=== PATIENT | male | born 1950 | race Caucasian/White ===

== ENCOUNTER 2020-05-29 21:59 | Inpatient (IN) | payer OTHER, SELFPAY ==
[2020-05-29 22:03] VITALS: BP 119/72; PULSE 93; RESP 18; TEMP 36.7; O2SAT 97; BMI 34.3
--- NOTE | 2020-05-29 22:20 | XRR_ITS ---
PROCEDURE INFORMATION: Exam: XR Chest, 1 View Exam date and time: 05/29/2020 10:31 PM Age: 69 years old Clinical indication: Chest pain. Seizure TECHNIQUE: Imaging protocol: XR of the chest Views: 1 view. COMPARISON: CR Chest 1 [place] [id number] 10/11/2019 6:56 PM FINDINGS: Lungs: There is bilateral bronchial wall thickening and haziness. Ill-defined airspace disease in the right lung base. Mass-like opacity projecting over the right hilum. Pleural space: No pleural effusion or pneumothorax. Heart/Mediastinum: The cardiac silhouette is not enlarged. The mediastinal contours are normal. Bones/joints: Postoperative and degenerative changes in the left shoulder. XR/XR chest 1V portable [id number] IMPRESSION: 1. Asymmetric airspace disease with a bronchial and parenchymal component. This may be due to a pneumonitis or pulmonary edema. 2. Recommend CT CHEST with IV contrast to rule out right hilar adenopathy or juxtahilar mass.
--- NOTE | 2020-05-29 22:21 | ED_ITS ---
HPI - Altered Mental Status General: Chief Complaint: Altered Mental Status Stated Complaint: SEIZURE Time Seen by Provider: 05/29/20 22:08 Source: family and EMS Mode of arrival: EMS Limitations: altered mental status History of Present Illness: HPI narrative: Patient is a 69-year-old who presents today via EMS along with his [id number] for complaints of altered mental status. [id number] states over the past week they have noticed increased lethargy, confusion, altered mental status. They were seen at another facility recently and diagnosed with a UTI and placed on antibiotics in which the daughter does not remember the name of. Upon arrival patient does not answer the majority of my questions. He can tell me his name is Robert but does not answer any further questioning. He is able to follow commands and will look at me when I ask him to and raise his legs and arms off the table. Granddaughter states there was some concern for seizure-like activity. He does have a history of epilepsy that he treats with Keppra. When asked what type of seizures patient has, the daughter tells me that he often will twitch and shake in his sleep. He has a history of COPD not requiring oxygen. Patient is an everyday smoker. Patient was hypoxic upon arrival with respiratory retractions. Patient has hx of HTN, DM, epilepsy, chronic pain, and CHF. He has not had fevers. MD complaint: altered mental status Onset (ago): day(s) Timing confirmed by: family member Consistency of symptoms: Getting Worse Review of Systems General: Reports: ROS unobtainable due to mental status Physical Exam Const: COMMON NORMALS: alert (but drowsy) GENERAL APPEARANCE: cooperative and disheveled NUTRITIONAL APPEARANCE: obese ORIENTATION/CONSCIOUSNESS: Yes awake and Yes oriented to person (can tell me his name is Robert) HENMT: COMMON NORMALS: normocephalic and atraumatic HEAD & SCALP: normocephalic and atraumatic Resp: EFFORT & INSPECTION: Yes respiratory distress, Yes labored and Yes uses accessory muscles AUSCULTATION: rhonchi throughout Cardio: COMMON NORMALS: regular rate and regular rhythm RATE: regular rate RHYTHM: regular rhythm GI: COMMON NORMALS: Soft to palpation INSPECTION: Yes normal to inspection AUSCULTATION: Yes normoactive bowel sounds PALPATION: Yes Soft to palpation Extremity: COMMON NORMALS: normal to inspection GENERAL: Yes normal exam except as noted Neuro: NATE COMA SCALE: document GCS findings Nate coma scale eye opening: To sound Nate coma scale verbal response: Words [place] coma scale motor response: Obey commands Nate coma scale total score: 12 COMMON NORMALS: no focal motor deficits SENSORIUM/ORIENTATION: Yes alert (but drowsy) and Yes oriented to person (can tell me his name is Robert) GAIT: Yes Unable to assess gait OTHER: patient was able to hold extremities off table when asked; he was able to smile when asked and I did not appreciate any facial drooping; did not follow commands for remainder of cranial nerve testing Course Consultations: Consultation #1: Dr. Roth?accepts patient; recommends CSU/will be negative pressure room since we are COVID testing Vital Signs: Vital signs: Vital Signs Temperature 98.1 F 05/29/20 22:03 Pulse Rate 83 05/30/20 02:20 Respiratory Rate 20 H 05/30/20 00:50 Blood Pressure 137/90 05/29/20 23:34 Pulse Oximetry 96 05/30/20 02:20 MDM - Altered Mental Status MDM Narrative: Medical decision making narrative: Patient arrives with a complaint of altered mental status. On arrival he seems to be in respiratory distress with retractions, hypoxia, and tachypnea. Patient satting at 86% on room air. He normally does not wear oxygen at home. Patient responded well to 3L O2. Chest x-ray concerning for possible viral pneumonia although could be pulmonary congestion. BNP is elevated at roughly 2200. I have no previous comparisons. He does have a history of CHF. Clinically he appears fluid overloaded. Initial troponin is 47 with a negative delta. EKG without ischemic changes. ABG shows patient is acidotic with a pH of 7.319. His PCO2 is 71.7. Patient most likely will need tested for COVID. I have spoken to Dr. Roth about placing patient on BiPAP due to COVID testing. He recommended going ahead and placing patient on this due to respiratory failure with hypercapnia and altered mental. Patient was also given IV Lasix. Will cover for pneumonia with Zosyn and Levaquin per Dr. Roth. Repeat ABG after 30 mins of bipap showing PCO2 now at 56 with a normal pH. Lab Data: Labs: Lab Results 05/29/20 05/29/20 05/29/20 Range/Units 00:20 22:21 23:20 WBC 12.9 H (4.0-10.0) 10^3/ uL RBC 4.17 (4.1-5.3) 10^6/u L Hgb 14.1 (11.7-16.6) g/dL Hct 43.5 (42.0-52.0) % MCV 104.3 H (80-94) fL MCH 33.8 (28.0-34.0) pg MCHC 32.4 (30.0-36.0) g/dL RDW 12.0 L (12.1-15.1) % Plt Count 197 (130-400) 10^3/c mm MPV 9.9 (7.4-10.4) fL Neut % (Auto) 79.4 % Lymph % (Auto) 10.9 % Kent % (Auto) 5.3 % Eos % (Auto) 3.7 % Baso % (Auto) 0.2 % Neut # (Auto) 10.23 H (1.8-7.7) 10^3/u L Lymph # (Auto) 1.4 (0.8-4.8) 10^3/u L Kent # (Auto) 0.7 (0.2-0.9) 10^3/u L Eos # (Auto) 0.5 (0.0-0.8) 10^3/u L Baso # (Auto) 0.0 (0.0-0.1) 10^3/u L Nucleated RBC % (a uto) 0 % Nucleated RBCs # 0.0 /100WBC Fibrinogen (184-529) mg/dL D-Dimer (0-0.59) ug/mIFE U Specimen Type Arterial Sample Site Radial, right ABG pH 7.32 L (7.35-7.45) ABG pCO2 71.7 H* (35-45) mmHg ABG pO2 99.0 (80.0-100.0) mmH g ABG HCO3 36.8 H (22-26) mmol/L ABG O2 Saturation 98.2 ABG Base Excess 6.9 H (-2.0-2.0) mmol/ L Newton Test N/a A-a O2 Gradient Not Reportable Hematocrit 55.1 H (42-52) % Hgb O2 Saturation 95.2 (95-100) % Carboxyhemoglobin 2.5 (0.4-20.1) %THgb Methemoglobin 0.6 (0.4-1.5) % Total Hemoglobin 18.0 (14-18) g/dL Sodium 134.0 (131-143) mmol/L Potassium 3.6 (3.5-5.0) mmol/L Glucose 105.0 (70-115) mg/dL Ionized Calcium 1.2 (1.1-1.4) mmol/L O2 Delivery Device Nc O2 Liters/Min 2.0 % FiO2 % Social Work Instructor ID [email or web address] Chloride (98-107) mmol/L Carbon Dioxide (22-29) mmol/L Anion Gap (5-19) BUN (8-23) mg/dL Creatinine (0.7-1.2) mg/dL POC Glucose 134 (70-110) mg/dL Calculated Osmolal ity (285-295) mOsm/k g Lactic Acid (0.5-2.2) mmol/L Calcium (8.5-10.5) mg/dL Magnesium (1.7-2.3) mg/dL Ferritin (30-400) ng/mL Total Bilirubin (0.15-1.2) mg/dL AST (0-40) U/L ALT (0-41) U/L Alkaline Phosphata se (40-130) IU/L Ammonia (16-60) umol/L Troponin T Baselin e (0-15) ng/L Troponin T 120 Min [place] (0-15) ng/L Delta Troponin T (0-10) ABS# C-Reactive Protein (0.0-4.9) mg/L NT-Pro-B Natriuret Pep (0-125) pg/mL Total Protein (6.6-8.7) g/dL Albumin (3.5-5.2) g/dL Globulin (1.3-4.6) g/dL Urine Color (Yellow) Urine Appearance (CLEAR) Urine pH (5-7) Ur Specific Gravit y (1.005-1.030) Urine Protein (Negative) Urine Glucose (UA) (Normal) Urine Ketones (Negative) Urine Blood (Negative) Urine Nitrate (Negative) Urine Bilirubin (NEGATIVE) Urine Urobilinogen (Negative) mg/dL Ur Leukocyte Lizzeth ase (Negative) Urine RBC (0-2) /hpf Urine WBC (0-5) /hpf Ur Squamous Epith Cells (0-5) Amorphous Sediment Urine Bacteria (NONE) Urine Opiates Scre en (Negative) ng/mL Ur Barbiturates Sc reen (Negative) ng/mL Ur Phencyclidine S crn (Negative) ng/mL Ur Amphetamines Sc reen (Negative) ng/mL U Benzodiazepines Scrn (Negative) ng/mL Urine Cocaine Scre en (Negative) ng/mL U Marijuana (THC) Screen (Negative) ng/mL Influenza Type A A g (Negative) Influenza Type B A g (Negative) 05/29/20 05/29/20 05/29/20 Range/Units 23:20 23:20 23:20 WBC (4.0-10.0) 10^3/ uL RBC (4.1-5.3) 10^6/u L Hgb (11.7-16.6) g/dL Hct (42.0-52.0) % MCV (80-94) fL MCH (28.0-34.0) pg MCHC (30.0-36.0) g/dL RDW (12.1-15.1) % Plt Count (130-400) 10^3/c mm MPV (7.4-10.4) fL Neut % (Auto) % Lymph % (Auto) % Kent % (Auto) % Eos % (Auto) % Baso % (Auto) % Neut # (Auto) (1.8-7.7) 10^3/u L Lymph # (Auto) (0.8-4.8) 10^3/u L Kent # (Auto) (0.2-0.9) 10^3/u L Eos # (Auto) (0.0-0.8) 10^3/u L Baso # (Auto) (0.0-0.1) 10^3/u L Nucleated RBC % (a uto) % Nucleated RBCs # /100WBC Fibrinogen (184-529) mg/dL D-Dimer (0-0.59) ug/mIFE U Specimen Type Sample Site ABG pH (7.35-7.45) ABG pCO2 (35-45) mmHg ABG pO2 (80.0-100.0) mmH g ABG HCO3 (22-26) mmol/L ABG O2 Saturation ABG Base Excess (-2.0-2.0) mmol/ L Newton Test A-a O2 Gradient Hematocrit (42-52) % Hgb O2 Saturation (95-100) % Carboxyhemoglobin (0.4-20.1) %THgb Methemoglobin (0.4-1.5) % Total Hemoglobin (14-18) g/dL Sodium 132 L (131-143) mmol/L Potassium 3.7 (3.5-5.0) mmol/L Glucose 129 H (70-115) mg/dL Ionized Calcium (1.1-1.4) mmol/L O2 Delivery Device O2 Liters/Min % FiO2 % Social Work Instructor ID Chloride 90 L (98-107) mmol/L Carbon Dioxide 36 H (22-29) mmol/L Anion Gap 9.7 (5-19) BUN 21 (8-23) mg/dL Creatinine 0.5 L (0.7-1.2) mg/dL POC Glucose (70-110) mg/dL Calculated Osmolal ity 272 L (285-295) mOsm/k g Lactic Acid 1.3 (0.5-2.2) mmol/L Calcium 8.4 L (8.5-10.5) mg/dL Magnesium 2.3 (1.7-2.3) mg/dL Ferritin (30-400) ng/mL Total Bilirubin 0.4 (0.15-1.2) mg/dL AST 9 (0-40) U/L ALT 10 (0-41) U/L Alkaline Phosphata se 79 (40-130) IU/L Ammonia 92 H (16-60) umol/L Troponin T Baselin e (0-15) ng/L Troponin T 120 Min [place] (0-15) ng/L Delta Troponin T (0-10) ABS# C-Reactive Protein (0.0-4.9) mg/L NT-Pro-B Natriuret Pep 2205 H (0-125) pg/mL Total Protein 6.5 L (6.6-8.7) g/dL Albumin 3.5 (3.5-5.2) g/dL Globulin 3.0 (1.3-4.6) g/dL Urine Color (Yellow) Urine Appearance (CLEAR) Urine pH (5-7) Ur Specific Gravit y (1.005-1.030) Urine Protein (Negative) Urine Glucose (UA) (Normal) Urine Ketones (Negative) Urine Blood (Negative) Urine Nitrate (Negative) Urine Bilirubin (NEGATIVE) Urine Urobilinogen (Negative) mg/dL Ur Leukocyte Lizzeth ase (Negative) Urine RBC (0-2) /hpf Urine WBC (0-5) /hpf Ur Squamous Epith Cells (0-5) Amorphous Sediment Urine Bacteria (NONE) Urine Opiates Scre en (Negative) ng/mL Ur Barbiturates Sc reen (Negative) ng/mL Ur Phencyclidine S crn (Negative) ng/mL Ur Amphetamines Sc reen (Negative) ng/mL U Benzodiazepines Scrn (Negative) ng/mL Urine Cocaine Scre en (Negative) ng/mL U Marijuana (THC) Screen (Negative) ng/mL Influenza Type A A g (Negative) Influenza Type B A g (Negative) 05/29/20 05/29/20 05/29/20 Range/Units 23:20 23:30 23:30 WBC (4.0-10.0) 10^3/ uL RBC (4.1-5.3) 10^6/u L Hgb (11.7-16.6) g/dL Hct (42.0-52.0) % MCV (80-94) fL MCH (28.0-34.0) pg MCHC (30.0-36.0) g/dL RDW (12.1-15.1) % Plt Count (130-400) 10^3/c mm MPV (7.4-10.4) fL Neut % (Auto) % Lymph % (Auto) % Kent % (Auto) % Eos % (Auto) % Baso % (Auto) % Neut # (Auto) (1.8-7.7) 10^3/u L Lymph # (Auto) (0.8-4.8) 10^3/u L Kent # (Auto) (0.2-0.9) 10^3/u L Eos # (Auto) (0.0-0.8) 10^3/u L Baso # (Auto) (0.0-0.1) 10^3/u L Nucleated RBC % (a uto) % Nucleated RBCs # /100WBC Fibrinogen (184-529) mg/dL D-Dimer (0-0.59) ug/mIFE U Specimen Type Sample Site ABG pH (7.35-7.45) ABG pCO2 (35-45) mmHg ABG pO2 (80.0-100.0) mmH g ABG HCO3 (22-26) mmol/L ABG O2 Saturation ABG Base Excess (-2.0-2.0) mmol/ L Newton Test A-a O2 Gradient Hematocrit (42-52) % Hgb O2 Saturation (95-100) % Carboxyhemoglobin (0.4-20.1) %THgb Methemoglobin (0.4-1.5) % Total Hemoglobin (14-18) g/dL Sodium (131-143) mmol/L Potassium (3.5-5.0) mmol/L Glucose (70-115) mg/dL Ionized Calcium (1.1-1.4) mmol/L O2 Delivery Device O2 Liters/Min % FiO2 % Social Work Instructor ID Chloride (98-107) mmol/L Carbon Dioxide (22-29) mmol/L Anion Gap (5-19) BUN (8-23) mg/dL Creatinine (0.7-1.2) mg/dL POC Glucose (70-110) mg/dL Calculated Osmolal ity (285-295) mOsm/k g Lactic Acid (0.5-2.2) mmol/L Calcium (8.5-10.5) mg/dL Magnesium (1.7-2.3) mg/dL Ferritin (30-400) ng/mL Total Bilirubin (0.15-1.2) mg/dL AST (0-40) U/L ALT (0-41) U/L Alkaline Phosphata se (40-130) IU/L Ammonia (16-60) umol/L Troponin T Baselin e 47 H (0-15) ng/L Troponin T 120 Min [place] (0-15) ng/L Delta Troponin T (0-10) ABS# C-Reactive Protein (0.0-4.9) mg/L NT-Pro-B Natriuret Pep (0-125) pg/mL Total Protein (6.6-8.7) g/dL Albumin (3.5-5.2) g/dL Globulin (1.3-4.6) g/dL Urine Color Yellow (Yellow) Urine Appearance Clear (CLEAR) Urine pH 5 (5-7) Ur Specific Gravit y 1.025 (1.005-1.030) Urine Protein Trace (Negative) Urine Glucose (UA) Norm (Normal) Urine Ketones Negative (Negative) Urine Blood Neg (Negative) Urine Nitrate Negative (Negative) Urine Bilirubin Neg (NEGATIVE) Urine Urobilinogen Norm (Negative) mg/dL Ur Leukocyte Lizzeth ase Negative (Negative) Urine RBC Rare (0-2) /hpf Urine WBC Rare (0-5) /hpf Ur Squamous Epith Cells None (0-5) Amorphous Sediment Not Reportable Urine Bacteria None (NONE) Urine Opiates Scre en Positive H (Negative) ng/mL Ur Barbiturates Sc reen Negative (Negative) ng/mL Ur Phencyclidine S crn Negative (Negative) ng/mL Ur Amphetamines Sc reen Negative (Negative) ng/mL U Benzodiazepines Scrn Negative (Negative) ng/mL Urine Cocaine Scre en Negative (Negative) ng/mL U Marijuana (THC) Screen Negative (Negative) ng/mL Influenza Type A A g (Negative) Influenza Type B A g (Negative) 05/30/20 05/30/20 05/30/20 Range/Units 00:35 00:50 00:51 WBC (4.0-10.0) 10^3/ uL RBC (4.1-5.3) 10^6/u L Hgb (11.7-16.6) g/dL Hct (42.0-52.0) % MCV (80-94) fL MCH (28.0-34.0) pg MCHC (30.0-36.0) g/dL RDW (12.1-15.1) % Plt Count (130-400) 10^3/c mm MPV (7.4-10.4) fL Neut % (Auto) % Lymph % (Auto) % Kent % (Auto) % Eos % (Auto) % Baso % (Auto) % Neut # (Auto) (1.8-7.7) 10^3/u L Lymph # (Auto) (0.8-4.8) 10^3/u L Kent # (Auto) (0.2-0.9) 10^3/u L Eos # (Auto) (0.0-0.8) 10^3/u L Baso # (Auto) (0.0-0.1) 10^3/u L Nucleated RBC % (a uto) % Nucleated RBCs # /100WBC Fibrinogen 713 H (184-529) mg/dL D-Dimer 0.69 H (0-0.59) ug/mIFE U Specimen Type Sample Site ABG pH (7.35-7.45) ABG pCO2 (35-45) mmHg ABG pO2 (80.0-100.0) mmH g ABG HCO3 (22-26) mmol/L ABG O2 Saturation ABG Base Excess (-2.0-2.0) mmol/ L Newton Test A-a O2 Gradient Hematocrit (42-52) % Hgb O2 Saturation (95-100) % Carboxyhemoglobin (0.4-20.1) %THgb Methemoglobin (0.4-1.5) % Total Hemoglobin (14-18) g/dL Sodium (131-143) mmol/L Potassium (3.5-5.0) mmol/L Glucose (70-115) mg/dL Ionized Calcium (1.1-1.4) mmol/L O2 Delivery Device O2 Liters/Min % FiO2 % Social Work Instructor ID Chloride (98-107) mmol/L Carbon Dioxide (22-29) mmol/L Anion Gap (5-19) BUN (8-23) mg/dL Creatinine (0.7-1.2) mg/dL POC Glucose (70-110) mg/dL Calculated Osmolal ity (285-295) mOsm/k g Lactic Acid (0.5-2.2) mmol/L Calcium (8.5-10.5) mg/dL Magnesium (1.7-2.3) mg/dL Ferritin (30-400) ng/mL Total Bilirubin (0.15-1.2) mg/dL AST (0-40) U/L ALT (0-41) U/L Alkaline Phosphata se (40-130) IU/L Ammonia (16-60) umol/L Troponin T Baselin e (0-15) ng/L Troponin T 120 Min [place] 41.81 H (0-15) ng/L Delta Troponin T -5.19 L (0-10) ABS# C-Reactive Protein (0.0-4.9) mg/L NT-Pro-B Natriuret Pep (0-125) pg/mL Total Protein (6.6-8.7) g/dL Albumin (3.5-5.2) g/dL Globulin (1.3-4.6) g/dL Urine Color (Yellow) Urine Appearance (CLEAR) Urine pH (5-7) Ur Specific Gravit y (1.005-1.030) Urine Protein (Negative) Urine Glucose (UA) (Normal) Urine Ketones (Negative) Urine Blood (Negative) Urine Nitrate (Negative) Urine Bilirubin (NEGATIVE) Urine Urobilinogen (Negative) mg/dL Ur Leukocyte Lizzeth ase (Negative) Urine RBC (0-2) /hpf Urine WBC (0-5) /hpf Ur Squamous Epith Cells (0-5) Amorphous Sediment Urine Bacteria (NONE) Urine Opiates Scre en (Negative) ng/mL Ur Barbiturates Sc reen (Negative) ng/mL Ur Phencyclidine S crn (Negative) ng/mL Ur Amphetamines Sc reen (Negative) ng/mL U Benzodiazepines Scrn (Negative) ng/mL Urine Cocaine Scre en (Negative) ng/mL U Marijuana (THC) Screen (Negative) ng/mL Influenza Type A A g Negative (Negative) Influenza Type B A g Negative (Negative) 05/30/20 05/30/20 Range/Units 00:54 02:50 WBC (4.0-10.0) 10^3/ uL RBC (4.1-5.3) 10^6/u L Hgb (11.7-16.6) g/dL Hct (42.0-52.0) % MCV (80-94) fL MCH (28.0-34.0) pg MCHC (30.0-36.0) g/dL RDW (12.1-15.1) % Plt Count (130-400) 10^3/c mm MPV (7.4-10.4) fL Neut % (Auto) % Lymph % (Auto) % Kent % (Auto) % Eos % (Auto) % Baso % (Auto) % Neut # (Auto) (1.8-7.7) 10^3/u L Lymph # (Auto) (0.8-4.8) 10^3/u L Kent # (Auto) (0.2-0.9) 10^3/u L Eos # (Auto) (0.0-0.8) 10^3/u L Baso # (Auto) (0.0-0.1) 10^3/u L Nucleated RBC % (a uto) % Nucleated RBCs # /100WBC Fibrinogen (184-529) mg/dL D-Dimer (0-0.59) ug/mIFE U Specimen Type Arterial Sample Site Radial, right ABG pH 7.40 (7.35-7.45) ABG pCO2 56.0 H (35-45) mmHg ABG pO2 68.2 L (80.0-100.0) mmH g ABG HCO3 34.9 H (22-26) mmol/L ABG O2 Saturation 95.6 ABG Base Excess 8.0 H (-2.0-2.0) mmol/ L Newton Test N/a A-a O2 Gradient 110.1 H Hematocrit 45.6 (42-52) % Hgb O2 Saturation 92.6 L (95-100) % Carboxyhemoglobin 2.4 (0.4-20.1) %THgb Methemoglobin 0.7 (0.4-1.5) % Total Hemoglobin 14.9 (14-18) g/dL Sodium 135.0 (131-143) mmol/L Potassium 3.5 (3.5-5.0) mmol/L Glucose 124.0 H (70-115) mg/dL Ionized Calcium 1.1 (1.1-1.4) mmol/L O2 Delivery Device Bipap O2 Liters/Min % FiO2 35.0 % Social Work Instructor ID [email or web address] Chloride (98-107) mmol/L Carbon Dioxide (22-29) mmol/L Anion Gap (5-19) BUN (8-23) mg/dL Creatinine (0.7-1.2) mg/dL POC Glucose (70-110) mg/dL Calculated Osmolal ity (285-295) mOsm/k g Lactic Acid (0.5-2.2) mmol/L Calcium (8.5-10.5) mg/dL Magnesium (1.7-2.3) mg/dL Ferritin 397 (30-400) ng/mL Total Bilirubin (0.15-1.2) mg/dL AST (0-40) U/L ALT (0-41) U/L Alkaline Phosphata se (40-130) IU/L Ammonia (16-60) umol/L Troponin T Baselin e (0-15) ng/L Troponin T 120 Min [place] (0-15) ng/L Delta Troponin T (0-10) ABS# C-Reactive Protein 132.6 H (0.0-4.9) mg/L NT-Pro-B Natriuret Pep (0-125) pg/mL Total Protein (6.6-8.7) g/dL Albumin (3.5-5.2) g/dL Globulin (1.3-4.6) g/dL Urine Color (Yellow) Urine Appearance (CLEAR) Urine pH (5-7) Ur Specific Gravit y (1.005-1.030) Urine Protein (Negative) Urine Glucose (UA) (Normal) Urine Ketones (Negative) Urine Blood (Negative) Urine Nitrate (Negative) Urine Bilirubin (NEGATIVE) Urine Urobilinogen (Negative) mg/dL Ur Leukocyte Lizzeth ase (Negative) Urine RBC (0-2) /hpf Urine WBC (0-5) /hpf Ur Squamous Epith Cells (0-5) Amorphous Sediment Urine Bacteria (NONE) Urine Opiates Scre en (Negative) ng/mL Ur Barbiturates Sc reen (Negative) ng/mL Ur Phencyclidine S crn (Negative) ng/mL Ur Amphetamines Sc reen (Negative) ng/mL U Benzodiazepines Scrn (Negative) ng/mL Urine Cocaine Scre en (Negative) ng/mL U Marijuana (THC) Screen (Negative) ng/mL Influenza Type A A g (Negative) Influenza Type B A g (Negative) Imaging Data^: CT Head: Radiologist's impression: [address] [address] [address] Scan Report Signed Patient: Robert Crisostomo Unit #: [id number] : 1950 Age/Sex: 69 / M ADM Date: 05/29/20 Loc: ER Room/Bed: Attending Dr: Ordering Provider/Ordering MD: Lizzy Aggarwal Date of Service: 05/29/20 Procedure(s): CT head wo con* [id number] Accession Number(s): [id number] Report Number: [id number] PROCEDURE INFORMATION: Exam: CT Head Without Contrast Exam date and time: 05/29/2020 10:30 PM Age: 69 years old Clinical indication: Altered mental status/memory loss; Additional info: AMS TECHNIQUE: Imaging protocol: Computed tomography of the head without contrast. Radiation optimization: All CT scans at this facility use at least one of these dose optimization techniques: automated exposure control; mA and/or kV adjustment per patient size (includes targeted exams where dose is matched to clinical indication); or iterative reconstruction. COMPARISON: CT head wo con* [id number] 04/10/2015 11:25 AM RADIATION DOSE METRICS: Total DLP (mGy-cm): 632.17 FINDINGS: Brain: Mild diffuse white matter disease likely reflecting chronic microvascular ischemic changes. Ventricles: Normal. No ventriculomegaly. Bones/joints: Unremarkable. No acute fracture. Sinuses: Visualized sinuses are unremarkable. No fluid levels. Mastoid air cells: Visualized mastoid air cells are well aerated. Soft tissues: Unremarkable. CT/CT head wo con* [id number] IMPRESSION: Negative for intracranial hemorrhage or mass effect Radiation Dose CTDIVOL = (mGy): DLP = 632.17 (mGy-cm) Dictated By: Erwin Ascencio MD Signed By: Erwin Ascencio MD Signed Date/Time: 05/29/20 1586 CXR: My impression: diffuse bilateral interstitial thickening-possible viral pneumonia or pulmonary congestion Discharge Plan Discharge Patient Disposition: Admitted As Inpatient Clinical Impression: Acute respiratory failure with hypercapnia Congestive heart failure Qualifiers: Heart failure type: unspecified Heart failure chronicity: acute on chronic Qualified Code(s): I50.9 - Heart failure, unspecified Altered mental status Qualifiers: Altered mental status type: stupor Qualified Code(s): R40.1 - Stupor Condition: Stable Referrals: [facility] [Primary Care Provider] - Coding Level of Care Code ED Logging 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
--- NOTE | 2020-05-29 22:31 | PC.NURSE ---
Blood glucose is 134, nurse and nurse practitioner informed
[2020-05-29 22:33] LABS: Glucose Point of Care 134 mg/dL (70-110)
[2020-05-29 22:34] VITALS: BP 107/79; PULSE 94; RESP 24; O2SAT 89
--- NOTE | 2020-05-29 23:15 | PC.NURSE ---
Patient swabbed for COVID-19 at this time.
[2020-05-29 23:29] LABS: Basophils % 0.2 %; Eosinophils # 0.5 10^3/uL (0.0-0.8); Eosinophils % 3.7 %; Hematocrit 43.5 % (42.0-52.0); Hemoglobin 14.1 g/dL (11.7-16.6); Lymphocytes # 1.4 10^3/uL (0.8-4.8); Lymphocytes % 10.9 %; Mean Corpuscular HGB Conc 32.4 g/dL (30.0-36.0); Mean Corpuscular Hemoglobin 33.8 pg (28.0-34.0); Mean Corpuscular Volume 104.3 fL (80-94); Mean Platelet Volume 9.9 fL (7.4-10.4); Monocytes # 0.7 10^3/uL (0.2-0.9); Monocytes % 5.3 %; Neutrophils # 10.23 10^3/uL (1.8-7.7); Neutrophils % 79.4 %; Nucleated Red Blood Cells % 0 %; Platelet Count 197 10^3/cmm (130-400); Red Blood Count 4.17 10^6/uL (4.1-5.3); White Blood Count 12.9 10^3/uL (4.0-10.0)
[2020-05-29 23:34] VITALS: BP 137/90; PULSE 95; RESP 18; O2SAT 97
[2020-05-29] MEDS: cefTRIAXone 1,000 MG in sodium chloride 0.9% (plus) 50 ML 100 MG IV (23:40)
[2020-05-29] MEDS: azithromycin 500 MG in sodium chloride 0.9% 250 ML 250 MG IV (23:40)
[2020-05-29 23:44] LABS: Lactic Sepsis W/Reflex 1.3 mmol/L (0.5-2.2)
[2020-05-29 23:45] LABS: Ammonia 92 umol/L (16-60)
[2020-05-29 23:53] LABS: Alanine Aminotransferase 10 U/L (0-41); Albumin Level 3.5 g/dL (3.5-5.2); Alkaline Phosphatase 79 IU/L (40-130); Anion Gap 9.7 (5-19); Aspartate Amino Transferase 9 U/L (0-40); Blood Urea Nitrogen 21 mg/dL (8-23); Calcium 8.4 mg/dL (8.5-10.5); Carbon Dioxide 36 mmol/L (22-29); Chloride 90 mmol/L (98-107); Glucose 129 mg/dL (65-115); Magnesium 2.3 mg/dL (1.7-2.3); NT Pro B Type Natriuretic Pept 2205 pg/mL (0-125); Osmolality Calculated 272 mOsm/kg (285-295); Potassium 3.7 mmol/L (3.5-5.1); Sodium 132 mmol/L (136-145); Total Bilirubin 0.4 mg/dL (0.15-1.2); Total Protein 6.5 g/dL (6.6-8.7)
[2020-05-30] VITALS (20 sets, daily range): BP systolic 112–160; BP diastolic 69–96; PULSE 68–101; RESP 17–25; TEMP 36.3–36.8; O2SAT 93–100
[2020-05-30 00:10] LABS: Amphetamines Screen Urine Negative (Negative); Barbiturates Screen Urine Negative (Negative); Benzodiazepines Screen Urine Negative (Negative); Cocaine Screen Urine Negative (Negative); Opiate Screen Urine Positive (Negative); PCP Screen Urine Negative (Negative); THC Screen Urine Negative (Negative)
[2020-05-30 00:13] LABS: Add Urine Microscopic? YES; Bilirubin Urine Neg (NEGATIVE); Blood Urine Neg (Negative); Glucose Urine UA Norm (Normal); Ketones Urine Negative (Negative); Leukocyte Esterase Urine Negative (Negative); Nitrate Urine Negative (Negative); Protein Urine Trace (Negative); RBC Urine RARE /hpf (0-2); Specific Gravity, Urine 1.025 (1.005-1.030); Urine Appearance Clear (CLEAR); Urine Color Yellow (Yellow); Urobilinogen Urine Norm (Negative); WBC Urine RARE /hpf (0-5); pH Urine 5 (5-7)
[2020-05-30 00:19] LABS: Troponin(5th) Baseline 47 ng/L (0-15)
--- NOTE | 2020-05-30 00:20 | ECG_ITS ---
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 Measurements Intervals [place] Rate: 93 P: 56 ID: 153 QRS: 61 QRSD: 80 T: 74 QT: 343 QTc: 429 Interpretive Statements SINUS RHYTHM Compared to ECG 01/04/2018 17:35:43 Sinus tachycardia no longer present T-wave abnormality no longer present Electronically Signed On 05-30-2020 17:03:26 CDT by Jessica Murillo M.D. [id number]
[2020-05-30 00:32] LABS: ABG PH Result 7.32 (7.35-7.45); Arterial Blood Gas Hematocrit 55.1 % (42-52); Base Excess ABG 6.9 mmol/L (-2.0-2.0); Blood Gas Sample Site Radial, right; Blood Gas Sample Type Arterial; Carboxyhemoglobin 2.5 %THgb (0.4-20.1); HCO3 ABG 36.8 mmol/L (22-26); HGB O2 Sat 95.2 % (95-100); Ionized Calcium Level - ABG 1.2 mmol/L (1.1-1.4); Methemoglobin 0.6 % (0.4-1.5); Oxygen Device NC; Oxygen Saturation ABG 98.2; Potassium Level - ABG 3.6 mmol/L (3.5-5.0)
[2020-05-30 00:33] LABS: ABG PCO2 71.7 mmHg (35-45)
--- NOTE | 2020-05-30 01:01 | PC.NURSE ---
Report given to COOPER STRANGE and is assuming patient care at this time.
[2020-05-30 01:13] LABS: Fibrinogen 713 mg/dL (184-529)
[2020-05-30 01:15] LABS: D Dimer 0.69 ug/mIFEU (0-0.59)
[2020-05-30 01:15] LABS: C Reactive Protein 132.6 mg/L (0.0-4.9); Ferritin 397 ng/mL (30-400)
[2020-05-30 01:16] LABS: Troponin 5 2HR 41.81 ng/L (0-15)
[2020-05-30 01:20] LABS: Influenza A by IFA Negative (Negative); Influenza B by IFA Negative (Negative)
[2020-05-30 01:20] LABS: Troponin 5 2HR Delta -5.19 ABS# (0-10)
--- NOTE | 2020-05-30 02:03 | PC.NURSE ---
Addendum entered by Radha Romero 05/30/20 02:07: charted wrong time on the patient. ekg done. Original Note: charted on wrong patient
[2020-05-30] MEDS: FUROsemide 10 mg/mL SDV 4mL 40 MG IVP ×3 (02:36→22:03)
[2020-05-30] MEDS: piperacillin-tazobactam 3.375 GM in sodium chloride 0.9% (plus) 50 ML IV ×3 (02:36→17:12)
[2020-05-30] MEDS: levofloxacin-dextrose 5 % 500 MG/100 ML PREMIX 100 MG IV (02:37)
[2020-05-30 03:02] LABS: Alveolar-Arterial Oxygen Gradi 110.1 mmHg (5-10); Arterial Blood Gas Hematocrit 45.6 % (42-52); Blood Gas Sample Site Radial, right; Blood Gas Sample Type Arterial; Carboxyhemoglobin 2.4 %THgb (0.4-20.1); HCO3 ABG 34.9 mmol/L (22-26); HGB O2 Sat 92.6 % (95-100); Ionized Calcium Level - ABG 1.1 mmol/L (1.1-1.4); Methemoglobin 0.7 % (0.4-1.5); Oxygen Device BIPAP; Oxygen Saturation ABG 95.6; PO2 ABG 68.2 mmHg (80.0-100.0); Potassium Level - ABG 3.5 mmol/L (3.5-5.0); Total Hemoglobin 14.9 g/dL (14-18)
--- NOTE | 2020-05-30 04:20 | ECG_ITS ---
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 Measurements Intervals [place] Rate: 90 P: 45 FL: 135 QRS: 57 QRSD: 89 T: 78 QT: 371 QTc: 456 Interpretive Statements SINUS RHYTHM MINIMAL ST DEPRESSION [0.025+ mV ST DEPRESSION] Compared to ECG 05/30/2020 01:38:13 ST (T wave) deviation now present Electronically Signed On 05-30-2020 17:01:02 CDT by Jessica Murillo M.D. [id number]
--- NOTE | 2020-05-30 07:09 | PM.HP ---
Providers/Chief Complaint Admitting Physician: Ruddy Roth Primary Care Provider: [facility] Chief Complaint: SEIZURE History of Present Illness Robert Crisostomo is a 69 year old gentleman with diabetes, COPD, HTN, CAD, living at home with his , has been noted to be progressively more lethargic, less responsive, with functional decline over the last week. Due to altered mental status his family brought him in for evaluation. He is not normally on oxygen. In ER requiring 3 L by nasal cannula. Lethargic. With hypercapnia, CO2 71 on ABG. Respiratory cytosis, pH 7.31. With diffuse noted infiltrates on chest x-ray, with pulmonary venous congestive changes, cardiomegaly. BNP elevated in the setting of normal renal function. Incidentally ammonia is noted high as well at 92, although does not have known liver cirrhosis. Family also reports some episodes that appear like seizures, when he would while sleeping tense up his legs, and developed some shaking movements/tremors lasting a short time at home. Most recently night before last. Not observed here in the hospital. He is on Keppra at home. Does not follow with a neurologist. Per discussion with his plgocsdn-vj-kim who was present in ER with him, he reportedly recently has been diagnosed with lung cancer also by [facility]. Reportedly he has not seen an oncologist yet, and bogkooxc-kc-fke states that he has been not been wanting chemotherapy. This is not confirmed by patient, as he is currently still confused. He did respond well to treatment with BiPAP, with improvement in pH and CO2, as well as per aorwyfqo-[id number]-cpi improvement in his mental status. He now is more alert, he knows he is in the hospital, knows the year is 2019. It takes him a while to think about his answers, and still does not answer every question. He himself denies any discomfort currently, says he is doing all right. He is not sure how he ended up in the hospital. Denies any chest pain or pressure. Denies any headache. Review of Systems Const: Reports: snoring and other (AMS); Denies: fever(s), chills, body aches or malaise Eyes: Denies: change in vision or eye redness ENMT: Denies: throat pain, oral sores or ear or mastoid pain Card: Denies: chest pain, edema, pre-syncope or dyspnea on exertion Resp: Reports: dyspnea; Denies: productive cough, change in phlegm color or hemoptysis GI: Denies: abdominal pain, nausea, vomiting, diarrhea, constipation, hematochezia or melena : Denies: flank pain, difficulty urinating, urinary frequency or hematuria Musc: Denies: back pain, joint swelling or joint redness Skin/Breast: Denies: rash, sores or new lesions Neuro: Reports: confusion and seizure-like activity; Denies: headache(s), numbness in extremities, weakness in extremities or dizziness Endo: Denies: polyuria or polydipsia Oh/Lymph: Denies: easy bleeding or purpura All/Imm: Denies: urticaria, throat swelling or tongue swelling Medications/Allergies Allergies Allergy/AdvReac Type Severity Reaction Status Date / Time No Known Allergies Allergy Verified 05/30/20 02:35 PFSH Acute PFSH: Medical History CAD (coronary artery disease) COPD (chronic obstructive pulmonary disease) DM type 2 (diabetes mellitus, type 2) HLD (hyperlipidemia) HTN (hypertension) Smoking addiction Surgical History H/O neck surgery H/O: knee surgery History of shoulder surgery Hx of appendectomy Family History Other Cancer Heart disease Social History Smoking and tobacco status: current every day smoker cigarettes Packs smoked per day: 1 Alcohol intake: never Substance/Drug Use: never Lives independently: Yes Household members: spouse Marital status: Current occupational status: retired Vitals/I&O/Wt Last Vital Signs Temp 98.1 F 05/29/20 22:03 Pulse 91 05/30/20 06:16 Resp 18 05/30/20 06:16 BP 135/96 05/30/20 06:16 Pulse Ox 96 05/30/20 06:16 05/29/20 05/30/20 05/30/20 22:59 06:59 14:59 Intake Total 616.667 / 616.667 Balance 616.667 / 616.667 Weight last 48 hrs Weight 90.718 kg Physical Exam Narrative: EXAM NARRATIVE: Unkempt. Const: COMMON NORMALS: no acute distress and patient oriented x3 GENERAL APPEARANCE: cooperative (but sluggish, and not responding to all commands and not consistently) ORIENTATION/CONSCIOUSNESS: Yes confused (Sluggish responses. Does not know why he is in the hospital.) OTHER: BiPAP in place. HENMT: COMMON NORMALS: oropharynx normal Neck/C-Spine: COMMON NORMALS: no JVD Resp: COMMON NORMALS: normal respiratory effort AUSCULTATION: diminished lung sounds Cardio: COMMON NORMALS: no JVD, regular rhythm, S1 normal heart sound present, S2 normal heart sound present and No murmurs present (Cardio) RHYTHM: regular rhythm HEART SOUNDS: S1 normal heart sound present and S2 normal heart sound present GI: COMMON NORMALS: Normal to inspection, nondistended, normoactive bowel sounds present, Soft to palpation and non-tender PALPATION: Yes Soft to palpation Extremity: COMMON NORMALS: no joint enlargement and no pedal edema Neuro: COMMON NORMALS: patient oriented x3 and moves all extremities Skin: COMMON NORMALS: no rashes or lesions noted GENERAL SKIN EXAM: no rashes or lesions noted OTHER: Some scratches and excoriations noted on bilateral lower extremities. Very long toenails. Urinary Catheter Management^: Shirley: Cath Placed During This Visit: yes Reason for Continuing Indwelling Catheter: Accurate Measurement of Urinary Output in Critically Ill Patients Urinary Catheter Date of Insertion: 05/30/20 Urinary Catheter Time of Insertion: 00:02 Data : 05/29/20 23:20 05/29/20 23:20 Micro: Microbiology 05/29/20 23:21 Blood Culture - Preliminary Blood SPECIMEN COLLECTED 05/29/20 23:20 Blood Culture - Preliminary Blood SPECIMEN COLLECTED A&P Assessment and plan (1) Acute encephalopathy: Acute toxic metabolic encephalopathy. Worsening over the past week, less responsive at home. Here with acute hypercapnic and hypoxic respiratory failure. Likely contribution from CO2 narcosis. He is a current smoker unfortunately still smoking 1 pack/day. Reportedly recently also may have been diagnosed with lung cancer. CT of the head with microvascular changes. No obvious metastatic disease. Family noted perhaps seizure-like activity the night before last. Not observed here in the hospital. Appears also CHF. His medication list is also unavailable currently, and will need to be reconciled. Mental status has improved, although is not back to baseline. Noted improvement with BiPAP, as well as improved pH and PCO2. Continue BiPAP support for now. Treat COPD as per patient. We will assess EEG. Discussed with family once he is safely able to get this done would benefit from MRI of the brain. Continue Keppra at this time. Exact dosing will need to be ascertained. Status: Acute (2) Acute respiratory failure with hypercapnia: Secondary to COPD exacerbation, CHF. Possible pneumonia. Continue BiPAP support. Treatment for COPD. Diuretics. Antibiotics for possible pneumonia. Assess with rapid flu, COVID-19 testing. Status: Acute (3) COPD exacerbation: With improvement in ABG w BiPAP. Cont support for now. IV steroid. Antibiotics as for possible pneumonia with Levaquin and Zosyn for now. Breathing treatments. Status: Acute (4) Congestive heart failure: Assess TTE. Lasix. Complete troponin EKG series. Status: Acute Qualifiers: Heart failure chronicity: acute on chronic Heart failure type: unspecified Qualified Code(s): I50.9 - Heart failure, unspecified (5) HTN (hypertension): Monitor blood pressures. Medications need to be reconciled. Status: Acute (6) HLD (hyperlipidemia): Medications will need to be reconciled, resumed. If not on statin consider assessment by FLP. Status: Acute (7) DM type 2 (diabetes mellitus, type 2): Reportedly on oral hypoglycemic. At this time consistent carbohydrate diet. Sliding scale insulin. Check A1c. Status: Acute (8) Hyperammonemia: Ammonia elevated at 92. Unclear significance. No known history of cirrhosis. Will request INR. Other laboratory parameters do not seem to suggest liver cirrhosis. Consider additional work-up if mental status changes and hyperammonemia persistent. Status: Acute (9) Lung cancer: The history of this is unclear. Per [id number]-ese appears she may have been diagnosed with lung cancer by his [facility]. He does not appear he is seen a oncologist yet. She states he has been reluctant to go for any therapy. Staging is unknown at this time. Would try to obtain records from [place], and hopefully once patient's mental status is improved he may be able to tell more. Status: Acute (10) Smoking addiction: Encourage cessation. Discussed with her as liqfspny-[id number]. She has been trying to discourage him from smoking, however, he still smokes 1 pack/day. Status: Acute Additional A&P Information Possible pneumonia: With scattered infiltrates in both lungs. Suspect this is more likely secondary to pulmonary edema/CHF. However, with leukocytosis, respiratory failure, pneumonia cannot be excluded. At this time antibiotic coverage with Levaquin, Zosyn. No recent hospitalization that is known. Also assessment for COVID-19, although given lack of other features this is probably less likely. Attestations Medical Necessity Statement*: Admission of over 2 midnights is going to needed for assessment management of acute encephalopathy, respiratory failure, COPD distribution, CHF, possible pneumonia. Coding Level of Care Code Acute Sales And Support Center Agent for [facility] Fwd Exam Comprehensive Diagnoses Acute encephalopathy G93.40 Acute respiratory failure with hypercapnia J96.02 COPD exacerbation J44.1 Congestive heart failure I50.9 Heart failure chronicity: acute on chronic Heart failure type: unspecified HTN (hypertension) I10 HLD (hyperlipidemia) E78.5 DM type 2 (diabetes mellitus, type 2) E11.9 Hyperammonemia E72.20 Lung cancer C34.90 Smoking addiction F17.200
--- NOTE | 2020-05-30 07:10 | PC.NURSE ---
Daughter in law in room but wants/needs to leave. Pt resting in bed with BiPap in place. Under Covid precautions. Offered a drink of water. Disoriented to surrounding but knows family.
--- NOTE | 2020-05-30 09:27 | PC.NURSE ---
Lab drawn for day shift
--- NOTE | 2020-05-30 09:36 | PC.CHAP ---
Pastoral Care Encounter/Spiritual Assessment Type of Contact [] Declined hot kettle tender visit [] Patient/Family/Request visit [] Outpatient visit [] Follow-up visit [] Physician referral [] Code/Alert [x] Routine visit [] Staff referral [] Actively dying [] Patient sleeping [] Family support [] [] Out of room [] Palliative care [] [] Receiving care in room [] Pre-surgical visit [] Trauma [] Long length of stay [] ICU visit [x] Other: patient not in room- bed made and cleaned... moved ? Relational/Emotional Strength [] Patient feels connected with others/family/visitors/staff [] Distress [] Loneliness/isolation [] Abandonment Spirituality of Patient [] Person of Bianca [] Attends Judaism of their Bianca [] Believes in Prayer [] Reads Bible or Nondenominational materials [] There are Spiritual issues to be addressed [place]er Interventions [] Prayer [] Active listening [] Non-anxious presence [] Spiritual/emotional support [] Crisis/trauma care [] Spiritual counseling [] Bereavement support [] Provided bereavement packet [] Provided Bible/devotional materials [] Provided toy/stuffed animal, coloring book to patient or family member [] Provided Communion [] Anointing/[place] [] Salvation [x] Completed spiritual assessment [] Other: Impact on Illness or Injury [] Angry [] Fearful [] Anxious [] Often cries [] Exhaustion [] Unable to work [] Unable to attend evangelical [] Unable to walk/stand [] Unable to read [] Unable to drive [] Unable to eat/drink [] Unable to sleep [] Unable to be with family [] Patient intubated [] Other: Summary Time spent with patient
[2020-05-30 09:37] LABS: INR 0.95 (0.8-1.2)
[2020-05-30 09:47] LABS: Troponin 5 6HR 34.11 ng/L (0-15)
[2020-05-30 09:50] LABS: Estmated Average Glucose 126
[2020-05-30 09:56] LABS: Troponin 5 6HR Delta -12.9 ng/L (0-12)
--- NOTE | 2020-05-30 11:12 | PM.PN ---
Subjective Subjective: Interval history: no acute events overnight, ABG much improved on Bipap, pending COVID testing Medications: Reviewed: Yes Vitals/I&O/Wt Last Vital Signs Temp 98.3 F 05/30/20 10:02 Pulse 86 05/30/20 10:02 Resp 22 H 05/30/20 10:02 BP 153/88 05/30/20 10:02 Pulse Ox 99 05/30/20 10:02 05/29/20 05/30/20 05/30/20 22:59 06:59 14:59 Intake Total 616.667 / 616.667 Balance 616.667 / 616.667 Weight last 48 hrs Weight 90.718 kg Physical Exam Urinary Catheter Management^: Shirley: Cath Placed During This Visit: yes Reason for Continuing Indwelling Catheter: Accurate Measurement of Urinary Output in Critically Ill Patients Urinary Catheter Date of Insertion: 05/30/20 Urinary Catheter Time of Insertion: 00:02 Data : 05/29/20 23:20 05/29/20 23:20 Micro: Microbiology 05/29/20 23:21 Blood Culture - Preliminary Blood SPECIMEN COLLECTED 05/29/20 23:20 Blood Culture - Preliminary Blood SPECIMEN COLLECTED A&P Assessment and plan (1) Acute encephalopathy: Acute toxic metabolic encephalopathy from hypercapnea. Worsening over the past week, less responsive at home. Here with acute hypercapnic and hypoxic respiratory failure. CT of the head without acute changes, with only chronic microvascular changes. No obvious metastatic disease, suspicion for lung malignancy as an outpatient. Family noted perhaps seizure-like activity the night before last. Not observed here in the hospital. Keppra level pending Appears also to have CHF, currently on lasix 40mg IVP q12h. urine output from ER has not been charted. Since coming up to floor Mental status has improved, although is not back to baseline. Noted improvement with BiPAP, as well as improved pH and PCO2. Continue BiPAP support for now. Treat COPD as per patient. We will assess EEG. Discussed with family once he is safely able to get this done would benefit from MRI of the brain. Continue Keppra at this time. Exact dosing will need to be ascertained. Status: Acute (2) Acute respiratory failure with hypercapnia: Secondary to COPD exacerbation, CHF. Possible pneumonia. Continue BiPAP support. Treatment for COPD. Diuretics. Antibiotics for possible pneumonia. Assess with rapid flu, COVID-19 testing. Status: Acute (3) COPD exacerbation: With improvement in ABG w BiPAP. Cont support for now. IV steroid. Antibiotics as for possible pneumonia with Levaquin and Zosyn for now. Breathing treatments. Status: Acute (4) Congestive heart failure: Assess TTE. Lasix. Complete troponin EKG series. Status: Acute Qualifiers: Heart failure chronicity: acute on chronic Heart failure type: unspecified Qualified Code(s): I50.9 - Heart failure, unspecified (5) HTN (hypertension): Monitor blood pressures. Status: Acute (6) HLD (hyperlipidemia): Medications will need to be reconciled, resumed. If not on statin consider assessment by FLP. Status: Acute (7) DM type 2 (diabetes mellitus, type 2): Reportedly on oral hypoglycemic. At this time consistent carbohydrate diet. Sliding scale insulin. Check A1c. Status: Acute (8) Hyperammonemia: Ammonia elevated at 92. Unclear significance. No known history of cirrhosis. Will request INR. Other laboratory parameters do not seem to suggest liver cirrhosis. Status: Acute (9) Lung cancer: The history of this is unclear. Per [id number]-eh-dbm appears she may have been diagnosed with lung cancer by [facility]. He does not appear he is seen a oncologist yet. CTA chest today to r/o PE and evaluate for malignancy. Status: Acute (10) Smoking addiction: Status: Acute Additional A&P Information Possible pneumonia: With scattered infiltrates in both lungs. Suspect this is more likely secondary to pulmonary edema/CHF. However, with leukocytosis, respiratory failure, pneumonia cannot be excluded. At this time antibiotic coverage with Levaquin, Zosyn. No recent hospitalization that is known. Also assessment for COVID-19, although given lack of other features this is probably less likely. Attestations Medical Necessity Statement*: needs ongoing admission for optimization of respiratory status Coding Level of Care Code Acute Human Resources Services Specialist for [facility] Fwiftikhar Diagnoses Acute encephalopathy G93.40 Acute respiratory failure with hypercapnia J96.02 COPD exacerbation J44.1 Congestive heart failure I50.9 Heart failure chronicity: acute on chronic Heart failure type: unspecified HTN (hypertension) I10 HLD (hyperlipidemia) E78.5 DM type 2 (diabetes mellitus, type 2) E11.9 Hyperammonemia E72.20 Lung cancer C34.90 Smoking addiction F17.200
[2020-05-30] MEDS: levETIRAcetam 500 mg Tablet 750 MG PO ×2 (11:40→18:20)
--- NOTE | 2020-05-30 12:32 | PC.RESP ---
Smoking Cessation and Pulmonary Rehab information sent to patient with a schedule of classes.
[2020-05-30] MEDS: ipratropium-albuterol 3 mL Neb INHALATION ×2 (14:18→21:02)
--- NOTE | 2020-05-30 19:21 | PC.NURSE ---
Password: [id number]
--- NOTE | 2020-05-30 20:17 | PC.NURSE ---
Rounding: Patient resting in bed, Patient answered orientation questions appropriately at this time. Covid precautions at in place at this time. Patient denies any pain or needs at this time. Instructed how to use call light. Side rails up x2 and bed in low postion. Will continue to monitor.
[2020-05-31] VITALS (13 sets, daily range): BP systolic 123–138; BP diastolic 62–86; PULSE 76–93; RESP 16–25; TEMP 36.5–36.8; O2SAT 91–95
[2020-05-31] MEDS: levofloxacin-dextrose 5 % 750 MG/150 ML PREMIX 100 MG IV (01:44)
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
[2020-05-31] MEDS: piperacillin-tazobactam 3.375 GM in sodium chloride 0.9% (plus) 50 ML IV ×3 (03:18→20:08)
--- NOTE | 2020-05-31 03:34 | PC.NURSE ---
Patient placed on bipap on for 5 mins unable to tolerate mask on face. Nasal cannula placed on his face at 2L. O2 saturation 93%.
[2020-05-31] MEDS: ipratropium-albuterol 3 mL Neb INHALATION ×4 (03:50→21:17)
--- NOTE | 2020-05-31 04:00 | PC.NURSE ---
Dr. Roth Gave verbal order for 2mg of Morphine IVP Q4HR for pain. Read back verbal order.
[2020-05-31] MEDS: morphine 4 mg/mL SDV 1 mL 2 MG IVP (04:05)
--- NOTE | 2020-05-31 04:24 | PC.NURSE ---
Patient given pain medicine as requested and patient happier. Morning Labs drawn for lab Patient tolerated well. Patient wanted to stay resting on his back. Patient call light in his hand. WIll continue to monitor.
[2020-05-31 04:45] LABS: Basophils % 0.1 %; Eosinophils % 0.3 %; Hematocrit 39.8 % (42.0-52.0); Hemoglobin 13.8 g/dL (11.7-16.6); Lymphocytes # 0.8 10^3/uL (0.8-4.8); Lymphocytes % 7.9 %; Mean Corpuscular HGB Conc 34.7 g/dL (30.0-36.0); Mean Corpuscular Hemoglobin 33.9 pg (28.0-34.0); Mean Corpuscular Volume 97.8 fL (80-94); Mean Platelet Volume 9.9 fL (7.4-10.4); Monocytes # 0.1 10^3/uL (0.2-0.9); Monocytes % 1.4 %; Neutrophils # 8.63 10^3/uL (1.8-7.7); Neutrophils % 89.3 %; Nucleated Red Blood Cells % 0 %; Platelet Count 249 10^3/cmm (130-400); Red Blood Count 4.07 10^6/uL (4.1-5.3); Red Cell Distribution Width 11.8 % (12.1-15.1); White Blood Count 9.7 10^3/uL (4.0-10.0)
[2020-05-31 05:13] LABS: Anion Gap 16.7 (5-19); Blood Urea Nitrogen 19 mg/dL (8-23); Calcium 8.7 mg/dL (8.5-10.5); Carbon Dioxide 33 mmol/L (22-29); Chloride 82 mmol/L (98-107); Glucose 205 mg/dL (65-115); Osmolality Calculated 270 mOsm/kg (285-295); Sodium 129 mmol/L (136-145)
[2020-05-31 05:24] LABS: Potassium 2.7 mmol/L (3.5-5.1)
--- NOTE | 2020-05-31 05:54 | PC.NURSE ---
End of shift: Patient has had done better since given morphine. Will pass along that he is requesting his eye drops. Patient using call light to voice his needs. Patient knows where he is, the year and the president. Patient did not tolerate bipap well. It was attempted 3 times and only lasted a couple minutes each time. Will continue to monitor.
[2020-05-31] MEDS: potassium chloride premix 40 MEQ/100 ML PREMIX 25 MEQ IV (06:53)
[2020-05-31] MEDS: lidocaine 1% INJ 20 mL 5 ML IV (06:53)
--- NOTE | 2020-05-31 09:04 | USCV_ITS ---
Fabianokaylyn Robert Age: 69 Gender: M : 1950 Exam Date: 05/31/2020 15:19 Ordering Phys: Ruddy Roth MD Technologist: Tika Calix Exam Location: [facility] – [place] Indication: CHF BP: 138 / 86 HR: 87 Rhythm: Sinus Technical Quality: Very technically difficult study MEASUREMENTS (Male / Female) Normal Values 2D ECHO LV Diastolic Diameter PLAX 3.1 cm 4.2 - 5.9 / 3.9 - 5.3 cm LV Systolic Diameter PLAX 1.5 cm IVS Diastolic Thickness 1.3 cm 0.6 - 1.0 / 0.6 - 0.9 cm IVS Systolic Thickness 1.9 cm LVPW Diastolic Thickness 1.3 cm 0.6 - 1.0 / 0.6 - 0.9 cm LVPW Systolic Thickness 1.7 cm LVOT Diameter 1.9 cm LV Ejection Fraction 2D Teich 85.4 % LA Diameter 2.0 cm LA Width 2.3 cm LA Height 3.9 cm RA Width 1.7 cm RA Height 3.4 cm M-MODE LV Diastolic Diameter MM 4.9 cm 4.2 - 5.9 / 3.9 - 5.3 cm LV Systolic Diameter MM 3.2 cm LV Ejection Fraction MM Teich 63.8 % IVS Diastolic Thickness MM 0.9 cm 0.6 - 1.0 / 0.6 - 0.9 cm IVS Systolic Thickness MM 1.0 cm LVPW Diastolic Thickness MM 1.2 cm 0.6 - 1.0 / 0.6 - 0.9 cm LVPW Systolic Thickness MM 1.2 cm RV Diastolic Diameter MM 1.3 cm Aortic Annulus Diameter 3.1 cm LA Ao Ratio MM 0.7 MV E Point Septal Separation 0.5 cm DOPPLER AV Peak Velocity 113.0 cm/s LVOT Peak Velocity 99.0 cm/s AV Area Cont Eq vti 2.8 cm squared AV Area Cont Eq pk 2.5 cm squared MV Area PHT 3.1 cm squared Mitral E to A Ratio 0.9 MV E' Velocity 7.0 cm/s Mitral E to MV E' Ratio 9.9 Mitral E to LV E' Lateral Ratio 10.5 Mitral E to LV E' Septal Ratio 9.5 TV Peak E Velocity 22.0 cm/s Right Atrial Pressure 3.0 mmHg FINDINGS Left Ventricle Normal left ventricular size and systolic function, EF 60%.no regional wall motion abnormalities. Grade I/IV diastolic dysfunction (abnormal relaxation filling pattern), normal to mildly elevated filling pressures. Mild left ventricular hypertrophy. Right Ventricle The right ventricle is normal in size and function. Right Atrium The right atrium is normal in size. Left Atrium The left atrium is normal in size. Mitral Valve Thickened mitral valve. Aortic Valve Thickened aortic valve. Tricuspid Valve Tricuspid valve not well visualized. Pulmonic Valve Pulmonic valve not well visualized. Pericardium Normal pericardium without effusion. Aorta Normal ascending aorta dimension. CONCLUSIONS Normal left ventricular size and systolic function, EF 60%.no regional wall motion abnormalities. Grade I/IV diastolic dysfunction (abnormal relaxation filling pattern), normal to mildly elevated filling pressures. Mild left ventricular hypertrophy. Thickened aortic and mitral valves. There is no pericardial effusion. Technically difficult study because of the poor ultrasonic window. No previous study is available for comparison. Dr Toshia Bedoya MD FACC (Electronically Signed) Final Date: 31 May 2020 23:47 S
--- NOTE | 2020-05-31 09:12 | PC.NURSE ---
PATIENT HAS BEEN OBSERVED YELLING IN ROOM INSTEAD OF USING CALL LIGHT ; PATIENT HAS BEEN EDUCATED OF THE NEED TO USE CALL LIGHT INSTEAD OF YELLING ; PATIENT VERBALIZED UNDERSTANDING
--- NOTE | 2020-05-31 10:19 | P.PN_ITS ---
Subjective Subjective: Interval history: More awake and alert today. He is able to call out very loudly for help. He does acknowledge that yelling is not appropriate, makes appropriate conversation. Less lethargic today. Per review of overnight notes, patient did not tolerate BiPAP very well. It was attempted 3 times and only lasted a couple of minutes each time. Complains of generalized back pain overnight. This is much improved after morphine 2 mg. Currently on 2.5 L/min nasal cannula with O2 sat at 92%. COVID-19 testing resulted negative this morning. Will do for CTA today. Keppra dose was increased overnight in keeping with his home dosing. remained afebrile. Urine output at 2.5 L. Net -2.3 L over last 24 hours. Creatinine stable at 0.7. 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 Worsening over the past week, less responsive at home. Here with acute hypercapnic and hypoxic respiratory failure. CT of the head without acute changes, with only chronic microvascular changes. No obvious metastatic disease, suspicion for lung malignancy as an outpatient. Family noted perhaps seizure-like activity the night beforeadmission. Not observed here in the hospital. Keppra level pending Appears also to have CHF, currently on lasix 40mg IVP q12h. good urine output, net negative 2.3L, reduce to 40mg iv qd Echocardiogram pending Mental status has improved. Noted improvement with BiPAP, as well as improved pH and PCO2, however not tolerating now that more awake Continue Keppra at this time. dose increased to 100mg BID Status: Acute (2) Acute respiratory failure with hypercapnia: Secondary to COPD exacerbation, CHF. Possible pneumonia, may be post obstructive if underlying malignancy. Reduce steroids to 60mg iv q12h today Antibiotics for possible pneumonia. D/c levaquin, continue zosyn for now while pending CTA results and better imaging to asceratin mass vs PNA rapid flu, COVID-19 testing negative Status: Acute (3) COPD exacerbation: With improvement in ABG w BiPAP. Refusing further IV steroid, reduce to 60mg iv q12h from q6h Antibiotics as for possible pneumonia Continue zosyn, d/c levaquin Status: Acute (4) Congestive heart failure: Assess TTE. Lasix reduce to 40mg iv daily Troponin trend not concerning for ACS Daily weight, I & O Status: Acute Qualifiers: Heart failure chronicity: acute on chronic Heart failure type: unspecified Qualified Code(s): I50.9 - Heart failure, unspecified (5) HTN (hypertension): Monitor blood pressures, currently well controlled Status: Acute (6) HLD (hyperlipidemia): Reported allergy to statin Status: Acute (7) DM type 2 (diabetes mellitus, type 2): Reportedly on oral hypoglycemic. At this time consistent carbohydrate diet. A1c not c/w DM Status: Acute (8) Hyperammonemia: Ammonia elevated at 92. Unclear significance. No known history of cirrhosis. INR WNL. Other laboratory parameters do not seem to suggest liver cirrhosis. Status: Acute (9) Lung cancer: The history of this is unclear. Per zvgggoor-la-[id number] appears she may have been diagnosed with [facility]. He does not appear he is seen a oncologist yet. CTA chest today to r/o PE and evaluate for malignancy. Status: Acute (10) Smoking addiction: Status: Acute (11) Hypokalemia: Status: Acute Additional A&P Information Possible pneumonia: With scattered infiltrates in both lungs. Suspect this is more likely secondary to pulmonary edema/CHF. However, with leukocytosis, respiratory failure, pneumonia cannot be excluded. At this time antibiotic coverage with Zosyn. Attestations Medical Necessity Statement*: needs optimization of respiratory status, medication adjustments, CTA Coding Level of Care Code Acute Open Claims Representative for [facility] Fwd Diagnoses Acute encephalopathy G93.40 Acute respiratory failure with hypercapnia J96.02 COPD exacerbation J44.1 Congestive heart failure I50.9 Heart failure chronicity: acute on chronic Heart failure type: unspecified HTN (hypertension) I10 HLD (hyperlipidemia) E78.5 DM type 2 (diabetes mellitus, type 2) E11.9 Hyperammonemia E72.20 Lung cancer C34.90 Smoking addiction F17.200 Hypokalemia E87.6
--- NOTE | 2020-05-31 11:10 | CT_ITS ---
WS: [id number] CTA OF THE CHEST WITH PULMONARY EMBOLISM PROTOCOL TECHNIQUE: High-resolution contrast enhanced CTA of the chest with coronal and sagittal reformatted i mages with pulmonary embolism protocol. MIP images are also reviewed. CLINICAL INFORMATION: evaluate for PE, possible mass on CXR COMPARISON: None. DLP: 546.[address] scans at [facility] use at least one of these dose optimization techniques: automat ed exposure control; mA and/or kV adjustment per patient size (includes targeted exams where dose is matched to clinical indication); or iterative reconstruction. FINDINGS: Proximal main pulmonary arteries are normal segmental pulmonary arteries are normal. Distal subsegmen viral pulmonary arteries are somewhat degraded by breathing artifact with poor filling distally in the right lung. Distal subsegmental tiny emboli not excluded in the right lung. No evidence of pulmonary embolus in the left lung Normal caliber thoracic aorta. Enlarged right hilar lymph nodes measuring 1.4 CM. Normal left hilar lymph nodes. Peribronchial thickening involving the right middle lobe and right lower lobe bronchus. Advanced chronic emphysematous changes. Small patchy groundglass nodular opacities about the right hilum, right middle lobe and right lower l obe medially in a perivascular distribution. Some of these demonstrate a small amount of central cavi tation suspicious for septic emboli. Additional considerations include infectious or inflammatory dari ologies including atypical pneumonia including fungal. No infiltrates or opacities in the left lung. No pleural fluid. CT/CT angio chest PE protcl [id number] IMPRESSION: 1. Distal subsegmental pulmonary arteries right lung demonstrate poor filling and tiny distal emboli not excluded. No proximal main pulmonary artery or subse gmental emboli. Normal pulmonary arteries left lung. 2. Enlarged right hilar lymph nodes measuring 1.4 cm with multiple small hazy nodular opacities throughout the right lung mainly in a perivascular distributi on. A few of these demonstrate central cavitation suspicious for septic emboli. Additional differential considerations described above. 3. Left lung is well aerated. 4. Adrenal glands are normal. 5. Cholelithiasis. 6. Small esophageal hiatal hernia.
[2020-05-31 11:13] LABS: Procalcitonin 0.23 ng/mL (0-0.5)
--- NOTE | 2020-05-31 12:04 | PC.NURSE ---
PATIENT DIL CALLED TO CONFIRM THAT SHE WOULD BE COMING TO VISIT PATIENT DURING VISITING HOURS ; PATIENT NOTIFIED
[2020-05-31] MEDS: levETIRAcetam 500 mg Tablet 1000 MG PO ×2 (12:31→20:09)
[2020-05-31] MEDS: potassium chloride oral liq 20 mEq/15 mL UDC 40 MEQ PO (12:31)
[2020-05-31] MEDS: FUROsemide 10 mg/mL SDV 4mL 40 MG IVP (12:32)
[2020-05-31 13:48] LABS: Coronavirus Lab Test PTC Negative
[2020-05-31] MEDS: iohexol 350 mg/mL 100 mL Btl IV (14:38)
--- NOTE | 2020-05-31 20:11 | PC.NURSE ---
PATIENT DAUGHTER IN LAW CALLED AND STATED THAT PATIENT IS ALLERGIC TO STRAWBERRIES AND CHERRIES ; ITEMS WERE ADDED TO ALLERGY LIST
--- NOTE | 2020-05-31 20:11 | PC.NURSE ---
Patient c/o of eye pain. States, I take [facility]. Verified with patient on home med rec. Spoke with Dr Roth over the phone and received orders to give his home dose of dorzolamide/timilol.
[2020-05-31] MEDS: dorzolamide/timolol Op Soln 10 mL Btl 1 DROP EYE-BOTH (20:35)
[2020-06-01] VITALS (119 sets, daily range): BP systolic 89–165; BP diastolic 60–93; PULSE 49–117; RESP 12–29; TEMP 36.5–36.8; O2SAT 82–97
[2020-06-01] MEDS: piperacillin-tazobactam 3.375 GM in sodium chloride 0.9% (plus) 50 ML IV ×3 (00:39→17:12)
[2020-06-01] MEDS: ipratropium-albuterol 3 mL Neb INHALATION ×3 (03:10→20:39)
[2020-06-01 07:05] LABS: Basophils % 0.1 %; Hematocrit 43.4 % (42.0-52.0); Hemoglobin 15.7 g/dL (11.7-16.6); Lymphocytes # 1.1 10^3/uL (0.8-4.8); Lymphocytes % 7.3 %; Mean Corpuscular HGB Conc 36.2 g/dL (30.0-36.0); Mean Corpuscular Hemoglobin 35.4 pg (28.0-34.0); Mean Corpuscular Volume 97.7 fL (80-94); Mean Platelet Volume 10.3 fL (7.4-10.4); Monocytes # 0.7 10^3/uL (0.2-0.9); Monocytes % 4.2 %; Neutrophils # 13.74 10^3/uL (1.8-7.7); Neutrophils % 87.5 %; Nucleated Red Blood Cells % 0 %; Platelet Count 248 10^3/cmm (130-400); Red Blood Count 4.44 10^6/uL (4.1-5.3); Red Cell Distribution Width 11.9 % (12.1-15.1); White Blood Count 15.7 10^3/uL (4.0-10.0)
[2020-06-01 07:21] LABS: Alkaline Phosphatase 73 IU/L (40-130); Blood Urea Nitrogen 24 mg/dL (8-23); Calcium 9.4 mg/dL (8.5-10.5); Carbon Dioxide 31 mmol/L (22-29); Chloride 87 mmol/L (98-107); Globulin 3.1 g/dL (1.3-4.6); Glucose 180 mg/dL (65-115); Osmolality Calculated 275 mOsm/kg (285-295); Sodium 132 mmol/L (136-145); Total Bilirubin 0.8 mg/dL (0.15-1.2); Total Protein 7.1 g/dL (6.6-8.7)
[2020-06-01 07:23] LABS: Alanine Aminotransferase 10 U/L (0-41); Anion Gap 17.7 (5-19); Aspartate Amino Transferase 21 U/L (0-40); Potassium 3.7 mmol/L (3.5-5.1)
[2020-06-01 07:42] LABS: Slide Review Slide Review Perform
[2020-06-01] MEDS: dorzolamide/timolol Op Soln 10 mL Btl 1 DROP EYE-BOTH (09:41)
[2020-06-01] MEDS: levETIRAcetam 500 mg Tablet 1000 MG PO ×2 (09:42→17:13)
[2020-06-01] MEDS: FUROsemide 10 mg/mL SDV 4mL 40 MG IVP (10:33)
--- NOTE | 2020-06-01 13:30 | PC.NURSE ---
Patient disoriented yelling mother repeatedly in room. Patient states he is at home and wants to see his dog. States that he thinks we (nursing staff mistaken for family) have killed the dog and thats why he cant find it. Both IVs have been removed by patient. IV catheters intact, pressure held to insertion sites, hemostasis achieved. Patient refuses to wear oxygen and telemetry wires. Patient attmepting to get OOB. Patient unable to be redirected or reoriented by nursing staff. Dr. Tovar notified via telephone. Physician gave verbal order for nurse to administer 5 mg Zyprexa IM, RBVO.
[2020-06-01] MEDS: OLANZapine 10 mg VIAL 5 MG IM ×2 (13:36→21:59)
--- NOTE | 2020-06-01 13:50 | NUR.SHIFT ---
Patient did not respond to administration of zyprexa. Patient still attempting to get OOB and is verbally threatening to assault staff. Security at bedside. Dr. Tovar notified. Telephone order to administer 2.5 mg Zyprexa IM one time now, RBVO. 1:1 order received. Physician to report to bedside.
[2020-06-01] MEDS: OLANZapine 10 mg VIAL 2.5 MG IM (14:03)
--- NOTE | 2020-06-01 14:30 | PC.NURSE ---
Dr. Tovar at bedside. Patient still attempting to get OOB with administration of 2.5 of zyprexa. Patient still yelling threats at staff. Patient continues to refuse oxygen and telemetry. Nurse unable to assess o2 saturations. Dr. Tovar gave verbal order to administer 0.5 mg ativan in 15 minutes if patient is still agitated. Patient has been incontinent and is refusing to be changed.
[2020-06-01] MEDS: LORazepam 2 mg/mL INJ 1 mL 0.5 MG IM (14:46)
--- NOTE | 2020-06-01 14:46 | P.PN_ITS ---
Subjective Subjective: Interval history: Patient noted to be more confused and agitated today, pulled out his Ivs, insist on going sandip wbut disoriented at this time. per discussion with son, tends to sun down even at home. Improved after being given zyprexa Im. Leukocytosis of up to 15 today. Remains afebrile otherwise. Blood culture remains negative. CT of the chest that was performed yesterday came back with reading of possible septic emboli versus pneumonia. No infiltrates noted in the left lung. Also note made of distal subsegmental pulmonary arteries poor filling likely related to PE. Medications: Reviewed: Yes Vitals/I&O/Wt Last Vital Signs Temp 98.3 F 06/01/20 08:00 Pulse 81 06/01/20 09:08 Resp 18 06/01/20 09:08 BP 122/78 06/01/20 08:00 Pulse Ox 91 06/01/20 09:08 05/31/20 06/01/20 06/01/20 22:59 06:59 14:59 Intake Total 50 / 100 199.375 / 299.375 290 / 290 Output Total 1300 / 1300 400 / 1700 100 / 100 Balance -1250 / -1200 -200.625 / -1400.625 190 / 190 Weight last 48 hrs Weight 84.141 kg Physical Exam Narrative: EXAM NARRATIVE: GEN: Awake, disoriented, speaks legible sentences, however grossly out of context of the conversation. 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 Urinary Catheter Management^: Shirley: Cath Placed During This Visit: yes, but has since been removed by the nurse Reason for Continuing Indwelling Catheter: Accurate Measurement of Urinary Output in Critically Ill Patients Urinary Catheter Date of Insertion: 05/30/20 Urinary Catheter Time of Insertion: 00:02 Date Urinary Catheter Removed: 05/31/20 Time Urinary Catheter Discontinued: 19:16 Data : 06/01/20 05:16 06/01/20 05:16 A&P Assessment and plan (1) Acute encephalopathy: Mental status continues to wax and wane. Patient had a pretty good day yesterday when he was calm for the most part, at this present time he has become agitated and somewhat disoriented. Zyprexa seems to have calmed him down. Acute toxic metabolic encephalopathy likely to be multifactorial from hypercapnea, possible sepsis, high-dose steroids hospital-induced delirium. Worsening over the past week, less responsive at home. Here with acute h ypercapnic and hypoxic respiratory failure. CT of the head without acute changes, with only chronic microvascular changes. No obvious metastatic disease, suspicion for lung malignancy as an outpatient. Per discussion with patient's son today, it appears that patient told the family he had some kind of gastric malignancy. However the diagnosis of this is not certain. He is unable to tell me exactly how the patient was diagnosed, whether it was based on the results of the CAT scan versus endoscopic evaluation. Yesterday a CT of the chest was performed due to initial reports that patient was noted to have a lung malignancy. No malignancy has been reported on this CT chest. Note however was made of possibility of right-sided sub-subsegmental PE and cavitary lesions likely to represent septic emboli versus pneumonia. These could potentiallt represent metastatic lesions Start on anticoagulation with Lovenox. Continue Zosyn. Patient remains afebrile. Repeat blood cx Blood cultures remain negative to date. Will check histoplasma antigen and Coccidioides serology as these could present with similar CAT scan picture. Less likely to be pneumocystis pneumonia as patient does not have the antecedent risk factors such as prolonged immunocompromise or long-term steroid use. Can screen with a serum LDH and beta glucan level. If able to produce sputum can check PCP PCR from the sputum. Screening quantiferon for now. Low suspicion for PTB. CM level to evaluate for sarcoidosis. Appears also to have CHF, Lasix now tapered down to 40 mg IV every 24 hours. Will change to 40 mg p.o. daily. Echocardiogram with LVEF 60% without regional wall motion abnormalities, grade 1 diastolic dysfunction. Continue Keppra at this time. dose increased to 100mg BID Status: Acute (2) Acute respiratory failure with hypercapnia: Secondary to COPD exacerbation, CHF. Possible pneumonia, may be post obstructive if underlying malignancy. Reduce steroids to 60mg iv q12h today Antibiotics for possible pneumonia. D/c levaquin, continue zosyn for now while pending CTA results and better imaging to asceratin mass vs PNA rapid flu, COVID-19 testing negative Status: Acute (3) COPD exacerbation: With improvement in ABG w BiPAP. Refusing further Reduce steroids to prednisone 20mg po qd Antibiotics as for possible pneumonia Continue zosyn, d/c levaquin Status: Acute (4) Congestive heart failure: Assess TTE. Lasix reduce to 40mg po daily Troponin trend not concerning for ACS Daily weight, I & O Status: Acute Qualifiers: Heart failure chronicity: acute on chronic Heart failure type: unspecified Qualified Code(s): I50.9 - Heart failure, unspecified (5) HTN (hypertension): Monitor blood pressures, currently well controlled Status: Acute (6) HLD (hyperlipidemia): Reported allergy to statin Status: Acute (7) DM type 2 (diabetes mellitus, type 2): Reportedly on oral hypoglycemic. At this time consistent carbohydrate diet. A1c not c/w DM Status: Acute (8) Hyperammonemia: Ammonia elevated at 92. Unclear significance. No known history of cirrhosis. INR WNL. Other laboratory parameters do not seem to suggest liver cirrhosis. Status: Acute (9) Lung cancer: The history of this is unclear. Per [id number] appears she may have been diagnosed with lung cancer by his [place] physician. He does not appear he is seen a oncologist yet. CTA chest today to r/o PE and evaluate for malignancy. Per son, now reports possible gastric malignancy, records requested from [place] Status: Acute (10) Smoking addiction: Status: Acute (11) Hypokalemia: Status: Acute (12) Pulmonary embolism: Status: Acute Additional A&P Information Possible pneumonia: With scattered infiltrates in both lungs. Suspect this is more likely secondary to pulmonary edema/CHF. However, with leukocytosis, respiratory failure, pneumonia cannot be excluded. At this time antibiotic coverage with Zosyn. 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
--- NOTE | 2020-06-01 15:00 | PC.NURSE ---
Following administration of ativan, patient was assisted to BSC. Patient unable to urinate in commode but brief and linens were changed. Patient assisted back to bed by two nurses. Patient continues to refuse to wear oxygen or any type of monitoring and continues to yell at staff. Dr. Tovar notified. Physician gave order to move patient to ICU for a Precedex. safety supervisor notified.
--- NOTE | 2020-06-01 16:33 | PC.NURSE ---
Report called to KEVYN in ICU.
--- NOTE | 2020-06-01 16:52 | PC.NURSE ---
admit to icu 7 at this time .. remains very confused and restless attempting to pull off lines ect at this time .. precedex gtt started at this time ... visitor in room at this time
[2020-06-01] MEDS: enoxaparin 80 mg/0.8 mL Syringe SUBCUT (17:12)
[2020-06-01] MEDS: dexmedetomidine 400 MCG in sodium chloride 0.9% (100 ml) 100 ML 15.3 MCG IV (19:00)
--- NOTE | 2020-06-01 20:12 | PC.NURSE ---
change in vital signs upon report from KEVYN,RN patient is on precedex gtt at 0.7mcg. upon entering room patient vital signs WNL and patient resting in bed. 1919: patient heart rate noted to decreasing into the low50s and high 40s. precedex drop turned down to 0.6mcg. patient heart rate continuing to jump around in the 50s and 40s. precedex decreased to 0.4mcg at 1944. patient heart rate still not rebounding to normal rate. precedex drip turned off at 1957. will continue to monitor patient laying comfortably in bed.
[2020-06-02] VITALS (117 sets, daily range): BP systolic 99–144; BP diastolic 59–90; PULSE 45–94; RESP 14–29; TEMP 36.6–36.8; O2SAT 86–100; BMI 30.8
[2020-06-02] MEDS: piperacillin-tazobactam 3.375 GM in sodium chloride 0.9% (plus) 50 ML IV ×3 (01:44→16:59)
[2020-06-02] MEDS: ipratropium-albuterol 3 mL Neb INHALATION ×4 (03:18→21:13)
[2020-06-02] MEDS: dexmedetomidine 400 MCG in sodium chloride 0.9% (100 ml) 100 ML 6.6 MCG IV (03:57)
[2020-06-02] MEDS: enoxaparin 80 mg/0.8 mL Syringe SUBCUT ×2 (04:00→16:59)
[2020-06-02 06:13] LABS: Basophils % 0.2 %; Hematocrit 46.8 % (42.0-52.0); Hemoglobin 15.8 g/dL (11.7-16.6); Lymphocytes # 2.2 10^3/uL (0.8-4.8); Lymphocytes % 12.7 %; Mean Corpuscular HGB Conc 33.8 g/dL (30.0-36.0); Mean Corpuscular Hemoglobin 33.9 pg (28.0-34.0); Mean Corpuscular Volume 100.4 fL (80-94); Mean Platelet Volume 9.9 fL (7.4-10.4); Monocytes # 1.5 10^3/uL (0.2-0.9); Monocytes % 8.7 %; Neutrophils # 13.09 10^3/uL (1.8-7.7); Neutrophils % 76.7 %; Nucleated Red Blood Cells % 0 %; Platelet Count 327 10^3/cmm (130-400); Red Blood Count 4.66 10^6/uL (4.1-5.3); Red Cell Distribution Width 11.9 % (12.1-15.1); White Blood Count 17.1 10^3/uL (4.0-10.0)
[2020-06-02 06:27] LABS: Alanine Aminotransferase 11 U/L (0-41); Albumin Level 4.1 g/dL (3.5-5.2); Alkaline Phosphatase 84 IU/L (40-130); Anion Gap 17.3 (5-19); Aspartate Amino Transferase 12 U/L (0-40); Blood Urea Nitrogen 28 mg/dL (8-23); Calcium 9.4 mg/dL (8.5-10.5); Carbon Dioxide 33 mmol/L (22-29); Chloride 91 mmol/L (98-107); Glucose 148 mg/dL (65-115); Osmolality Calculated 288 mOsm/kg (285-295); Sodium 139 mmol/L (136-145); Total Bilirubin 0.8 mg/dL (0.15-1.2); Total Protein 8.1 g/dL (6.6-8.7)
[2020-06-02 07:03] LABS: Potassium 2.3 mmol/L (3.5-5.1)
[2020-06-02] MEDS: potassium chloride premix 40 MEQ/100 ML PREMIX 25 MEQ IV (07:42)
[2020-06-02] MEDS: potassium chloride ER 10 mEq Tablet 40 MEQ PO (07:42)
[2020-06-02] MEDS: lidocaine 1% INJ 20 mL 5 ML IV (08:04)
--- NOTE | 2020-06-02 08:23 | PC.NURSE ---
confused at this time asking for dog and also wallet and clothes to go home precidex gtt infusing at this time
[2020-06-02] MEDS: levETIRAcetam 500 mg Tablet 1000 MG PO ×2 (08:32→20:33)
[2020-06-02] MEDS: FUROsemide 10 mg/mL SDV 4mL 40 MG IVP (12:37)
[2020-06-02] MEDS: OLANZapine 5 mg ODT 2.5 MG PO (13:05)
--- NOTE | 2020-06-02 13:24 | PC.NURSE ---
increasing agitation and confusion zyprexea started at this time
[2020-06-02] MEDS: haloperidol inj 5 mg/mL INJ 1 mL IVP ×2 (14:59→21:37)
--- NOTE | 2020-06-02 15:02 | PC.NURSE ---
remains severely agitated and restless kicking and pulling all lines at this time Dr called with orders noted and haldol given
--- NOTE | 2020-06-02 17:18 | P.PN_ITS ---
Subjective Subjective: Interval history: more calm today, on precedex 0.3, able to converse in complete sentences, better oriented Medications: Reviewed: Yes Vitals/I&O/Wt Last Vital Signs Temp 98 F 06/02/20 12:00 Pulse 67 06/02/20 16:00 Resp 16 06/02/20 16:00 BP 99/71 06/02/20 16:00 Pulse Ox 97 06/02/20 16:00 06/02/20 06/02/20 06/02/20 06:59 14:59 22:59 Intake Total 94.841 / 689.066 650 / 650 Output Total 250 / 350 800 / 800 Balance -155.159 / 339.066 -150 / -150 Weight last 48 hrs Weight 81.42 kg Weight 84.141 kg Physical Exam Narrative: EXAM NARRATIVE: GEN: Awake, alert and oriented, no acute distress CVS: S1S2 N RS: CTA B/L Abd: Soft, nt/nd , bs+ 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 Urinary Catheter Management^: Shirley: Cath Placed During This Visit: yes, but has since been removed by the nurse Reason for Continuing Indwelling Catheter: Accurate Measurement of Urinary Output in Critically Ill Patients Urinary Catheter Date of Insertion: 05/30/20 Urinary Catheter Time of Insertion: 00:02 Date Urinary Catheter Removed: 05/31/20 Time Urinary Catheter Discontinued: 19:16 Data : 06/02/20 04:43 06/02/20 04:43 Micro: Microbiology 06/02/20 08:50 Blood Culture - Preliminary Blood SPECIMEN COLLECTED 06/02/20 04:43 Blood Culture - Preliminary Blood SPECIMEN COLLECTED A&P Assessment and plan (1) Acute encephalopathy: Mental status continues to wax and wane. Patient had a pretty good day yesterday when he was calm for the most part, at this present time he has become agitated and somewhat disoriented. Zyprexa seems to have calmed him down. Acute toxic metabolic encephalopathy likely to be multifactorial from hypercapnea, possible sepsis, high-dose steroids hospital-induced delirium. Worsening over the past week, less responsive at home. Here with acute hypercapnic and hypoxic respiratory failure. CT of the head without acute changes, with only chronic microvascular changes. No obvious metastatic disease, suspicion for lung malignancy as an outpatient. Per discussion with patient's son today, it appears that patient told the family he had some kind of gastric malignancy. However the diagnosis of this is not certain. He is unable to tell me exactly how the patient was diagnosed, whether it was based on the results of the CAT scan versus endoscopic evaluation. Yesterday a CT of the chest was performed due to initial reports that patient was noted to have a lung malignancy. No malignancy has been reported on this CT chest. Note however was made of possibility of right-sided sub-subsegmental PE and cavitary lesions likely to represent septic emboli versus pneumonia. These could potentiallt represent metastatic lesions Start on anticoagulation with Lovenox. Continue Zosyn. Patient remains afebrile. Repeat blood cx Blood cultures remain negative to date. Will check histoplasma antigen and Coccidioides serology as these could present with similar CAT scan picture. Less likely to be pneumocystis pneumonia as patient does not have the antecedent risk factors such as prolonged immunocompromise or long-term steroid use. Can screen with a serum LDH and beta glucan level. If able to produce sputum can check PCP PCR from the sputum. Screening quantiferon for now. Low suspicion for PTB. CM level to evaluate for sarcoidosis. Appears also to have CHF, Lasix now tapered down to 40 mg IV every 24 hours. Will change to 40 mg p.o. daily. Echocardiogram with LVEF 60% without regional wall motion abnormalities, grade 1 diastolic dysfunction. Continue Keppra at this time. dose increased to 100mg BID Status: Acute (2) Acute respiratory failure with hypercapnia: Secondary to COPD exacerbation, CHF. Possible pneumonia, may be post obstructive if underlying malignancy. Reduce steroids to 60mg iv q12h today Antibiotics for possible pneumonia. D/c levaquin, continue zosyn for now while pending CTA results and better imaging to asceratin mass vs PNA rapid flu, COVID-19 testing negative Status: Acute (3) COPD exacerbation: With improvement in ABG w BiPAP. Refusing further Reduce steroids to prednisone 20mg po qd Antibiotics as for possible pneumonia Continue zosyn, d/c levaquin Status: Acute (4) Congestive heart failure: Assess TTE. Lasix reduce to 40mg po daily Troponin trend not concerning for ACS Daily weight, I & O Status: Acute Qualifiers: Heart failure chronicity: acute on chronic Heart failure type: unspecified Qualified Code(s): I50.9 - Heart failure, unspecified (5) HTN (hypertension): Monitor blood pressures, currently well controlled Status: Acute (6) HLD (hyperlipidemia): Reported allergy to statin Status: Acute (7) DM type 2 (diabetes mellitus, type 2): Reportedly on oral hypoglycemic. At this time consistent carbohydrate diet. A1c not c/w DM Status: Acute (8) Hyperammonemia: Ammonia elevated at 92. Unclear significance. No known history of cirrhosis. INR WNL. Other laboratory parameters do not seem to suggest liver cirrhosis. Status: Acute (9) Lung cancer: The history of this is unclear. Per [id number] appears she may have been diagnosed with lung cancer by his [place] physician. He does not appear he is seen a oncologist yet. CTA chest today to r/o PE and evaluate for malignancy. Per son, now reports possible gastric malignancy, records requested from [place] Status: Acute (10) Smoking addiction: Status: Acute (11) Hypokalemia: Status: Acute (12) Pulmonary embolism: Status: Acute Additional A&P Information Leukocytosis likely 2/[address] abdomen and CT head today Attestations Medical Necessity Statement*: Ongoing ICU care for agitation, CT assessment Coding Level of Care Code Acute [employer] for [facility] Fwd Diagnoses Acute encephalopathy G93.40 Acute respiratory failure with hypercapnia J96.02 COPD exacerbation J44.1 Congestive heart failure I50.9 Heart failure chronicity: acute on chronic Heart failure type: unspecified HTN (hypertension) I10 HLD (hyperlipidemia) E78.5 DM type 2 (diabetes mellitus, type 2) E11.9 Hyperammonemia E72.20 Lung cancer C34.90 Smoking addiction F17.200 Hypokalemia E87.6 Pulmonary embolism I26.99
[2020-06-02] MEDS: dexmedetomidine 400 MCG in sodium chloride 0.9% (100 ml) 100 ML IV (20:13)
[2020-06-03] VITALS (29 sets, daily range): BP systolic 106–155; BP diastolic 67–111; PULSE 44–112; RESP 15–30; O2SAT 77–99; BMI 30.8
[2020-06-03] MEDS: piperacillin-tazobactam 3.375 GM in sodium chloride 0.9% (plus) 50 ML IV ×3 (01:41→17:53)
[2020-06-03] MEDS: ipratropium-albuterol 3 mL Neb INHALATION ×3 (03:12→20:36)
[2020-06-03] MEDS: enoxaparin 80 mg/0.8 mL Syringe SUBCUT ×2 (04:55→17:53)
[2020-06-03 05:37] LABS: Procalcitonin 0.11 ng/mL (0-0.5)
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
--- NOTE | 2020-06-03 06:00 | CTR_ITS ---
PROCEDURE INFORMATION: Exam: CT Head Without Contrast Exam date and time: 06/03/2020 7:12 AM Age: 69 years old Clinical indication: Altered mental status/memory loss; Confusion or disorientation; Patient HX: AMS, agitation/confusion - transient; Additional info: Altered mentation TECHNIQUE: Imaging protocol: Computed tomography of the head without contrast. Radiation optimization: All CT scans at this facility use at least one of these dose optimization techniques: automated exposure control; mA and/or kV adjustment per patient size (includes targeted exams where dose is matched to clinical indication); or iterative reconstruction. COMPARISON: CT head wo con* [id number] 05/29/2020 10:36 PM RADIATION DOSE METRICS: Total DLP (mGy-cm): 869.34 FINDINGS: Brain: No hemorrhage. No edema, mass effect or midline shift. Periventricular and deep white matter hypodensities compatible with chronic microvascular ischemic changes. Chronic appearing right thalamic lacunar infarct. Ventricles: No ventriculomegaly. Bones/joints: No acute fracture. Sinuses: No acute sinusitis. Mastoid air cells: No mastoid effusion. Soft tissues: Unremarkable. CT/CT head wo con* [id number] IMPRESSION: No acute intracranial abnormality. Radiation Dose CTDIVOL = (mGy): DLP = 869.34 (mGy-cm)
[2020-06-03] MEDS: iohexol 300 mg/mL 100 mL Btl IV (07:31)
[2020-06-03] MEDS: FUROsemide 10 mg/mL SDV 4mL 40 MG IVP (09:36)
[2020-06-03] MEDS: levETIRAcetam 500 mg Tablet 1000 MG PO ×2 (09:36→17:53)
[2020-06-03] MEDS: OLANZapine 5 mg ODT 2.5 MG PO ×2 (09:36→18:12)
--- NOTE | 2020-06-03 09:54 | PC.NURSE ---
pt up in chair had ct done of head and abdomen up to bsc oriented at this time no distress did talk to daughter in law and has agreed to go to rehab for short time
[2020-06-03 12:30] LABS: Levetiracetam Keppra 76.7 mcg/mL
--- NOTE | 2020-06-03 13:01 | PM.PN ---
Subjective Subjective: Interval history: mental status much improved, he is calm, alert, awake and oriented. Expressed his wish to go to a SNF when discharged to be able to participae in PT prior to discharge home. 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 Urinary Catheter Management^: Shirley: Cath Placed During This Visit: yes, but has since been removed by the nurse Reason for Continuing Indwelling Catheter: Accurate Measurement of Urinary Output in Critically Ill Patients Urinary Catheter Date of Insertion: 05/30/20 Urinary Catheter Time of Insertion: 00:02 Date Urinary Catheter Removed: 05/31/20 Time Urinary Catheter Discontinued: 19:16 Data : 06/04/20 12:13 06/04/20 12:13 Micro: Microbiology 06/03/20 10:39 C.difficile Toxin B Gene (PCR) - Final Stool Routine Collection 06/02/20 08:50 Blood Culture - Preliminary Blood NEGATIVE TO DATE 06/02/20 04:43 Blood Culture - Preliminary Blood NEGATIVE TO DATE A&P Assessment and plan (1) Acute encephalopathy: Mental status much improved today, plan to wean off precedex this afternoon. Likely that mental status waxing and waning related to acute toxic metabolic encephalopathy likely to be multifactorial from hypercapnea, possible sepsis, high-dose steroids hospital-induced delirium. CT of the head without acute changes, with only chronic microvascular changes. No obvious metastatic disease, suspicion for lung malignancy as an outpatient and also some reports of gastric cancer, however on CT of the CAP performed here, no obvious malignancy noted. Per discussion with patient's son today, it appears that patient told the family he had some kind of gastric malignancy. However the diagnosis of this is not certain. He is unable to tell me exactly how the patient was diagnosed, whether it was based on the results of the CAT scan versus endoscopic evaluation. Yesterday a CT of the chest was performed due to initial reports that patient was noted to have a lung malignancy. No malignancy has been reported on this CT chest. Note however was made of possibility of right-sided sub-subsegmental PE and cavitary lesions likely to represent septic emboli versus pneumonia. These could potentiallt represent metastatic lesions Start on anticoagulation with Lovenox. Continue Zosyn. Patient remains afebrile. Repeat blood cx Blood cultures remain negative to date. Will check histoplasma antigen and Coccidioides serology as these could present with similar CAT scan picture. Less likely to be pneumocystis pneumonia as patient does not have the antecedent risk factors such as prolonged immunocompromise or long-term steroid use. Can screen with a serum LDH and beta glucan level. If able to produce sputum can check PCP PCR from the sputum. Screening quantiferon for now. Low suspicion for PTB. CM level to evaluate for sarcoidosis. Appears also to have CHF, Lasix now tapered down to 40 mg IV every 24 hours. Will change to 40 mg p.o. daily. Echocardiogram with LVEF 60% without regional wall motion abnormalities, grade 1 diastolic dysfunction. Continue Keppra at this time. dose increased to 100mg BID Status: Acute (2) Acute respiratory failure with hypercapnia: Secondary to COPD exacerbation, CHF. Possible pneumonia, may be post obstructive if underlying malignancy. Reduce steroids to 60mg iv q12h today Antibiotics for possible pneumonia. D/c levaquin, continue zosyn for now while pending CTA results and better imaging to asceratin mass vs PNA rapid flu, COVID-19 testing negative Status: Acute (3) COPD exacerbation: With improvement in ABG w BiPAP. Refusing further Reduce steroids to prednisone 20mg po qd Antibiotics as for possible pneumonia Continue zosyn, d/c levaquin Status: Acute (4) Congestive heart failure: Assess TTE. Lasix reduce to 40mg po daily Troponin trend not concerning for ACS Daily weight, I & O Status: Acute Qualifiers: Heart failure chronicity: acute on chronic Heart failure type: unspecified Qualified Code(s): I50.9 - Heart failure, unspecified (5) HTN (hypertension): Monitor blood pressures, currently well controlled Status: Acute (6) HLD (hyperlipidemia): Reported allergy to statin Status: Acute (7) DM type 2 (diabetes mellitus, type 2): Reportedly on oral hypoglycemic. At this time consistent carbohydrate diet. A1c not c/w DM Status: Acute (8) Hyperammonemia: Ammonia elevated at 92. Unclear significance. No known history of cirrhosis. INR WNL. Other laboratory parameters do not seem to suggest liver cirrhosis. Status: Acute (9) Lung cancer: The history of this is unclear. Per [id number]-mev appears she may have been diagnosed with lung cancer by his [place] physician. He does not appear he is seen a oncologist yet. CTA chest today to r/o PE and evaluate for malignancy. Per son, now reports possible gastric malignancy, records requested from [place] Status: Acute (10) Smoking addiction: Status: Acute (11) Hypokalemia: Status: Acute (12) Pulmonary embolism: Status: Acute Additional A&P Information Leukocytosis likely 2/2 high dose steroids. Attestations Medical Necessity Statement*: wean off precedex and monitor mentation Coding Level of Care Code Acute Licensed Clinician for [facility] Fwd Diagnoses Acute encephalopathy G93.40 Acute respiratory failure with hypercapnia J96.02 COPD exacerbation J44.1 Congestive heart failure I50.9 Heart failure chronicity: acute on chronic Heart failure type: unspecified HTN (hypertension) I10 HLD (hyperlipidemia) E78.5 DM type 2 (diabetes mellitus, type 2) E11.9 Hyperammonemia E72.20 Lung cancer C34.90 Smoking addiction F17.200 Hypokalemia E87.6 Pulmonary embolism I26.99
--- NOTE | 2020-06-03 16:24 | PC.NURSE ---
blood drawn for lab by nurse ...
[2020-06-03 16:34] LABS: Basophils % 0.2 %; Eosinophils # 0.2 10^3/uL (0.0-0.8); Hematocrit 46.5 % (42.0-52.0); Hemoglobin 15.6 g/dL (11.7-16.6); Lymphocytes # 3.5 10^3/uL (0.8-4.8); Lymphocytes % 20.2 %; Mean Corpuscular HGB Conc 33.5 g/dL (30.0-36.0); Mean Corpuscular Volume 101.3 fL (80-94); Mean Platelet Volume 9.4 fL (7.4-10.4); Monocytes # 1.2 10^3/uL (0.2-0.9); Monocytes % 6.9 %; Neutrophils # 11.75 10^3/uL (1.8-7.7); Neutrophils % 68.6 %; Nucleated Red Blood Cells % 0 %; Platelet Count 275 10^3/cmm (130-400); Red Blood Count 4.59 10^6/uL (4.1-5.3); Red Cell Distribution Width 12.2 % (12.1-15.1); White Blood Count 17.2 10^3/uL (4.0-10.0)
[2020-06-03 17:00] LABS: Procalcitonin 0.13 ng/mL (0-0.5)
[2020-06-03 17:11] LABS: Alanine Aminotransferase 27 U/L (0-41); Albumin Level 3.6 g/dL (3.5-5.2); Alkaline Phosphatase 74 IU/L (40-130); Anion Gap 19.7 (5-19); Aspartate Amino Transferase 28 U/L (0-40); Blood Urea Nitrogen 25 mg/dL (8-23); Calcium 8.2 mg/dL (8.5-10.5); Carbon Dioxide 26 mmol/L (22-29); Chloride 90 mmol/L (98-107); Globulin 3.6 g/dL (1.3-4.6); Glucose 131 mg/dL (65-115); Osmolality Calculated 275 mOsm/kg (285-295); Sodium 133 mmol/L (136-145); Total Bilirubin 0.5 mg/dL (0.15-1.2); Total Protein 7.2 g/dL (6.6-8.7)
[2020-06-03 17:40] LABS: Potassium 2.7 mmol/L (3.5-5.1)
[2020-06-03] MEDS: lidocaine 1% INJ 20 mL 5 ML IV (18:13)
[2020-06-03] MEDS: potassium chloride premix 40 MEQ/100 ML PREMIX 25 MEQ IV (18:13)
[2020-06-03] MEDS: potassium chloride ER 10 mEq Tablet 40 MEQ PO (18:13)
[2020-06-03] MEDS: dexmedetomidine 400 MCG in sodium chloride 0.9% (100 ml) 100 ML 6.6 MCG IV (23:30)
[2020-06-04] VITALS (26 sets, daily range): BP systolic 104–139; BP diastolic 36–94; PULSE 60–112; RESP 10–44; TEMP 36.5–37.1; O2SAT 68–100
[2020-06-04] MEDS: acetaminophen 325 mg Tablet 650 MG PO (00:13)
[2020-06-04] MEDS: piperacillin-tazobactam 3.375 GM in sodium chloride 0.9% (plus) 50 ML IV ×2 (02:37→09:30)
[2020-06-04] MEDS: ipratropium-albuterol 3 mL Neb INHALATION ×4 (02:53→20:16)
[2020-06-04 03:37] LABS: Magnesium 1.8 mg/dL (1.7-2.3)
[2020-06-04] MEDS: potassium chloride ER 10 mEq Tablet 60 MEQ PO (05:32)
[2020-06-04] MEDS: enoxaparin 80 mg/0.8 mL Syringe SUBCUT ×2 (05:33→17:21)
[2020-06-04] MEDS: magnesium sulfate premix 2 GM/50 ML PIGGYBACK IV (05:33)
[2020-06-04] MEDS: FUROsemide 10 mg/mL SDV 4mL 40 MG IVP (09:30)
[2020-06-04] MEDS: levETIRAcetam 500 mg Tablet 1000 MG PO ×2 (09:30→17:19)
[2020-06-04] MEDS: OLANZapine 5 mg ODT 2.5 MG PO ×2 (09:31→17:38)
[2020-06-04] MEDS: dorzolamide/timolol Op Soln 10 mL Btl 1 DROP EYE-BOTH ×2 (10:19→17:38)
[2020-06-04] MEDS: loperamide 2 mg Capsule 4 MG PO (10:41)
[2020-06-04 12:23] LABS: Basophils % 0.3 %; Eosinophils # 0.3 10^3/uL (0.0-0.8); Eosinophils % 1.9 %; Hemoglobin 16.3 g/dL (11.7-16.6); Lymphocytes # 3.1 10^3/uL (0.8-4.8); Lymphocytes % 21.9 %; Mean Corpuscular Hemoglobin 35.1 pg (28.0-34.0); Mean Corpuscular Volume 103.4 fL (80-94); Mean Platelet Volume 9.5 fL (7.4-10.4); Monocytes # 0.7 10^3/uL (0.2-0.9); Monocytes % 5.1 %; Neutrophils # 9.52 10^3/uL (1.8-7.7); Neutrophils % 67.8 %; Nucleated Red Blood Cells % 0 %; Platelet Count 282 10^3/cmm (130-400); Red Blood Count 4.64 10^6/uL (4.1-5.3); Red Cell Distribution Width 12.2 % (12.1-15.1)
[2020-06-04 12:58] LABS: Alanine Aminotransferase 30 U/L (0-41); Alkaline Phosphatase 77 IU/L (40-130); Anion Gap 16.3 (5-19); Aspartate Amino Transferase 32 U/L (0-40); Blood Urea Nitrogen 16 mg/dL (8-23); Calcium 8.7 mg/dL (8.5-10.5); Carbon Dioxide 27 mmol/L (22-29); Chloride 95 mmol/L (98-107); Globulin 3.9 g/dL (1.3-4.6); Glucose 129 mg/dL (65-115); Osmolality Calculated 276 mOsm/kg (285-295); Potassium 4.3 mmol/L (3.5-5.1); Sodium 134 mmol/L (136-145); Total Bilirubin 1.1 mg/dL (0.15-1.2); Total Protein 7.9 g/dL (6.6-8.7)
[2020-06-04] MEDS: haloperidol inj 5 mg/mL INJ 1 mL IVP (19:59)
--- NOTE | 2020-06-04 21:21 | PM.PN ---
Subjective Subjective: Interval history: continues to improve today, off precedex since this morning, no new complaints. Alert and awake, back at baseline today. Nasal canula at 3lpm, stable. WBC trending down to 14. Medications: Reviewed: Yes Vitals/I&O/Wt Last Vital Signs Temp 98.2 F 06/04/20 12:00 Pulse 100 06/04/20 20:18 Resp 18 06/04/20 20:16 BP 117/68 06/04/20 16:00 Pulse Ox 93 06/04/20 20:16 06/04/20 06/04/20 06/04/20 06:59 14:59 22:59 Intake Total 190.81 / 1244.81 240 / 240 240 / 480 Output Total 150 / 150 150 / 300 Balance 190.81 / 244.81 90 / 90 90 / 180 Weight last 48 hrs Weight 81.42 kg Physical Exam Narrative: EXAM NARRATIVE: GEN: Awake, alert and oriented, no acute distress CVS: S1S2 N RS: CTA B/L Abd: Soft, nt/nd , bs+ CELLULAR EQUIPMENT INSTALLER: no focal neuro deficits EXT: no extremity edema Urinary Catheter Management^: Shirley: Cath Placed During This Visit: yes, but has since been removed by the nurse Reason for Continuing Indwelling Catheter: Accurate Measurement of Urinary Output in Critically Ill Patients Urinary Catheter Date of Insertion: 05/30/20 Urinary Catheter Time of Insertion: 00:02 Date Urinary Catheter Removed: 05/31/20 Time Urinary Catheter Discontinued: 19:16 Data : 06/04/20 12:13 06/04/20 12:13 Micro: Microbiology 05/29/20 23:21 Blood Culture - Final Blood NO GROWTH AFTER 5 DAYS 05/29/20 23:20 Blood Culture - Final Blood NO GROWTH AFTER 5 DAYS A&P Assessment and plan (1) Acute encephalopathy: Status: Acute (2) Acute respiratory failure with hypercapnia: Secondary to COPD exacerbation, CHF. Possible pneumonia, may be post obstructive if underlying malignancy. Reduce steroids to 60mg iv q12h today Antibiotics for possible pneumonia. D/c levaquin, continue zosyn for now while pending CTA results and better imaging to asceratin mass vs PNA rapid flu, COVID-19 testing negative Status: Acute (3) COPD exacerbation: With improvement in ABG w BiPAP. Refusing further Reduce steroids to prednisone 20mg po qd Antibiotics as for possible pneumonia Continue zosyn, d/c levaquin Status: Acute (4) Congestive heart failure: Assess TTE. Lasix reduce to 40mg po daily Troponin trend not concerning for ACS Daily weight, I & O Status: Acute Qualifiers: Heart failure chronicity: acute on chronic Heart failure type: unspecified Qualified Code(s): I50.9 - Heart failure, unspecified (5) HTN (hypertension): Monitor blood pressures, currently well controlled Status: Acute (6) HLD (hyperlipidemia): Reported allergy to statin Status: Acute (7) DM type 2 (diabetes mellitus, type 2): Reportedly on oral hypoglycemic. At this time consistent carbohydrate diet. A1c not c/w DM Status: Acute (8) Hyperammonemia: Ammonia elevated at 92. Unclear significance. No known history of cirrhosis. INR WNL. Other laboratory parameters do not seem to suggest liver cirrhosis. Status: Acute (9) Lung cancer: The history of this is unclear. Per [id number] appears she may have been diagnosed with lung cancer by his [place] physician. He does not appear he is seen a oncologist yet. CTA chest today to r/o PE and evaluate for malignancy. Per son, now reports possible gastric malignancy, records requested from [place] Status: Acute (10) Smoking addiction: Status: Acute (11) Hypokalemia: Status: Acute (12) Pulmonary embolism: Status: Acute Additional A&P Information # Acute encephalopathy : Mental status much improved today,remains off precedex since early this morning -Likely that mental status waxing and waning related to acute toxic metabolic encephalopathy likely to be multifactorial from hypercapnea, possible sepsis, high-dose steroids hospital-induced delirium, all of which are slowly improving. -CT of the head without acute changes, with only chronic microvascular changes. -Also with a h/o seziure disorder, however no noted seizures at home or in the hospital. - Family had reported that patient was recently diagnosed with malignancy, possibly gastric vs lung, however on CT of the CAP performed here, no obvious malignancy noted. Lungs appear to show chronic granulomatous changes, also lower lobe atelactasis vs pneumonia, for which patient has had an adequate antibiotic course with Zosyn during admission. D/c Zosyn, day 6 today. -improved mentation and agitation with addition of zyprexa. # Acute on chronic hypercapneic respiratory failure - COVID negative - CTA notes right-sided sub-subsegmental PE and cavitary lesions likely to represent septic emboli versus pneumonia, however on personal review and combining clinical data including negative blood cultures, and 2nd CT read, serially negative procalcitonin, these appear more likely to be changes from chronic granulomatous disease. - Started on anticoagulation with Lovenox- plan to switch to NOAC on discharge - Blood cultures remain negative to date. - CM level to evaluate for sarcoidosis has been ordered, i am unable to ascertain if this has been drawn by lab. - histoplasma AG and serum crypto ag, cocci serology ordered for additional granulomatous disease w/up- may be followed as outpatient. - Appears also to have CHF, Lasix now tapered down to 40 mg p.o. daily, which he is tolerating well Echocardiogram with LVEF 60% without regional wall motion abnormalities, grade 1 diastolic dysfunction. - also received high dose steroids for COPD exacerbation, however now discontinued as potentially contributing # h/o seizure disorder : Continue Keppra at this time. Dose increased to 1000 mg BID in keeping with home dose # leukocytosis: likley secondary to high dose steroids, now tapered off, no evidence of untreated infection at this time # diarrhea: C diff negative, start imodium Dispo: extensively discussed that patient is significantly deconditioned at this time and would benefit from SNF placement. He lives with his with son and daughter in law helping daily (live on same property). While he had originally opted for SNF placement, is now having second thoughts as he feels he will be abandoning his who has advanced dementia and has been given a poor prognosis. Transfer out of ICU Attestations Medical Necessity Statement*: monitor out of ICU, optimize active issues as above prior to discharge Coding Level of Care Code Acute Fruit Grading Supervisor for g Fwd Diagnoses Acute encephalopathy G93.40 Acute respiratory failure with hypercapnia J96.02 COPD exacerbation J44.1 Congestive heart failure I50.9 Heart failure chronicity: acute on chronic Heart failure type: unspecified HTN (hypertension) I10 HLD (hyperlipidemia) E78.5 DM type 2 (diabetes mellitus, type 2) E11.9 Hyperammonemia E72.20 Lung cancer C34.90 Smoking addiction F17.200 Hypokalemia E87.6 Pulmonary embolism I26.99
[2020-06-04] MEDS: trazodone 50 mg Tablet PO (21:24)
[2020-06-05] VITALS (13 sets, daily range): BP systolic 129–170; BP diastolic 76–99; PULSE 82–97; RESP 18–24; TEMP 36.5–37.2; O2SAT 94–96
[2020-06-05] MEDS: ipratropium-albuterol 3 mL Neb INHALATION ×3 (02:49→15:32)
[2020-06-05] MEDS: acetaminophen 325 mg Tablet 650 MG PO (03:58)
[2020-06-05 05:23] LABS: Basophils % 0.2 %; Eosinophils # 0.3 10^3/uL (0.0-0.8); Eosinophils % 1.6 %; Hematocrit 42.3 % (42.0-52.0); Hemoglobin 14.7 g/dL (11.7-16.6); Lymphocytes # 3.5 10^3/uL (0.8-4.8); Lymphocytes % 22.5 %; Mean Corpuscular HGB Conc 34.8 g/dL (30.0-36.0); Mean Corpuscular Volume 100.7 fL (80-94); Mean Platelet Volume 9.6 fL (7.4-10.4); Monocytes # 0.8 10^3/uL (0.2-0.9); Monocytes % 5.3 %; Neutrophils # 10.48 10^3/uL (1.8-7.7); Neutrophils % 67.7 %; Nucleated Red Blood Cells % 0 %; Platelet Count 243 10^3/cmm (130-400); Red Cell Distribution Width 12.1 % (12.1-15.1); White Blood Count 15.5 10^3/uL (4.0-10.0)
[2020-06-05 06:10] LABS: Alanine Aminotransferase 39 U/L (0-41); Albumin Level 3.5 g/dL (3.5-5.2); Alkaline Phosphatase 63 IU/L (40-130); Anion Gap 15.6 (5-19); Aspartate Amino Transferase 32 U/L (0-40); Blood Urea Nitrogen 20 mg/dL (8-23); Calcium 8.4 mg/dL (8.5-10.5); Carbon Dioxide 23 mmol/L (22-29); Chloride 98 mmol/L (98-107); Globulin 3.4 g/dL (1.3-4.6); Glucose 142 mg/dL (65-115); Osmolality Calculated 275 mOsm/kg (285-295); Potassium 3.6 mmol/L (3.5-5.1); Sodium 133 mmol/L (136-145); Total Bilirubin 0.8 mg/dL (0.15-1.2); Total Protein 6.9 g/dL (6.6-8.7)
[2020-06-05] MEDS: OLANZapine 5 mg ODT 2.5 MG PO (08:19)
[2020-06-05] MEDS: FUROsemide 40 mg Tablet PO (08:19)
[2020-06-05] MEDS: levETIRAcetam 500 mg Tablet 1000 MG PO (08:20)
[2020-06-05] MEDS: dorzolamide/timolol Op Soln 10 mL Btl 1 DROP EYE-BOTH (08:24)
--- NOTE | 2020-06-05 08:30 | PC.NURSE ---
Attempted to call Drea Crisostomo at this time at [phone]. Voicemail message left at patients request to return a call to him.
--- NOTE | 2020-06-05 09:45 | PC.NURSE ---
Spoke to Drea Crisostomo at this time and gave her an update. I told her I called her this morning because the patient wanted to speak with her. Drea states, I don't want to talk to him if he is going to get angry because he can not go home Updated Drea that patient has been clam this morning and I think it would be okay to talk with him. Transferred Drea in to the room and patient is speaking with her at this time.
[2020-06-05 13:21] LABS: Quantiferon Mitogen 7.29 IU/mL; Quantiferon Nil 0.01 IU/mL; Quantiferon TB Gold NEGATIVE (NEGATIVE)
--- NOTE | 2020-06-05 15:00 | PC.NURSE ---
Patient ambulated to the bathroom at this time using his walker. Patient states, I need to go home. I am going to lose my home if I don't get home to pay my house bill. Patient ambulated back to his bed with his walker. Patient still has a one on one sitter at bedside. This mortgage underwriter called Drea and asked if patient is confused or if he does need to pay a house payment. Drea states, No he does not have any bills that need to be paid. He just wants to go home. He wants to sign out against medical advise. [facility] and [facility] against medical advise and then I am going to take him to [facility] [place]. They want him there so they can do more test and things. When I come to visit at 4 o'clock today I plan on just taking him with me then. Explained to Drea that I feel like patient is to confused to be signing out against medical advise. Drea states, I talked to him earlier and I feel like he is at his normal. Dr. Orourke notified.
--- NOTE | 2020-06-05 16:17 | P.DS_ITS ---
Discharge Providers Date of Admission: 05/30/20 03:09 Date of Discharge: June 05, 2020 Attending Provider at Admission: Ruddy Roth Attending Provider at Discharge: Angelo Keller MD Primary Care Provider: [facility] Diagnoses at Discharge Discharge Diagnosis (1) Acute encephalopathy: Status: Acute (2) Acute respiratory failure with hypercapnia: Status: Acute (3) COPD exacerbation: Status: Acute (4) Congestive heart failure: Status: Acute Qualifiers: Heart failure chronicity: acute on chronic Heart failure type: unspecified Qualified Code(s): I50.9 - Heart failure, unspecified (5) HTN (hypertension): Status: Acute (6) HLD (hyperlipidemia): Status: Acute (7) DM type 2 (diabetes mellitus, type 2): Status: Acute (8) Hyperammonemia: Status: Acute (9) Lung cancer: Status: Acute (10) Smoking addiction: Status: Acute (11) Hypokalemia: Status: Acute (12) Pulmonary embolism: Status: Acute (13) Pneumonia: Status: Acute Problem details: Present on admission. Reason for Visit Reason for Visit: SEIZURE Hospital Course Discharge Summary: Patient presents with altered mental status and found to have pneumonia which was concerning for potentially postobstructive process. CTA showed no evidence of PE and there was a concern for patient couple of cavitary lesions. Patient shows no evidence of septic emboli. Malignancy which apparently patient was recently diagnosed with felt to play a role. Patient had 5 days of Zosyn and nicely improved and this afternoon reports that he absolutely needs to go home today as he needs to make bank payment until tomorrow. He is alert and oriented x3. He lives with his and has daughter in law living next door. This afternoon patient denies shortness of breath or chest pain. He denies cough. He denies abdominal pain or problems with bowel movement. His last bowel movement was yesterday which was normal formed with no evidence of melena or hematochezia. Patient's family called and reported that patient was planning to leave AMA and go to [facility] tomorrow. Given significant clinical improvement at this point I think it is safe for patient to be dismissed home. Patient was told to present back should his condition worsen otherwise I would like him to follow-up with primary care physician, managed care provider and oncologist. I will continue Augmentin for 5 more days. Patient will likely need to have repeat imaging in several weeks and I will let primary care physician to arrange that if deemed necessary. Patient does have some underlying dementia and is not the best historian. At this point no anticoagulation will be continued as I think risk of complication outweighs benefit. Lower extremity venous ultrasound was performed and as per preliminary report no evidence of DVT. We will perform home O2 evaluation prior to discharge. Patient denies pain and I think Hudson could possibly play a role in his presenting altered mental status. I will switch his analgesic to Tylenol. He had hyperammonia but no evidence of liver disease. This could possibly be secondary to genetic abnormality or secondary to diet/medication. He denies dif ficulty with urination. He had evidence of hyponatremia which felt to be related to hydrochlorothiazide and this will be discontinued. His EF was normal with no significant diastolic dysfunction and no evidence of fluid overload on exam therefore no diuretic will be prescribed. Physical Exam Const: COMMON NORMALS: no acute distress and patient oriented x3 Resp: COMMON NORMALS: normal respiratory effort and clear to auscultation bilaterally AUSCULTATION: clear to auscultation bilaterally Cardio: COMMON NORMALS: regular rate, regular rhythm and S2 normal heart sound present RATE: regular rate RHYTHM: regular rhythm HEART SOUNDS: S2 normal heart sound present OTHER: No lower extremity edema GI: COMMON NORMALS: Normal to inspection, nondistended, normoactive bowel s ounds present, Soft to palpation and non-tender PALPATION: Yes Soft to palpation Neuro: COMMON NORMALS: patient oriented x3 and no focal motor deficits Urinary Catheter Management^: Shirley: Cath Placed During This Visit: yes, but has since been removed by the nurse Reason for Continuing Indwelling Catheter: Accurate Measurement of Urinary Output in Critically Ill Patients Urinary Catheter Date of Insertion: 05/30/20 Urinary Catheter Time of Insertion: 00:02 Date Urinary Catheter Removed: 05/31/20 Time Urinary Catheter Discontinued: 19:16 Discharge Data Data Completed and Pending: Completed Studies During Hospitalization Category Date Time Status CT abdomen pelvis w con* [id number] Rout ine Cat Scan 06/03/20 06:[address] angio chest PE protcl [id number] Rout ine Cat Scan 05/31/20 11:[address] head wo con* 7 0450 Routine Cat Scan 06/03/20 06:[address] head wo con* 7 0450 Urgent Cat Scan 05/29/20 22:20 Completed XR chest 1V tricia ble [id number] Urgent Exams 05/29/20 22:20 Completed CV echo complete* [id number] Routine Ultrasound 05/31/20 09:04 Completed Pending at discharge Category Date Time Status EEG electroenceph alogram Routine Exams 05/30/20 09:04 Ordered Blood Culture AM LABS Lab 06/02/20 08:50 Results Cryptococcal Anti gen Lab 06/02/20 04:00 Uncollected Histoplasma Quant itative AG Routine Lab 06/01/20 15:57 Ordered Miscellaneous Dionne t Routine Lab 06/01/20 15:57 Received Sputum Culture an d Gram Stain Lab 06/02/20 04:00 [place] [id number] Routin e Ultrasound 06/05/20 21:56 Taken Labs from last 24 hours 06/05/20 06/05/20 06/02/20 04:45 04:45 04:43 WBC 15.5 H RBC 4.20 Hgb 14.7 Hct 42.3 MCV 100.7 H MCH 35.0 H MCHC 34.8 RDW 12.1 Plt Count 243 MPV 9.6 Neut % (Auto) 67.7 Lymph % (Auto) 22.5 Whitfield % (Auto) 5.3 Eos % (Auto) 1.6 Baso % (Auto) 0.2 Neut # (Auto) 10.48 H Lymph # (Auto) 3.5 Whitfield # (Auto) 0.8 Eos # (Auto) 0.3 Baso # (Auto) 0.0 Nucleated RBC % (a uto) 0 Nucleated RBCs # 0.0 Sodium 133 L Potassium 3.6 Chloride 98 Carbon Dioxide 23 Anion Gap 15.6 BUN 20 Creatinine 0.7 Glucose 142 H Calculated Osmolal ity 275 L Calcium 8.4 L Total Bilirubin 0.8 AST 32 ALT 39 Alkaline Phosphata se 63 Total Protein 6.9 Albumin 3.5 Globulin 3.4 TB (QFT) Gold In T ube Negative TB Test (QFT) Nil 0.01 TB Test (QFT) Shadi gen 7.29 TB Test Mitogen - Nil 0.00 TB Test TB - Nil 0.00 Vitals: Last Vital Signs Temp 99.0 F 06/05/20 15:49 Pulse 94 07/21/20 15:49 Resp 20 H 06/05/20 15:49 BP 156/99 06/05/20 15:49 Pulse Ox 96 06/05/20 15:49 Discharge Plan Discharge Patient Disposition: Home, Self-Care Condition: Stable Prescriptions: New acetaminophen 325 mg Tablet 650 mg PO Q6H PRN (Reason: Mild Pain) Qty: 30 RF: 0 amoxicillin-pot clavulanate [Augmentin] 875-125 mg tablet 1 tab PO Q12H Qty: 10 RF: 0 Continued gabapentin 600 mg Tablet 600 mg PO BID RF: 0 ipratropium-albuterol 0.5 mg-3 mg(2.5 mg base)/3 mL Solution For Nebulization 3 ml INHALATION QID RF: 0 Miralax 17 gram Powder In Packet See Rx Instructions .ROUTE .COMPLEX RF: 0 levetiracetam 500 mg Tablet 1,000 mg PO BID RF: 0 amlodipine 2.5 mg Tablet 2.5 mg PO DAILY RF: 0 Protonix 40 mg Tablet,Delayed Release (Dr/Ec) 40 mg PO QAM RF: 0 dorzolamide-timolol 22.3-6.8 mg/mL Drops 1 drp OPHTHALMIC (EYE) BID RF: 0 albuterol sulfate 90 mcg/actuation Hfa Aerosol Inhaler 2 puff INHALATION QID RF: 0 metformin 500 mg Tablet Extended Release 24 Hr 500 mg PO DAILY RF: 0 Crestor 5 mg Tablet 5 mg PO QPM RF: 0 Fish Oil 1,000 mg (120 mg-180 mg) Capsule 1 cap PO BID RF: 0 Discontinued ciprofloxacin HCl 500 mg tablet 500 mg PO BID RF: 0 Hudson 10-325 mg Tablet 1 tab PO Q4H PRN (Reason: Pain) RF: 0 hydrochlorothiazide 25 mg Tablet 12.5 mg PO DAILY RF: 0 Discharge Orders: Discharge Order (Routine); Ordered 06/05/20 Ordered By: Angelo Keller Referrals: [facility] [Primary Care Provider] - 4-7 days (Patient to follow- up with primary care physician within next 4 to 7 days) Discharge Diet: Usual diet Discharge Activity: Increase activity as tolerated Activity Restrictions/Additional Instructions: Please call your doctor or present to emergency department if your condition worsens or you develop diarrhea, lightheadedness, fatigue or see blood in your stool or black stool. Please make sure you follow-up with primary care physician within next 4 to 7 days to be reevaluated. Please make sure you see pulmonary service and oncologist as she will need to be further evaluated for lung process. Discharge Attestations Time Spent in Discharge Care*: greater than 30 min Quality Metrics Clinical Quality Measures During this hospital stay, did patient experience: None Coding Level of Care Code Acute Senior Service Technician for Chg Fwd Diagnoses Acute encephalopathy G93.40 Acute respiratory failure with hypercapnia J96.02 COPD exacerbation J44.1 Congestive heart failure I50.9 Heart failure chronicity: acute on chronic Heart failure type: unspecified HTN (hypertension) I10 HLD (hyperlipidemia) E78.5 DM type 2 (diabetes mellitus, type 2) E11.9 Hyperammonemia E72.20 Lung cancer C34.90 Smoking addiction F17.200 Hypokalemia E87.6 Pulmonary embolism I26.99 Pneumonia J18.9
--- NOTE | 2020-06-05 17:00 | PC.NURSE ---
Reviewed patients discharge with patient and daughter in law Drea. Patient and daughter in law verbalized understanding of discharge instructions along with the need to draft roller picker his antibiotics at [facility]. Patient is alert and orientated x2. Patient wheel chaired to private car.
--- NOTE | 2020-06-05 21:56 | USCV_ITS ---
Robert Crisostomo Age: 69 Gender: M : 1950 Exam Date: 06/05/2020 15:39 Ordering Phys: Ayse Tovar MD Technologist: Param Sanabria Exam Location: [facility] [place] Indication: PE HISTORY: Lower extremity swelling. PROCEDURES: The venous duplex Doppler examination of both lower extremities was performed in the standard fashion. The following venous structures were evaluated: common femoral vein, profunda vein, proximal portion of the greater saphenous vein, superficial femoral vein, and the popliteal vein. In addition, the posterior tibial and peroneal trunk were evaluated. On the right side, the common femoral, superficial femoral, profunda femoral, popliteal, posterior tibial, greater saphenous veins and the peroneal trunk were identified and interrogated in the standard fashion. These veins were found to be easily compressible with spontaneous blood flow. No evidence of insufficiency or thrombus noted. FINDINGS: Normal 2-D Doppler and augmentation and compressibility throughout the lower extremity venous structures. Additional imaging through the proximal calf veins also reveals no thrombus. Limited evaluation of the greater saphenous vein is patent with no thrombus.. CONCLUSIONS No evidence of DVT in the above-mentioned identifiable veins. Technically somewhat difficult study Dr Toshia Bedoya MD [facility] (Electronically Signed) Final Date: 06 June 2020 08:50 S
== END 2020-06-05 17:00 | disposition home or self-care (01) | DRG 189 ==
LOC: ER 05-30 01:01 → CSU 05-30 04:28 → ICU 06-01 16:46 → MEDSURG 06-04 18:01
PROVIDERS: Emergency Medicine; Physician Assistant; Student in an Organized Health Care Education/Training Program; Admitting Provider Internal Medicine; Visit Provider Internal Medicine
DX: J96.02 Acute respiratory failure with hypercapnia (principal); G93.41 Metabolic encephalopathy; J18.9 Pneumonia, unspecified organism; I26.99 Other pulmonary embolism without acute cor pulmonale; E72.20 Disorder of urea cycle metabolism, unspecified; J44.1 Chronic obstructive pulmonary disease with (acute) exacerbation; C34.90 Malignant neoplasm of unspecified part of unspecified bronchus or lung; J44.0 Chronic obstructive pulmonary disease with (acute) lower respiratory infection; E11.9 Type 2 diabetes mellitus without complications; E78.5 Hyperlipidemia, unspecified; I50.9 Heart failure, unspecified; I11.0 Hypertensive heart disease with heart failure; F17.210 Nicotine dependence, cigarettes, uncomplicated; Z79.84 Long term (current) use of oral hypoglycemic drugs; I25.10 Atherosclerotic heart disease of native coronary artery without angina pectoris
CPT/HCPCS: 12345; 36415; 36416; 36600; 51702; 70450; 71045; 71275; 74177; 80048; 80051; 80053; 80177; 80306; 81001; 81003; 82140; 82728; 82810; 82962; 83036; 83605; 83735; 83880; 83986; 84145; 84484; 85025; 85378; 85384; 85610; 86140; 86480; 86635; 87040; 87493; 87635; 87804; 93005; 93306; 93970; 94640; 94660; 96372; 96375; 97110; 97161; 97530; 99284; J0456; J0696; J1630; J1650; J1940; J1956; J2060; J2270; J2543; J2930; J3475; J3480; J3490; J3535; J7050; Q9967

== ENCOUNTER 2020-07-07 12:53 | Emergency (ER) | payer OTHER, SELFPAY ==
[2020-07-07 12:55] VITALS: BP 177/79; PULSE 74; RESP 13; TEMP 36.8; O2SAT 97; BMI 37.8
--- NOTE | 2020-07-07 13:00 | XR_ITS ---
WS: [id number] EXAM: AP CHEST: PORTABLE UPRIGHT DATE OF EXAM: 07/07/2020, 1315 hours COMPARISON: Chest x-rays from 10/11/2019 and 05/29/2020 HISTORY: Patient is 69 years old with atraumatic chest pain. FINDINGS: The cardiac silhouette is normal in size. The mediastinal contours are normal. The pulmonary vas cularity is normal. Chronic lung changes demonstrated. Lungs are clear of consolidation. Lungs are s lightly hyperinflated. There is no effusion or pneumothorax. Bone density is decreased. Post surgic al changes again seen in the left shoulder. XR/XR chest 1V portable [id number] IMPRESSION: No acute pulmonary disease. Chronic lung changes again seen.
--- NOTE | 2020-07-07 13:01 | ECG_ITS ---
[facility] Test Date: 2020-07-07 Pat Name: Robert Crisostomo Department: Room: Gender: Male Panel Laminator: : 1950 Requested By: Rosa Razo Order Number: [id number] Javier MD: Kennedy Sainz M.D. Measurements Intervals [place] Rate: 75 P: 68 NV: 157 QRS: 68 QRSD: 82 T: 73 QT: 350 QTc: 393 Interpretive Statements SINUS RHYTHM Compared to ECG 05/30/2020 06:15:30 ST (T wave) deviation no longer present Electronically Signed On 07-07-2020 19:07:37 CDT by Kennedy Sainz M.D. [email or web address]
--- NOTE | 2020-07-07 13:01 | W.ED.CHESTPA ---
HPI - Chest Pain General: Chief Complaint: Chest Pain Stated Complaint: cp Time Seen by Provider: 07/07/20 12:58 Source: patient Mode of arrival: ambulatory Limitations: no limitations History of Present Illness: HPI narrative: Mr. Crisostomo is a nice 69-year-old male comes in complaining of chest pain. He states the pain is moderate to mild in nature. He states the pain is in the center of his chest and described as a tightness or dull ache. States that sometimes he gets dizzy with this describes it as feeling lightheaded. He denies any rapid palpitations, or syncopal or near syncopal spells. Patient denies any diaphoresis, nausea or vomiting, radiation of his pain to his neck/shoulder or arms. Patient is unaware of anything that makes his symptoms better or worse. Patient does have a cough and is wheezing but denies fever. He did lyse loss of sense of taste or loss of sense of smell. Associated symptoms: Deny abdominal pain, diaphoresis, dyspnea, fever(s), nausea, palpitations, syncope or vomiting Review of Systems Const: Denies: fever(s), chills, body aches, fatigue, malaise or diaphoresis Eyes: Denies: change in vision, blurry vision, photophobia, eye discomfort, eye discharge or eye redness ENMT: Denies: throat pain, odynophagia, hoarseness, swelling of lips/tongue, ear or mastoid pain, ear discharge, change in hearing or nasal discharge Card: Reports: chest pain; Denies: palpitations, irregular heart rhythm, edema, lightheadedness, syncope, pre-syncope, dyspnea on exertion or orthopnea Resp: Denies: dyspnea, productive cough, non-productive cough, wheezing, hemoptysis or chest congestion GI: Denies: abdominal pain, nausea, vomiting, hematemesis, coffee ground emesis, heartburn, diarrhea, constipation, GI cramping, hematochezia or melena : Denies: flank pain, dysuria, urinary frequency, urinary urgency or hematuria Musc: Denies: neck pain, back pain, extremity pain, extremity swelling, joint pain, joint swelling, joint redness, joint warmth or joint stiffness Skin/Breast: Denies: rash, pruritus, erythema or skin tenderness Neuro: Denies: headache(s), numbness in extremities, weakness in extremities, sensory changes, lack of coordination, difficulty walking, dizziness, vertigo, confusion, Slurred speech present or seizure-like activity Oh/Lymph: Denies: easy bruising, easy bleeding, petechiae, purpura or enlarged lymph nodes All/Imm: Denies: urticaria, throat swelling, tongue swelling, facial swelling or acute wheezing PFSH ED PFSH: Medical History CAD (coronary artery disease) COPD (chronic obstructive pulmonary disease) DM type 2 (diabetes mellitus, type 2) HLD (hyperlipidemia) HTN (hypertension) Smoking addiction Surgical History H/O neck surgery H/O: knee surgery History of shoulder surgery Hx of appendectomy Family History Other Cancer Heart disease Social History Smoking and tobacco status: current every day smoker cigarettes Packs smoked per day: 1 Alcohol intake: never Lives independently: Yes Household members: spouse Marital status: Current occupational status: retired Physical Exam Const: COMMON NORMALS: no acute distress, patient oriented x3, no limitations, healthy appearing and well nourished GENERAL APPEARANCE: cooperative, well kempt and well developed HENMT: COMMON NORMALS: normocephalic, atraumatic, external ears normal, EAC's normal and Normal external nose present HEAD & SCALP: normal to inspection, normocephalic and atraumatic FACE & SINUS: normal facial exam and face symmetric NOSE: Normal external nose present and Normal nares present EXTERNAL EAR: Yes external ears normal EXTERNAL AUDITORY CANAL: EAC's normal MOUTH: Normal oral and palatal mucosa present, lip normal and tongue normal Eye: COMMON NORMALS: Equal, round and reactive pupils present and conjunctivae normal GENERAL EYE: appearance normal, both eyes and all related structures ALIGNMENT: Yes alignment normal PERIORBITAL: periorbital findings normal EYELID: eyelids normal CONJUNCTIVA: Yes conjunctivae normal SCLERA: sclerae normal PUPIL: Yes Equal, round and reactive pupils present Neck/C-Spine: COMMON NORMALS: full ROM, no lymphadenopathy, supple, no meningeal signs and no JVD GENERAL: Yes normal visual inspection and Yes trachea midline Chest: COMMONS NORMALS: normal inspection of the chest and normal palpation of entire chest wall Resp: COMMON NORMALS: normal respiratory effort, No retractions, No use of accessory muscles and clear to auscultation bilaterally EFFORT & INSPECTION: Yes able to speak in complete sentences and Yes symmetric chest movement AUSCULTATION: clear to auscultation bilaterally, no crackles, no rales, no rhonchi and wheezes expiratory wheezes and scattered wheezes Cardio: COMMON NORMALS: no JVD, regular rate, regular rhythm, S1 normal heart sound present and S2 normal heart sound present RATE: regular rate RHYTHM: regular rhythm HEART SOUNDS: S1 normal heart sound present, S2 normal heart sound present, no click, no gallops, no murmurs, no rubs and abnormal split S2 GI: COMMON NORMALS: Soft to palpation and No hepatosplenomegaly present PALPATION: Yes Soft to palpation, No Tenderness to palpation present (GI), No Guarding due to palpation present (GI), No Rigid due to palpation, Yes No hepatosplenomegaly present, No Hernia present, No Palpable mass present and No Pulsatile mass present : COMMON NORMALS: Yes no CVA tenderness BLADDER/KIDNEY EXAM: Yes no CVA tenderness Back/Pelvis: COMMON NORMALS: no CVA tenderness, thoracic and lumbar spine normal to inspection, no thoracic nor lumbar tenderness and thoraco-lumbar ROM normal Extremity: COMMON NORMALS: normal to inspection, full ROM, capillary refill normal, no joint enlargement, no clubbing, cyanosis or edema and no calf tenderness Neuro: COMMON NORMALS: patient oriented x3, CN's II-XII intact bilaterally, moves all extremities, no focal motor deficits and no sensory deficits noted MENINGEAL SIGNS: Yes no meningeal signs SPEECH: speech normal Psych: COMMON NORMALS: mental status grossly normal, Normal thought process present, cooperative, normal affect, speech normal and activity/motor behavior normal APPEARANCE: Yes well kempt SPEECH: Yes normal speech THOUGHT PROCESS: Normal thought process present Skin: COMMON NORMALS: no rashes or lesions noted, turgor normal, no jaundice, no petechiae and no mottling GENERAL SKIN EXAM: no rashes or lesions noted and turgor normal Course ED course: 1354 -patient reports no improvement with nitroglycerin and is chest discomfort. He would like to try breathing treatment for his symptoms. 1435 -the patient is feeling better and his symptoms have resolved on their own. He still has wheezing and appears to be mildly labored when breathing. The patient states this does not feel like when he had his heart problem in the past. I have offered admission for cardiac rule out and stress testing but the patient declines. He thinks that this is likely his COPD. I believe a COPD exacerbation is more likely as he has a productive cough, wheezing and looks mildly labored when he breathes. He shows no sign of impairment to suggest hypercapnia. He agrees to stay for further treatment for his COPD in the ER and for at least 1 more blood test to evaluate his heart but ultimately he states he would like to go home. Vital Signs: Vital signs: Vital Signs Temperature 98.2 F 07/07/20 12:55 Pulse Rate 71 07/07/20 14:31 Respiratory Rate 17 07/07/20 14:31 Blood Pressure 120/67 07/07/20 14:30 Pulse Oximetry 96 07/07/20 14:31 MDM - Chest Pain MDM Narrative: Medical decision making narrative: Mr. Crisostomo is a nice 69-year-old male who comes in there with a complaint of chest discomfort. He describes the pain as an ache but also a tightness. He had noticed labored respirations when he arrived along with wheezing and a wet sounding cough. He denies fever, loss of taste, or loss of sense of smell. Nitroglycerin did nothing for his pain. His EKGs and troponins have been acceptable per the hospital chest pain pathway and showed no significant delta. His troponins have been higher on previous admissions when he was admitted for respiratory failure. After breathing treatment and steroids the patient feels tremendously better. On exam he no longer has any labored respirations and his wheezing has cleared. The patient states his chest discomfort is gone. Because of his history though I have offered him admission for cardiac rule out and further treatment of COPD if he wishes but he states he does not want to be in the hospital would like to go home. He understands our problems can be life-threatening and I have reviewed this with him but despite this warning the patient is confident that this is his COPD and he is insistent upon going home. I will place him on the appropriate medicines for COPD exacerbation but I have informed the patient at length that because heart problems can be life-threatening if he changes his mind he is more than welcome to return at any time to the ER for further evaluation and care. Lab Data: Attestation: I reviewed the patient's lab results. Labs: Lab Results 07/07/20 07/07/20 07/07/20 Range/Units 13:15 13:15 13:15 WBC 12.1 H (4.0-10.0) 10^3/ uL RBC 4.83 (4.1-5.3) 10^6/u L Hgb 16.4 (11.7-16.6) g/dL Hct 49.1 (42.0-52.0) % MCV 101.7 H (80-94) fL MCH 34.0 (28.0-34.0) pg MCHC 33.4 (30.0-36.0) g/dL RDW 12.6 (12.1-15.1) % Plt Count 235 (130-400) 10^3/c mm MPV 9.3 (7.4-10.4) fL Neut % (Auto) 68.8 % Lymph % (Auto) 22.7 % Kendall % (Auto) 6.5 % Eos % (Auto) 1.2 % Baso % (Auto) 0.2 % Neut # (Auto) 8.31 H (1.8-7.7) 10^3/u L Lymph # (Auto) 2.7 (0.8-4.8) 10^3/u L Kendall # (Auto) 0.8 (0.2-0.9) 10^3/u L Eos # (Auto) 0.2 (0.0-0.8) 10^3/u L Baso # (Auto) 0.0 (0.0-0.1) 10^3/u L Nucleated RBC % (a uto) 0 % Nucleated RBCs # 0.0 /100WBC PT 12.70 (12.1-14.9) SECO NDS INR 0.93 (0.8-1.2) Sodium 137 (136-145) mmol/L Potassium 3.4 L (3.5-5.1) mmol/L Chloride 98 (98-107) mmol/L Carbon Dioxide 28 (22-29) mmol/L Anion Gap 14.4 (5-19) BUN 13 (8-23) mg/dL Creatinine 0.8 (0.7-1.2) mg/dL GFR Calculation Not Reportable Glucose 126 H (65-115) mg/dL Calculated Osmolal ity 282 L (285-295) mOsm/k g Calcium 9.2 (8.5-10.5) mg/dL Magnesium 1.5 L (1.7-2.3) mg/dL Total Bilirubin 0.6 (0.15-1.2) mg/dL AST 13 (0-40) U/L ALT 12 (0-41) U/L Alkaline Phosphata se 89 (40-130) IU/L Troponin T Baselin e (0-15) ng/L Troponin T 120 Min robin (0-15) ng/L Delta Troponin T (0-10) ABS# Total Protein 7.5 (6.6-8.7) g/dL Albumin 4.1 (3.5-5.2) g/dL Globulin 3.4 (1.3-4.6) g/dL Lipase 14 (13-60) U/L 07/07/20 07/07/20 Range/Units 13:15 15:15 WBC (4.0-10.0) 10^3/ uL RBC (4.1-5.3) 10^6/u L Hgb (11.7-16.6) g/dL Hct (42.0-52.0) % MCV (80-94) fL MCH (28.0-34.0) pg MCHC (30.0-36.0) g/dL RDW (12.1-15.1) % Plt Count (130-400) 10^3/c mm MPV (7.4-10.4) fL Neut % (Auto) % Lymph % (Auto) % Kendall % (Auto) % Eos % (Auto) % Baso % (Auto) % Neut # (Auto) (1.8-7.7) 10^3/u L Lymph # (Auto) (0.8-4.8) 10^3/u L Kendall # (Auto) (0.2-0.9) 10^3/u L Eos # (Auto) (0.0-0.8) 10^3/u L Baso # (Auto) (0.0-0.1) 10^3/u L Nucleated RBC % (a uto) % Nucleated RBCs # /100WBC PT (12.1-14.9) SECO NDS INR (0.8-1.2) Sodium (136-145) mmol/L Potassium (3.5-5.1) mmol/L Chloride (98-107) mmol/L Carbon Dioxide (22-29) mmol/L Anion Gap (5-19) BUN (8-23) mg/dL Creatinine (0.7-1.2) mg/dL GFR Calculation Glucose (65-115) mg/dL Calculated Osmolal ity (285-295) mOsm/k g Calcium (8.5-10.5) mg/dL Magnesium (1.7-2.3) mg/dL Total Bilirubin (0.15-1.2) mg/dL AST (0-40) U/L ALT (0-41) U/L Alkaline Phosphata se (40-130) IU/L Troponin T Baselin e 20 H (0-15) ng/L Troponin T 120 Min robin 18.95 H (0-15) ng/L Delta Troponin T -1.05 L (0-10) ABS# Total Protein (6.6-8.7) g/dL Albumin (3.5-5.2) g/dL Globulin (1.3-4.6) g/dL Lipase (13-60) U/L Imaging Data^: CXR: My impression: No acute cardiopulmonary findings. EKG Data^: EKG 1: Attestation: I personally reviewed and interpreted this EKG as follows: EKG interpretation date: 07/07/20 EKG interpretation time: 13:05 Interpretation: Normal sinus rhythm at 75 beats a minute, no blocks, normal intervals, no acute ST or T wave changes. EKG 2: Attestation: I personally reviewed and interpreted this EKG as follows: EKG interpretation date: 07/07/20 EKG interpretation time: 15:18 Interpretation: Normal sinus rhythm at 74 beats a minute, nonspecific ST and T wave changes. Unchanged from previous. Discharge Plan Discharge Patient Disposition: Home Clinical Impression: Acute exacerbation of chronic obstructive pulmonary disease (COPD) Chest pain Qualifiers: Chest pain type: unspecified Qualified Code(s): R07.9 - Chest pain, unspecified Condition: Stable Prescriptions: New albuterol sulfate 90 mcg/actuation HFA aerosol inhaler 2 inh INHALATION Q4H PRN (Reason: shortness of breath or wheezing) Qty: 6.7 RF: 0 doxycycline hyclate 100 mg capsule 100 mg PO BID 10 Days Qty: 20 RF: 0 prednisone 10 mg tablet 20 mg PO TID 5 Days Qty: 30 RF: 0 No Action aspirin 325 mg Tablet 325 mg PO DAILY RF: 0 hydrochlorothiazide 25 mg Tablet 12.5 mg PO DAILY RF: 0 gabapentin 600 mg Tablet 600 mg PO BID RF: 0 ipratropium-albuterol 0.5 mg-3 mg(2.5 mg base)/3 mL Solution For Nebulization 3 ml INHALATION QID RF: 0 polyethylene glycol 3350 [Miralax] 17 gram Powder In Packet See Rx Instructions .ROUTE .COMPLEX RF: 0 levetiracetam 500 mg Tablet 1,000 mg PO BID RF: 0 amlodipine 2.5 mg Tablet 2.5 mg PO DAILY RF: 0 pantoprazole [Protonix] 40 mg Tablet,Delayed Release (Dr/Ec) 40 mg PO QAM RF: 0 dorzolamide-timolol 22.3-6.8 mg/mL Drops 1 drp OPHTHALMIC (EYE) BID RF: 0 albuterol sulfate 90 mcg/actuation Hfa Aerosol Inhaler 2 puff INHALATION QID RF: 0 metformin 500 mg Tablet Extended Release 24 Hr 500 mg PO DAILY RF: 0 rosuvastatin [Crestor] 5 mg Tablet 5 mg PO QPM RF: 0 omega 4-aom-wvt-fish oil [Fish Oil] 1,000 mg (120 mg-180 mg) Capsule 1 cap PO BID RF: 0 Discharge Orders: Discharge Order (Routine); Ordered 07/07/20 Ordered By: Rosa Sanchez Referrals: [facility] [Primary Care Provider] - 1-3 days Discharge Diet: Advance as tolerated Discharge Activity: Increase activity as tolerated Patient Instructions: Chest Pain (ED), Emphysema (ED), Chronic Obstructive Pulmonary Disease (ED), Chronic Bronchitis (ED) Activity Restrictions/Additional Instructions: Please return to the ER immediately for any of the signs or symptoms listed on your discharge instruction sheets, worsening/changing of your symptoms, you are not getting better as quickly as expected, or for ANY other cause or concerns. You have been offered further evaluation and care here of your heart including further observation even admission but have declined. Of course any type of heart problem can be life-threatening so if you change your mind, your chest pain returns, your breathing becomes difficult again, you develop a fever, or you have any other concerns or you simply change your mind you are more than welcome to return to the ER for recheck. Coding Level of Care Code ED Brace Maker for Jeremy Fwiftikhar Exam Comprehensive
[2020-07-07] MEDS: aspirin 325 mg Tablet PO (13:16)
[2020-07-07] MEDS: sodium chloride 0.9% 1,000 ML 999 ML IV (13:17)
[2020-07-07] MEDS: nitroglycerin 0.4 mg sublingual Tablet SUBLINGUAL (13:17)
[2020-07-07 13:21] VITALS: BP 177/79; PULSE 97; RESP 20; O2SAT 95
[2020-07-07 13:30] LABS: Basophils % 0.2 %; Eosinophils # 0.2 10^3/uL (0.0-0.8); Eosinophils % 1.2 %; Hematocrit 49.1 % (42.0-52.0); Hemoglobin 16.4 g/dL (11.7-16.6); Lymphocytes # 2.7 10^3/uL (0.8-4.8); Lymphocytes % 22.7 %; Mean Corpuscular HGB Conc 33.4 g/dL (30.0-36.0); Mean Corpuscular Volume 101.7 fL (80-94); Mean Platelet Volume 9.3 fL (7.4-10.4); Monocytes # 0.8 10^3/uL (0.2-0.9); Monocytes % 6.5 %; Neutrophils # 8.31 10^3/uL (1.8-7.7); Neutrophils % 68.8 %; Nucleated Red Blood Cells % 0 %; Platelet Count 235 10^3/cmm (130-400); Red Blood Count 4.83 10^6/uL (4.1-5.3); Red Cell Distribution Width 12.6 % (12.1-15.1); White Blood Count 12.1 10^3/uL (4.0-10.0)
[2020-07-07 13:43] LABS: INR 0.93 (0.8-1.2)
[2020-07-07 13:47] LABS: Alanine Aminotransferase 12 U/L (0-41); Albumin Level 4.1 g/dL (3.5-5.2); Alkaline Phosphatase 89 IU/L (40-130); Anion Gap 14.4 (5-19); Aspartate Amino Transferase 13 U/L (0-40); Blood Urea Nitrogen 13 mg/dL (8-23); Calcium 9.2 mg/dL (8.5-10.5); Carbon Dioxide 28 mmol/L (22-29); Chloride 98 mmol/L (98-107); Globulin 3.4 g/dL (1.3-4.6); Glucose 126 mg/dL (65-115); Lipase 14 U/L (13-60); Magnesium 1.5 mg/dL (1.7-2.3); Osmolality Calculated 282 mOsm/kg (285-295); Potassium 3.4 mmol/L (3.5-5.1); Sodium 137 mmol/L (136-145); Total Bilirubin 0.6 mg/dL (0.15-1.2); Total Protein 7.5 g/dL (6.6-8.7)
[2020-07-07 13:50] LABS: Troponin(5th) Baseline 20 ng/L (0-15)
[2020-07-07] MEDS: potassium chloride ER 10 mEq Tablet 40 MEQ PO (14:24)
[2020-07-07] MEDS: magnesium sulfate premix 2 GM/50 ML PIGGYBACK IV (14:25)
[2020-07-07 14:29] VITALS: BP 120/67; PULSE 75; RESP 18; O2SAT 97
[2020-07-07 14:30] VITALS: BP 120/67; PULSE 74; RESP 20; O2SAT 96
[2020-07-07 14:31] VITALS: PULSE 71; RESP 17; O2SAT 96
[2020-07-07] MEDS: ipratropium-albuterol 3 mL Neb INHALATION (14:35)
[2020-07-07] MEDS: ipratropium-albuterol 3 mL Neb 6 ML INHALATION (14:35)
[2020-07-07] MEDS: doxycycline 100 mg Tablet 200 MG PO (14:56)
[2020-07-07] MEDS: ondansetron 2 mg/ML SDV 2 mL 4 MG IVP (14:57)
--- NOTE | 2020-07-07 15:01 | ECG_ITS ---
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 Measurements Intervals [place] Rate: 74 P: -18 VA: 147 QRS: 64 QRSD: 83 T: 80 QT: 370 QTc: 411 Interpretive Statements SINUS RHYTHM WITH SINUS ARRHYTHMIA Compared to ECG 07/07/2020 13:05:07 No significant changes Electronically Signed On 07-09-2020 12:11:52 CDT by Kennedy Sainz M.D. [email or web address]
[2020-07-07 15:45] LABS: Troponin 5 2HR 18.95 ng/L (0-15)
[2020-07-07 15:46] LABS: Troponin 5 2HR Delta -1.05 ABS# (0-10)
[2020-07-07] MEDS: predniSONE 20 mg Tablet 60 MG PO (16:45)
[2020-07-07 16:46] VITALS: BP 139/64; PULSE 87; RESP 18; O2SAT 98
[2020-07-07] MEDS: albuterol 8 gm MDI 2 PUFF INHALATION (17:01)
== END 2020-07-07 17:05 | disposition home or self-care (01) ==
PROVIDERS: Emergency Provider Emergency Medicine
DX: J44.1 Chronic obstructive pulmonary disease with (acute) exacerbation (principal); Z79.82 Long term (current) use of aspirin; Z79.84 Long term (current) use of oral hypoglycemic drugs; I25.10 Atherosclerotic heart disease of native coronary artery without angina pectoris; E11.9 Type 2 diabetes mellitus without complications; E78.5 Hyperlipidemia, unspecified; I10 Essential (primary) hypertension; F17.210 Nicotine dependence, cigarettes, uncomplicated
CPT/HCPCS: 12345; 36415; 71045; 80053; 83690; 83735; 84484; 85025; 85610; 93005; 94640; 96360; 96361; 96365; 96375; 99283; 99284; J2405; J2930; J3475; J3535; J7030; J7512

== ENCOUNTER 2020-07-13 22:30 | Emergency (ER) | payer OTHER, SELFPAY ==
[2020-07-13 22:42] VITALS: BP 156/88; PULSE 81; RESP 18; TEMP 36.6; O2SAT 98; BMI 34.9
--- NOTE | 2020-07-13 23:21 | XRR_ITS ---
PROCEDURE INFORMATION: Exam: XR Chest, 1 View Exam date and time: 07/14/2020 12:38 AM Age: 69 years old Clinical indication: Chest pain; Type not specified; Prior surgery; Surgery date: 6+ months; Surgery type: Shoulder, neck TECHNIQUE: Imaging protocol: XR of the chest Views: 1 view. COMPARISON: CR XR chest 1V portable [id number] 07/07/2020 1:14 PM FINDINGS: Lungs: COPD changes are present. Strandy changes are again seen in the right base.. No consolidation. Pleural space: Unremarkable. No pleural effusion. No pneumothorax. Heart/Mediastinum: Unremarkable. No cardiomegaly. Bones/joints: Unremarkable. XR/XR chest 1V portable [id number] IMPRESSION: No acute findings.
--- NOTE | 2020-07-13 23:21 | ECG_ITS ---
[facility] Test Date: 2020-07-13 Pat Name: Robert Crisostomo Department: Room: Gender: Male Scow Captain: : 1950 Requested By: Rosa Razo Order Number: [id number] Yaya MD: Toshia Bedoya M.D. Measurements Intervals [place] Rate: 77 P: 83 KS: 141 QRS: 73 QRSD: 85 T: 82 QT: 352 QTc: 400 Interpretive Statements SINUS RHYTHM Compared to ECG 07/07/2020 15:18:23 Sinus arrhythmia no longer present Electronically Signed On 07-14-2020 20:51:07 CDT by Toshia Bedoya M.D. [email or web address]
[2020-07-14 00:06] LABS: Basophils % 0.2 %; Eosinophils % 0.1 %; Hematocrit 47.4 % (42.0-52.0); Hemoglobin 16.2 g/dL (11.7-16.6); Lymphocytes # 1.9 10^3/uL (0.8-4.8); Lymphocytes % 10.9 %; Mean Corpuscular HGB Conc 34.2 g/dL (30.0-36.0); Mean Corpuscular Hemoglobin 33.6 pg (28.0-34.0); Mean Corpuscular Volume 98.3 fL (80-94); Mean Platelet Volume 9.5 fL (7.4-10.4); Monocytes % 5.3 %; Neutrophils # 14.71 10^3/uL (1.8-7.7); Neutrophils % 82.3 %; Nucleated Red Blood Cells % 0 %; Platelet Count 295 10^3/cmm (130-400); Red Blood Count 4.82 10^6/uL (4.1-5.3); Red Cell Distribution Width 11.9 % (12.1-15.1); White Blood Count 17.9 10^3/uL (4.0-10.0)
--- NOTE | 2020-07-14 00:22 | ED_ITS ---
HPI - Chest Pain General: Chief Complaint: Chest Pain Stated Complaint: cp/numbness Time Seen by Provider: 07/14/20 00:22 Source: patient Mode of arrival: ambulatory Limitations: no limitations History of Present Illness: HPI narrative: Patient reports just not feeling well. Patient states that he was seen on 07 July last week and was put on prednisone for exacerbation of his COPD. Patient states that he feels some better since then but continues to have some discomfort that he cannot explain. Patient does smoke routinely. Patient has a history of COPD. Patient also has diabetes. Patient reports that his blood sugars been up into the 300s since starting prednisone. Associated symptoms: Reports dyspnea and palpitations Review of Systems General: Reports: 10 or more systems reviewed and unremarkable except in HPI and below Card: Reports: palpitations Resp: Reports: dyspnea PFSH ED PFSH: Medical History CAD (coronary artery disease) COPD (chronic obstructive pulmonary disease) DM type 2 (diabetes mellitus, type 2) HLD (hyperlipidemia) HTN (hypertension) Smoking addiction Surgical History H/O neck surgery H/O: knee surgery History of shoulder surgery Hx of appendectomy Family History Other Cancer Heart disease Social History Smoking and tobacco status: current every day smoker cigarettes Packs smoked per day: 1 Alcohol intake: never Lives independently: Yes Household members: spouse Marital status: Current occupational status: retired Physical Exam Const: COMMON NORMALS: no acute distress and patient oriented x3 GENERAL APPEARANCE: cooperative HENMT: COMMON NORMALS: normocephalic, TM's normal bilaterally and Normal external nose present HEAD & SCALP: normal to inspection and normocephalic NOSE: Normal external nose present TYMPANIC MEMBRANE: TM's normal bilaterally MOUTH: Normal oral and palatal mucosa present THROAT: posterior oropharynx normal Eye: GENERAL EYE: appearance normal, both eyes and all related structures Neck/C-Spine: COMMON NORMALS: full ROM Lymph: LYMPHATIC: no lymphadenopathy noted Chest: COMMONS NORMALS: normal inspection of the chest Resp: COMMON NORMALS: normal respiratory effort EFFORT & INSPECTION: Yes able to speak in complete sentences AUSCULTATION: diminished lung sounds Cardio: COMMON NORMALS: regular rate and regular rhythm RATE: regular rate RHYTHM: regular rhythm GI: COMMON NORMALS: non-tender : COMMON NORMALS: Yes no CVA tenderness BLADDER/KIDNEY EXAM: Yes no CVA tenderness Back/Pelvis: COMMON NORMALS: no CVA tenderness and thoracic and lumbar spine normal to inspection Extremity: COMMON NORMALS: normal to inspection Neuro: COMMON NORMALS: patient oriented x3 and moves all extremities Psych: COMMON NORMALS: mental status grossly normal and cooperative Skin: NARRATIVE SKIN EXAM: Senile purpura, poor turgor Course Vital Signs: Vital signs: Vital Signs Temperature 98 F 07/13/20 22:42 Pulse Rate 81 07/13/20 22:42 Respiratory Rate 18 07/13/20 22:42 Blood Pressure 156/88 07/13/20 22:42 Pulse Oximetry 98 07/13/20 22:42 MDM - Chest Pain MDM Narrative: Medical decision making narrative: Patient comes in today for complaints of some atypical chest pain. Patient states that he has just felt off since being in here on the . Patient does report feeling a little better but this morning at 3:00 he felt a discomfort in his chest with some radiation down his left arm. Patient states he feels okay now but he was concerned due to this abnormal sensation. Lungs are decreased in the bases. Heart rates regular. Abdomen soft nontender. No edema in the extremities. Vital signs are normal. Differential diagnosis includes but not limited to ACS, PE, pneumonia. Chest x-ray looks improved from last week. Laboratory values show some mild leukocytosis which is probably related to his steroid use. Metabolic panel is normal with no significant abnormality. Troponin and d-dimer were both negative. Reviewed exam with patient recommendations for treatment and follow-up with primary care. Patient reports understanding agreed to plan. Lab Data: Labs: Lab Results 07/13/20 07/13/20 07/13/20 Range/Units 23:55 23:55 23:55 WBC 17.9 H (4.0-10.0) 10^3/ uL RBC 4.82 (4.1-5.3) 10^6/u L Hgb 16.2 (11.7-16.6) g/dL Hct 47.4 (42.0-52.0) % MCV 98.3 H (80-94) fL MCH 33.6 (28.0-34.0) pg MCHC 34.2 (30.0-36.0) g/dL RDW 11.9 L (12.1-15.1) % Plt Count 295 (130-400) 10^3/c mm MPV 9.5 (7.4-10.4) fL Neut % (Auto) 82.3 % Lymph % (Auto) 10.9 % [place] % (Auto) 5.3 % Eos % (Auto) 0.1 % Baso % (Auto) 0.2 % Neut # (Auto) 14.71 H (1.8-7.7) 10^3/u L Lymph # (Auto) 1.9 (0.8-4.8) 10^3/u L [place] # (Auto) 1.0 H (0.2-0.9) 10^3/u L Eos # (Auto) 0.0 (0.0-0.8) 10^3/u L Baso # (Auto) 0.0 (0.0-0.1) 10^3/u L Nucleated RBC % (a uto) 0 % Nucleated RBCs # 0.0 /100WBC D-Dimer 0.36 (0-0.59) ug/mIFE U Sodium 137 (136-145) mmol/L Potassium 4.0 (3.5-5.1) mmol/L Chloride 98 (98-107) mmol/L Carbon Dioxide 30 H (22-29) mmol/L Anion Gap 13.0 (5-19) BUN 14 (8-23) mg/dL Creatinine 0.7 (0.7-1.2) mg/dL GFR Calculation Not Reportable Glucose 150 H (65-115) mg/dL Calculated Osmolal ity 283 L (285-295) mOsm/k g Calcium 10.0 (8.5-10.5) mg/dL Total Bilirubin 0.5 (0.15-1.2) mg/dL AST 18 (0-40) U/L ALT 43 H (0-41) U/L Alkaline Phosphata se 82 (40-130) IU/L Troponin T Baselin e (0-15) ng/L NT-Pro-B Natriuret Pep 124 (0-125) pg/mL Total Protein 7.0 (6.6-8.7) g/dL Albumin 4.3 (3.5-5.2) g/dL Globulin 2.7 (1.3-4.6) g/dL 07/13/20 Range/Units 23:55 WBC (4.0-10.0) 10^3/ uL RBC (4.1-5.3) 10^6/u L Hgb (11.7-16.6) g/dL Hct (42.0-52.0) % MCV (80-94) fL MCH (28.0-34.0) pg MCHC (30.0-36.0) g/dL RDW (12.1-15.1) % Plt Count (130-400) 10^3/c mm MPV (7.4-10.4) fL Neut % (Auto) % Lymph % (Auto) % [place] % (Auto) % Eos % (Auto) % Baso % (Auto) % Neut # (Auto) (1.8-7.7) 10^3/u L Lymph # (Auto) (0.8-4.8) 10^3/u L [place] # (Auto) (0.2-0.9) 10^3/u L Eos # (Auto) (0.0-0.8) 10^3/u L Baso # (Auto) (0.0-0.1) 10^3/u L Nucleated RBC % (a uto) % Nucleated RBCs # /100WBC D-Dimer (0-0.59) ug/mIFE U Sodium (136-145) mmol/L Potassium (3.5-5.1) mmol/L Chloride (98-107) mmol/L Carbon Dioxide (22-29) mmol/L Anion Gap (5-19) BUN (8-23) mg/dL Creatinine (0.7-1.2) mg/dL GFR Calculation Glucose (65-115) mg/dL Calculated Osmolal ity (285-295) mOsm/k g Calcium (8.5-10.5) mg/dL Total Bilirubin (0.15-1.2) mg/dL AST (0-40) U/L ALT (0-41) U/L Alkaline Phosphata se (40-130) IU/L Troponin T Baselin e 12 (0-15) ng/L NT-Pro-B Natriuret Pep (0-125) pg/mL Total Protein (6.6-8.7) g/dL Albumin (3.5-5.2) g/dL Globulin (1.3-4.6) g/dL Discharge Plan Discharge Patient Disposition: Home Clinical Impression: Atypical chest pain Condition: Stable Prescriptions: No Action aspirin 325 mg Tablet 325 mg PO DAILY RF: 0 hydrochlorothiazide 25 mg Tablet 12.5 mg PO DAILY RF: 0 doxycycline hyclate 100 mg capsule 100 mg PO BID 10 Days Qty: 20 RF: 0 albuterol sulfate 90 mcg/actuation HFA aerosol inhaler 2 inh INHALATION Q4H PRN (Reason: shortness of breath or wheezing) Qty: 6.7 RF: 0 gabapentin 600 mg Tablet 600 mg PO BID RF: 0 ipratropium-albuterol 0.5 mg-3 mg(2.5 mg base)/3 mL Solution For Nebulization 3 ml INHALATION QID RF: 0 polyethylene glycol 3350 [Miralax] 17 gram Powder In Packet See Rx Instructions .ROUTE .COMPLEX RF: 0 levetiracetam 500 mg Tablet 1,000 mg PO BID RF: 0 amlodipine 2.5 mg Tablet 2.5 mg PO DAILY RF: 0 pantoprazole [Protonix] 40 mg Tablet,Delayed Release (Dr/Ec) 40 mg PO QAM RF: 0 dorzolamide-timolol 22.3-6.8 mg/mL Drops 1 drp OPHTHALMIC (EYE) BID RF: 0 albuterol sulfate 90 mcg/actuation Hfa Aerosol Inhaler 2 puff INHALATION QID RF: 0 metformin 500 mg Tablet Extended Release 24 Hr 500 mg PO DAILY RF: 0 rosuvastatin [Crestor] 5 mg Tablet 5 mg PO QPM RF: 0 omega 0-zwo-fxn-fish oil [Fish Oil] 1,000 mg (120 mg-180 mg) Capsule 1 cap PO BID RF: 0 Discharge Orders: Discharge Order (Routine); Ordered 07/14/20 Ordered By: Edson Arreguin Referrals: [facility] [Primary Care Provider] - Discharge Diet: Usual diet Discharge Activity: Increase activity as tolerated Patient Instructions: Chest Pain (ED) Activity Restrictions/Additional Instructions: Home and rest. Continue routine medications as directed. Follow-up with primary care on Thursday for further evaluation. Return to the emergency department for new concerns. Coding Level of Care Code ED Conveyor Belt Operator for Chg Fwd Exam Comprehensive
[2020-07-14 00:27] LABS: D Dimer 0.36 ug/mIFEU (0-0.59)
[2020-07-14 00:33] LABS: Troponin(5th) Baseline 12 ng/L (0-15)
[2020-07-14 00:42] LABS: Alanine Aminotransferase 43 U/L (0-41); Albumin Level 4.3 g/dL (3.5-5.2); Alkaline Phosphatase 82 IU/L (40-130); Aspartate Amino Transferase 18 U/L (0-40); Blood Urea Nitrogen 14 mg/dL (8-23); Carbon Dioxide 30 mmol/L (22-29); Chloride 98 mmol/L (98-107); Globulin 2.7 g/dL (1.3-4.6); Glucose 150 mg/dL (65-115); NT Pro B Type Natriuretic Pept 124 pg/mL (0-125); Osmolality Calculated 283 mOsm/kg (285-295); Sodium 137 mmol/L (136-145); Total Bilirubin 0.5 mg/dL (0.15-1.2)
[2020-07-14 01:18] VITALS: BP 134/74; PULSE 72; RESP 14; O2SAT 97
== END 2020-07-14 01:21 | disposition home or self-care (01) ==
PROVIDERS: Emergency Medicine; Emergency Provider Nurse Practitioner Family
DX: R07.89 Other chest pain (principal); Z79.82 Long term (current) use of aspirin; I25.10 Atherosclerotic heart disease of native coronary artery without angina pectoris; J44.9 Chronic obstructive pulmonary disease, unspecified; E11.9 Type 2 diabetes mellitus without complications; E78.5 Hyperlipidemia, unspecified; I10 Essential (primary) hypertension; F17.210 Nicotine dependence, cigarettes, uncomplicated
CPT/HCPCS: 12345; 36415; 71045; 80053; 83880; 84484; 85025; 85378; 93005; 99281; 99284

== ENCOUNTER 2020-07-21 13:45 | Emergency (ER) | payer OTHER, SELFPAY ==
[2020-07-21 14:28] VITALS: BP 137/81; PULSE 85; RESP 18; TEMP 37.1; O2SAT 95; BMI 34.9
--- NOTE | 2020-07-21 15:04 | XRR_ITS ---
PROCEDURE INFORMATION: Exam: XR Chest, 1 View Exam date and time: 07/21/2020 3:06 PM Age: 69 years old Clinical indication: Dyspnea; Additional info: Seizure TECHNIQUE: Imaging protocol: XR of the chest Views: 1 view. COMPARISON: CR XR chest 1V portable [id number] 07/14/2020 12:27 AM FINDINGS: Lungs: There is no focal consolidation. Minor scarring is noted in the lower right lung. Pleural space: Unremarkable. No pleural effusion. No pneumothorax. Heart/Mediastinum: Unremarkable. No cardiomegaly. Bones/joints: Postoperative and severe degenerative changes of the left shoulder are noted. XR/XR chest 1V portable [id number] IMPRESSION: 1. No acute abnormality. 2. Chronic findings as discussed above.
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
[2020-07-21 15:10] VITALS: BP 137/70; PULSE 81; RESP 18; O2SAT 97
[2020-07-21 15:46] VITALS: BP 137/70; PULSE 78; RESP 18; O2SAT 96
[2020-07-21 15:48] LABS: Basophils % 0.3 %; Eosinophils # 0.2 10^3/uL (0.0-0.8); Eosinophils % 1.2 %; Hematocrit 47.9 % (42.0-52.0); Hemoglobin 16.1 g/dL (11.7-16.6); Lymphocytes # 3.1 10^3/uL (0.8-4.8); Lymphocytes % 20.3 %; Mean Corpuscular HGB Conc 33.6 g/dL (30.0-36.0); Mean Corpuscular Hemoglobin 32.7 pg (28.0-34.0); Mean Corpuscular Volume 97.2 fL (80-94); Mean Platelet Volume 9.7 fL (7.4-10.4); Monocytes # 0.9 10^3/uL (0.2-0.9); Monocytes % 6.1 %; Neutrophils # 10.77 10^3/uL (1.8-7.7); Neutrophils % 71.2 %; Nucleated Red Blood Cells % 0 %; Platelet Count 218 10^3/cmm (130-400); Red Blood Count 4.93 10^6/uL (4.1-5.3); Red Cell Distribution Width 12.2 % (12.1-15.1); White Blood Count 15.1 10^3/uL (4.0-10.0)
[2020-07-21 15:54] LABS: Add Urine Microscopic? NO
[2020-07-21 16:09] LABS: Bilirubin Urine Neg (NEGATIVE); Blood Urine Neg (Negative); Glucose Urine UA 1+ (Normal); Ketones Urine 1+ (Negative); Leukocyte Esterase Urine Negative (Negative); Nitrate Urine Negative (Negative); Protein Urine Neg (Negative); Urine Appearance Clear (CLEAR); Urine Color Dark Yellow (Yellow); Urobilinogen Urine Norm (Negative); pH Urine 5 (5-7)
[2020-07-21 16:26] LABS: Alanine Aminotransferase 13 U/L (0-41); Albumin Level 4.2 g/dL (3.5-5.2); Alkaline Phosphatase 76 IU/L (40-130); Anion Gap 14.5 (5-19); Aspartate Amino Transferase 9 U/L (0-40); Blood Urea Nitrogen 19 mg/dL (8-23); C Reactive Protein 1.4 mg/L (0.0-4.9); Calcium 9.4 mg/dL (8.5-10.5); Carbon Dioxide 27 mmol/L (22-29); Chloride 97 mmol/L (98-107); Creatine Phosphokinase 23 U/L (39-308); Globulin 3.3 g/dL (1.3-4.6); Glucose 180 mg/dL (65-115); Osmolality Calculated 281 mOsm/kg (285-295); Potassium 3.5 mmol/L (3.5-5.1); Sodium 135 mmol/L (136-145); Thyroid Stimulating Hormone 0.39 uIU/mL (0.27-4.20); Total Bilirubin 0.4 mg/dL (0.15-1.2); Total Protein 7.5 g/dL (6.6-8.7)
[2020-07-21 17:35] VITALS: BP 157/80; PULSE 80; RESP 18; O2SAT 94
[2020-07-21 18:33] VITALS: BP 141/51; PULSE 80; RESP 18; TEMP 36.4; O2SAT 95
== END 2020-07-21 18:47 | disposition home or self-care (01) ==
PROVIDERS: Emergency Provider Family Medicine
DX: R56.1 Post traumatic seizures (principal); Z79.82 Long term (current) use of aspirin; I25.10 Atherosclerotic heart disease of native coronary artery without angina pectoris; J44.9 Chronic obstructive pulmonary disease, unspecified; E11.9 Type 2 diabetes mellitus without complications; E78.5 Hyperlipidemia, unspecified; I10 Essential (primary) hypertension; F17.210 Nicotine dependence, cigarettes, uncomplicated
CPT/HCPCS: 12345; 70450; 71045; 80053; 81003; 82550; 84443; 85025; 86140; 96374; 99284; J1953

== ENCOUNTER 2020-09-22 18:39 | Emergency (ER) | payer OTHER, SELFPAY ==
[2020-09-22 19:03] VITALS: BP 144/85; PULSE 87; RESP 14; TEMP 36; O2SAT 96; BMI 29.9
--- NOTE | 2020-09-22 19:31 | ED_ITS ---
HPI - Nausea/Vomiting/Diarrhea General: Chief complaint: Nausea/Vomiting/Diarrhea Stated complaint: upset stomach Time Seen by Provider: 09/22/20 19:11 Source: patient and family Mode of arrival: ambulatory Limitations: no limitations History of Present Illness: HPI Narrative: Robert is a nice 69-year-old male comes in complaining of nauseousness along with diarrhea. The patient's been sick for the past 2 days with the symptoms. He states that he ate something at [employer] along with another family member and both have been sick with similar symptoms since that time. He denies any fevers or chills, chest pain or shortness of breath, urinary symptoms or any other complaint. Patient's not tried anything for this at home and he is unaware of any exacerbating or allevia ting factors. Specifically denies abdominal pain he says he is just diarrhea and nauseousness. Associated nausea: Yes Associated symtoms: Reports nausea; Denies change in vision, chest pain, diaphoresis, dizziness, dysuria, fatigue, headache(s), malaise, palpitations or syncope Review of Systems Const: Denies: fever(s), chills, body aches, fatigue, malaise or diaphoresis Eyes: Denies: change in vision, blurry vision, photophobia, eye discomfort, eye discharge, eye redness or yellow eyes ENMT: Denies: throat pain, odynophagia, hoarseness, swelling of lips/tongue, ear or mastoid pain, ear discharge, change in hearing or nasal discharge Card: Denies: chest pain, palpitations, irregular heart rhythm, edema, lightheadedness, syncope, pre-syncope, dyspnea on exertion or orthopnea Resp: Denies: dyspnea, productive cough, non-productive cough, wheezing, hemoptysis or chest congestion GI: Reports: nausea and diarrhea; Denies: abdominal pain, vomiting, hematemesis, coffee ground emesis, heartburn, constipation, GI cramping, hematochezia or melena : Denies: flank pain, dysuria, urinary frequency, urinary urgency or hematuria Musc: Denies: neck pain, back pain, extremity pain, extremity swelling, joint pain, joint swelling, joint redness, joint warmth or joint stiffness Skin/Breast: Denies: rash, pruritus, erythema, skin pain or skin tenderness Neuro: Denies: headache(s), numbness in extremities, weakness in extremities, sensory changes, lack of coordination, difficulty walking, dizziness, vertigo, confusion, Slurred speech present or seizure-like activity Oh/Lymph: Denies: easy bruising, easy bleeding, petechiae, purpura or enlarged lymph nodes All/Imm: Denies: urticaria, throat swelling, tongue swelling, facial swelling or acute wheezing PFSH ED PFSH: Medical History CAD (coronary artery disease) COPD (chronic obstructive pulmonary disease) DM type 2 (diabetes mellitus, type 2) HLD (hyperlipidemia) HTN (hypertension) Smoking addiction Surgical History H/O neck surgery H/O: knee surgery History of shoulder surgery Hx of appendectomy Family History Other Cancer Heart disease Social History Smoking and tobacco status: current every day smoker cigarettes Packs smoked per day: 1 Alcohol intake: never Lives independently: Yes Household members: spouse Marital status: Current occupational status: retired Physical Exam Const: COMMON NORMALS: no acute distress, patient oriented x3, no limitations and alert GENERAL APPEARANCE: cooperative HENMT: COMMON NORMALS: normocephalic, atraumatic, external ears normal, EAC's normal and Normal external nose present HEAD & SCALP: normal to inspection, normocephalic and atraumatic FACE & SINUS: normal facial exam and face symme tric NOSE: Normal external nose present and Normal nares present EXTERNAL EAR: Yes external ears normal EXTERNAL AUDITORY CANAL: EAC's normal MOUTH: Normal oral and palatal mucosa present, lip normal and tongue normal Eye: COMMON NORMALS: Equal, round and reactive pupils present and conjunctivae normal GENERAL EYE: appearance normal, both eyes and all related structures ALIGNMENT: Yes alignment normal PERIORBITAL: periorbital findings normal EYELID: eyelids normal CONJUNCTIVA: Yes conjunctivae normal SCLERA: sclerae normal PUPIL: Yes Equal, round and reactive pupils present Neck/C-Spine: COMMON NORMALS: full ROM, no lymphadenopathy, supple, no meningeal signs and no JVD GENERAL: Yes normal visual inspection and Yes trachea midline Chest: COMMONS NORMALS: normal inspection of the chest and normal palpation of entire chest wall Resp: COMMON NORMALS: normal respiratory effort, No retractions, No use of acc essory muscles and clear to auscultation bilaterally EFFORT & INSPECTION: Yes able to speak in complete sentences and Yes symmetric chest movement AUSCULTATION: clear to auscultation bilaterally, no crackles, no rales, no rhonchi and no wheezes Cardio: COMMON NORMALS: no JVD, regular rate, regular rhythm, S1 normal heart sound present and S2 normal heart sound present RATE: regular rate RHYTHM: regular rhythm HEART SOUNDS: S1 normal heart sound present, S2 normal heart sound present, no click, no gallops, no murmurs and no rubs GI: COMMON NORMALS: Soft to palpation and No hepatosplenomegaly present PALPATION: Yes Soft to palpation, No Tenderness to palpation present (GI), No Guarding due to palpation present (GI), No Rigid due to palpation, Yes No hepa tosplenomegaly present, No Hernia present, No Palpable mass present and No Pulsatile mass present : COMMON NORMALS: Yes no CVA tenderness BLADDER/KIDNEY EXAM: Yes no CVA tenderness Back/Pelvis: COMMON NORMALS: no CVA tenderness, thoracic and lumbar spine normal to inspection, no thoracic nor lumbar tenderness and thoraco-lumbar ROM normal Extremity: COMMON NORMALS: normal to inspection, full ROM, capillary refill normal, no joint enlargement, no clubbing, cyanosis or edema and no calf tenderness Neuro: COMMON NORMALS: patient oriented x3, CN's II-XII intact bilaterally, moves all extremities, no focal motor deficits and no sensory deficits noted SENSORIUM/ORIENTATION: Yes alert MENINGEAL SIGNS: Yes no meningeal signs SPEECH: speech normal Psych: COMMON NORMALS: mental status grossly normal, Normal thought process present, cooperative, normal affect, speech normal and activity/motor behavior normal SPEECH: Yes normal speech THOUGHT PROCESS: Normal thought process present Skin: COMMON NORMALS: no rashes or lesions noted, turgor normal, no jaundice, no petechiae and no mottling GENERAL SKIN EXAM: no rashes or lesions noted and turgor normal Course Vital Signs: Vital signs: Vital Signs Temperature 96.8 F L 09/22/20 19:03 Pulse Rate 65 09/22/20 20:35 Respiratory Rate 16 09/22/20 20:35 Blood Pressure 162/85 09/22/20 20:35 Pulse Oximetry 98 09/22/20 20:35 MDM - Nausea/Vomiting/Diarrhea MDM Narrative: Medical decision making narrative: 2102 -Robert is a very nice 69-year-old male who comes in with nauseousness and diarrhea. He has no blood in his stools, no fever and he has not had any abdominal pain. Patient has a low potassium magnesium which were replaced here orally and IV. Patient is feeling better after IV fluids. He is ready to go home. I see no indication to image his abdomen at this time as he has no pain, there is no tenderness to palpation the patient's history is consistent with a food poisoning. Patient has a family member who ate at the same [employer] at the same time and has the same symptoms. Patient understands that if he develops pain he will need to return but otherwise at this time he is feeling better would like to go home. Lab Data: Attestation: I reviewed the patient's lab results. Labs: Lab Results 09/22/20 09/22/20 09/22/20 Range/Units 18:40 19:57 19:57 WBC 11.3 H (4.0-10.0) 10^3/ uL RBC 4.60 (4.1-5.3) 10^6/u L Hgb 14.8 (11.7-16.6) g/dL Hct 44.8 (42.0-52.0) % MCV 97.4 H (80-94) fL MCH 32.2 (28.0-34.0) pg MCHC 33.0 (30.0-36.0) g/dL RDW 12.9 (12.1-15.1) % Plt Count 211 (130-400) 10^3/c mm MPV 9.2 (7.4-10.4) fL Neut % (Auto) 65.8 % Lymph % (Auto) 25.0 % Cooke % (Auto) 5.8 % Eos % (Auto) 2.7 % Baso % (Auto) 0.4 % Neut # (Auto) 7.44 (1.8-7.7) 10^3/u L Lymph # (Auto) 2.8 (0.8-4.8) 10^3/u L Cooke # (Auto) 0.7 (0.2-0.9) 10^3/u L Eos # (Auto) 0.3 (0.0-0.8) 10^3/u L Baso # (Auto) 0.0 (0.0-0.1) 10^3/u L Nucleated RBC % (a uto) 0 % Nucleated RBCs # 0.0 /100WBC Sodium 138 (136-145) mmol/L Potassium 3.1 L (3.5-5.1) mmol/L Chloride 96 L (98-107) mmol/L Carbon Dioxide 32 H (22-29) mmol/L Anion Gap 13.1 (5-19) BUN 13 (8-23) mg/dL Creatinine 0.7 (0.7-1.2) mg/dL GFR Calculation Not Reportable Glucose 107 (65-115) mg/dL Calculated Osmolal ity 287 (285-295) mOsm/k g Calcium 8.9 (8.5-10.5) mg/dL Magnesium 1.3 L (1.7-2.3) mg/dL Total Bilirubin 0.4 (0.15-1.2) mg/dL AST 12 (0-40) U/L ALT 9 (0-41) U/L Alkaline Phosphata se 90 (40-130) IU/L Total Protein 7.1 (6.6-8.7) g/dL Albumin 4.0 (3.5-5.2) g/dL Globulin 3.1 (1.3-4.6) g/dL Lipase 13 (13-60) U/L Urine Color Yellow (Yellow) Urine Appearance Clear (CLEAR) Urine pH 7 (5-7) Ur Specific Gravit y 1.005 (1.005-1.030) Urine Protein Neg (Negative) Urine Glucose (UA) Norm (Normal) Urine Ketones Negative (Negative) Urine Blood Neg (Negative) Urine Nitrate Negative (Negative) Urine Bilirubin Neg (Negative) Urine Urobilinogen Norm (Negative) mg/dL Ur Leukocyte Lizzeth ase Negative (Negative) Discharge Plan Discharge Patient Disposition: Home Clinical Impression: Gastroenteritis, Food poisoning Condition: Stable Prescriptions: New Zofran 4 mg tablet 4 mg PO Q6H PRN (Reason: nausea and vomiting) Qty: 20 RF: 0 dicyclomine 20 mg tablet 20 mg PO QID 5 Days Qty: 20 RF: 0 No Action aspirin 325 mg Tablet 325 mg PO DAILY RF: 0 hydrochlorothiazide 25 mg Tablet 12.5 mg PO DAILY RF: 0 albuterol sulfate 90 mcg/actuation HFA aerosol inhaler 2 inh INHALATION Q4H PRN (Reason: shortness of breath or wheezing) Qty: 6.7 RF: 0 gabapentin 600 mg Tablet 600 mg PO BID RF: 0 ipratropium-albuterol 0.5 mg-3 mg(2.5 mg base)/3 mL Solution For Nebulization 3 ml INHALATION QID RF: 0 polyethylene glycol 3350 [Miralax] 17 gram Powder In Packet See Rx Instructions .ROUTE .COMPLEX RF: 0 levetiracetam 500 mg Tablet 1,000 mg PO BID RF: 0 amlodipine 2.5 mg Tablet 2.5 mg PO DAILY RF: 0 pantoprazole [Protonix] 40 mg Tablet,Delayed Release (Dr/Ec) 40 mg PO QAM RF: 0 dorzolamide-timolol 22.3-6.8 mg/mL Drops 1 drp OPHTHALMIC (EYE) BID RF: 0 albuterol sulfate 90 mcg/actuation Hfa Aerosol Inhaler 2 puff INHALATION QID RF: 0 metformin 500 mg Tablet Extended Release 24 Hr 500 mg PO DAILY RF: 0 rosuvastatin [Crestor] 5 mg Tablet 5 mg PO QPM RF: 0 omega [id number] oil [Fish Oil] 1,000 mg (120 mg-180 mg) Capsule 1 cap PO BID RF: 0 Discharge Orders: Discharge Order (Routine); Ordered 09/22/20 Ordered By: Rosa Sanchez Referrals: [facility] [Primary Care Provider] - 1-3 days Discharge Diet: Advance as tolerated and Clear Liquid Discharge Activity: Increase activity as tolerated Patient Instructions: Abdominal Pain (ED) Activity Restrictions/Additional Instructions: Please return to the ER immediately for any of the signs or symptoms listed on your discharge instruction sheets, worsening/changing of your symptoms, you are not getting better as quickly as expected, or for ANY other cause or concerns. Return to the ER if you develop abdominal pain, fever, blood in your stools, blood in your vomit, or for any other cause for concern. Follow a clear liquid diet and advance it slowly back to normal as you tolerate. Again if you develop any abdominal pain at all please return to the ER for recheck. 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
[2020-09-22 19:39] VITALS: BP 160/71; PULSE 63; RESP 16; O2SAT 99
[2020-09-22 19:43] LABS: Add Urine Microscopic? NO
[2020-09-22 19:49] LABS: Bilirubin Urine Neg (Negative); Blood Urine Neg (Negative); Glucose Urine UA Norm (Normal); Ketones Urine Negative (Negative); Leukocyte Esterase Urine Negative (Negative); Nitrate Urine Negative (Negative); Protein Urine Neg (Negative); Specific Gravity, Urine 1.005 (1.005-1.030); Urine Appearance Clear (CLEAR); Urine Color Yellow (Yellow); Urobilinogen Urine Norm (Negative); pH Urine 7 (5-7)
[2020-09-22] MEDS: sodium chloride 0.9% 1,000 ML 999 ML IV (19:55)
[2020-09-22] MEDS: ondansetron 2 mg/ML SDV 2 mL 4 MG IVP (19:55)
[2020-09-22 20:07] LABS: Basophils % 0.4 %; Eosinophils # 0.3 10^3/uL (0.0-0.8); Eosinophils % 2.7 %; Hematocrit 44.8 % (42.0-52.0); Hemoglobin 14.8 g/dL (11.7-16.6); Lymphocytes # 2.8 10^3/uL (0.8-4.8); Mean Corpuscular Hemoglobin 32.2 pg (28.0-34.0); Mean Corpuscular Volume 97.4 fL (80-94); Mean Platelet Volume 9.2 fL (7.4-10.4); Monocytes # 0.7 10^3/uL (0.2-0.9); Monocytes % 5.8 %; Neutrophils # 7.44 10^3/uL (1.8-7.7); Neutrophils % 65.8 %; Nucleated Red Blood Cells % 0 %; Platelet Count 211 10^3/cmm (130-400); Red Cell Distribution Width 12.9 % (12.1-15.1); White Blood Count 11.3 10^3/uL (4.0-10.0)
[2020-09-22 20:32] LABS: Alanine Aminotransferase 9 U/L (0-41); Alkaline Phosphatase 90 IU/L (40-130); Anion Gap 13.1 (5-19); Aspartate Amino Transferase 12 U/L (0-40); Blood Urea Nitrogen 13 mg/dL (8-23); Calcium 8.9 mg/dL (8.5-10.5); Carbon Dioxide 32 mmol/L (22-29); Chloride 96 mmol/L (98-107); Globulin 3.1 g/dL (1.3-4.6); Glucose 107 mg/dL (65-115); Lipase 13 U/L (13-60); Magnesium 1.3 mg/dL (1.7-2.3); Osmolality Calculated 287 mOsm/kg (285-295); Potassium 3.1 mmol/L (3.5-5.1); Sodium 138 mmol/L (136-145); Total Bilirubin 0.4 mg/dL (0.15-1.2); Total Protein 7.1 g/dL (6.6-8.7)
[2020-09-22 20:35] VITALS: BP 162/85; PULSE 65; RESP 16; O2SAT 98
[2020-09-22] MEDS: potassium chloride ER 10 mEq Tablet 40 MEQ PO (20:59)
[2020-09-22 21:00] VITALS: BP 151/75; PULSE 89; RESP 17; O2SAT 96
[2020-09-22] MEDS: magnesium sulfate premix 2 GM/50 ML PIGGYBACK IV (21:01)
[2020-09-22] MEDS: sodium chloride 0.9% 1,000 ML 100 ML IV (21:05)
[2020-09-22 21:52] VITALS: BP 131/95; PULSE 90; RESP 17; TEMP 36.6; O2SAT 99
== END 2020-09-22 21:54 | disposition home or self-care (01) ==
PROVIDERS: Emergency Provider Emergency Medicine
DX: K52.9 Noninfective gastroenteritis and colitis, unspecified (principal); A05.9 Bacterial foodborne intoxication, unspecified; Z79.82 Long term (current) use of aspirin; Z79.84 Long term (current) use of oral hypoglycemic drugs; I25.10 Atherosclerotic heart disease of native coronary artery without angina pectoris; J44.9 Chronic obstructive pulmonary disease, unspecified; E11.9 Type 2 diabetes mellitus without complications; E78.5 Hyperlipidemia, unspecified; I10 Essential (primary) hypertension; F17.210 Nicotine dependence, cigarettes, uncomplicated
CPT/HCPCS: 12345; 80053; 81003; 83690; 83735; 85025; 96361; 96365; 96375; 99283; J2405; J3475; J7030

== ENCOUNTER 2020-11-21 21:16 | Emergency (ER) | payer OTHER, SELFPAY ==
[2020-11-21 21:21] VITALS: BP 173/90; PULSE 69; RESP 16; TEMP 35.9; O2SAT 96; BMI 36.6
--- NOTE | 2020-11-21 22:23 | XRR_ITS ---
PROCEDURE INFORMATION: Exam: XR Left Forearm Exam date and time: 11/21/2020 10:24 PM Age: 69 years old Clinical indication: Lower or forearm; Right; Patient HX: Swelling and weeping of left forearm. C/O pain. TECHNIQUE: Imaging protocol: XR Left forearm. Views: 2 views. COMPARISON: No relevant prior studies available. FINDINGS: Bones/joints: Normal. Soft tissues: Normal. XR/XR forearm LT 2V 13709 IMPRESSION: No acute findings.
--- NOTE | 2020-11-21 22:23 | XR_ITS ---
WS: [id number] Left wrist, 3 views, 11/21/2020 Clinical Data: pain Comparison: None. Findings: No fractures or dislocations are seen. The carpal bones are intact. There is no soft tissue swelling. The distal radius and ulna are not remarkable. There is osteoarthritis at the base of the left first metacarpal. 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
--- NOTE | 2020-11-21 22:24 | ED_ITS ---
HPI - Extremity Problem General: Chief complaint: Extremity Problem,Nontraumatic Stated complaint: skin tears/oozing/swelling in right arm, nausea Time Seen by Provider: 11/21/20 22:14 Source: patient Mode of arrival: ambulatory Limitations: no limitations History of Present Illness: HPI Narrative: 69-year-old male states he fell on November 14. He states he felt his left arm has some left forearm pain he rates a 3 out of 10. He states he had some abrasions that are healing. He states he would make sure anything was broken. He denies any his head. Patient is ambulatory. Denies any worsening improving factors. MD Complaint: extremity pain Associated symptoms: Deny chest pain, fever(s) or rash Review of Systems Const: Denies: fever(s), chills, body aches or change in appetite Eyes: Denies: blurry vision or eye discomfort ENMT: Denies: throat pain or dental pain Card: Denies: chest pain Resp: Denies: dyspnea GI: Denies: abdominal pain, nausea, vomiting or diarrhea : Denies: dysuria Musc: Reports: extremity pain; Denies: neck pain or back pain Skin/Breast: Denies: rash Neuro: Denies: headache(s) Psych: Denies: depression Oh/Lymph: Denies: easy bruising All/Imm: Denies: urticaria PFSH ED PFSH: Medical History CAD (coronary artery disease) COPD (chronic obstructive pulmonary disease) DM type 2 (diabetes mellitus, type 2) HLD (hyperlipidemia) HTN (hypertension) Smoking addiction Surgical History H/O neck surgery H/O: knee surgery History of shoulder surgery Hx of appendectomy Family History Other Cancer Heart disease Social History Smoking and tobacco status: current every day smoker cigarettes Packs smoked per day: 1 Alcohol intake: never Lives independently: Yes Household members: spouse Marital status: Current occupational status: retired Physical Exam Const: COMMON NORMALS: no acute distress, patient oriented x3 and healthy appearing HENMT: COMMON NORMALS: normocephalic and atraumatic HEAD & SCALP: normocephalic and atraumatic Eye: COMMON NORMALS: Equal, round and reactive pupils present and EOMs intact bilaterally PUPIL: Yes Equal, round and reactive pupils present Neck/C-Spine: COMMON NORMALS: full ROM and supple Chest: COMMONS NORMALS: normal inspection of the chest and normal palpation of entire chest wall Resp: COMMON NORMALS: normal respiratory effort, No retractions, No use of accessory muscles and clear to auscultation bilaterally AUSCULTATION: clear to auscultation bilaterally Cardio: COMMON NORMALS: regular rate, regular rhythm and No murmurs present (Cardio) RATE: regular rate RHYTHM: regular rhythm GI: COMMON NORMALS: Normal to inspection, nondistended, normoactive bowel sounds present, Soft to palpation, non-tender and no masses PALPATION: Yes Soft to palpation Extremity: COMMON NORMALS: full ROM NARRATIVE EXTREMITY EXAM: Slight tenderness to the left forearm and wrist with no obvious deformities. Neuro: COMMON NORMALS: patient oriented x3, moves all extremities and no focal motor deficits Psych: COMMON NORMALS: mental status grossly normal, Normal thought process present and cooperative THOUGHT PROCESS: Normal thought process present Skin: COMMON NORMALS: no rashes or lesions noted and no wounds GENERAL SKIN EXAM: no rashes or lesions noted Course Vital Signs: Vital signs: Vital Signs Temperature 96.6 F L 11/21/20 21:21 Pulse Rate 84 11/21/20 22:30 Respiratory Rate 16 11/21/20 21:21 Blood Pressure 173/90 11/21/20 21:21 Pulse Oximetry 96 11/21/20 21:21 MDM - Extremity (Nontraumatic) MDM Narrative: Medical decision making narrative: Patient presents here with forearm pain after fall. Patient's x-ray shows no fractures. He has no signs of blood clots and no signs of infection. He has no wounds here. Patient is stable for discharge he is to follow-up PCP and return if worsening. Imaging Data^: xr l wrist: Attestation: I personally reviewed and interpreted this imaging study as follows: My impression: no acute abnormality xr l forearm: Attestation: I personally reviewed and interpreted this imaging study as follows: My impression: No acute abnormality Discharge Plan Discharge Patient Disposition: Home Clinical Impression: Left arm pain Fall Qualifiers: Encounter type: initial encounter Qualified Code(s): W19.XXXA - Unspecified fall, initial encounter Condition: Stable Prescriptions: No Action aspirin 325 mg Tablet 325 mg PO DAILY RF: 0 hydrochlorothiazide 25 mg Tablet 12.5 mg PO DAILY RF: 0 albuterol sulfate 90 mcg/actuation HFA aerosol inhaler 2 inh INHALATION Q4H PRN (Reason: shortness of breath or wheezing) Qty: 6.7 RF: 0 Zofran 4 mg tablet 4 mg PO Q6H PRN (Reason: nausea and vomiting) Qty: 20 RF: 0 gabapentin 600 mg Tablet 600 mg PO BID RF: 0 ipratropium-albuterol 0.5 mg-3 mg(2.5 mg base)/3 mL Solution For Nebulization 3 ml INHALATION QID RF: 0 polyethylene glycol 3350 [Miralax] 17 gram Powder In Packet See Rx Instructions .ROUTE .COMPLEX RF: 0 levetiracetam 500 mg Tablet 1,000 mg PO BID RF: 0 amlodipine 2.5 mg Tablet 2.5 mg PO DAILY RF: 0 pantoprazole [Protonix] 40 mg Tablet,Delayed Release (Dr/Ec) 40 mg PO QAM RF: 0 dorzolamide-timolol 22.3-6.8 mg/mL Drops 1 drp OPHTHALMIC (EYE) BID RF: 0 albuterol sulfate 90 mcg/actuation Hfa Aerosol Inhaler 2 puff INHALATION QID RF: 0 metformin 500 mg Tablet Extended Release 24 Hr 500 mg PO DAILY RF: 0 rosuvastatin [Crestor] 5 mg Tablet 5 mg PO QPM RF: 0 omega 7-[id number]-fish oil [Fish Oil] 1,000 mg (120 mg-180 mg) Capsule 1 cap PO BID RF: 0 Discharge Orders: Discharge ED (Routine); Ordered 11/21/20 Ordered By: Harvey Mckeon Referrals: [facility] [Primary Care Provider] - 1-3 days Discharge Diet: Advance as tolerated Discharge Activity: Resume usual activity Patient Instructions: Contusion in Adults (ED) Coding Level of Care Code 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
[2020-11-21 22:30] VITALS: PULSE 84
[2020-11-22 00:23] VITALS: BP 147/90; RESP 18
== END 2020-11-21 23:20 | disposition home or self-care (01) ==
PROVIDERS: Emergency Provider Emergency Medicine
DX: M79.602 Pain in left arm (principal); Z79.82 Long term (current) use of aspirin; W19.XXXA Unspecified fall, initial encounter; I25.10 Atherosclerotic heart disease of native coronary artery without angina pectoris; J44.9 Chronic obstructive pulmonary disease, unspecified; E11.9 Type 2 diabetes mellitus without complications; I10 Essential (primary) hypertension; E78.5 Hyperlipidemia, unspecified; F17.210 Nicotine dependence, cigarettes, uncomplicated
CPT/HCPCS: 12345; 73090; 73110; 99281; 99282

== ENCOUNTER 2021-01-31 00:11 | Emergency (ER) | payer OTHER, SELFPAY ==
[2021-01-31 00:19] VITALS: BP 156/78; PULSE 76; RESP 18; TEMP 37.1; O2SAT 97; BMI 36.6
--- NOTE | 2021-01-31 00:21 | ED_ITS ---
HPI - General Adult General: Stated complaint: sore throat, low blood sugar Time Seen by Provider: 01/31/21 00:19 Source: patient, family and RN notes reviewed Limitations: no limitations History of Present Illness: HPI narrative: This patient presents to the emergency department with complaint of a sore throat for 1 day. They did call PCP office and they placed the patient on [id number] Mucinex. Patient denies fever. Family member does have strep throat. Onset (ago): day(s) (5) Pain Consistency: intermittent Associated symptoms: Deny chest pain, dyspnea, headache(s), nausea, rash, palpitations or vomiting Review of Systems General: Reports: 10 or more systems reviewed and unremarkable except in HPI and below Const: Denies: fever(s), chills, body aches or fatigue Eyes: Denies: change in vision or blurry vision ENMT: Denies: throat pain, hoarseness or mouth pain Card: Denies: chest pain or palpitations Resp: Denies: dyspnea GI: Denies: nausea or vomiting : Denies: flank pain, dysuria, urinary frequency, urinary urgency or urinary hesitancy Musc: Denies: neck pain, back pain, extremity pain, extremity swelling, joint pain, joint swelling, joint redness, joint warmth or limited range of motion Skin/Breast: Denies: rash Neuro: Denies: headache(s) Psych: Denies: anxiety or depression PFSH ED PFSH: Medical History CAD (coronary artery disease) COPD (chronic obstructive pulmonary disease) DM type 2 (diabetes mellitus, type 2) HLD (hyperlipidemia) HTN (hypertension) Smoking addiction Surgical History H/O neck surgery H/O: knee surgery History of shoulder surgery Hx of appendectomy Family History Other Cancer Heart disease Social History Smoking and tobacco status: current every day smoker cigarettes Packs smoked per day: 1 Alcohol intake: never Lives independently: Yes Household members: spouse Marital status: Current occupational status: retired Physical Exam Const: COMMON NORMALS: no acute distress, average body habitus, patient oriented x3, no limitations, healthy appearing, alert and well nourished HENMT: COMMON NORMALS: normocephalic, atraumatic, external ears normal, EAC's normal, TM's normal bilaterally, Normal external nose present and Normal nasal mucous membranes and turbinates present HEAD & SCALP: normocephalic and atraumatic NOSE: Normal external nose present and Normal nasal mucous membranes and turbinates present EXTERNAL EAR: Yes external ears normal EXTERNAL AUDITORY CANAL: EAC's normal TYMPANIC MEMBRANE: TM's normal bilaterally Neck/C-Spine: COMMON NORMALS: full ROM, no lymphadenopathy, supple, no meningeal signs, no JVD, Thyroid normal and No carotid bruits THYROID: Thyroid normal Chest: COMMONS NORMALS: normal inspection of the chest, normal palpation of entire chest wall, normal inspection of the breasts and normal palpation of the breasts Breast/axilla inspection: Yes normal inspection of the breasts BREAST/AXILLA PALPATION: Yes normal palpation of the breasts Resp: COMMON NORMALS: normal respiratory effort, No retractions, No use of accessory muscles, clear to auscultation bilaterally and percussion normal AUSCULTATION: clear to auscultation bilaterally PERCUSSION: percussion normal Cardio: COMMON NORMALS: no JVD, regular rate, regular rhythm, S1 normal heart sound present, S2 normal heart sound present, No gallops present (Cardio), No clicks present (Cardio), No murmurs present (Cardio), No rub (Cardio) and Peripheral pulses 2+ throughout RATE: regular rate RHYTHM: regular rhythm HEART SOUNDS: S1 normal heart sound present and S2 normal heart sound present PERIPHERAL PULSES: Peripheral pulses 2+ throughout GI: COMMON NORMALS: Normal to inspection, nondistended, normoactive bowel sounds present, Soft to palpation, non-tender, No hepatosplenomegaly present, no masses and no bruits PALPATION: Yes Soft to palpation and Yes No hepatosplenomegaly present : COMMON NORMALS: Yes no CVA tenderness BLADDER/KIDNEY EXAM: Yes no CVA tenderness Back/Pelvis: COMMON NORMALS: no CVA tenderness, thoracic and lumbar spine normal to inspection, no thoracic nor lumbar tenderness, thoraco-lumbar ROM normal and straight leg raise negative bilaterally Extremity: COMMON NORMALS: normal to inspection, full ROM, capillary refill normal, no joint enlargement, no clubbing, cyanosis or edema, no calf tenderness and no pedal edema Neuro: COMMON NORMALS: patient oriented x3 SENSORIUM/ORIENTATION: Yes alert MENINGEAL SIGNS: Yes no meningeal signs Course Reevaluation(s): Reevaluation #1: Cool-mist humidifier as needed. Salt water gargles for sore throat if needed. May use any ybfh-olh-mlrcbst cough drop that has benzocaine as an active ingredient to help sooth throat. Encourage p.o. fluids. Take all medications if prescribed as directed. Follow-up with your primary care physician in 2 to 3 days. Tylenol Motrin as needed as needed for fever or pain. Time: 00:22 Discharge Plan Discharge Patient Disposition: Home Clinical Impression: Sore throat Condition: Stable Prescriptions: New azithromycin [Zithromax Z-Tres] 250 mg tablet See Rx Instructions .ROUTE .COMPLEX Qty: 6 RF: 0 No Action aspirin 325 mg Tablet 325 mg PO DAILY RF: 0 hydrochlorothiazide 25 mg Tablet 12.5 mg PO DAILY RF: 0 albuterol sulfate 90 mcg/actuation HFA aerosol inhaler 2 inh INHALATION Q4H PRN (Reason: shortness of breath or wheezing) Qty: 6.7 RF: 0 Zofran 4 mg tablet 4 mg PO Q6H PRN (Reason: nausea and vomiting) Qty: 20 RF: 0 gabapentin 600 mg Tablet 600 mg PO BID RF: 0 ipratropium-albuterol 0.5 mg-3 mg(2.5 mg base)/3 mL Solution For Nebulization 3 ml INHALATION QID RF: 0 polyethylene glycol 3350 [Miralax] 17 gram Powder In Packet See Rx Instructions .ROUTE .COMPLEX RF: 0 levetiracetam 500 mg Tablet 1,000 mg PO BID RF: 0 amlodipine 2.5 mg Tablet 2.5 mg PO DAILY RF: 0 pantoprazole [Protonix] 40 mg Tablet,Delayed Release (Dr/Ec) 40 mg PO QAM RF: 0 dorzolamide-timolol 22.3-6.8 mg/mL Drops 1 drp OPHTHALMIC (EYE) BID RF: 0 albuterol sulfate 90 mcg/actuation Hfa Aerosol Inhaler 2 puff INHALATION QID RF: 0 metformin 500 mg Tablet Extended Release 24 Hr 500 mg PO DAILY RF: 0 rosuvastatin [Crestor] 5 mg Tablet 5 mg PO QPM RF: 0 omega 1-nsi-utw-fish oil [Fish Oil] 1,000 mg (120 mg-180 mg) Capsule 1 cap PO BID RF: 0 Discharge Orders: Discharge ED (Routine); Ordered 01/31/21 Ordered By: Ronnie Avendano Referrals: [facility] [Primary Care Provider] - Discharge Diet: Advance as tolerated Discharge Activity: Resume usual activity Patient Instructions: Opioid Safety Activity Restrictions/Additional Instructions: Cool-mist humidifier as needed. Salt water gargles for sore throat if needed. May use any vyls-hnh-norrnbi cough drop that has benzocaine as an active ingredient to help sooth throat. Encourage p.o. fluids. Take all medications if prescribed as directed. Follow-up with your primary care physician in 2 to 3 days. Tylenol Motrin as needed as needed for fever or pain. Coding Level of Care Code ED Wallpaper Inspector for Jeremy Howell
[2021-01-31 00:28] VITALS: BP 156/78; PULSE 78; RESP 16; O2SAT 97
== END 2021-01-31 00:29 | disposition home or self-care (01) ==
PROVIDERS: Emergency Provider Emergency Medicine
DX: J02.9 Acute pharyngitis, unspecified (principal); Z79.82 Long term (current) use of aspirin; Z79.84 Long term (current) use of oral hypoglycemic drugs; I25.10 Atherosclerotic heart disease of native coronary artery without angina pectoris; J44.9 Chronic obstructive pulmonary disease, unspecified; E11.9 Type 2 diabetes mellitus without complications; E78.5 Hyperlipidemia, unspecified; I10 Essential (primary) hypertension; F17.210 Nicotine dependence, cigarettes, uncomplicated
CPT/HCPCS: 99281

== ENCOUNTER 2021-02-03 15:10 | Inpatient (IN) | payer OTHER, SELFPAY ==
[2021-02-03] VITALS (133 sets, daily range): BP systolic 50–163; BP diastolic 34–109; PULSE 57–94; RESP 12–27; TEMP 37; O2SAT 55–100
[2021-02-03] MEDS: succinylcholine 20 mg/mL SDV 10mL 100 MG IVP (15:48)
[2021-02-03] MEDS: propofol 1,000 MG/100 ML INJ 6 MG IV (15:50)
--- NOTE | 2021-02-03 15:52 | XRR_ITS ---
PROCEDURE INFORMATION: Exam: XR Chest Exam date and time: 02/03/2021 3:59 PM Age: 70 years old Clinical indication: Device placement; Other: Et and ng placement; Additional info: Resp failure, S/P et tube placement TECHNIQUE: Imaging protocol: XR of the chest Views: 1 view. COMPARISON: CR XR chest 1V portable [id number] 07/21/2020 3:16 PM FINDINGS: Tubes, catheters and devices: Endotracheal tube in the mid trachea in good position. NG tube curving in the gastric fundus in good position. Lungs: Mild emphysema. Mild hyperinflation of lungs. No consolidation. Pleural spaces: Unremarkable. No pleural effusion. No pneumothorax. Heart/Mediastinum: Unremarkable. No cardiomegaly. Bones/joints: No fracture. Osseous demineralization. 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 XR/XR chest 1V portable [id number] IMPRESSION: 1. No focal acute pulmonary disease identified. 2. Satisfactory position of endotracheal tube and NG tube.
--- NOTE | 2021-02-03 15:56 | ECG_ITS ---
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 Measurements Intervals [place] Rate: 88 P: 39 AL: 151 QRS: 64 QRSD: 84 T: 70 QT: 334 QTc: 405 Interpretive Statements SINUS RHYTHM WITH OCCASIONAL SUPRAVENTRICULAR PREMATURE COMPLEXES Compared to ECG 07/13/2020 22:51:09 No significant changes Electronically Signed On 02-03-2021 20:15:06 CDT by Jessica Murillo M.D. [id number]
--- NOTE | 2021-02-03 15:59 | W.ED.COVID ---
Documented by User: Bailey Santa MD 02/03/21 20:55 HPI - COVID General: Chief Complaint: COVID symptoms Stated Complaint: SORE THROAT Time Seen by Provider: 02/03/21 15:52 Source: patient Mode of arrival: ambulatory Limitations: altered mental status Triage information: Has fever, cough or shortness of breath. No known COVID + exposure last 14 days History of Present Illness: HPI Narrative: 70-year-old male presented to triage complaining of sore throat, weakness, generalized malaise. He was seen here on 01/31/2021, diagnosed with pharyngitis, started on Z-Tres, but has had no improvement. He became unresponsive shortly after arriving to the room, unable to provide any further HPI. MD complaint: has COVID symptoms COVID 19 common symptoms: positive fatigue, body aches and throat pain COVID Results: SARS-CoV-2 Antigen (Rapid) Negative (Negative) 02/03/21 16:15 02/03/21 Nasal/Oral Coronavirus 2019 PCR Negative 05/29/20 23:30 05/29/20 Review of Systems General: Reports: ROS unobtainable due to medical condition and ROS unobtainable due to mental status Const: Reports: body aches, fatigue and malaise ENMT: Reports: throat pain PFSH ED PFSH: Medical History CAD (coronary artery disease) Details unknown COPD (chronic obstructive pulmonary disease) DM type 2 (diabetes mellitus, type 2) [id number], on Metformin History of echocardiogram (~05/2020) Normal left ventricular size and systolic function with an EF of 60%, no regional wall motion abnormalities, grade 1/4 diastolic dysfunction, normal to mildly elevated filling pressures and mild left ventricular hypertrophy. Thickened aortic and mitral valves were noted. 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, details otherwise unknown, on [facility] Smoking addiction Surgical History H/O neck surgery H/O: knee surgery History of shoulder surgery Hx of appendectomy Family History Other Cancer Heart disease Social History Smoking and tobacco status: current every day smoker cigarettes Packs smoked per day: 1 Alcohol intake: never Lives independently: Yes Household members: spouse Marital status: Current occupational status: retired Physical Exam Const: GENERAL APPEARANCE: in distress, disheveled, lethargic, ill appearing and frail appearing NUTRITIONAL APPEARANCE: obese ORIENTATION/CONSCIOUSNESS: Yes patient obtunded and Yes lethargic HENMT: COMMON NORMALS: normocephalic and atraumatic HEAD & SCALP: normocephalic and atraumatic FACE & SINUS: normal facial exam and face symmetric Eye: COMMON NORMALS: Equal, round and reactive pupils present and no scleral icterus PUPIL: Yes Equal, round and reactive pupils present and No Fixed pupils Chest: CHEST: Yes abnormal inspection of the chest, Yes Symmetrical chest wall rise, No crepitus and No localized rib tenderness with anteroposterior compression Resp: AUSCULTATION: rhonchi, wheezes and diminished lung sounds on the right Cardio: COMMON NORMALS: regular rate RATE: regular rate RHYTHM: abnormal rhythm irregularly irregular GI: COMMON NORMALS: Soft to palpation and no masses PALPATION: Yes Soft to palpation and No Rigid due to palpation Extremity: GENERAL: Yes clubbing and Yes deformity Neuro: SENSORIUM/ORIENTATION: Yes lethargic Skin: GENERAL SKIN EXAM: crusts, dry skin, ecchymosis, petechiae, purpura and turgor decreased Procedures Intubation Time out performed: Yes sedative: Etomidate Mg Given: 20 paralytic: Succinylcholine Mg Given: 100 Laryngoscope: fiber optic video scope Assist Device Used: fiber optic device ET Tube Size: 8 ET Tube Uncuffed: No Tube Secured Depth (cm): 24 Tube Secured Location: teeth Tube Placement Confirmation: visualized tube passing through cords, no breath sounds over epigastrium and confirmation by capnometry Patient Tolerated Procedure: well and no complications Intubation Complications: none Course ED course: Vital Signs: Vital signs: Vital Signs Temperature 98.6 F 02/03/21 15:29 Pulse Rate 65 02/03/21 20:24 Respiratory Rate 17 02/03/21 20:24 Blood Pressure 93/59 02/03/21 20:24 Pulse Oximetry 100 02/03/21 20:24 MDM - COVID MDM Narrative: Medical decision making narrative: 20-year-old male presented to triage complaining of general illness, sore throat, weakness for a week. Seen here and treated on 01/31/2021 for pharyngitis. Blood pressure and heart rate were normal, however O2 sats read 69% on room air in triage so he was briskly brought back to room, hypoxia confirmed, He rapidly became obtunded and apneic, oral airway was placed, jaw thrust, bag mask ventilation initiated-O2 sats came up to 100%. After an appropriate period of preoxygenation, he was intubated on first pass, O2 sats remaining above 95%. Copious amount of white material noted in the throat; sent for culture. ABG just after intubation had no acute abnormalities other than elevated PaO2. ET placement confirmed with chest x-ray. X-ray read as no acute process. .Rapid Covid negative. PCR sent. Empiric treatment with cefepime and vancomycin. CT head, C/A/P pending. Initial EKG; 1547, sinus rhythm, rate 88, HI 151, QRS 84, QTc 379, normal axis, no ST segment elevation or depression. No abnormal T wavesRepeat EKG at 1805; sinus arrhythmia with ectopic atrial beats, no ST segment elevation or depression. No abnormal T wave inversions. Signed out to Dr michael at 1800 Differential Diagnosis: Differential diagnosis: Likely COVID 19, influenza, other viral infection, bacterial infection, pneumonia, copd exacerbation, pulmonary embolism, NSTEMI/STEMI, CHF exacerbation, stroke and overdose/intoxication Medical Records: Attestation: I reviewed the patient's medical records. Lab Data: Attestation: I reviewed the patient's lab results. Labs: Lab Results 02/03/21 02/03/21 02/03/21 Range/Units 15:44 15:44 15:44 WBC 16.4 H (4.0-10.0) 10^3/ uL RBC 5.57 H (4.1-5.3) 10^6/u L Hgb 16.7 H (11.7-16.6) g/dL Hct 53.8 H (42.0-52.0) % MCV 96.6 H (80-94) fL MCH 30.0 (28.0-34.0) pg MCHC 31.0 (30.0-36.0) g/dL RDW 12.1 (12.1-15.1) % Plt Count 221 (130-400) 10^3/c mm MPV 10.5 H (7.4-10.4) fL Neut % (Auto) 76.5 % Lymph % (Auto) 12.6 % Pope % (Auto) 8.8 % Eos % (Auto) 1.2 % Baso % (Auto) 0.2 % Neut # (Auto) 12.50 H (1.8-7.7) 10^3/u L Lymph # (Auto) 2.1 (0.8-4.8) 10^3/u L Pope # (Auto) 1.4 H (0.2-0.9) 10^3/u L Eos # (Auto) 0.2 (0.0-0.8) 10^3/u L Baso # (Auto) 0.0 (0.0-0.1) 10^3/u L Nucleated RBC % (a uto) 0 % Nucleated RBCs # 0.0 /100WBC PT Cancelled INR Cancelled D-Dimer Cancelled Specimen Type Sample Site ABG pH (7.35-7.45) ABG pCO2 (35-45) mmHg ABG pO2 (80.0-100.0) mmH g ABG HCO3 (22-26) mmol/L ABG O2 Saturation ABG Base Excess (-2.0-2.0) mmol/ L Newton Test A-a O2 Gradient (5-10) mmHg Hematocrit (42-52) % Hgb O2 Saturation (95-100) % Carboxyhemoglobin (0.4-20.1) %THgb Methemoglobin (0.4-1.5) % Total Hemoglobin (14-18) g/dL Ionized Calcium (1.1-1.4) mmol/L O2 Delivery Device FiO2 % [employer] ID Sodium Cancelled Potassium Cancelled Chloride Cancelled Carbon Dioxide Cancelled Anion Gap Cancelled BUN Cancelled Creatinine Cancelled GFR Calculation Cancelled Glucose Cancelled Calculated Osmolal ity Cancelled Lactic Acid Lactic Acid (Sepsi s) (0.5-2.2) mmol/L Calcium Cancelled Magnesium Cancelled Total Bilirubin Cancelled AST Cancelled ALT Cancelled Alkaline Phosphata se Cancelled Troponin T Baselin e Troponin T 120 Min [place] (0-15) ng/L Delta Troponin T (0-10) ABS# C-Reactive Protein Cancelled NT-Pro-B Natriuret Pep Cancelled Total Protein Cancelled Albumin Cancelled Globulin Cancelled Procalcitonin Cancelled Urine Opiates Scre en (Negative) ng/mL Ur Barbiturates Sc reen (Negative) ng/mL Ur Phencyclidine S crn (Negative) ng/mL Ur Amphetamines Sc reen (Negative) ng/mL U Benzodiazepines Scrn (Negative) ng/mL Urine Cocaine Scre en (Negative) ng/mL U Marijuana (THC) Screen (Negative) ng/mL Influenza Type A A g (Negative) Influenza Type B A g (Negative) SARS-CoV-2 Ag (Rap id) (Negative) Group A Strep Rapi d (Negative) 02/03/21 02/03/21 02/03/21 Range/Units 15:44 15:55 16:00 WBC (4.0-10.0) 10^3/ uL RBC (4.1-5.3) 10^6/u L Hgb (11.7-16.6) g/dL Hct (42.0-52.0) % MCV (80-94) fL MCH (28.0-34.0) pg MCHC (30.0-36.0) g/dL RDW (12.1-15.1) % Plt Count (130-400) 10^3/c mm MPV (7.4-10.4) fL Neut % (Auto) % Lymph % (Auto) % Pope % (Auto) % Eos % (Auto) % Baso % (Auto) % Neut # (Auto) (1.8-7.7) 10^3/u L Lymph # (Auto) (0.8-4.8) 10^3/u L Pope # (Auto) (0.2-0.9) 10^3/u L Eos # (Auto) (0.0-0.8) 10^3/u L Baso # (Auto) (0.0-0.1) 10^3/u L Nucleated RBC % (a uto) % Nucleated RBCs # /100WBC PT INR D-Dimer Specimen Type Arterial Sample Site Radial, left ABG pH 7.42 (7.35-7.45) ABG pCO2 59.6 H (35-45) mmHg ABG pO2 310.0 H (80.0-100.0) mmH g ABG HCO3 38.2 H (22-26) mmol/L ABG O2 Saturation > 100.0 ABG Base Excess 10.5 H (-2.0-2.0) mmol/ L Newton Test Pos A-a O2 Gradient 42.9 H (5-10) mmHg Hematocrit 54.0 H (42-52) % Hgb O2 Saturation 96.1 (95-100) % Carboxyhemoglobin 4.1 (0.4-20.1) %THgb Methemoglobin 0.4 (0.4-1.5) % Total Hemoglobin 17.6 (14-18) g/dL Ionized Calcium 1.2 (1.1-1.4) mmol/L O2 Delivery Device Vent FiO2 100.0 % [employer] ID glc Sodium 136.0 Potassium 4.2 Chloride Carbon Dioxide Anion Gap BUN Creatinine GFR Calculation Glucose 201.0 H Calculated Osmolal ity Lactic Acid Lactic Acid (Sepsi s) (0.5-2.2) mmol/L Calcium Magnesium Total Bilirubin AST ALT Alkaline Phosphata se Troponin T Baselin e Cancelled Troponin T 120 Min [place] (0-15) ng/L Delta Troponin T (0-10) ABS# C-Reactive Protein NT-Pro-B Natriuret Pep Total Protein Albumin Globulin Procalcitonin Urine Opiates Scre en Negative (Negative) ng/mL Ur Barbiturates Sc reen Negative (Negative) ng/mL Ur Phencyclidine S crn Negative (Negative) ng/mL Ur Amphetamines Sc reen Negative (Negative) ng/mL U Benzodiazepines Scrn Negative (Negative) ng/mL Urine Cocaine Scre en Negative (Negative) ng/mL U Marijuana (THC) Screen Negative (Negative) ng/mL Influenza Type A A g (Negative) Influenza Type B A g (Negative) SARS-CoV-2 Ag (Rap id) (Negative) Group A Strep Rapi d (Negative) 02/03/21 02/03/21 02/03/21 Range/Units 16:15 16:15 16:15 WBC (4.0-10.0) 10^3/ uL RBC (4.1-5.3) 10^6/u L Hgb (11.7-16.6) g/dL Hct (42.0-52.0) % MCV (80-94) fL MCH (28.0-34.0) pg MCHC (30.0-36.0) g/dL RDW (12.1-15.1) % Plt Count (130-400) 10^3/c mm MPV (7.4-10.4) fL Neut % (Auto) % Lymph % (Auto) % Pope % (Auto) % Eos % (Auto) % Baso % (Auto) % Neut # (Auto) (1.8-7.7) 10^3/u L Lymph # (Auto) (0.8-4.8) 10^3/u L Pope # (Auto) (0.2-0.9) 10^3/u L Eos # (Auto) (0.0-0.8) 10^3/u L Baso # (Auto) (0.0-0.1) 10^3/u L Nucleated RBC % (a uto) % Nucleated RBCs # /100WBC PT INR D-Dimer Specimen Type Sample Site ABG pH (7.35-7.45) ABG pCO2 (35-45) mmHg ABG pO2 (80.0-100.0) mmH g ABG HCO3 (22-26) mmol/L ABG O2 Saturation ABG Base Excess (-2.0-2.0) mmol/ L Newton Test A-a O2 Gradient (5-10) mmHg Hematocrit (42-52) % Hgb O2 Saturation (95-100) % Carboxyhemoglobin (0.4-20.1) %THgb Methemoglobin (0.4-1.5) % Total Hemoglobin (14-18) g/dL Ionized Calcium (1.1-1.4) mmol/L O2 Delivery Device FiO2 % [employer] ID Sodium Potassium Chloride Carbon Dioxide Anion Gap BUN Creatinine GFR Calculation Glucose Calculated Osmolal ity Lactic Acid Lactic Acid (Sepsi s) (0.5-2.2) mmol/L Calcium Magnesium Total Bilirubin AST ALT Alkaline Phosphata se Troponin T Baselin e Troponin T 120 Min [place] (0-15) ng/L Delta Troponin T (0-10) ABS# C-Reactive Protein NT-Pro-B Natriuret Pep Total Protein Albumin Globulin Procalcitonin Urine Opiates Scre en (Negative) ng/mL Ur Barbiturates Sc reen (Negative) ng/mL Ur Phencyclidine S crn (Negative) ng/mL Ur Amphetamines Sc reen (Negative) ng/mL U Benzodiazepines Scrn (Negative) ng/mL Urine Cocaine Scre en (Negative) ng/mL U Marijuana (THC) Screen (Negative) ng/mL Influenza Type A A g Negative (Negative) Influenza Type B A g Negative (Negative) SARS-CoV-2 Ag (Rap id) Negative (Negative) Group A Strep Rapi d Negative (Negative) 02/03/21 02/03/21 02/03/21 Range/Units 16:20 16:20 16:20 WBC (4.0-10.0) 10^3/ uL RBC (4.1-5.3) 10^6/u L Hgb (11.7-16.6) g/dL Hct (42.0-52.0) % MCV (80-94) fL MCH (28.0-34.0) pg MCHC (30.0-36.0) g/dL RDW (12.1-15.1) % Plt Count (130-400) 10^3/c mm MPV (7.4-10.4) fL Neut % (Auto) % Lymph % (Auto) % Pope % (Auto) % Eos % (Auto) % Baso % (Auto) % Neut # (Auto) (1.8-7.7) 10^3/u L Lymph # (Auto) (0.8-4.8) 10^3/u L Pope # (Auto) (0.2-0.9) 10^3/u L Eos # (Auto) (0.0-0.8) 10^3/u L Baso # (Auto) (0.0-0.1) 10^3/u L Nucleated RBC % (a uto) % Nucleated RBCs # /100WBC PT INR D-Dimer Specimen Type Sample Site ABG pH (7.35-7.45) ABG pCO2 (35-45) mmHg ABG pO2 (80.0-100.0) mmH g ABG HCO3 (22-26) mmol/L ABG O2 Saturation ABG Base Excess (-2.0-2.0) mmol/ L Newton Test A-a O2 Gradient (5-10) mmHg Hematocrit (42-52) % Hgb O2 Saturation (95-100) % Carboxyhemoglobin (0.4-20.1) %THgb Methemoglobin (0.4-1.5) % Total Hemoglobin (14-18) g/dL Ionized Calcium (1.1-1.4) mmol/L O2 Delivery Device FiO2 % [employer] ID Sodium Cancelled Potassium Cancelled Chloride Cancelled Carbon Dioxide Cancelled Anion Gap Cancelled BUN Cancelled Creatinine Cancelled GFR Calculation Cancelled Glucose Cancelled Calculated Osmolal ity Cancelled Lactic Acid Cancelled Lactic Acid (Sepsi s) (0.5-2.2) mmol/L Calcium Cancelled Magnesium Cancelled Total Bilirubin Cancelled AST Cancelled ALT Cancelled Alkaline Phosphata se Cancelled Troponin T Baselin e Cancelled Troponin T 120 Min [place] (0-15) ng/L Delta Troponin T (0-10) ABS# C-Reactive Protein Cancelled NT-Pro-B Natriuret Pep Cancelled Total Protein Cancelled Albumin Cancelled Globulin Cancelled Procalcitonin Cancelled Urine Opiates Scre en (Negative) ng/mL Ur Barbiturates Sc reen (Negative) ng/mL Ur Phencyclidine S crn (Negative) ng/mL Ur Amphetamines Sc reen (Negative) ng/mL U Benzodiazepines Scrn (Negative) ng/mL Urine Cocaine Scre en (Negative) ng/mL U Marijuana (THC) Screen (Negative) ng/mL Influenza Type A A g (Negative) Influenza Type B A g (Negative) SARS-CoV-2 Ag (Rap id) (Negative) Group A Strep Rapi d (Negative) 02/03/21 02/03/21 02/03/21 Range/Units 16:20 17:00 17:00 WBC (4.0-10.0) 10^3/ uL RBC (4.1-5.3) 10^6/u L Hgb (11.7-16.6) g/dL Hct (42.0-52.0) % MCV (80-94) fL MCH (28.0-34.0) pg MCHC (30.0-36.0) g/dL RDW (12.1-15.1) % Plt Count (130-400) 10^3/c mm MPV (7.4-10.4) fL Neut % (Auto) % Lymph % (Auto) % Pope % (Auto) % Eos % (Auto) % Baso % (Auto) % Neut # (Auto) (1.8-7.7) 10^3/u L Lymph # (Auto) (0.8-4.8) 10^3/u L Pope # (Auto) (0.2-0.9) 10^3/u L Eos # (Auto) (0.0-0.8) 10^3/u L Baso # (Auto) (0.0-0.1) 10^3/u L Nucleated RBC % (a uto) % Nucleated RBCs # /100WBC PT 13.70 INR 1.02 D-Dimer 0.29 Specimen Type Sample Site ABG pH (7.35-7.45) ABG pCO2 (35-45) mmHg ABG pO2 (80.0-100.0) mmH g ABG HCO3 (22-26) mmol/L ABG O2 Saturation ABG Base Excess (-2.0-2.0) mmol/ L Newton Test A-a O2 Gradient (5-10) mmHg Hematocrit (42-52) % Hgb O2 Saturation (95-100) % Carboxyhemoglobin (0.4-20.1) %THgb Methemoglobin (0.4-1.5) % Total Hemoglobin (14-18) g/dL Ionized Calcium (1.1-1.4) mmol/L O2 Delivery Device FiO2 % [employer] ID Sodium 135 L Potassium 3.8 Chloride 90 L Carbon Dioxide 32 H Anion Gap 16.8 BUN 18 Creatinine 0.9 GFR Calculation Not Reportable Glucose 189 H Calculated Osmolal ity 287 Lactic Acid 2.5 H Lactic Acid (Sepsi s) (0.5-2.2) mmol/L Calcium 9.2 Magnesium 1.5 L Total Bilirubin 0.8 AST 11 ALT 9 Alkaline Phosphata se 100 Troponin T Baselin e Troponin T 120 Min [place] (0-15) ng/L Delta Troponin T (0-10) ABS# C-Reactive Protein 121.1 H NT-Pro-B Natriuret Pep 694 H Total Protein 7.5 Albumin 3.5 Globulin 4.0 Procalcitonin 0.09 Urine Opiates Scre en (Negative) ng/mL Ur Barbiturates Sc reen (Negative) ng/mL Ur Phencyclidine S crn (Negative) ng/mL Ur Amphetamines Sc reen (Negative) ng/mL U Benzodiazepines Scrn (Negative) ng/mL Urine Cocaine Scre en (Negative) ng/mL U Marijuana (THC) Screen (Negative) ng/mL Influenza Type A A g (Negative) Influenza Type B A g (Negative) SARS-CoV-2 Ag (Rap id) (Negative) Group A Strep Rapi d (Negative) 02/03/21 02/03/21 02/03/21 Range/Units 17:00 19:19 19:19 WBC (4.0-10.0) 10^3/ uL RBC (4.1-5.3) 10^6/u L Hgb (11.7-16.6) g/dL Hct (42.0-52.0) % MCV (80-94) fL MCH (28.0-34.0) pg MCHC (30.0-36.0) g/dL RDW (12.1-15.1) % Plt Count (130-400) 10^3/c mm MPV (7.4-10.4) fL Neut % (Auto) % Lymph % (Auto) % Pope % (Auto) % Eos % (Auto) % Baso % (Auto) % Neut # (Auto) (1.8-7.7) 10^3/u L Lymph # (Auto) (0.8-4.8) 10^3/u L Pope # (Auto) (0.2-0.9) 10^3/u L Eos # (Auto) (0.0-0.8) 10^3/u L Baso # (Auto) (0.0-0.1) 10^3/u L Nucleated RBC % (a uto) % Nucleated RBCs # /100WBC PT INR D-Dimer Specimen Type Sample Site ABG pH (7.35-7.45) ABG pCO2 (35-45) mmHg ABG pO2 (80.0-100.0) mmH g ABG HCO3 (22-26) mmol/L ABG O2 Saturation ABG Base Excess (-2.0-2.0) mmol/ L Newton Test A-a O2 Gradient (5-10) mmHg Hematocrit (42-52) % Hgb O2 Saturation (95-100) % Carboxyhemoglobin (0.4-20.1) %THgb Methemoglobin (0.4-1.5) % Total Hemoglobin (14-18) g/dL Ionized Calcium (1.1-1.4) mmol/L O2 Delivery Device FiO2 % [employer] ID Sodium Potassium Chloride Carbon Dioxide Anion Gap BUN Creatinine GFR Calculation Glucose Calculated Osmolal ity Lactic Acid Lactic Acid (Sepsi s) 1.6 (0.5-2.2) mmol/L Calcium Magnesium Total Bilirubin AST ALT Alkaline Phosphata se Troponin T Baselin e 43 H Troponin T 120 Min [place] 32.59 H (0-15) ng/L Delta Troponin T -10.41 L (0-10) ABS# C-Reactive Protein NT-Pro-B Natriuret Pep Total Protein Albumin Globulin Procalcitonin Urine Opiates Scre en (Negative) ng/mL Ur Barbiturates Sc reen (Negative) ng/mL Ur Phencyclidine S crn (Negative) ng/mL Ur Amphetamines Sc reen (Negative) ng/mL U Benzodiazepines Scrn (Negative) ng/mL Urine Cocaine Scre en (Negative) ng/mL U Marijuana (THC) Screen (Negative) ng/mL Influenza Type A A g (Negative) Influenza Type B A g (Negative) SARS-CoV-2 Ag (Rap id) (Negative) Group A Strep Rapi d (Negative) COVID Results: SARS-CoV-2 Antigen (Rapid) Negative (Negative) 02/03/21 16:15 02/03/21 Nasal/Oral Coronavirus 2019 PCR Negative 05/29/20 23:30 05/29/20 Critical Care Time Critical Care Time: Critical Care Time: Yes Total Critical Care Time: 50 Attestation: This case had a high probability of a clinically significant, sudden, or life threatening deterioration of this patient's condition which required my full and direct attention, intervention and personal management. 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 Fwd Exam Comprehensive Documented by User: Harvey Michael MD 02/03/21 20:17 HPI - COVID General: Chief Complaint: COVID symptoms Stated Complaint: SORE THROAT Time Seen by Provider: 02/03/21 15:52 COVID Results: SARS-CoV-2 Antigen (Rapid) Negative (Negative) 02/03/21 16:15 02/03/21 Nasal/Oral Coronavirus 2019 PCR Negative 05/29/20 23:30 05/29/20 PFS ED PFSH: Medical History CAD (coronary artery disease) Details unknown COPD (chronic obstructive pulmonary disease) DM type 2 (diabetes mellitus, type 2) [id number], on Metformin History of echocardiogram (~05/2020) Normal left ventricular size and systolic function with an EF of 60%, no regional wall motion abnormalities, grade 1/4 diastolic dysfunction, normal to mildly elevated filling pressures and mild left ventricular hypertrophy. Thickened aortic and mitral valves were noted. 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, details otherwise unknown, on [facility] Smoking addiction Surgical History H/O neck surgery H/O: knee surgery History of shoulder surgery Hx of appendectomy Family History Other Cancer Heart disease Social History Smoking and tobacco status: current every day smoker cigarettes Packs smoked per day: 1 Alcohol intake: never Lives independently: Yes Household members: spouse Marital status: Current occupational status: retired Course Vital Signs: Vital signs: Vital Signs Temperature 98.6 F 02/03/21 15:29 Pulse Rate 65 02/03/21 20:24 Respiratory Rate 17 02/03/21 20:24 Blood Pressure 93/59 02/03/21 20:24 Pulse Oximetry 100 02/03/21 20:24 MDM - COVID MDM Narrative: Medical decision making narrative: I took patient over from Dr. Santa. Patient had respiratory failure and does have a pneumonia. He was slightly hypotensive I turned down his propofol and gave him IV fluids and his blood pressure is improved. He does not require any pressors at this point. Patient been given antibiotics. I spoke to Dr. Chester and will admit to the ICU. Lab Data: Labs: Lab Results 02/03/21 02/03/21 02/03/21 Range/Units 15:44 15:44 15:44 WBC 16.4 H (4.0-10.0) 10^3/ uL RBC 5.57 H (4.1-5.3) 10^6/u L Hgb 16.7 H (11.7-16.6) g/dL Hct 53.8 H (42.0-52.0) % MCV 96.6 H (80-94) fL MCH 30.0 (28.0-34.0) pg MCHC 31.0 (30.0-36.0) g/dL RDW 12.1 (12.1-15.1) % Plt Count 221 (130-400) 10^3/c mm MPV 10.5 H (7.4-10.4) fL Neut % (Auto) 76.5 % Lymph % (Auto) 12.6 % Pope % (Auto) 8.8 % Eos % (Auto) 1.2 % Baso % (Auto) 0.2 % Neut # (Auto) 12.50 H (1.8-7.7) 10^3/u L Lymph # (Auto) 2.1 (0.8-4.8) 10^3/u L Pope # (Auto) 1.4 H (0.2-0.9) 10^3/u L Eos # (Auto) 0.2 (0.0-0.8) 10^3/u L Baso # (Auto) 0.0 (0.0-0.1) 10^3/u L Nucleated RBC % (a uto) 0 % Nucleated RBCs # 0.0 /100WBC PT Cancelled INR Cancelled D-Dimer Cancelled Specimen Type Sample Site ABG pH (7.35-7.45) ABG pCO2 (35-45) mmHg ABG pO2 (80.0-100.0) mmH g ABG HCO3 (22-26) mmol/L ABG O2 Saturation ABG Base Excess (-2.0-2.0) mmol/ L Newton Test A-a O2 Gradient (5-10) mmHg Hematocrit (42-52) % Hgb O2 Saturation (95-100) % Carboxyhemoglobin (0.4-20.1) %THgb Methemoglobin (0.4-1.5) % Total Hemoglobin (14-18) g/dL Ionized Calcium (1.1-1.4) mmol/L O2 Delivery Device FiO2 % [employer] ID Sodium Cancelled Potassium Cancelled Chloride Cancelled Carbon Dioxide Cancelled Anion Gap Cancelled BUN Cancelled Creatinine Cancelled GFR Calculation Cancelled Glucose Cancelled Calculated Osmolal ity Cancelled Lactic Acid Lactic Acid (Sepsi s) (0.5-2.2) mmol/L Calcium Cancelled Magnesium Cancelled Total Bilirubin Cancelled AST Cancelled ALT Cancelled Alkaline Phosphata se Cancelled Troponin T Baselin e Troponin T 120 Min [place] (0-15) ng/L Delta Troponin T (0-10) ABS# C-Reactive Protein Cancelled NT-Pro-B Natriuret Pep Cancelled Total Protein Cancelled Albumin Cancelled Globulin Cancelled Procalcitonin Cancelled Urine Opiates Scre en (Negative) ng/mL Ur Barbiturates Sc reen (Negative) ng/mL Ur Phencyclidine S crn (Negative) ng/mL Ur Amphetamines Sc reen (Negative) ng/mL U Benzodiazepines Scrn (Negative) ng/mL Urine Cocaine Scre en (Negative) ng/mL U Marijuana (THC) Screen (Negative) ng/mL Influenza Type A A g (Negative) Influenza Type B A g (Negative) SARS-CoV-2 Ag (Rap id) (Negative) Group A Strep Rapi d (Negative) 02/03/21 02/03/21 02/03/21 Range/Units 15:44 15:55 16:00 WBC (4.0-10.0) 10^3/ uL RBC (4.1-5.3) 10^6/u L Hgb (11.7-16.6) g/dL Hct (42.0-52.0) % MCV (80-94) fL MCH (28.0-34.0) pg MCHC (30.0-36.0) g/dL RDW (12.1-15.1) % Plt Count (130-400) 10^3/c mm MPV (7.4-10.4) fL Neut % (Auto) % Lymph % (Auto) % Pope % (Auto) % Eos % (Auto) % Baso % (Auto) % Neut # (Auto) (1.8-7.7) 10^3/u L Lymph # (Auto) (0.8-4.8) 10^3/u L Pope # (Auto) (0.2-0.9) 10^3/u L Eos # (Auto) (0.0-0.8) 10^3/u L Baso # (Auto) (0.0-0.1) 10^3/u L Nucleated RBC % (a uto) % Nucleated RBCs # /100WBC PT INR D-Dimer Specimen Type Arterial Sample Site Radial, left ABG pH 7.42 (7.35-7.45) ABG pCO2 59.6 H (35-45) mmHg ABG pO2 310.0 H (80.0-100.0) mmH g ABG HCO3 38.2 H (22-26) mmol/L ABG O2 Saturation > 100.0 ABG Base Excess 10.5 H (-2.0-2.0) mmol/ L Newton Test Pos A-a O2 Gradient 42.9 H (5-10) mmHg Hematocrit 54.0 H (42-52) % Hgb O2 Saturation 96.1 (95-100) % Carboxyhemoglobin 4.1 (0.4-20.1) %THgb Methemoglobin 0.4 (0.4-1.5) % Total Hemoglobin 17.6 (14-18) g/dL Ionized Calcium 1.2 (1.1-1.4) mmol/L O2 Delivery Device Vent FiO2 100.0 % [employer] ID glc Sodium 136.0 Potassium 4.2 Chloride Carbon Dioxide Anion Gap BUN Creatinine GFR Calculation Glucose 201.0 H Calculated Osmolal ity Lactic Acid Lactic Acid (Sepsi s) (0.5-2.2) mmol/L Calcium Magnesium Total Bilirubin AST ALT Alkaline Phosphata se Troponin T Baselin e Cancelled Troponin T 120 Min [place] (0-15) ng/L Delta Troponin T (0-10) ABS# C-Reactive Protein NT-Pro-B Natriuret Pep Total Protein Albumin Globulin Procalcitonin Urine Opiates Scre en Negative (Negative) ng/mL Ur Barbiturates Sc reen Negative (Negative) ng/mL Ur Phencyclidine S crn Negative (Negative) ng/mL Ur Amphetamines Sc reen Negative (Negative) ng/mL U Benzodiazepines Scrn Negative (Negative) ng/mL Urine Cocaine Scre en Negative (Negative) ng/mL U Marijuana (THC) Screen Negative (Negative) ng/mL Influenza Type A A g (Negative) Influenza Type B A g (Negative) SARS-CoV-2 Ag (Rap id) (Negative) Group A Strep Rapi d (Negative) 02/03/21 02/03/21 02/03/21 Range/Units 16:15 16:15 16:15 WBC (4.0-10.0) 10^3/ uL RBC (4.1-5.3) 10^6/u L Hgb (11.7-16.6) g/dL Hct (42.0-52.0) % MCV (80-94) fL MCH (28.0-34.0) pg MCHC (30.0-36.0) g/dL RDW (12.1-15.1) % Plt Count (130-400) 10^3/c mm MPV (7.4-10.4) fL Neut % (Auto) % Lymph % (Auto) % Pope % (Auto) % Eos % (Auto) % Baso % (Auto) % Neut # (Auto) (1.8-7.7) 10^3/u L Lymph # (Auto) (0.8-4.8) 10^3/u L Pope # (Auto) (0.2-0.9) 10^3/u L Eos # (Auto) (0.0-0.8) 10^3/u L Baso # (Auto) (0.0-0.1) 10^3/u L Nucleated RBC % (a uto) % Nucleated RBCs # /100WBC PT INR D-Dimer Specimen Type Sample Site ABG pH (7.35-7.45) ABG pCO2 (35-45) mmHg ABG pO2 (80.0-100.0) mmH g ABG HCO3 (22-26) mmol/L ABG O2 Saturation ABG Base Excess (-2.0-2.0) mmol/ L Newton Test A-a O2 Gradient (5-10) mmHg Hematocrit (42-52) % Hgb O2 Saturation (95-100) % Carboxyhemoglobin (0.4-20.1) %THgb Methemoglobin (0.4-1.5) % Total Hemoglobin (14-18) g/dL Ionized Calcium (1.1-1.4) mmol/L O2 Delivery Device FiO2 % [employer] ID Sodium Potassium Chloride Carbon Dioxide Anion Gap BUN Creatinine GFR Calculation Glucose Calculated Osmolal ity Lactic Acid Lactic Acid (Sepsi s) (0.5-2.2) mmol/L Calcium Magnesium Total Bilirubin AST ALT Alkaline Phosphata se Troponin T Baselin e Troponin T 120 Min [place] (0-15) ng/L Delta Troponin T (0-10) ABS# C-Reactive Protein NT-Pro-B Natriuret Pep Total Protein Albumin Globulin Procalcitonin Urine Opiates Scre en (Negative) ng/mL Ur Barbiturates Sc reen (Negative) ng/mL Ur Phencyclidine S crn (Negative) ng/mL Ur Amphetamines Sc reen (Negative) ng/mL U Benzodiazepines Scrn (Negative) ng/mL Urine Cocaine Scre en (Negative) ng/mL U Marijuana (THC) Screen (Negative) ng/mL Influenza Type A A g Negative (Negative) Influenza Type B A g Negative (Negative) SARS-CoV-2 Ag (Rap id) Negative (Negative) Group A Strep Rapi d Negative (Negative) 02/03/21 02/03/21 02/03/21 Range/Units 16:20 16:20 16:20 WBC (4.0-10.0) 10^3/ uL RBC (4.1-5.3) 10^6/u L Hgb (11.7-16.6) g/dL Hct (42.0-52.0) % MCV (80-94) fL MCH (28.0-34.0) pg MCHC (30.0-36.0) g/dL RDW (12.1-15.1) % Plt Count (130-400) 10^3/c mm MPV (7.4-10.4) fL Neut % (Auto) % Lymph % (Auto) % Pope % (Auto) % Eos % (Auto) % Baso % (Auto) % Neut # (Auto) (1.8-7.7) 10^3/u L Lymph # (Auto) (0.8-4.8) 10^3/u L Pope # (Auto) (0.2-0.9) 10^3/u L Eos # (Auto) (0.0-0.8) 10^3/u L Baso # (Auto) (0.0-0.1) 10^3/u L Nucleated RBC % (a uto) % Nucleated RBCs # /100WBC PT INR D-Dimer Specimen Type Sample Site ABG pH (7.35-7.45) ABG pCO2 (35-45) mmHg ABG pO2 (80.0-100.0) mmH g ABG HCO3 (22-26) mmol/L ABG O2 Saturation ABG Base Excess (-2.0-2.0) mmol/ L Newton Test A-a O2 Gradient (5-10) mmHg Hematocrit (42-52) % Hgb O2 Saturation (95-100) % Carboxyhemoglobin (0.4-20.1) %THgb Methemoglobin (0.4-1.5) % Total Hemoglobin (14-18) g/dL Ionized Calcium (1.1-1.4) mmol/L O2 Delivery Device FiO2 % [employer] ID Sodium Cancelled Potassium Cancelled Chloride Cancelled Carbon Dioxide Cancelled Anion Gap Cancelled BUN Cancelled Creatinine Cancelled GFR Calculation Cancelled Glucose Cancelled Calculated Osmolal ity Cancelled Lactic Acid Cancelled Lactic Acid (Sepsi s) (0.5-2.2) mmol/L Calcium Cancelled Magnesium Cancelled Total Bilirubin Cancelled AST Cancelled ALT Cancelled Alkaline Phosphata se Cancelled Troponin T Baselin e Cancelled Troponin T 120 Min [place] (0-15) ng/L Delta Troponin T (0-10) ABS# C-Reactive Protein Cancelled NT-Pro-B Natriuret Pep Cancelled Total Protein Cancelled Albumin Cancelled Globulin Cancelled Procalcitonin Cancelled Urine Opiates Scre en (Negative) ng/mL Ur Barbiturates Sc reen (Negative) ng/mL Ur Phencyclidine S crn (Negative) ng/mL Ur Amphetamines Sc reen (Negative) ng/mL U Benzodiazepines Scrn (Negative) ng/mL Urine Cocaine Scre en (Negative) ng/mL U Marijuana (THC) Screen (Negative) ng/mL Influenza Type A A g (Negative) Influenza Type B A g (Negative) SARS-CoV-2 Ag (Rap id) (Negative) Group A Strep Rapi d (Negative) 02/03/21 02/03/21 02/03/21 Range/Units 16:20 17:00 17:00 WBC (4.0-10.0) 10^3/ uL RBC (4.1-5.3) 10^6/u L Hgb (11.7-16.6) g/dL Hct (42.0-52.0) % MCV (80-94) fL MCH (28.0-34.0) pg MCHC (30.0-36.0) g/dL RDW (12.1-15.1) % Plt Count (130-400) 10^3/c mm MPV (7.4-10.4) fL Neut % (Auto) % Lymph % (Auto) % Pope % (Auto) % Eos % (Auto) % Baso % (Auto) % Neut # (Auto) (1.8-7.7) 10^3/u L Lymph # (Auto) (0.8-4.8) 10^3/u L Pope # (Auto) (0.2-0.9) 10^3/u L Eos # (Auto) (0.0-0.8) 10^3/u L Baso # (Auto) (0.0-0.1) 10^3/u L Nucleated RBC % (a uto) % Nucleated RBCs # /100WBC PT 13.70 INR 1.02 D-Dimer 0.29 Specimen Type Sample Site ABG pH (7.35-7.45) ABG pCO2 (35-45) mmHg ABG pO2 (80.0-100.0) mmH g ABG HCO3 (22-26) mmol/L ABG O2 Saturation ABG Base Excess (-2.0-2.0) mmol/ L Newton Test A-a O2 Gradient (5-10) mmHg Hematocrit (42-52) % Hgb O2 Saturation (95-100) % Carboxyhemoglobin (0.4-20.1) %THgb Methemoglobin (0.4-1.5) % Total Hemoglobin (14-18) g/dL Ionized Calcium (1.1-1.4) mmol/L O2 Delivery Device FiO2 % [employer] ID Sodium 135 L Potassium 3.8 Chloride 90 L Carbon Dioxide 32 H Anion Gap 16.8 BUN 18 Creatinine 0.9 GFR Calculation Not Reportable Glucose 189 H Calculated Osmolal ity 287 Lactic Acid 2.5 H Lactic Acid (Sepsi s) (0.5-2.2) mmol/L Calcium 9.2 Magnesium 1.5 L Total Bilirubin 0.8 AST 11 ALT 9 Alkaline Phosphata se 100 Troponin T Baselin e Troponin T 120 Min [place] (0-15) ng/L Delta Troponin T (0-10) ABS# C-Reactive Protein 121.1 H NT-Pro-B Natriuret Pep 694 H Total Protein 7.5 Albumin 3.5 Globulin 4.0 Procalcitonin 0.09 Urine Opiates Scre en (Negative) ng/mL Ur Barbiturates Sc reen (Negative) ng/mL Ur Phencyclidine S crn (Negative) ng/mL Ur Amphetamines Sc reen (Negative) ng/mL U Benzodiazepines Scrn (Negative) ng/mL Urine Cocaine Scre en (Negative) ng/mL U Marijuana (THC) Screen (Negative) ng/mL Influenza Type A A g (Negative) Influenza Type B A g (Negative) SARS-CoV-2 Ag (Rap id) (Negative) Group A Strep Rapi d (Negative) 02/03/21 02/03/21 02/03/21 Range/Units 17:00 19:19 19:19 WBC (4.0-10.0) 10^3/ uL RBC (4.1-5.3) 10^6/u L Hgb (11.7-16.6) g/dL Hct (42.0-52.0) % MCV (80-94) fL MCH (28.0-34.0) pg MCHC (30.0-36.0) g/dL RDW (12.1-15.1) % Plt Count (130-400) 10^3/c mm MPV (7.4-10.4) fL Neut % (Auto) % Lymph % (Auto) % Pope % (Auto) % Eos % (Auto) % Baso % (Auto) % Neut # (Auto) (1.8-7.7) 10^3/u L Lymph # (Auto) (0.8-4.8) 10^3/u L Pope # (Auto) (0.2-0.9) 10^3/u L Eos # (Auto) (0.0-0.8) 10^3/u L Baso # (Auto) (0.0-0.1) 10^3/u L Nucleated RBC % (a uto) % Nucleated RBCs # /100WBC PT INR D-Dimer Specimen Type Sample Site ABG pH (7.35-7.45) ABG pCO2 (35-45) mmHg ABG pO2 (80.0-100.0) mmH g ABG HCO3 (22-26) mmol/L ABG O2 Saturation ABG Base Excess (-2.0-2.0) mmol/ L Newton Test A-a O2 Gradient (5-10) mmHg Hematocrit (42-52) % Hgb O2 Saturation (95-100) % Carboxyhemoglobin (0.4-20.1) %THgb Methemoglobin (0.4-1.5) % Total Hemoglobin (14-18) g/dL Ionized Calcium (1.1-1.4) mmol/L O2 Delivery Device FiO2 % [employer] ID Sodium Potassium Chloride Carbon Dioxide Anion Gap BUN Creatinine GFR Calculation Glucose Calculated Osmolal ity Lactic Acid Lactic Acid (Sepsi s) 1.6 (0.5-2.2) mmol/L Calcium Magnesium Total Bilirubin AST ALT Alkaline Phosphata se Troponin T Baselin e 43 H Troponin T 120 Min [place] 32.59 H (0-15) ng/L Delta Troponin T -10.41 L (0-10) ABS# C-Reactive Protein NT-Pro-B Natriuret Pep Total Protein Albumin Globulin Procalcitonin Urine Opiates Scre en (Negative) ng/mL Ur Barbiturates Sc reen (Negative) ng/mL Ur Phencyclidine S crn (Negative) ng/mL Ur Amphetamines Sc reen (Negative) ng/mL U Benzodiazepines Scrn (Negative) ng/mL Urine Cocaine Scre en (Negative) ng/mL U Marijuana (THC) Screen (Negative) ng/mL Influenza Type A A g (Negative) Influenza Type B A g (Negative) SARS-CoV-2 Ag (Rap id) (Negative) Group A Strep Rapi d (Negative) COVID Results: SARS-CoV-2 Antigen (Rapid) Negative (Negative) 02/03/21 16:15 02/03/21 Nasal/Oral Coronavirus 2019 PCR Negative 05/29/20 23:30 05/29/20 Discharge Plan Discharge Patient Disposition: Admitted As Inpatient Admit Provider: Vee Chester Clinical Impression: Respiratory failure, Pneumonia Condition: Stable Coding Level of Care Code 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
[2021-02-03 16:04] LABS: ABG PCO2 59.6 mmHg (35-45); ABG PH Result 7.42 (7.35-7.45); Alveolar-Arterial Oxygen Gradi 42.9 mmHg (5-10); Base Excess ABG 10.5 mmol/L (-2.0-2.0); Blood Gas Allen Test Pos; Blood Gas Operator Identificat glc; Blood Gas Sample Site Radial, left; Blood Gas Sample Type Arterial; Carboxyhemoglobin 4.1 %THgb (0.4-20.1); HCO3 ABG 38.2 mmol/L (22-26); HGB O2 Sat 96.1 % (95-100); Ionized Calcium Level - ABG 1.2 mmol/L (1.1-1.4); Methemoglobin 0.4 % (0.4-1.5); Oxygen Device VENT; Oxygen Saturation ABG > 100.0; Potassium Level - ABG 4.2 mmol/L (3.5-5.0); Total Hemoglobin 17.6 g/dL (14-18)
[2021-02-03 16:08] LABS: Basophils % 0.2 %; Eosinophils # 0.2 10^3/uL (0.0-0.8); Eosinophils % 1.2 %; Hematocrit 53.8 % (42.0-52.0); Hemoglobin 16.7 g/dL (11.7-16.6); Lymphocytes # 2.1 10^3/uL (0.8-4.8); Lymphocytes % 12.6 %; Mean Corpuscular Volume 96.6 fL (80-94); Mean Platelet Volume 10.5 fL (7.4-10.4); Monocytes # 1.4 10^3/uL (0.2-0.9); Monocytes % 8.8 %; Neutrophils % 76.5 %; Nucleated Red Blood Cells % 0 %; Platelet Count 221 10^3/cmm (130-400); Red Blood Count 5.57 10^6/uL (4.1-5.3); Red Cell Distribution Width 12.1 % (12.1-15.1); White Blood Count 16.4 10^3/uL (4.0-10.0)
[2021-02-03 16:37] LABS: Amphetamines Screen Urine Negative (Negative); Barbiturates Screen Urine Negative (Negative); Benzodiazepines Screen Urine Negative (Negative); Cocaine Screen Urine Negative (Negative); Opiate Screen Urine Negative (Negative); PCP Screen Urine Negative (Negative); THC Screen Urine Negative (Negative)
--- NOTE | 2021-02-03 16:43 | PC.PHAR ---
I WENT TO PATIENT'S ROOM TO GO OVER HIS MEDICATION. HE IS INTUBATED, SO I COULD NOT ASK HIM WHEN HE TOOK THEM. HE DID BRING A BAG OF MEDICATION WITH HIM AND I WENT THROUGH IT. THERE WERE MANY ON HIS MEDICATION HISTORY THAT WERE NOT WITH THE MEDICATION HE BROUGHT. I HESITATE TO REMOVE THEM FROM HIS LIST WITHOUT ASKING HIM ABOUT THEM. I AM LEAVING THEM, BUT I WILL NOT THE ONES THAT WERE NOT IN HIS MEDICATION BAG.
[2021-02-03 16:45] LABS: Rapid Strep A Test Negative (Negative)
[2021-02-03 16:48] LABS: INR 1.02 (0.8-1.2)
[2021-02-03 16:50] LABS: D Dimer 0.29 ug/mIFEU (0-0.59)
[2021-02-03 16:53] LABS: SARS Covid-2 Antigen Negative (Negative)
[2021-02-03] MEDS: sodium chloride 0.9% 1,000 ML 999 ML IV ×3 (17:05→22:52)
[2021-02-03] MEDS: cefepime 2,000 MG in sodium chloride 0.9% (plus) 50 ML 100 MG IV (17:06)
[2021-02-03 17:09] LABS: Influenza A by IFA Negative (Negative); Influenza B by IFA Negative (Negative)
--- NOTE | 2021-02-03 17:15 | CTR_ITS ---
PROCEDURE INFORMATION: Exam: CT Head Without Contrast Exam date and time: 02/03/2021 6:01 PM Age: 70 years old Clinical indication: Alteration of consciousness and altered mental status/memory loss; Syncope and collapse; Confusion or disorientation; Patient HX: AMS w loc; Additional info: AMS, loc, resp failure TECHNIQUE: Imaging protocol: Computed tomography of the head without contrast. Radiation optimization: All CT scans at this facility use at least one of these dose optimization techniques: automated exposure control; mA and/or kV adjustment per patient size (includes targeted exams where dose is matched to clinical indication); or iterative reconstruction. COMPARISON: CT head wo con* [id number] 07/21/2020 3:11 PM RADIATION DOSE METRICS: Total DLP (mGy-cm): 971.27 FINDINGS: Tubes, catheters and devices: Partial visualization of endotracheal tube. Brain: There is moderate cerebral atrophy. There is moderate diffuse heterogeneity of the white matter attenuation, consistent with chronic white matter ischemic changes. Negative for intracranial hemorrhage. No midline shift of brain. No cerebral sulcal effacement. Ron matter and white matter interfaces are preserved. Cerebral ventricles: No ventriculomegaly. Bones/joints: Unremarkable. No acute fracture. Paranasal sinuses: Scattered opacification of bilateral ethmoid air cells new from prior. Moderate right maxillary sinus mucosal thickening new from prior. Mastoid air cells: Visualized mastoid air cells are well aerated. Orbital cavity: Orbits are symmetric and unremarkable. Vasculature: Scattered intracranial atherosclerosis. Soft tissues: Unremarkable. Nasal cavity: Fluid in the nasal passageways and fluid in the posterior nasopharynx. CT/CT head wo con* [id number] IMPRESSION: 1. Negative for acute intracranial abnormality. 2. No change in the brain from comparison on 07/21/2020. Radiation Dose CTDIVOL = (mGy): DLP = 971.27 (mGy-cm)
--- NOTE | 2021-02-03 17:16 | CTR_ITS ---
PROCEDURE INFORMATION: Exam: CT Chest With Contrast; Diagnostic Exam date and time: 02/03/2021 6:01 PM Age: 70 years old Clinical indication: Bloating; Shortness of breath; Prior surgery; Surgery date: 6+ months; Surgery type: Pelvis, appy; Patient HX: Resp failure; Additional info: Sepsis, hypoxic resp failure, loc, TECHNIQUE: Imaging protocol: Diagnostic computed tomography of the chest with contrast. Radiation optimization: All CT scans at this facility use at least one of these dose optimization techniques: automated exposure control; mA and/or kV adjustment per patient size (includes targeted exams where dose is matched to clinical indication); or iterative reconstruction. Contrast material: OMNI 300; Contrast volume: 95 ml; Contrast route: INTRAVENOUS (IV); COMPARISON: CT angio chest PE protcl [id number] 05/31/2020 2:24 PM RADIATION DOSE METRICS: Total DLP (mGy-cm): 2278.74 FINDINGS: Tubes, catheters and devices: Endotracheal tube with unremarkable position in the distal trachea. Enteric tube in the gastric body. Lungs: Scattered areas of interstitial thickening in the right middle lobe and the right lower lobe primarily. Small clustered area of tree-in-bud ground-glass nodules of the right middle lobe. Diffuse bronchial wall thickening. Moderate emphysema. Pleural spaces: Unremarkable. No pneumothorax. No pleural effusion. Heart: Unremarkable. No cardiomegaly. No pericardial effusion. Mediastinal space: Mild hiatal hernia. Aorta: Unremarkable. No aortic aneurysm. Lymph nodes: Unremarkable. No enlarged lymph nodes. Gallbladder and bile ducts: Cholelithiasis. Bones/joints: Chronic mild severity T11 vertebral compression fracture stable from prior imaging. No acute thoracic fractures or lytic bone lesions are identified. Soft tissues: Unremarkable. IMPRESSION: Patchy airspace disease in the right middle lobe and the right lower lobe are nonspecific. Cannot exclude pneumonia. PROCEDURE INFORMATION: Exam: CT Abdomen And Pelvis With Contrast Exam date and time: 02/03/2021 6:01 PM Age: 70 years old Clinical indication: Bloating; Shortness of breath; Prior surgery; Surgery date: 6+ months; Surgery type: Pelvis, appy; Patient HX: Resp failure; Additional info: Sepsis, hypoxic resp failure, loc, TECHNIQUE: Imaging protocol: Computed tomography of the abdomen and pelvis with contrast. Radiation optimization: All CT scans at this facility use at least one of these dose optimization techniques: automated exposure control; mA and/or kV adjustment per patient size (includes targeted exams where dose is matched to clinical indication); or iterative reconstruction. Contrast material: OMNI 300; Contrast volume: 95 ml; Contrast route: INTRAVENOUS (IV); COMPARISON: CT angio chest PE protcl [id number] 05/31/2020 2:24 PM RADIATION DOSE METRICS: Total DLP (mGy-cm): 2278.84 FINDINGS: Tubes, catheters and devices: Esophagogastric catheter in the distal gastric body. Mediastinal space: Mild hiatal hernia. Liver: Normal. No mass. Gallbladder and bile ducts: Cholelithiasis. No inflammatory gallbladder wall thickening. No dilation of biliary system. Pancreas: Normal. No ductal dilation. Spleen: Normal. No splenomegaly. Adrenal glands: Normal. No mass. Kidneys and ureters: Normal. No hydronephrosis. Stomach and bowel: No inflammatory wall thickening of the bowel loops. Mild diverticulosis coli. No evidence of bowel obstruction or perforation. Moderate fecal volume. Appendix: No evidence of appendicitis. Intraperitoneal space: Unremarkable. No free air. No significant fluid collection. Vasculature: Unremarkable. No abdominal aortic aneurysm. Lymph nodes: Unremarkable. No enlarged lymph nodes. Urinary bladder: Bladder decompressed via Shirley catheter in good position. Reproductive: Mild prostate gland enlargement. Bones/joints: Bones are demineralized. Surgical hardware fixates the right iliac bone. No acute lumbar spine or pelvic fracture. No lytic, aggressive bone lesion. Pre-existing T11 compression fracture unchanged from prior. Mild superior endplate fracture of L5 stable from prior imaging. Soft tissues: Soft tissues of the abdominal wall are unremarkable. Paraspinal soft tissues are unremarkable. CT/CT chest abd pel w con* IMPRESSION: 1. No acute pathology in the abdomen or pelvis identified. 2. No significant change in the abdomen or pelvis from prior imaging on 06/03/2020. Radiation Dose CTDIVOL = (mGy): DLP = 2278.74~2278.84 (mGy-cm)
[2021-02-03 17:32] LABS: Lactic Sepsis W/Reflex 2.5 mmol/L (0.5-2.2)
[2021-02-03 17:33] LABS: Troponin(5th) Baseline 43 ng/L (0-15)
[2021-02-03 17:39] LABS: NT Pro B Type Natriuretic Pept 694 pg/mL (0-125); Procalcitonin 0.09 ng/mL (0-0.5)
[2021-02-03 17:50] LABS: Alanine Aminotransferase 9 U/L (0-41); Albumin Level 3.5 g/dL (3.5-5.2); Alkaline Phosphatase 100 IU/L (40-130); Aspartate Amino Transferase 11 U/L (0-40); Blood Urea Nitrogen 18 mg/dL (8-23); C Reactive Protein 121.1 mg/L (0.0-4.9); Calcium 9.2 mg/dL (8.5-10.5); Carbon Dioxide 32 mmol/L (22-29); Chloride 90 mmol/L (98-107); Glucose 189 mg/dL (65-115); Magnesium 1.5 mg/dL (1.7-2.3); Osmolality Calculated 287 mOsm/kg (285-295); Sodium 135 mmol/L (136-145); Total Bilirubin 0.8 mg/dL (0.15-1.2); Total Protein 7.5 g/dL (6.6-8.7)
--- NOTE | 2021-02-03 17:56 | ECG_ITS ---
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 Measurements Intervals [place] Rate: 70 P: CO: QRS: 80 QRSD: 81 T: 86 QT: 375 QTc: 405 Interpretive Statements SINUS RHYTHM WITH PAC'S Compared to ECG 02/03/2021 15:45:58 Sinus rhythm no longer present Electronically Signed On 02-03-2021 20:37:29 CDT by Jessica Murillo M.D. [email or web address]
[2021-02-03 18:00] LABS: Anion Gap 16.8 (5-19); Potassium 3.8 mmol/L (3.5-5.1); Reflex Lactate Order REFLEX LACTIC ORDERD
[2021-02-03] MEDS: iohexol 300 mg/mL 100 mL Btl IV (18:33)
[2021-02-03] MEDS: vancomycin 1,500 MG/300 ML PIGGYBACK 200 MG IV (18:48)
--- NOTE | 2021-02-03 19:56 | PC.NURSE ---
Per Dr. Mckeon titrate propofol down to 5mcg/kg/min
--- NOTE | 2021-02-03 20:04 | PM.HP ---
Providers/Chief Complaint Admitting Physician: Nemo Primary Care Provider: [facility] Chief Complaint: SORE THROAT History of Present Illness Robert Crisostomo is a 70 year old male who presented to the emergency room complaining of weakness, malaise, sore throat. Oxygen saturations on arrival were 69% on room air. Blood pressure and heart rate were normal. Patient rapidly decompensated and was intubated. No further history was able to be obtained. He was here in the emergency room on the complaining of a sore throat and low blood sugar. He had contacted his PCP and was given some omqk-cgv-pavjvao Mucinex. There was no report of any fever. A family member evidently had strep throat. He was given a Z-Tres and instructed to use ykdh-enx-vduolqm medicines as needed and drink fluids. Laboratory studies were done that day. Rapid Covid antigen today was negative. Influenza screen and rapid strep were negative. Covid PCR was collected and is pending. ABG showed 7.42/59/310 after intubation while on 100% FiO2. White count was normal. H&H was a little high. Lactic acid was 2.5. Renal function was normal as was potassium. Initial troponin was 43. He had significant elevation in CRP at 121, and elevated BNP at 694. CT of chest abdomen and pelvis with contrast (not CTA) showed some patchy airspace disease on the right. CT of the head was unremarkable for acute findings as was chest x-ray. EKG showed sinus rhythm without any acute ST segment changes. ER notes from intubation indicated that he had a copious amount of white material in his throat that was sent for culture. Blood cultures were also collected. With sedation he had a drop in his blood pressure but this improved with adjustments to sedation. Review of previous records shows an admission last May. He has a history of diabetes, COPD, a lung cancer diagnosis with details unclear, posttraumatic seizures, hypertension and coronary artery disease (again with details unknown). He required BiPAP during that admission. Family is not presently available to obtain further details. He is being admitted to the ICU for further evaluation and management. Review of Systems General: Reports: ROS unobtainable due to endotracheal tube, ROS unobtainable due to medical condition and ROS unobtainable due to mental status Medications/Allergies Home Medications Medication Instructions Recorded Confirmed Last Taken Type albuterol sulfate 2 puff INHALATION QID 05/30/20 02/03/21 Unknown History amlodipine 2.5 mg PO DAILY 05/30/20 02/03/21 07/07/20 History dorzolamide-timolol 1 drp OPHTHALMIC (EYE) BID 05/30/20 02/03/21 07/07/20 History gabapentin 600 mg PO BID 05/30/20 02/03/21 07/07/20 History ipratropium-albuterol 3 ml INHALATION QID 05/30/20 02/03/21 Unknown History levetiracetam See Rx Instructions .ROUTE .COMPLEX 05/30/20 02/03/21 07/07/20 History metformin 500 mg PO DAILY 05/30/20 02/03/21 07/07/20 History omega 7-kql-gfv-fish oil [Fish Oil] 1 cap PO BID 05/30/20 02/03/21 07/07/20 History pantoprazole [Protonix] 40 mg PO DAILY 05/30/20 02/03/21 07/07/20 History polyethylene glycol 3350 [Miralax] See Rx Instructions .ROUTE .COMPLEX 05/30/20 02/03/21 Unknown History rosuvastatin [Crestor] 5 mg PO DAILY 05/30/20 02/03/21 07/07/20 History albuterol sulfate 2 inh INHALATION Q4H PRN #6.7 gm 07/07/20 02/03/21 Unknown Rx aspirin 325 mg PO DAILY 07/07/20 02/03/21 07/07/20 History hydrochlorothiazide 25 mg PO DAILY 07/07/20 02/03/21 07/06/20 History ondansetron HCl [Zofran] 4 mg PO Q6H PRN #20 tab 09/22/20 02/03/21 Unknown Rx azithromycin [Zithromax Z-Tres] See Rx Instructions .ROUTE 01/31/21 02/03/21 Unknown Rx .COMPLEX #6 tab Allergies Allergy/AdvReac Type Severity Reaction Status Date / Time melton Allergy Unknown Verified 01/31/21 00:24 hydrocodone Allergy Unknown Verified 01/31/21 00:24 lisinopril Allergy Unknown Verified 01/31/21 00:24 niacin Allergy Unknown Verified 01/31/21 00:24 pravastatin Allergy Unknown Verified 01/31/21 00:24 simvastatin Allergy Unknown Verified 01/31/21 00:24 strawberry Allergy Unknown Verified 01/31/21 00:24 tramadol Allergy Unknown Verified 01/31/21 00:24 Additional Medication Information Patient had a bag of medications brought in with him that only included, from the list of above, amlodipine, aspirin, azithromycin, hydrochlorothiazide, Keppra, Metformin, fish oil, Protonix and Crestor. PFSH Acute PFSH: Medical History CAD (coronary artery disease) Details unknown COPD (chronic obstructive pulmonary disease) DM type 2 (diabetes mellitus, type 2) Oar-dfdwgak-fcujqzwab, on Metformin History of echocardiogram (~05/2020) Normal left ventricular size and systolic function with an EF of 60%, no regional wall motion abnormalities, grade 1/4 diastolic dysfunction, normal to mildly elevated filling pressures and mild left ventricular hypertrophy. Thickened aortic and mitral valves were noted. 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, details otherwise unknown, on Keppra Smoking addiction Surgical History H/O neck surgery H/O: knee surgery History of shoulder surgery Hx of appendectomy Family History Other Cancer Heart disease Social History Smoking and tobacco status: current every day smoker cigarettes Packs smoked per day: 1 Alcohol intake: never Lives independently: Yes Household members: spouse Marital status: Current occupational status: retired Supplemental PFSH Information: I was not able to verify any of the above information with patient, information is based on what was already inputted into the system and review of old records Vitals/I&O/Wt Last Vital Signs Temp 98.6 F 02/03/21 15:29 Pulse 64 02/03/21 19:52 Resp 19 H 02/03/21 19:52 BP 93/54 02/03/21 19:52 Pulse Ox 99 02/03/21 19:52 02/03/21 02/03/21 02/03/21 06:59 14:59 22:59 Intake Total 2091.785 / 2091.785 Balance / Physical Exam Const: OTHER: Sedated on ventilator, responds to touch with grimacing but not currently following commands otherwise HENMT: OTHER: Normocephalic atraumatic, appears to be edentulous, slightly dry mucous membranes, unable to visualize posterior oropharynx, no visible thrush but again exam is limited Eye: OTHER: Pupils equally round and reactive to light, 3 mm to 2 mm bilaterally, sclera injected, Neck/C-Spine: OTHER: Neck is large, no rigidity Chest: OTHER: Soft tissue prominence noted at the suprasternal notch on the right side Resp: OTHER: Scattered wheezes, no rhonchi or rales noted, mechanically ventilated Cardio: OTHER: Regular rate and rhythm, no murmurs gallops or rubs. No JVD. Pulses are equal x4. GI: OTHER: Abdomen soft, no obvious tenderness, rotund but nondistended with positive bowel sounds : OTHER: Normal external genitalia, Shirley noted Extremity: OTHER: Trace pitting edema, extremities are cool but no mottling or cyanosis. Shoulders, elbows, knees, ankles, hands and wrist do not demonstrate evidence of warmth, erythema, effusion. Neuro: OTHER: Normal corneal reflexes, gag intact, toes are downgoing, no significant muscle wasting noted Psych: OTHER: Sedated Skin: OTHER: Skin dry, feet are unkempt, no rashes are noted, no large bruises or significant areas of erythema. I was not able to examine back and buttock area at this time. Urinary Catheter Management^: Shirley: Cath Placed During This Visit: yes Reason for Continuing Indwelling Catheter: Required Immobilization for Trauma or Surgery or Anesthesia Urinary Catheter Date of Insertion: 02/03/21 Urinary Catheter Time of Insertion: 16:00 Data : 02/03/21 15:44 02/03/21 17:00 Other Labs: Laboratory Results WBC 16.4 10^3/uL (4.0-10.0) H 02/03/21 15:44 RBC 5.57 10^6/uL (4.1-5.3) H 02/03/21 15:44 Hgb 16.7 g/dL (11.7-16.6) H 02/03/21 15:44 Hct 53.8 % (42.0-52.0) H 02/03/21 15:44 MCV 96.6 fL (80-94) H 02/03/21 15:44 MCH 30.0 pg (28.0-34.0) 02/03/21 15:44 MCHC 31.0 g/dL (30.0-36.0) 02/03/21 15:44 RDW 12.1 % (12.1-15.1) 02/03/21 15:44 Plt Count 221 10^3/cmm (130-400) 02/03/21 15:44 MPV 10.5 fL (7.4-10.4) H 02/03/21 15:44 Neut % (Auto) 76.5 % 02/03/21 15:44 Lymph % (Auto) 12.6 % 02/03/21 15:44 Bremer % (Auto) 8.8 % 02/03/21 15:44 Eos % (Auto) 1.2 % 02/03/21 15:44 Baso % (Auto) 0.2 % 02/03/21 15:44 Neut # (Auto) 12.50 10^3/uL (1.8-7.7) H 02/03/21 15:44 Lymph # (Auto) 2.1 10^3/uL (0.8-4.8) 02/03/21 15:44 Bremer # (Auto) 1.4 10^3/uL (0.2-0.9) H 02/03/21 15:44 Eos # (Auto) 0.2 10^3/uL (0.0-0.8) 02/03/21 15:44 Baso # (Auto) 0.0 10^3/uL (0.0-0.1) 02/03/21 15:44 Nucleated RBC % (auto) 0 % 02/03/21 15:44 Nucleated RBCs # 0.0 /100WBC 02/03/21 15:44 PT 13.70 SECONDS (12.1-14.9) 02/03/21 16:20 INR 1.02 (0.8-1.2) 02/03/21 16:20 D-Dimer 0.29 ug/mIFEU (0-0.59) 02/03/21 16:20 Specimen Type Arterial 02/03/21 15:55 Sample Site Radial, left 02/03/21 15:55 ABG pH 7.42 (7.35-7.45) 02/03/21 15:55 ABG pCO2 59.6 mmHg (35-45) H 02/03/21 15:55 ABG pO2 310.0 mmHg (80.0-100.0) H 02/03/21 15:55 ABG HCO3 38.2 mmol/L (22-26) H 02/03/21 15:55 ABG O2 Saturation > 100.0 02/03/21 15:55 ABG Base Excess 10.5 mmol/L (-2.0-2.0) H 02/03/21 15:55 Newton Test Pos 02/03/21 15:55 A-a O2 Gradient 42.9 mmHg (5-10) H 02/03/21 15:55 Hematocrit 54.0 % (42-52) H 02/03/21 15:55 Hgb O2 Saturation 96.1 % (95-100) 02/03/21 15:55 Carboxyhemoglobin 4.1 %THgb (0.4-20.1) 02/03/21 15:55 Methemoglobin 0.4 % (0.4-1.5) 02/03/21 15:55 Total Hemoglobin 17.6 g/dL (14-18) 02/03/21 15:55 Sodium 136.0 mmol/L (131-143) 02/03/21 15:55 Potassium 4.2 mmol/L (3.5-5.0) 02/03/21 15:55 Glucose 201.0 mg/dL (70-115) H 02/03/21 15:55 Ionized Calcium 1.2 mmol/L (1.1-1.4) 02/03/21 15:55 O2 Delivery Device Vent 02/03/21 15:55 FiO2 100.0 % 02/03/21 15:55 Battery Tester Field ID glc 02/03/21 15:55 Sodium 135 mmol/L (136-145) L 02/03/21 17:00 Potassium 3.8 mmol/L (3.5-5.1) 02/03/21 17:00 Chloride 90 mmol/L (98-107) L 02/03/21 17:00 Carbon Dioxide 32 mmol/L (22-29) H 02/03/21 17:00 Anion Gap 16.8 (5-19) 02/03/21 17:00 BUN 18 mg/dL (8-23) 02/03/21 17:00 Creatinine 0.9 mg/dL (0.7-1.2) 02/03/21 17:00 GFR Calculation Not Reportable 02/03/21 17:00 Glucose 189 mg/dL (65-115) H 02/03/21 17:00 Calculated Osmolality 287 mOsm/kg (285-295) 02/03/21 17:00 Lactic Acid 2.5 mmol/L (0.5-2.2) H 02/03/21 17:00 Calcium 9.2 mg/dL (8.5-10.5) 02/03/21 17:00 Magnesium 1.5 mg/dL (1.7-2.3) L 02/03/21 17:00 Total Bilirubin 0.8 mg/dL (0.15-1.2) 02/03/21 17:00 AST 11 U/L (0-40) 02/03/21 17:00 ALT 9 U/L (0-41) 02/03/21 17:00 Alkaline Phosphatase 100 IU/L (40-130) 02/03/21 17:00 Troponin T Baseline 43 ng/L (0-15) H 02/03/21 17:00 C-Reactive Protein 121.1 mg/L (0.0-4.9) H 02/03/21 17:00 NT-Pro-B Natriuret Pep 694 pg/mL (0-125) H 02/03/21 17:00 Total Protein 7.5 g/dL (6.6-8.7) 02/03/21 17:00 Albumin 3.5 g/dL (3.5-5.2) 02/03/21 17:00 Globulin 4.0 g/dL (1.3-4.6) 02/03/21 17:00 Procalcitonin 0.09 ng/mL (0-0.5) 02/03/21 17:00 Urine Opiates Screen Negative ng/mL (Negative) 02/03/21 16:00 Ur Barbiturates Screen Negative ng/mL (Negative) 02/03/21 16:00 Ur Phencyclidine Scrn Negative ng/mL (Negative) 02/03/21 16:00 Ur Amphetamines Screen Negative ng/mL (Negative) 02/03/21 16:00 U Benzodiazepines Scrn Negative ng/mL (Negative) 02/03/21 16:00 Urine Cocaine Screen Negative ng/mL (Negative) 02/03/21 16:00 U Marijuana (THC) Screen Negative ng/mL (Negative) 02/03/21 16:00 Influenza Type A Ag Negative (Negative) 02/03/21 16:15 Influenza Type B Ag Negative (Negative) 02/03/21 16:15 SARS-CoV-2 Ag (Rapid) Negative (Negative) 02/03/21 16:15 Group A Strep Rapid Negative (Negative) 02/03/21 16:15 Impressions Chest X-Ray 02/03/21 15:52 IMPRESSION: 1. No focal acute pulmonary disease identified. 2. Satisfactory position of endotracheal tube and NG tube. Head CT 02/03/21 17:15 IMPRESSION: 1. Negative for acute intracranial abnormality. 2. No change in the brain from comparison on 07/21/2020. Radiation Dose CTDIVOL = (mGy): DLP = 971.27 (mGy-cm) Chest/Abdomen/Pelvis CT 02/03/21 17:16 FINDINGS: Tubes, catheters and devices: Endotracheal tube with unremarkable position in the distal trachea. Enteric tube in the gastric body. Lungs: Scattered areas of interstitial thickening in the right middle lobe and the right lower lobe primarily. Small clustered area of tree-in-bud ground-glass nodules of the right middle lobe. Diffuse bronchial wall thickening. Moderate emphysema. Pleural spaces: Unremarkable. No pneumothorax. No pleural effusion. Heart: Unremarkable. No cardiomegaly. No pericardial effusion. Mediastinal space: Mild hiatal hernia. Aorta: Unremarkable. No aortic aneurysm. Lymph nodes: Unremarkable. No enlarged lymph nodes. Gallbladder and bile ducts: Cholelithiasis. Bones/joints: Chronic mild severity T11 vertebral compression fracture stable from prior imaging. No acute thoracic fractures or lytic bone lesions are identified. Soft tissues: Unremarkable. IMPRESSION: Patchy airspace disease in the right middle lobe and the right lower lobe are nonspecific. Cannot exclude pneumonia. FINDINGS: Tubes, catheters and devices: Esophagogastric catheter in the distal gastric body. Mediastinal space: Mild hiatal hernia. Liver: Normal. No mass. Gallbladder and bile ducts: Cholelithiasis. No inflammatory gallbladder wall thickening. No dilation of biliary system. Pancreas: Normal. No ductal dilation. Spleen: Normal. No splenomegaly. Adrenal glands: Normal. No mass. Kidneys and ureters: Normal. No hydronephrosis. Stomach and bowel: No inflammatory wall thickening of the bowel loops. Mild diverticulosis coli. No evidence of bowel obstruction or perforation. Moderate fecal volume. Appendix: No evidence of appendicitis. Intraperitoneal space: Unremarkable. No free air. No significant fluid collection. Vasculature: Unremarkable. No abdominal aortic aneurysm. Lymph nodes: Unremarkable. No enlarged lymph nodes. Urinary bladder: Bladder decompressed via Shirley catheter in good position. Reproductive: Mild prostate gland enlargement. Bones/joints: Bones are demineralized. Surgical hardware fixates the right iliac bone. No acute lumbar spine or pelvic fracture. No lytic, aggressive bone lesion. Pre-existing T11 compression fracture unchanged from prior. Mild superior endplate fracture of L5 stable from prior imaging. Soft tissues: Soft tissues of the abdominal wall are unremarkable. Paraspinal soft tissues are unremarkable. IMPRESSION: 1. No acute pathology in the abdomen or pelvis identified. 2. No significant change in the abdomen or pelvis from prior imaging on 06/03/2020. Radiation Dose CTDIVOL = (mGy): DLP = 2278.74~2278.84 (mGy-cm) Micro: Microbiology 02/03/21 16:05 Gram Stain - Final Sputum - Endotracheal Tube Aspirate 02/03/21 15:45 Blood Culture - Preliminary Blood SPECIMEN COLLECTED 02/03/21 15:44 Blood Culture - Preliminary Blood SPECIMEN COLLECTED A&P Assessment and plan (1) Acute respiratory failure with hypoxia and hypercapnia: Patient was significantly hypoxic and had rapid clinical decline leading to intubation in the emergency room. He has some patchy infiltrates in the right that could be suggestive of pneumonia or even aspiration. Procalcitonin is negative however. PE or other acute vascular event is certainly within the differential however D-dimer is actually negative. He had been complaining of a sore throat and had copious amounts of white stuff noted in his throat at intubation. No mention of anything that look like peritonsillar abscess. Attempt to visualize posterior oropharynx currently unsuccessful. He has had sore throat for several days with previous ED visit complaining of same. There was no description of seizure-like activity and I did find notes in the past where family had described his seizures as generalized tonic-clonic like. He has COPD but nothing in the history seems to point to that being a definitive complaint. He has some mild wheezing only on exam. Chest does not appear volume overloaded. Diagnosis of lung cancer in old records but no other details are known and imaging does not reveal anything obvious. Covid or other viral process is certainly within the differential however rapid Covid was negative. Status: Acute (2) Sore throat: Unclear of the significance of this finding currently but needs to be considered Status: Acute (3) Sepsis: As evidenced by leukocytosis, elevated lactic acid and respiratory failure. I will acknowledge that the lactic acidosis could be from hypoxemia but currently presuming septic until able to rule out. Status: Acute Qualifiers: Sepsis type: sepsis due to unspecified organism Sepsis acute organ dysfunction status: with acute organ dysfunction Severe sepsis acute organ dysfunction type: acute respiratory failure Acute respiratory failure type: with hypoxia Severe sepsis shock status: without septic shock Qualified Code(s): A41.9 - Sepsis, unspecified organism; R65.20 - Severe sepsis without septic shock; J96.01 - Acute respiratory failure with hypoxia (4) Post-traumatic seizures: While no report of seizure activity and patient was evidently able to complain of sore throat in triage, do wonder what role this might be playing overall Status: Chronic (5) COPD (chronic obstructive pulmonary disease): Status: Chronic Qualifiers: COPD type: unspecified COPD Qualified Code(s): J44.9 - Chronic obstructive pulmonary disease, unspecified (6) DM type 2 (diabetes mellitus, type 2): Status: Chronic Qualifiers: Diabetes mellitus intermediate designer insulin use: without intermediate designer use Diabetes mellitus complication status: without complication Qualified Code(s): E11.9 - Type 2 diabetes mellitus without complications (7) CAD (coronary artery disease): Status: Chronic Qualifiers: Coronary Disease-Associated Artery/Lesion type: [place] artery [place] vs. transplanted heart: [place] heart Associated angina: angina presence unspecified Qualified Code(s): I25.10 - Atherosclerotic heart disease of [place] coronary artery without angina pectoris (8) HTN (hypertension): Status: Chronic Qualifiers: Hypertension type: unspecified Qualified Code(s): I10 - Essential (primary) hypertension (9) HLD (hyperlipidemia): Status: Chronic Qualifiers: Hyperlipidemia type: unspecified Qualified Code(s): E78.5 - Hyperlipidemia, unspecified Additional A&P Information Elevated BNP of currently unclear significance, had a cardiogram in May of last year that showed grade 1 of 4 diastolic dysfunction and some mild left ventricular hypertrophy but no other significant abnormalities, no significant volume overload on examination Inpatient admission ICU care Continue ventilatory support Sedation with fentanyl and propofol currently Pulmonary toilet IV fluids We will continue the vancomycin and cefepime that were empirically started in the emergency room given unclear source of infection at this time Given description of copious amounts of white stuff in the ED intubation notes combined with history of diabetes, we will add Diflucan Follow-up pending Covid PCR Covid isolation Check some additional baseline Covid labs Follow-up pending blood cultures and sputum culture Throat culture Repeat procalcitonin and CRP in the morning IV Keppra, seizure precautions Follow-up pending Keppra level Serial neuro exams Check ammonia level as has had elevated ammonia in the past for unclear reason Sliding scale insulin Serial cardiac enzymes and EKGs Telemetry monitoring Check A1c and lipid panel in the morning Check TSH in the morning Check UA as has not been done yet Home medications are presently held other than the IV Keppra that has been ordered Pepcid for GI prophylaxis Lovenox for DVT prophylaxis Supportive care otherwise Need to work to see if we can get more details of what has been going on and follow-up results of above and clinical course adjusting plan of care accordingly. [facility] Depending on clinical course tonight may need to consider further work-up for source of infection such as lumbar puncture, neck or spinal imaging for possible abscess. He has a significant elevation in CRP. Full code as unable to confer further with him Attestations Medical Necessity Statement*: Anticipated stay greater than 2 midnights in this gentleman who presented with a complaint of a sore throat but was found to have significant hypoxemia and rapidly decompensated requiring intubation. He is currently requiring respiratory support and other care as noted above. Critical Care Time: The high probability of a clinically significant, sudden or life threatening deterioration of the patient's respiratory system(s) required my full and direct attention, intervention and personal management. The critical care time is as shown. This time is in addition to time spent performing any reported procedures but includes the following: [x] Data and vital sign review and interpretation [x] Patient assessment, examination and intervention [x] Documentation [x] Medication orders and management Critical Care Time (min): 75 Coding Level of Care Code Acute Tail Trimmer for Chg Fwd Diagnoses Acute respiratory failure with hypoxia and hypercapnia J96.01; J96.02 Sore throat J02.9 Sepsis A41.9; R65.20; J96.01 Sepsis type: sepsis due to unspecified organism Sepsis acute organ dysfunction status: with acute organ dysfunction Severe sepsis acute organ dysfunction type: acute respiratory failure Acute respiratory failure type: with hypoxia Severe sepsis shock status: without septic shock Post-traumatic seizures R56.1 COPD (chronic obstructive pulmonary disease) J44.9 COPD type: unspecified COPD DM type 2 (diabetes mellitus, type 2) E11.9 Diabetes mellitus correction insulin use: without correction use Diabetes mellitus complication status: without complication CAD (coronary artery disease) I25.10 Coronary Disease-Associated Artery/Lesion type: [place] artery [place] vs. transplanted heart: [place] heart Associated angina: angina presence unspecified HTN (hypertension) I10 Hypertension type: unspecified HLD (hyperlipidemia) E78.5 Hyperlipidemia type: unspecified
[2021-02-03 20:34] LABS: Lactic Acid level (Lactate) 1.6 mmol/L (0.5-2.2)
[2021-02-03 20:44] LABS: Troponin 5 2HR 32.59 ng/L (0-15)
--- NOTE | 2021-02-03 21:43 | PC.NURSE ---
Per Dr. Mckeon verbal order stop propofol drip due to patient hypotensive state at this time
--- NOTE | 2021-02-03 21:50 | PC.NURSE ---
Pt blood pressure 102/62 at this time per Dr. Mckeon verbal order restarted propofol drip at 5mcg/kg/min
--- NOTE | 2021-02-03 21:56 | ECG_ITS ---
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 Measurements Intervals [place] Rate: 64 P: 88 VT: 132 QRS: -11 QRSD: 94 T: -22 QT: 394 QTc: 409 Interpretive Statements SINUS RHYTHM WITH SINUS ARRHYTHMIA Compared to ECG 02/03/2021 18:03:31 No significant changes Electronically Signed On 02-04-2021 13:02:38 CDT by Jessica Murillo M.D. [email or web address] Protect [email or web address] hospitalT[facility] Retail/store/[id number]
[2021-02-03] MEDS: famotidine 20 mg/2 mL INJ IVP (22:10)
[2021-02-03] MEDS: fluconazole premix 100 MG in empty flexible container 1 EACH 50 MG IV (22:10)
[2021-02-03] MEDS: magnesium sulfate premix 2 GM/50 ML PIGGYBACK IV (22:11)
[2021-02-03] MEDS: enoxaparin 40 mg/0.4 mL Syringe SUBCUT (22:11)
[2021-02-03 22:15] LABS: Creatine Phosphokinase 40 U/L (39-308)
[2021-02-03] MEDS: sodium chloride 0.9% 1,000 ML 150 ML IV (22:39)
[2021-02-03 23:02] LABS: Glucose Point of Care 110 mg/dL (70-110)
--- NOTE | 2021-02-03 23:02 | PC.PHAR ---
Vancomycin is dosed at 1500mg IVPB every 12 hours to produce a predicted trough level of 13.43 (population based pharmacokinetic analysis). A trough level has been ordered from the lab to be obtained before the fourth dose to confirm and adjust if needed.
[2021-02-03 23:05] LABS: Fibrinogen 620 mg/dL (174-498)
[2021-02-04] VITALS (65 sets, daily range): BP systolic 85–148; BP diastolic 45–77; PULSE 52–89; RESP 13–20; TEMP 36–36.4; O2SAT 92–99; BMI 34.4
[2021-02-04 00:50] LABS: Add Urine Microscopic? YES; Bilirubin Urine Neg (Negative); Blood Urine 2+ (Negative); Glucose Urine UA Norm (Normal); Ketones Urine Negative (Negative); Leukocyte Esterase Urine Negative (Negative); Nitrate Urine Negative (Negative); Protein Urine 1+ (Negative); Specific Gravity, Urine 1.005 (1.005-1.030); Urine Appearance Clear (CLEAR); Urine Color Yellow (Yellow); Urobilinogen Urine 1 mg/dL (Negative); pH Urine 5 (5-7)
[2021-02-04 00:51] LABS: Add Urine Culture? Yes; Bacteria Urine TRACE /hpf
[2021-02-04 00:51] LABS: Ammonia 55 umol/L (16-60)
[2021-02-04 00:52] LABS: Troponin 5 6HR 22.56 ng/L (0-15)
[2021-02-04 01:12] LABS: Ferritin 79 ng/mL (30-400)
[2021-02-04 01:23] LABS: Lactate Dehydrogenase 190 U/L (135-225)
[2021-02-04] MEDS: ipratropium-albuterol 3 mL Neb INHALATION ×4 (02:37→19:59)
[2021-02-04] MEDS: propofol 1,000 MG/100 ML INJ 15 MG IV (03:59)
--- NOTE | 2021-02-04 04:00 | XR_ITS ---
WS: [id number] Exam: XR chest 1V portable [id number] Date/Time of Exam: 02/04/2021 4:00 AM Reason For Exam: pneumon, hypoxemia, vent Comparison 02/03/2021. Mild bibasal infiltrates have developed since previous study. The lungs are fully expanded. Cardiomed iastinal structures are unremarkable for technique. An endotracheal tube ends about 5 cm above the ca kristi in good position. An enteric tube extends below the diaphragm but the tip is not visible. Region al bony structures are intact. Orthopedic missy noted in the left glenoid. XR/XR chest 1V portable [id number] IMPRESSION: 1. Mild bibasal pulmonary infiltrates have developed since the prior study. 2. ET tube and enteric tube in place as noted above.
[2021-02-04] MEDS: cefepime 1,000 MG in sodium chloride 0.9% (plus) 50 ML 100 MG IV ×2 (04:56→17:05)
[2021-02-04] MEDS: sodium chloride 0.9% 1,000 ML 150 ML IV ×2 (04:56→14:48)
[2021-02-04 04:58] LABS: ABG PH Result 7.37 (7.35-7.45); Arterial Blood Gas Hematocrit 42.5 % (42-52); Base Excess ABG 2.7 mmol/L (-2.0-2.0); Blood Gas Allen Test Pos; Blood Gas Operator Identificat JB; Blood Gas Sample Site Radial, right; Blood Gas Sample Type Arterial; Blood Gas Tidal Volume 0.45; HCO3 ABG 28.9 mmol/L (22-26); Oxygen Device VENT; PO2 ABG 78.8 mmHg (80.0-100.0)
[2021-02-04 05:35] LABS: Basophils % 0.3 %; Eosinophils # 0.2 10^3/uL (0.0-0.8); Eosinophils % 1.6 %; Hematocrit 44.9 % (42.0-52.0); Hemoglobin 13.9 g/dL (11.7-16.6); Lymphocytes # 3.7 10^3/uL (0.8-4.8); Lymphocytes % 29.2 %; Mean Corpuscular Hemoglobin 30.3 pg (28.0-34.0); Mean Platelet Volume 11.1 fL (7.4-10.4); Monocytes # 1.1 10^3/uL (0.2-0.9); Monocytes % 8.4 %; Neutrophils # 7.67 10^3/uL (1.8-7.7); Neutrophils % 59.9 %; Nucleated Red Blood Cells % 0 %; Platelet Count 157 10^3/cmm (130-400); Red Blood Count 4.58 10^6/uL (4.1-5.3); Red Cell Distribution Width 12.6 % (12.1-15.1); White Blood Count 12.8 10^3/uL (4.0-10.0)
[2021-02-04 06:04] LABS: Estmated Average Glucose 154
[2021-02-04 06:15] LABS: Procalcitonin 0.05 ng/mL (0-0.5)
[2021-02-04 06:26] LABS: Alanine Aminotransferase 7 U/L (0-41); Albumin Level 2.7 g/dL (3.5-5.2); Alkaline Phosphatase 76 IU/L (40-130); Anion Gap 16.2 (5-19); Aspartate Amino Transferase 11 U/L (0-40); Blood Urea Nitrogen 18 mg/dL (8-23); C Reactive Protein 77.5 mg/L (0.0-4.9); Calcium 7.6 mg/dL (8.5-10.5); Carbon Dioxide 25 mmol/L (22-29); Chloride 101 mmol/L (98-107); Chol HDL Ratio 4.33 mg/dL (1.0-5.00); Cholesterol 104 mg/dL (0-200); Creatinine Clr Calc Pharmacy 87.9514; Globulin 3.1 g/dL (1.3-4.6); Glucose 101 mg/dL (65-115); HDL Cholesterol 24 mg/dL (60-100); LDL Cholesterol Calculated 52 mg/dL (50-129); LDL HDL Ratio 2.17 RATIO (0.00-3.22); Magnesium 1.5 mg/dL (1.7-2.3); Osmolality Calculated 290 mOsm/kg (285-295); Phosphorus 1.8 mg/dL (2.5-4.5); Potassium 3.2 mmol/L (3.5-5.1); Sodium 139 mmol/L (136-145); Total Bilirubin 0.5 mg/dL (0.15-1.2); Total Protein 5.8 g/dL (6.6-8.7); Triglycerides 138 mg/dL (0-150)
[2021-02-04] MEDS: vancomycin 1,500 MG/300 ML PIGGYBACK 150 MG IV ×2 (06:30→18:59)
[2021-02-04 08:02] LABS: Glucose Point of Care 119 mg/dL (70-110)
--- NOTE | 2021-02-04 08:07 | CT_ITS ---
WS: [id number] CT NECK WITH CONTRAST HISTORY: sore throat, sepsis TECHNIQUE: Contiguous 5 mm axial images are performed through the neck with intravenous contrast. Sag ittal and coronal reformats are also submitted. All CT scans at [facility] use at least o ne of these dose optimization techniques: automated exposure control; mA and/or kV adjustment per pat ient size (includes targeted exams where dose is matched to clinical indication); or iterative recons truction. CONTRAST: CONTRAST: Omnipaque 300; 95 mL IV. DLP: 616.15 mGy.cm COMPARISON: None available. Patient is intubated. Endotracheal tube ends above the john in good position. There is also a nasog astric tube which extends through the esophagus. Distal extent is not evident. No tonsillar peritonsi llar abscess is identified. Vocal cords appear unremarkable with the ETT in place. Torus tubarius and fossa of Rosenmuller and parapharyngeal fat are normal. There is a large amount of secretion and low-attenuation in the posterior nasopharynx. This area of t hick secretion abuts the adenoid tissue. Thyroid gland is negative. There is a small amount of fluid over the RIGHT parotid gland. No mass margareth ntified. No osseous abnormalities. Visualized portions of the skull base demonstrate no abnormalities. Orbits and globes are within norm al limits. No soft tissue masses. Bilateral moderate mucosal thickening in the maxillary sinuses and also extending into the sphenoid s inuses. Thickening and mucosal secretions filling the posterior nasopharynx. Lung apices are clear. CT/CT neck w con* [id number] IMPRESSION: 1. No adenopathy. 2. Large amount of inflammatory debris or mucosal secretions within the ticker maintainer ior nasopharynx abutting the adenoid soft tissue. There is also adjacent maxill xochilt and sphenoid sinusitis. 3. Endotracheal tube in good position.
[2021-02-04] MEDS: famotidine 20 mg/2 mL INJ IVP ×2 (08:40→21:16)
[2021-02-04] MEDS: docusate sodium 100 mg Capsule PO ×2 (08:41→17:05)
[2021-02-04] MEDS: potassium chloride premix 100 ML 25 MEQ IV (08:41)
[2021-02-04] MEDS: magnesium sulfate premix 2 GM/50 ML PIGGYBACK IV (08:41)
--- NOTE | 2021-02-04 09:25 | PM.PN ---
Subjective Subjective: Interval history: Robert is sedated on the vent. History and physical reviewed. Most notably, he had complaints of sore throat on admission. Medications: Reviewed: Yes Vitals/I&O/Wt Last Vital Signs Temp 98.6 F 02/03/21 15:29 Pulse 59 L 02/04/21 09:12 Resp 14 02/04/21 09:07 BP 109/57 02/04/21 08:00 Pulse Ox 98 02/04/21 09:07 02/03/21 02/04/21 02/04/21 22:59 06:59 14:59 Intake Total 2607.185 / 2607.185 2212.948 / 4820.133 300 / 300 Output Total 700 / 700 Balance 2607.185 / 2607.185 2212.948 / 4820.133 -400 / -400 Weight last 48 hrs Weight 94 kg Weight 94 kg Physical Exam Narrative: EXAM NARRATIVE: General exam is a white male, not responsive, on the ventilator. HEENT: Endotracheal tube and orogastric tube are noted. Neck is supple no lymphadenopathy or thyromegaly Cardiovascular slight bradycardia, no murmur, regular Lungs clear without wheezing or crackles Abdomen is soft with positive bowel sounds. No obvious organomegaly demonstrates Shirley Extremities no cyanosis clubbing or edema, cap refill brisk Skin no rash Neuro no obvious focal deficits have been noted previously but exam was not performed currently as patient is heavily sedated. Urinary Catheter Management^: Shirley: Cath Placed During This Visit: yes Reason for Continuing Indwelling Catheter: Accurate Measurement of Urinary Output in Critically Ill Patients Urinary Catheter Date of Insertion: 02/03/21 Urinary Catheter Time of Insertion: 16:00 Data : 02/04/21 03:46 02/04/21 03:46 Micro: Microbiology 02/03/21 16:05 Gram Stain - Final Sputum - Endotracheal Tube Aspirate Sputum Culture - Preliminary Gram Negative Rods 02/03/21 15:45 Blood Culture - Preliminary Blood SPECIMEN COLLECTED 02/03/21 15:44 Blood Culture - Preliminary Blood SPECIMEN COLLECTED A&P Assessment and plan (1) Acute respiratory failure with hypoxia and hypercapnia: Concern of pneumonia on x-ray, right lower lobe. Patient certainly hypoxic on presentation. Secondary to patient's complaint of significant sore throat, and rapid deterioration requiring endotracheal intubation we will check a CT neck with contrast to rule out peritonsillar abscess or neck abscess. No evidence of COPD exacerbation currently. Covid PCR pending Continue cefepime and vancomycin currently Sputum, blood cultures Fentanyl and propofol for sedation Ventilator settings reviewed. Wean as tolerated. Status: Acute (2) Sore throat: Check CT neck Status: Acute (3) Sepsis: As evidenced by leukocytosis, elevated lactic acid and respiratory failure. Overall appears to be improving Has required pressors in the form of norepinephrine. Status: Acute Qualifiers: Sepsis type: sepsis due to unspecified organism Sepsis acute organ dysfunction status: with acute organ dysfunction Severe sepsis acute organ dysfunction type: acute respiratory failure Acute respiratory failure type: with hypoxia Severe sepsis shock status: without septic shock Qualified Code(s): A41.9 - Sepsis, unspecified organism; R65.20 - Severe sepsis without septic shock; J96.01 - Acute respiratory failure with hypoxia (4) Post-traumatic seizures: Continue Keppra IV at this point Check neurological status today by lessening sedation Status: Chronic (5) COPD (chronic obstructive pulmonary disease): No evidence of exacerbation currently Bronchodilators as needed Status: Chronic Qualifiers: COPD type: unspecified COPD Qualified Code(s): J44.9 - Chronic obstructive pulmonary disease, unspecified (6) DM type 2 (diabetes mellitus, type 2): Status: Chronic Qualifiers: Diabetes mellitus intermediate accountant insulin use: without usp use Diabetes mellitus complication status: without complication Qualified Code(s): E11.9 - Type 2 diabetes mellitus without complications (7) CAD (coronary artery disease): No evidence of acute coronary event Status: Chronic Qualifiers: Coronary Disease-Associated Artery/Lesion type: [place] artery [place] vs. transplanted heart: [place] heart Associated angina: angina presence unspecified Qualified Code(s): I25.10 - Atherosclerotic heart disease of [place] coronary artery without angina pectoris (8) HTN (hypertension): Now hypotensive. Holding medication. Previous echocardiogram demonstrated preserved EF, in 2019 Status: Chronic Qualifiers: Hypertension type: unspecified Qualified Code(s): I10 - Essential (primary) hypertension (9) HLD (hyperlipidemia): Status: Chronic Qualifiers: Hyperlipidemia type: unspecified Qualified Code(s): E78.5 - Hyperlipidemia, unspecified Additional A&P Information Pneumonia, right lung. Continue cefepime and vancomycin currently. Hypotension. Related to sepsis as well as sedative medicines. Continue fluids. Reduce rate slightly. Blood pressure appears to be improving. Pharyngitis, with description of white stuff in back of oropharynx during intubation. Continue fluconazole currently. Hypokalemia. Supplement Hypomagnesemia, supplement Type 2 diabetes. Sliding scale insulin Pepcid for GI prophylaxis Lovenox for DVT prophylaxis Full code Attestations Medical Necessity Statement*: Needs continued hospitalization for respiratory comfort failure requiring mechanical ventilation. Time Spent in Patient Care: Greater than 35 minutes Critical Care Time: Critical Care Time (min): 35 Other Attestations: The high probability of a clinically significant, sudden or life threatening deterioration of the patient's [pulmonary, infectious disease, electrolyte abnormalities] system(s) required my full and direct attention, intervention and personal management. The critical care time is as shown. This time is in addition to time spent performing any reported procedures but includes the following: [x] Data and vital sign review and interpretation [x] Patient assessment, examination and intervention [x] Documentation [x] Medication orders and management Coding Level of Care Code Acute Clean In Places Operator for [facility] Fwd Diagnoses Acute respiratory failure with hypoxia and hypercapnia J96.01; J96.02 Sore throat J02.9 Sepsis A41.9; R65.20; J96.01 Sepsis type: sepsis due to unspecified organism Sepsis acute organ dysfunction status: with acute organ dysfunction Severe sepsis acute organ dysfunction type: acute respiratory failure Acute respiratory failure type: with hypoxia Severe sepsis shock status: without septic shock Post-traumatic seizures R56.1 COPD (chronic obstructive pulmonary disease) J44.9 COPD type: unspecified COPD DM type 2 (diabetes mellitus, type 2) E11.9 Diabetes mellitus usp insulin use: without usp use Diabetes mellitus complication status: without complication CAD (coronary artery disease) I25.10 Coronary Disease-Associated Artery/Lesion type: [place] artery [place] vs. transplanted heart: [place] heart Associated angina: angina presence unspecified HTN (hypertension) I10 Hypertension type: unspecified HLD (hyperlipidemia) E78.5 Hyperlipidemia type: unspecified
--- NOTE | 2021-02-04 09:59 | PC.CHAP ---
Pastoral Care Encounter/Spiritual Assessment Type of Contact [] Declined sewer system supervisor visit [] Patient/Family/Request visit [] Outpatient visit [] Follow-up visit [] Physician referral [] Code/Alert [x] Routine visit [] Staff referral [] Actively dying [] Patient sleeping [] Family support [] [] Out of room [] Palliative care [] [] Receiving care in room [] Pre-surgical visit [] Trauma [] Long length of stay [x] ICU visit [x] Other: ventilator Relational/Emotional Strength [] Patient feels connected with others/family/visitors/staff [] Distress [] Loneliness/isolation [] Abandonment Spirituality of Patient [] Person of Bianca [] Attends Jainism of their Bianca [] Believes in Prayer [] Reads Bible or Lutheran materials [] There are Spiritual issues to be addressed Process Improvement Engineer Interventions [x] Prayer [] Active listening [] Non-anxious presence [] Spiritual/emotional support [] Crisis/trauma care [] Spiritual counseling [] Bereavement support [] Provided bereavement packet [] Provided Bible/devotional materials [] Provided toy/stuffed animal, coloring book to patient or family member [] Provided Communion [] Anointing/[place] [] Salvation [x] Completed spiritual assessment [] Other: Impact on Illness or Injury [] Angry [] Fearful [] Anxious [] Often cries [] Exhaustion [] Unable to work [] Unable to attend church [] Unable to walk/stand [] Unable to read [] Unable to drive [] Unable to eat/drink [] Unable to sleep [] Unable to be with family [] Patient intubated [] Other: Summary Time spent with patient
[2021-02-04] MEDS: iohexol 300 mg/mL 100 mL Btl IV (10:33)
--- NOTE | 2021-02-04 10:57 | PC.RESP ---
Took patient to CT with Richelle Maya RN. Patient transported on Trilogy. Patient currently back to room and resting comfortably.
--- NOTE | 2021-02-04 14:38 | PC.RESP ---
Smoking Cessation and Pulmonary Rehab information sent to patient.
[2021-02-04] MEDS: propofol 1,000 MG/100 ML INJ 21 MG IV ×2 (14:47→18:59)
[2021-02-04 14:58] LABS: Coronavirus Test Green County Not Detected
[2021-02-04 17:16] LABS: Glucose Point of Care 94 mg/dL (70-110)
[2021-02-04 21:01] LABS: Glucose Point of Care 70 mg/dL (70-110)
[2021-02-04] MEDS: enoxaparin 40 mg/0.4 mL Syringe SUBCUT (21:16)
[2021-02-04] MEDS: fluconazole premix 100 MG in empty flexible container 1 EACH 50 MG IV (21:16)
--- NOTE | 2021-02-04 23:24 | PC.NURSE ---
Patient's family called for update in current status. RN answered all questions, and explained visiting hours and procedures to family member for visitation tomorrow during the AM shift. Family stated they would like to take home patient's pill bag, and expressed concern that patient would not be able to refrain from smoking after D/C from hospital. RN encouraged family to speak with patient, and express their concerns at right time.
[2021-02-05] VITALS (62 sets, daily range): BP systolic 101–173; BP diastolic 49–101; PULSE 57–97; RESP 12–31; TEMP 36.4–36.8; O2SAT 88–100
[2021-02-05] MEDS: propofol 1,000 MG/100 ML INJ 30 MG IV ×2 (01:01→06:07)
[2021-02-05] MEDS: ipratropium-albuterol 3 mL Neb INHALATION ×4 (02:34→21:55)
[2021-02-05] MEDS: sodium chloride 0.9% 1,000 ML 125 ML IV (03:04)
[2021-02-05] MEDS: cefepime 1,000 MG in sodium chloride 0.9% (plus) 50 ML 100 MG IV ×2 (04:52→16:26)
[2021-02-05 05:00] LABS: ABG PCO2 44.1 mmHg (35-45); ABG PH Result 7.34 (7.35-7.45); Arterial Blood Gas Hematocrit 42.7 % (42-52); Base Excess ABG -2.1 mmol/L (-2.0-2.0); Blood Gas Allen Test Pos; Blood Gas Sample Site Radial, right; Blood Gas Sample Type Arterial; Blood Gas Tidal Volume 0.45; HCO3 ABG 23.8 mmol/L (22-26); Oxygen Device VENT; PO2 ABG 76.6 mmHg (80.0-100.0)
[2021-02-05] MEDS: vancomycin 1,500 MG/300 ML PIGGYBACK 150 MG IV (06:06)
[2021-02-05 06:29] LABS: Basophils % 0.4 %; Eosinophils # 0.3 10^3/uL (0.0-0.8); Eosinophils % 2.6 %; Hematocrit 42.4 % (42.0-52.0); Hemoglobin 13.1 g/dL (11.7-16.6); Lymphocytes # 1.4 10^3/uL (0.8-4.8); Lymphocytes % 14.2 %; Mean Corpuscular HGB Conc 30.9 g/dL (30.0-36.0); Mean Corpuscular Hemoglobin 30.5 pg (28.0-34.0); Mean Corpuscular Volume 98.8 fL (80-94); Mean Platelet Volume 10.1 fL (7.4-10.4); Monocytes # 0.8 10^3/uL (0.2-0.9); Monocytes % 8.2 %; Neutrophils # 7.44 10^3/uL (1.8-7.7); Neutrophils % 73.9 %; Nucleated Red Blood Cells % 0 %; Platelet Count 166 10^3/cmm (130-400); Red Blood Count 4.29 10^6/uL (4.1-5.3); Red Cell Distribution Width 12.8 % (12.1-15.1); White Blood Count 10.1 10^3/uL (4.0-10.0)
[2021-02-05 06:56] LABS: Alanine Aminotransferase 6 U/L (0-41); Albumin Level 2.6 g/dL (3.5-5.2); Alkaline Phosphatase 77 IU/L (40-130); Anion Gap 11.6 (5-19); Aspartate Amino Transferase 8 U/L (0-40); Blood Urea Nitrogen 13 mg/dL (8-23); Calcium 7.4 mg/dL (8.5-10.5); Carbon Dioxide 23 mmol/L (22-29); Chloride 105 mmol/L (98-107); Globulin 3.4 g/dL (1.3-4.6); Glucose 98 mg/dL (65-115); Magnesium 1.9 mg/dL (1.7-2.3); Osmolality Calculated 282 mOsm/kg (285-295); Potassium 3.6 mmol/L (3.5-5.1); Sodium 136 mmol/L (136-145); Total Bilirubin 0.5 mg/dL (0.15-1.2)
--- NOTE | 2021-02-05 07:00 | XR_ITS ---
WS: [id number] Exam: XR chest 1V portable [id number] Date/Time of Exam: 02/05/2021 7:00 AM Reason For Exam: follow up resp failure Comparison 02/04/2021. Bilateral pulmonary infiltrates are unchanged. Pulmonary vascularity remains increased. Heart size is unchanged. ET tube tube ends about 5 cm above the john in good position. An enteric tube extends b elow the diaphragm the tip is not visible. The lungs are completely expanded. The mediastinum is not widened. XR/XR chest 1V portable [id number] IMPRESSION: 1. Chest radiograph showing no change since the last exam.
[2021-02-05 07:10] LABS: Vancomycin Trough 24.5 ug/mL (10-15)
[2021-02-05 07:49] LABS: Glucose Point of Care 109 mg/dL (70-110)
[2021-02-05] MEDS: FUROsemide 10 mg/mL SDV 4mL 40 MG IVP (07:52)
--- NOTE | 2021-02-05 07:57 | PM.PN ---
Subjective Subjective: Interval history: Robert is sedated on the ventilator. No events overnight according to nursing. Medications: Reviewed: Yes Vitals/I&O/Wt Last Vital Signs Temp 97.6 F 02/05/21 04:00 Pulse 75 02/05/21 06:00 Resp 14 02/05/21 07:47 BP 128/62 02/05/21 06:00 Pulse Ox 95 02/05/21 07:47 02/04/21 02/05/21 02/05/21 22:59 06:59 14:59 Intake Total 1728.200 / 3488.200 150 / 3638.200 99.5 / 99.5 Output Total 600 / 1300 850 / 2150 Balance 1128.200 / 2188.200 -700 / 1488.200 99.5 / 99.5 Weight last 48 hrs Weight 93.988 kg Weight 94.134 g Weight 94 kg Physical Exam Narrative: EXAM NARRATIVE: General exam is a white male, not responsive, on the ventilator. HEENT: Endotracheal tube and orogastric tube are noted. Neck is supple no lymphadenopathy or thyromegaly Cardiovascular regular rate and rhythm, no murmur, regular Lungs clear without wheezing or crackles Abdomen is soft with positive bowel sounds. No obvious organomegaly demonstrates Shirley Extremities no cyanosis clubbing or edema, cap refill brisk Skin no rash Neuro no obvious focal deficits have been noted when sedation is lessened to evaluate. Urinary Catheter Management^: Shirley: Cath Placed During This Visit: yes Reason for Continuing Indwelling Catheter: Accurate Measurement of Urinary Output in Critically Ill Patients Urinary Catheter Date of Insertion: 02/03/21 Urinary Catheter Time of Insertion: 16:00 Data : 02/05/21 06:17 02/05/21 06:17 Micro: Microbiology 02/03/21 16:15 Group A Streptococcus Rapid Screen - Preliminary Throat 02/03/21 23:30 Urine Culture - Preliminary Urine,Clean Catch 02/03/21 15:45 Blood Culture - Preliminary Blood 02/03/21 15:44 Blood Culture - Preliminary Blood 02/03/21 23:30 MRSA Culture - Final Nose 02/03/21 16:05 Gram Stain - Final Sputum - Endotracheal Tube Aspirate Sputum Culture - Preliminary Gram Negative Rods A&P Assessment and plan (1) Acute respiratory failure with hypoxia and hypercapnia: Concern of pneumonia on x-ray, right lower lobe. Patient certainly hypoxic on presentation. Repeat x-ray today demonstrates infiltrates bibasilar, with question of effusion on the right. Lasix 40 mg IV x1 will be given prior to extubation. Stop fluids currently. CT neck did not demonstrate any abscess or narrowing of airway Covid PCR has been completed and negative Continue cefepime and vancomycin currently Sputum growing gram-negative eli. Blood cultures 2/4 bottles gram-positive. Blood cultures repeated Fentanyl and propofol for sedation Ventilator settings reviewed. Wean ventilator today. See if extubation is possible. Status: Acute (2) Sore throat: CT neck as above Status: Acute (3) Sepsis: As evidenced by leukocytosis, elevated lactic acid and respiratory failure. Overall appears to be improving Has required pressors in the form of norepinephrine. 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 Check neurological status today by lessening sedation Status: Chronic (5) COPD (chronic obstructive pulmonary disease): No evidence of exacerbation currently Bronchodilators as needed Status: Chronic Qualifiers: COPD type: unspecified COPD Qualified Code(s): J44.9 - Chronic obstructive pulmonary disease, unspecified (6) DM type 2 (diabetes mellitus, type 2): Sliding scale insulin Status: Chronic Qualifiers: Diabetes mellitus nursing home insulin use: without terminal make up operator use Diabetes mellitus complication status: without complication Qualified Code(s): E11.9 - Type 2 diabetes mellitus without complications (7) CAD (coronary artery disease): No evidence of acute coronary event Status: Chronic Qualifiers: Coronary Disease-Associated Artery/Lesion type: [place] artery [place] vs. transplanted heart: [place] heart Associated angina: angina presence unspecified Qualified Code(s): I25.10 - Atherosclerotic heart disease of [place] coronary artery without angina pectoris (8) HTN (hypertension): Holding medication currently secondary to hypotension on presentation. Previous echocardiogram demonstrated preserved EF, in 2019 Status: Chronic Qualifiers: Hypertension type: unspecified Qualified Code(s): I10 - Essential (primary) hypertension (9) HLD (hyperlipidemia): Status: Chronic Qualifiers: Hyperlipidemia type: unspecified Qualified Code(s): E78.5 - Hyperlipidemia, unspecified Additional A&P Information Pneumonia, right lung. Continue cefepime and vancomycin currently. Hypotension. Related to sepsis as well as sedative medicines. Resolved currently Pharyngitis, with description of white stuff in back of oropharynx during intubation. Continue fluconazole currently. Hypokalemia. Corrected Hypomagnesemia, corrected Type 2 diabetes. Sliding scale insulin Pepcid for GI prophylaxis Lovenox for DVT prophylaxis Full code Attestations Medical Necessity Statement*: Needs continued hospitalization secondary to respiratory failure requiring mechanical ventilation. Critical Care Time: The high probability of a clinically significant, sudden or life threatening deterioration of the patient's [respiratory, infectious disease] system(s) required my full and direct attention, intervention and personal management. The critical care time is as shown. This time is in addition to time spent performing any reported procedures but includes the following: [x] Data and vital sign review and interpretation [x] Patient assessment, examination and intervention [x] Documentation [x] Medication orders and management Critical Care Time (min): 31 Coding Level of Care Code Acute Classification And Treatment Director for [facility] Fwd Diagnoses Acute respiratory failure with hypoxia and hypercapnia J96.01; J96.02 Sore throat J02.9 Sepsis A41.9; R65.20; J96.01 Sepsis type: sepsis due to unspecified organism Sepsis acute organ dysfunction status: with acute organ dysfunction Severe sepsis acute organ dysfunction type: acute respiratory failure Acute respiratory failure type: with hypoxia Severe sepsis shock status: without septic shock Post-traumatic seizures R56.1 COPD (chronic obstructive pulmonary disease) J44.9 COPD type: unspecified COPD DM type 2 (diabetes mellitus, type 2) E11.9 Diabetes mellitus nursing home insulin use: without terminal make up operator use Diabetes mellitus complication status: without complication CAD (coronary artery disease) I25.10 Coronary Disease-Associated Artery/Lesion type: [place] artery [place] vs. transplanted heart: [place] heart Associated angina: angina presence unspecified HTN (hypertension) I10 Hypertension type: unspecified HLD (hyperlipidemia) E78.5 Hyperlipidemia type: unspecified
[2021-02-05] MEDS: famotidine 20 mg/2 mL INJ IVP ×2 (08:24→20:44)
--- NOTE | 2021-02-05 10:31 | PC.CHAP ---
Pastoral Care Encounter/Spiritual Assessment Type of Contact [] Declined die equipment operator visit [] Patient/Family/Request visit [] Outpatient visit [] Follow-up visit [] Physician referral [] Code/Alert [x] Routine visit [] Staff referral [] Actively dying [] Patient sleeping [] Family support [] [] Out of room [] Palliative care [] [] Receiving care in room [] Pre-surgical visit [] Trauma [] Long length of stay [x] ICU visit [x] Other: ventilator Relational/Emotional Strength [] Patient feels connected with others/family/visitors/staff [] Distress [] Loneliness/isolation [] Abandonment Spirituality of Patient [] Person of Bianca [] Attends Protestant of their Bianca [] Believes in Prayer [] Reads Bible or Holiness materials [] There are Spiritual issues to be addressed Metal Technician Interventions [x] Prayer [] Active listening [] Non-anxious presence [] Spiritual/emotional support [] Crisis/trauma care [] Spiritual counseling [] Bereavement support [] Provided bereavement packet [] Provided Bible/devotional materials [] Provided toy/stuffed animal, coloring book to patient or family member [] Provided Communion [] Anointing/[place] [] Salvation [x] Completed spiritual assessment [] Other: Impact on Illness or Injury [] Angry [] Fearful [] Anxious [] Often cries [] Exhaustion [] Unable to work [] Unable to attend holiness [] Unable to walk/stand [] Unable to read [] Unable to drive [] Unable to eat/drink [] Unable to sleep [] Unable to be with family [] Patient intubated [] Other: Summary Time spent with patient
[2021-02-05 11:05] LABS: Glucose Point of Care 101 mg/dL (70-110)
--- NOTE | 2021-02-05 14:40 | PC.NURSE ---
PT EXTUBATED AT APPROXIMATELY 1430 BY ZO HIRSCH. PT CURRENTLY ON 4L NC AT 95%. PT AWAKE BUT DOES NOT FOLLOW COMMANDS CONSISTENTLY. VISITOR AT BEDSIDE. WILL CONTINUE TO MONITOR.
[2021-02-05 17:36] LABS: Glucose Point of Care 124 mg/dL (70-110)
--- NOTE | 2021-02-05 19:23 | PC.NURSE ---
Addendum entered by Tika Bartlett RN 02/05/21 19:30: Witnessed waste of 117mL of Fentanyl with Daryn Charles RN Original Note: Fentanyl waste Wasted 117 ml wasted with Kerry Bartlett RN. Waste amount differs from amount charted on inf/titr.
--- NOTE | 2021-02-05 19:35 | PC.NURSE ---
RN found patient sitting upright in bed during nursing critical care assessment. Pt does not respond verbally to questions, and will not respond to questions via body movements such as nodding head. On 4L NC with SPO2 sat at 94%. NSR. VS within stable parameters. Pt does not respond yes or no, when asked if experiencing any sort of pain. Pt does not appear to be in any sort of pain. Pt does appear to be extremely drowsy, and falls asleep randomly while sitting in an upright position in the bed. Bed alarm set. Bed low and locked. Call light in reach. No needs that RN can determine at this time. Room visible from nurses station.
[2021-02-05 20:15] LABS: Glucose Point of Care 133 mg/dL (70-110)
[2021-02-05] MEDS: fluconazole premix 200 MG/100 ML PREMIX 100 MG IV (20:44)
[2021-02-05] MEDS: enoxaparin 40 mg/0.4 mL Syringe SUBCUT (20:44)
[2021-02-05] MEDS: vancomycin 1,250 MG/250 ML PIGGYBACK 200 MG IV (22:14)
[2021-02-06] VITALS (36 sets, daily range): BP systolic 122–173; BP diastolic 66–101; PULSE 69–95; RESP 14–30; TEMP 36.4–36.9; O2SAT 90–98
[2021-02-06] MEDS: ipratropium-albuterol 3 mL Neb INHALATION ×4 (02:59→20:24)
[2021-02-06 04:09] LABS: Basophils % 0.3 %; Eosinophils # 0.2 10^3/uL (0.0-0.8); Eosinophils % 2.3 %; Hemoglobin 13.5 g/dL (11.7-16.6); Lymphocytes # 1.3 10^3/uL (0.8-4.8); Lymphocytes % 12.6 %; Mean Corpuscular HGB Conc 32.1 g/dL (30.0-36.0); Mean Corpuscular Hemoglobin 30.2 pg (28.0-34.0); Mean Platelet Volume 10.4 fL (7.4-10.4); Monocytes # 0.8 10^3/uL (0.2-0.9); Monocytes % 7.2 %; Neutrophils # 8.21 10^3/uL (1.8-7.7); Neutrophils % 76.9 %; Nucleated Red Blood Cells % 0 %; Platelet Count 211 10^3/cmm (130-400); Red Blood Count 4.47 10^6/uL (4.1-5.3); Red Cell Distribution Width 12.6 % (12.1-15.1); White Blood Count 10.7 10^3/uL (4.0-10.0)
[2021-02-06 04:18] LABS: Anion Gap 14.2 (5-19); Blood Urea Nitrogen 9 mg/dL (8-23); Calcium 7.8 mg/dL (8.5-10.5); Carbon Dioxide 27 mmol/L (22-29); Chloride 97 mmol/L (98-107); Glucose 106 mg/dL (65-115); Magnesium 1.6 mg/dL (1.7-2.3); Osmolality Calculated 279 mOsm/kg (285-295); Potassium 3.2 mmol/L (3.5-5.1); Sodium 135 mmol/L (136-145)
[2021-02-06] MEDS: cefepime 1,000 MG in sodium chloride 0.9% (plus) 50 ML 100 MG IV ×2 (05:05→17:05)
--- NOTE | 2021-02-06 05:47 | PC.NURSE ---
Shift Summary; Patient able to rest well throughout shift. Patient became more alert as shift progressed, but still does not verbalize many needs unless asked specifically what he may need. RN found patient to c/o severe pain with slight movement to arm, such as lifting arm and repositioning during bath. Patient c/o pain that radiates up into the upper portion of arm. He does not remember having any sort of recent fall that would cause such pain, but says that this pain has been consistent over the past 2 weeks of so. RN found that there is a laceration on back of left side of arm near elbow that has not currently began scabbing over, but does not appear to be a very immediate injury. Second RN Dayna, witnessed conversation that took place between contract technical writer and patient. RN updated MD Maribell production cook. New orders given for an xray of elbow. Patient currently sleeping. No needs at this time.
--- NOTE | 2021-02-06 06:12 | XR_ITS ---
WS: [id number] Exam: XR elbow LT 2V [id number] Date/Time of Exam: 02/06/2021 6:20 AM Reason For Exam: laceration and severe pain with movement found during bath. No acute fracture or dislocation. Moderate degenerative change of the ulnar humeral joint with bone-o n-bone articulation. Soft tissue calcification along the lateral margin of the radial humeral joint. No joint effusion is seen. XR/XR elbow LT 2V [id number] IMPRESSION: 1. Moderate degenerative changes. No fracture or dislocation.
[2021-02-06 08:07] LABS: Glucose Point of Care 118 mg/dL (70-110)
[2021-02-06] MEDS: docusate sodium 100 mg Capsule PO ×2 (09:00→17:06)
[2021-02-06] MEDS: magnesium sulfate premix 2 GM/50 ML PIGGYBACK IV (09:00)
[2021-02-06] MEDS: potassium chloride ER 20 mEq Tablet 40 MEQ PO ×2 (09:00→17:05)
[2021-02-06] MEDS: famotidine 20 mg/2 mL INJ IVP (09:01)
[2021-02-06] MEDS: FUROsemide 10 mg/mL SDV 2mL 20 MG IVP (09:01)
--- NOTE | 2021-02-06 09:26 | PC.CHAP ---
Pastoral Care Encounter/Spiritual Assessment Type of Contact [] Declined cnc laser operator visit [] Patient/Family/Request visit [] Outpatient visit [] Follow-up visit [] Physician referral [] Code/Alert [x] Routine visit [] Staff referral [] Actively dying [] Patient sleeping [] Family support [] [] Out of room [] Palliative care [] [] Receiving care in room [] Pre-surgical visit [] Trauma [] Long length of stay [x] ICU visit [x] Other: patient resting off ventilator Relational/Emotional Strength [] Patient feels connected with others/family/visitors/staff [] Distress [] Loneliness/isolation [] Abandonment Spirituality of Patient [] Person of Bianca [] Attends Jew of their Bianca [] Believes in Prayer [] Reads Bible or Latter-Day materials [] There are Spiritual issues to be addressed Grain Handler Interventions [x] Prayer [] Active listening [] Non-anxious presence [] Spiritual/emotional support [] Crisis/trauma care [] Spiritual counseling [] Bereavement support [] Provided bereavement packet [] Provided Bible/devotional materials [] Provided toy/stuffed animal, coloring book to patient or family member [] Provided Communion [] Anointing/[place] [] Salvation [x] Completed spiritual assessment [] Other: Impact on Illness or Injury [] Angry [] Fearful [] Anxious [] Often cries [] Exhaustion [] Unable to work [] Unable to attend jehovah's witness [] Unable to walk/stand [] Unable to read [] Unable to drive [] Unable to eat/drink [] Unable to sleep [] Unable to be with family [] Patient intubated [] Other: Summary Time spent with patient
--- NOTE | 2021-02-06 10:00 | P.PN_ITS ---
Subjective Subjective: Interval history: Robert reports he is breathing okay. No specific complaints currently. Denies any pain. Medications: Reviewed: Yes Vitals/I&O/Wt Last Vital Signs Temp 98.2 F 02/06/21 07:30 Pulse 85 02/06/21 09:30 Resp 29 H 02/06/21 09:30 BP 161/86 02/06/21 09:30 Pulse Ox 90 02/06/21 09:30 02/05/21 02/06/21 02/06/21 22:59 06:59 14:59 Intake Total 340 / 1805.507 350 / 2155.507 150 / 150 Output Total 625 / 3475 700 / 4175 Balance -285 / -1669.493 -350 / -2019.493 150 / 150 Weight last 48 hrs Weight 93.994 kg Weight 93.988 kg Weight 94.134 g Physical Exam Narrative: EXAM NARRATIVE: General exam is a white male, not responsive, on the ventilator. Cardiovascular regular rate and rhythm, no murmur, regular Lungs clear without wheezing or crackles Abdomen is soft with positive bowel sounds. No obvious organomegaly Extremities no cyanosis clubbing or edema, cap refill brisk Urinary Catheter Management^: Shirley: Cath Placed During This Visit: yes Reason for Continuing Indwelling Catheter: Accurate Measurement of Urinary Output in Critically Ill Patients Urinary Catheter Date of Insertion: 02/03/21 Urinary Catheter Time of Insertion: 16:00 Data : 02/06/21 03:12 02/06/21 03:12 Micro: Microbiology 02/05/21 09:38 Blood Culture - Preliminary Blood NEGATIVE TO DATE 02/03/21 23:30 Urine Culture - Final Urine,Clean Catch 02/03/21 15:45 Blood Culture - Preliminary Blood 02/03/21 15:44 Blood Culture - Preliminary Blood Staphylococcus sp coag neg 02/05/21 07:32 Blood Culture - Preliminary Blood NEGATIVE TO DATE 02/03/21 23:30 Throat Culture - Preliminary Throat 02/03/21 16:05 Gram Stain - Final Sputum - Endotracheal Tube Aspirate Sputum Culture - Final Pseudomonas aeruginosa 02/03/21 16:15 Group A Streptococcus Rapid Screen - Preliminary Throat A&P Assessment and plan (1) Acute respiratory failure with hypoxia and hypercapnia: Right lower lobe pneumonia. Pseudomonas on sputum culture, sensitive to cefepime blood culture demonstrated 2/4 bottles coag negative staph. Likely contaminant. Currently on vancomycin. Will await formal ID and sensitivity. Repeat cultures negative to date. CT neck did not demonstrate any abscess or narrowing of airway Covid PCR has been completed and negative Continue cefepime and vancomycin currently Was extubated February 05 Wean oxygen as tolerated Status: Acute (2) Sore throat: CT neck as above Status: Acute (3) Sepsis: As evidenced by leukocytosis, elevated lactic acid and respiratory failure. Overall appears to be improving Has required pressors in the form of norepinephrine. 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 (5) COPD (chronic obstructive pulmonary disease): No evidence of exacerbation currently Bronchodilators as needed Status: Chronic Qualifiers: COPD type: unspecified COPD Qualified Code(s): J44.9 - Chronic obstructive pulmonary disease, unspecified (6) DM type 2 (diabetes mellitus, type 2): Sliding scale insulin Status: Chronic Qualifiers: Diabetes mellitus fdc insulin use: without medical records library professor use Diabetes mellitus complication status: without complication Qualified Code(s): E11.9 - Type 2 diabetes mellitus without complications (7) CAD (coronary artery disease): No evidence of acute coronary event Status: Chronic Qualifiers: Coronary Disease-Associated Artery/Lesion type: [place] artery [place] vs. transplanted heart: [place] heart Associated angina: angina presence unsp ecified Qualified Code(s): I25.10 - Atherosclerotic heart disease of [place] coronary artery without angina pectoris (8) HTN (hypertension): Holding medication currently secondary to hypotension on presentation. Previous echocardiogram demonstrated preserved EF, in 2019 Status: Chronic Qualifiers: Hypertension type: unspecified Qualified Code(s): I10 - Essential (primary) hypertension (9) HLD (hyperlipidemia): Status: Chronic Qualifiers: Hyperlipidemia type: unspecified Qualified Code(s): E78.5 - Hyperlipidemia, unspecified Additional A&P Information Hypotension. Related to sepsis as well as sedative medicines. Resolved currently Pharyngitis, with description of white stuff in back of oropharynx during intubation. Continue fluconazole currently. Hypokalemia. Supplement Hypomagnesemia, corrected Type 2 diabetes. Sliding scale insulin Protonix for GI prophylaxis Lovenox for DVT prophylaxis Full code Transfer out of ICU Attestations Medical Necessity Statement*: Needs continued hospitalization for IV antibiotics secondary to pneumonia. Coding Level of Care Code Acute Supplier Quality Engineering Manager for [facility] Fwd Diagnoses Acute respiratory failure with hypoxia and hypercapnia J96.01; J96.02 Sore throat J02.9 Sepsis A41.9; R65.20; J96.01 Sepsis type: sepsis due to unspecified organism Sepsis acute organ dysfunction status: with acute organ dysfunction Severe sepsis acute organ dysfunction type: acute respiratory failure Acute respiratory failure type: with hypoxia Severe sepsis shock status: without septic shock Post-traumatic seizures R56.1 COPD (chronic obstructive pulmonary disease) J44.9 COPD type: unspecified COPD DM type 2 (diabetes mellitus, type 2) E11.9 Diabetes mellitus medical records library professor insulin use: without fdc use Diabetes mellitus complication status: without complication CAD (coronary artery disease) I25.10 Coronary Disease-Associated Artery/Lesion type: [place] artery [place] vs. transplanted heart: [place] heart Associated angina: angina presence unspecified HTN (hypertension) I10 Hypertension type: unspecified HLD (hyperlipidemia) E78.5 Hyperlipidemia type: unspecified
[2021-02-06] MEDS: vancomycin 1,250 MG/250 ML PIGGYBACK 200 MG IV ×2 (10:30→22:12)
[2021-02-06 10:59] LABS: Glucose Point of Care 165 mg/dL (70-110)
--- NOTE | 2021-02-06 11:06 | PC.NURSE ---
Patient transferred from ICU bed 2 to MS bed 255 via w/c et O2 at 3L n/c. Chart and home meds given to RN. Staff at bedside at time of transfer. Patient stable during this time. No c/o voiced.
[2021-02-06] MEDS: aspirin 325 mg Tablet PO (11:58)
[2021-02-06] MEDS: pantoprazole DR 40 mg Tablet PO (11:58)
[2021-02-06 16:26] LABS: Glucose Point of Care 110 mg/dL (70-110)
[2021-02-06] MEDS: gabapentin 300 mg Capsule 600 MG PO (17:05)
[2021-02-06 20:36] LABS: Glucose Point of Care 96 mg/dL (70-110)
[2021-02-06] MEDS: levETIRAcetam 500 mg Tablet 1000 MG PO (20:59)
[2021-02-06] MEDS: enoxaparin 40 mg/0.4 mL Syringe SUBCUT (21:01)
[2021-02-06] MEDS: fluconazole premix 200 MG/100 ML PREMIX 100 MG IV (21:03)
[2021-02-06 21:37] LABS: Vancomycin Trough 19.2 ug/mL (10-15)
[2021-02-07] VITALS (20 sets, daily range): BP systolic 120–171; BP diastolic 61–93; PULSE 73–89; RESP 16–20; TEMP 36.7–37.2; O2SAT 84–96
[2021-02-07] MEDS: ipratropium-albuterol 3 mL Neb INHALATION ×4 (03:16→22:27)
[2021-02-07] MEDS: cefepime 1,000 MG in sodium chloride 0.9% (plus) 50 ML 100 MG IV ×2 (04:48→18:29)
[2021-02-07 06:37] LABS: Anion Gap 13.4 (5-19); Blood Urea Nitrogen 6 mg/dL (8-23); Calcium 8.3 mg/dL (8.5-10.5); Carbon Dioxide 29 mmol/L (22-29); Chloride 97 mmol/L (98-107); Glucose 87 mg/dL (65-115); Magnesium 1.6 mg/dL (1.7-2.3); Osmolality Calculated 279 mOsm/kg (285-295); Potassium 3.4 mmol/L (3.5-5.1); Sodium 136 mmol/L (136-145)
[2021-02-07 06:43] LABS: Glucose Point of Care 121 mg/dL (70-110)
--- NOTE | 2021-02-07 08:26 | USCV_ITS ---
Robert Crisostomo Age: 70 Gender: M : 1950 Exam Date: 02/07/2021 09:51 Ordering Phys: Segun Avina MD Technologist: Tabby Manzo Exam Location: [facility] [place] Indication: BACTEREMIA BP: / HR: 81 Rhythm: Sinus Technical Quality: Technically difficult study MEASUREMENTS (Male / Female) Normal Values 2D ECHO LV Diastolic Diameter PLAX 5.2 cm 4.2 - 5.9 / 3.9 - 5.3 cm LV Systolic Diameter PLAX 3.6 cm LV Chamber Size 5.3 cm IVS Diastolic Thickness 1.5 cm 0.6 - 1.0 / 0.6 - 0.9 cm IVS Systolic Thickness 1.6 cm LVPW Diastolic Thickness 1.2 cm 0.6 - 1.0 / 0.6 - 0.9 cm LVPW Systolic Thickness 1.5 cm RV Chamber Size 3.3 cm LVOT Diameter 2.0 cm LV Ejection Fraction 2D Teich 59.1 % LA Diameter 3.1 cm LA Width 3.0 cm LA Height 4.5 cm RA Width 3.3 cm RA Height 3.3 cm M-MODE LV Diastolic Diameter MM 5.6 cm 4.2 - 5.9 / 3.9 - 5.3 cm LV Systolic Diameter MM 4.1 cm LV Ejection Fraction MM Teich 51.0 % IVS Diastolic Thickness MM 1.0 cm 0.6 - 1.0 / 0.6 - 0.9 cm IVS Systolic Thickness MM 0.6 cm LVPW Diastolic Thickness MM 0.9 cm 0.6 - 1.0 / 0.6 - 0.9 cm LVPW Systolic Thickness MM 1.0 cm Aortic Annulus Diameter 3.5 cm LA Ao Ratio MM 1.2 MV E Point Septal Separation 0.6 cm DOPPLER AV Peak Velocity 126.0 cm/s LVOT Peak Velocity 71.0 cm/s AV Area Cont Eq vti 1.6 cm squared AV Area Cont Eq pk 1.8 cm squared MV Area PHT 3.0 cm squared Mitral E to A Ratio 1.0 MV E' Velocity 35.5 cm/s Mitral E to MV E' Ratio 7.7 Mitral E to LV E' Lateral Ratio 10.8 Mitral E to LV E' Septal Ratio 6.0 TV Peak E Velocity 45.7 cm/s Right Atrial Pressure 3.0 mmHg PV Peak Velocity 84.0 cm/s RV Acceleration Time 0.1 s RV Ejection Time 0.2 s RV AcT/ET 0.3 FINDINGS Left Ventricle Normal left ventricular cavity size. Normal left ventricular systolic function. Left ventricular ejection fraction is estimated at 55-60%. No diagnostic regional wall motion abnormality. Right Ventricle Normal right ventricular size and systolic function. Right Atrium Normal right atrial size. Right atrium not well visualized. Left Atrium Normal left atrial size. Mitral Valve Structurally normal mitral valve. Aortic Valve Aortic valve not well visualized. No aortic valve stenosis. Tricuspid Valve Tricuspid valve not well visualized. Trace tricuspid valve regurgitation. Pulmonic Valve Pulmonic valve not well visualized. Pericardium No pericardial effusion. Echo free space anterior to the right ventricle likely represents a fat pad. Aorta Normal-sized aortic root. CONCLUSIONS 1. This is a technically difficult study. 2. Normal left ventricular cavity size and systolic function. Left ventricular ejection fraction is estimated at 55-60%. No diagnostic regional wall motion abnormality. 3. The study is inadequate for evaluation of valves for endocarditis. PAMELA is recommended if clinically indicated. 4. There may not have been any significant change when compared to previous echo report dated 05/31/2020. Jessica Murillo MD (Electronically Signed) Final Date: 07 February 2021 17:02 S
[2021-02-07] MEDS: pantoprazole DR 40 mg Tablet PO (08:27)
[2021-02-07] MEDS: atorvastatin 40 mg Tablet 20 MG PO (08:27)
[2021-02-07] MEDS: levETIRAcetam 500 mg Tablet 1500 MG PO (08:27)
[2021-02-07] MEDS: aspirin 325 mg Tablet PO (08:28)
[2021-02-07] MEDS: gabapentin 300 mg Capsule 600 MG PO ×2 (08:28→18:30)
[2021-02-07] MEDS: docusate sodium 100 mg Capsule PO ×2 (08:28→18:30)
[2021-02-07] MEDS: magnesium sulfate premix 2 GM/50 ML PIGGYBACK IV (08:31)
[2021-02-07] MEDS: potassium chloride ER 20 mEq Tablet 40 MEQ PO (08:31)
[2021-02-07] MEDS: vancomycin 1,250 MG/250 ML PIGGYBACK 200 MG IV ×2 (10:38→22:32)
--- NOTE | 2021-02-07 11:05 | P.PN_ITS ---
Subjective Subjective: Interval history: Robert reports that he is feeling okay. He denies any shortness of breath on his current oxygen setting. Medications: Reviewed: Yes Vitals/I&O/Wt Last Vital Signs Temp 98.4 F 02/07/21 10:00 Pulse 81 02/07/21 10:00 Resp 16 02/07/21 10:00 BP 146/83 02/07/21 10:00 Pulse Ox 93 02/07/21 10:00 02/06/21 02/07/21 02/07/21 22:59 06:59 14:59 Intake Total 150 / 830 300 / 1130 410 / 410 Output Total 1000 / 2300 1500 / 3800 300 / 300 Balance -850 / -1470 -1200 / -2670 110 / 110 Weight last 48 hrs Weight 93.667 kg Weight 93.994 kg Physical Exam Narrative: EXAM NARRATIVE: General exam is a white male, not responsive, on the ventilator. Cardiovascular regular rate and rhythm, no murmur, regular Lungs clear without wheezing or crackles Abdomen is soft with positive bowel sounds. No obvious organomegaly Extremities no cyanosis clubbing or edema, cap refill brisk Urinary Catheter Management^: Shirley: Cath Placed During This Visit: yes, but has since been removed by the nurse Reason for Continuing Indwelling Catheter: Decision to DC Catheter Urinary Catheter Date of Insertion: 02/03/21 Urinary Catheter Time of Insertion: 16:00 Date Urinary Catheter Removed: 02/07/21 Time Urinary Catheter Discontinued: 10:28 Data : 02/06/21 03:12 02/07/21 05:15 Micro: Microbiology 02/07/21 09:48 Blood Culture - Preliminary Blood SPECIMEN COLLECTED 02/07/21 09:40 Blood Culture - Preliminary Blood SPECIMEN COLLECTED 02/05/21 09:38 Blood Culture - Preliminary Blood Gram positive cocci 02/03/21 16:15 Group A Streptococcus Rapid Screen - Final Throat 02/03/21 23:30 Throat Culture - Final Throat 02/03/21 23:30 Urine Culture - Final Urine,Clean Catch 02/03/21 15:45 Blood Culture - Preliminary Blood 02/03/21 15:44 Blood Culture - Preliminary Blood Staphylococcus sp coag neg 02/05/21 07:32 Blood Culture - Preliminary Blood NEGATIVE TO DATE A&P Assessment and plan (1) Acute respiratory failure with hypoxia and hypercapnia: Right lower lobe pneumonia. Pseudomonas on sputum culture, sensitive to cefepime blood culture now demonstrates 4/4 bottles coag negative staph. Most likely contaminant. Repeat blood culture 1/4 bottles growing. Repeat blood cultures drawn again today. Currently on vancomycin. Awaiting formal ID and sensitivity. Check transthoracic echo and if negative consider transesophageal echo. CT neck did not demonstrate any abscess or narrowing of airway Covid PCR has been completed and negative Continue cefepime and vancomycin currently Was extubated February 05 Wean oxygen as tolerated Status: Acute (2) Sore throat: CT neck as above Status: Acute (3) Sepsis: As evidenced by leukocytosis, elevated lactic acid and respiratory failure. Overall appears to be improving Has required pressors in the form of norepinephrine. These were discontinued on February 04 Status: Acute Qualifiers: Sepsis type: sepsis due to unspecified organism Sepsis acute organ dysfunction status: with acute organ dysfunction Severe sepsis acute organ dysfunction type: acute respiratory failure Acute respiratory failure type: w ith hypoxia Severe sepsis shock status: without septic shock Qualified Code(s): A41.9 - Sepsis, unspecified organism; R65.20 - Severe sepsis without septic shock; J96.01 - Acute respiratory failure with hypoxia (4) Post-traumatic seizures: Continue Keppra p.o. No seizures in house. Status: Chronic (5) COPD (chronic obstructive pulmonary disease): No evidence of exacerbation currently Bronchodilators as needed Status: Chronic Qualifiers: COPD type: unspecified COPD Qualified Code(s): J44.9 - Chronic obstructive pulmonary disease, unspecified (6) DM type 2 (diabetes mellitus, type 2): Sliding scale insulin Status: Chronic Qualifiers: Diabetes mellitus usp insulin use: without intermediate school teacher use Diabetes mellitus complication status: without complication Qualified Code(s): E11.9 - Type 2 diabetes mellitus without complications (7) CAD (coronary artery disease): No evidence of acute coronary event Status: Chronic Qualifiers: Coronary Disease-Associated Artery/Lesion type: [place] artery [place] vs. transplanted heart: [place] heart Associated angina: angina presence unspecified Qualified Code(s): I25.10 - Atherosclerotic heart disease of [place] coronary artery without angina pectoris (8) HTN (hypertension): Holding medication currently secondary to hypotension on presentation. Previous echocardiogram demonstrated preserved EF, in 2019 Status: Chronic Qualifiers: Hypertension type: unspecified Qualified Code(s): I10 - Essential (primary) hypertension (9) HLD (hyperlipidemia): Status: Chronic Qualifiers: Hyperlipidemia type: unspecified Qualified Code(s): E78.5 - Hyperlipidemia, unspecified Additional A&P Information Bacteremia with gram-positive coag negative staph. Trans thoracic echo today. If negative PAMELA. Does have hardware right pelvic area but no obvious osteomyel itis or concerns on CT chest abdomen and pelvis done February 03 Hypotension. Related to sepsis as well as sedative medicines. Resolved currently Pharyngitis, with description of white stuff in back of oropharynx during intubation. Continue fluconazole currently. Hypokalemia. Supplement Hypomagnesemia, corrected Type 2 diabetes. Sliding scale insulin Protonix for GI prophylaxis Lovenox for DVT prophylaxis Full code Transfer out of ICU Attestations Medical Necessity Statement*: Needs continued hospitalization for IV antibiotics secondary to pseudomonal pneumonia as well as bacteremia from gram-positive organism Coding Level of Care Code Acute Placement Specialist for Chg Fwd Diagnoses Acute respiratory failure with hypoxia and hypercapnia J96.01; J96.02 Sore throat J02.9 Sepsis A41.9; R65.20; J96.01 Sepsis type: sepsis due to unspecified organism Sepsis acute organ dysfunction status: with acute organ dysfunction Severe sepsis acute organ dysfunction type: acute respiratory failure Acute respiratory failure type: with hypoxia Severe sepsis shock status: without septic shock Post-traumatic seizures R56.1 COPD (chronic obstructive pulmonary disease) J44.9 COPD type: unspecified COPD DM type 2 (diabetes mellitus, type 2) E11.9 Diabetes mellitus usp insulin use: without intermediate school teacher use Diabetes mellitus complication status: without complication CAD (coronary artery disease) I25.10 Coronary Disease-Associated Artery/Lesion type: [place] artery [place] vs. transplanted heart: [place] heart Associated angina: angina presence unspecified HTN (hypertension) I10 Hypertension type: unspecified HLD (hyperlipidemia) E78.5 Hyperlipidemia type: unspecified
[2021-02-07 11:16] LABS: Glucose Point of Care 201 mg/dL (70-110)
[2021-02-07 16:04] LABS: Glucose Point of Care 130 mg/dL (70-110)
[2021-02-07 20:09] LABS: Glucose Point of Care 173 mg/dL (70-110)
[2021-02-07] MEDS: fluconazole premix 200 MG/100 ML PREMIX 100 MG IV (20:09)
[2021-02-07] MEDS: levETIRAcetam 500 mg Tablet 1000 MG PO (20:09)
[2021-02-07] MEDS: enoxaparin 40 mg/0.4 mL Syringe SUBCUT (21:15)
[2021-02-08] VITALS (13 sets, daily range): BP systolic 143–156; BP diastolic 68–78; PULSE 74–88; RESP 18–22; TEMP 36.6–37.2; O2SAT 87–96
[2021-02-08] MEDS: ipratropium-albuterol 3 mL Neb INHALATION ×4 (02:06→20:15)
[2021-02-08] MEDS: cefepime 1,000 MG in sodium chloride 0.9% (plus) 50 ML 100 MG IV ×2 (04:50→17:19)
[2021-02-08 06:17] LABS: Basophils # 0.1 10^3/uL (0.0-0.1); Basophils % 0.6 %; Eosinophils # 0.3 10^3/uL (0.0-0.8); Eosinophils % 3.7 %; Hemoglobin 13.4 g/dL (11.7-16.6); Lymphocytes # 1.7 10^3/uL (0.8-4.8); Lymphocytes % 19.8 %; Mean Corpuscular HGB Conc 31.9 g/dL (30.0-36.0); Mean Corpuscular Volume 94.2 fL (80-94); Mean Platelet Volume 10.6 fL (7.4-10.4); Monocytes # 0.7 10^3/uL (0.2-0.9); Monocytes % 8.5 %; Neutrophils # 5.77 10^3/uL (1.8-7.7); Neutrophils % 65.8 %; Nucleated Red Blood Cells % 0 %; Platelet Count 241 10^3/cmm (130-400); Red Blood Count 4.46 10^6/uL (4.1-5.3); Red Cell Distribution Width 12.5 % (12.1-15.1); White Blood Count 8.8 10^3/uL (4.0-10.0)
[2021-02-08 06:30] LABS: Anion Gap 11.5 (5-19); Blood Urea Nitrogen 8 mg/dL (8-23); Calcium 8.2 mg/dL (8.5-10.5); Carbon Dioxide 28 mmol/L (22-29); Chloride 101 mmol/L (98-107); Glucose 116 mg/dL (65-115); Osmolality Calculated 283 mOsm/kg (285-295); Potassium 3.5 mmol/L (3.5-5.1); Sodium 137 mmol/L (136-145)
[2021-02-08 07:25] LABS: Glucose Point of Care 118 mg/dL (70-110)
[2021-02-08] MEDS: atorvastatin 40 mg Tablet 20 MG PO (08:17)
[2021-02-08] MEDS: levETIRAcetam 500 mg Tablet 1500 MG PO (08:18)
[2021-02-08] MEDS: pantoprazole DR 40 mg Tablet PO (08:18)
[2021-02-08] MEDS: gabapentin 300 mg Capsule 600 MG PO ×2 (08:18→17:20)
[2021-02-08] MEDS: docusate sodium 100 mg Capsule PO ×2 (08:18→17:20)
[2021-02-08] MEDS: aspirin 325 mg Tablet PO (08:18)
--- NOTE | 2021-02-08 08:40 | PM.PN ---
Subjective Subjective: Interval history: Robert reports he is doing okay this morning. No shortness of breath. Medications: Reviewed: Yes Vitals/I&O/Wt Last Vital Signs Temp 98.1 F 02/08/21 07:59 Pulse 77 02/08/21 07:59 Resp 18 02/08/21 07:59 BP 153/77 02/08/21 07:59 Pulse Ox 96 02/08/21 07:59 02/07/21 02/08/21 02/08/21 22:59 06:59 14:59 Intake Total 240 / 900 400 / 1300 Output Total 200 / 500 175 / 675 Balance 40 / 400 225 / 625 Weight last 48 hrs Weight 93.667 kg Weight 93.667 kg Physical Exam Narrative: EXAM NARRATIVE: General exam is a white male, not responsive, on the ventilator. Cardiovascular regular rate and rhythm, no murmur, regular Lungs clear without wheezing or crackles Abdomen is soft with positive bowel sounds. No obvious organomegaly Extremities no cyanosis clubbing. Cap refill brisk. 1+ edema. Urinary Catheter Management^: Shirley: Cath Placed During This Visit: yes, but has since been removed by the nurse Reason for Continuing Indwelling Catheter: Decision to DC Catheter Urinary Catheter Date of Insertion: 02/03/21 Urinary Catheter Time of Insertion: 16:00 Date Urinary Catheter Removed: 02/07/21 Time Urinary Catheter Discontinued: 10:28 Data : 02/08/21 05:19 02/08/21 05:19 Micro: Microbiology 02/07/21 09:48 Blood Culture - Preliminary Blood SPECIMEN COLLECTED 02/07/21 09:40 Blood Culture - Preliminary Blood SPECIMEN COLLECTED 02/05/21 09:38 Blood Culture - Preliminary Blood Gram positive cocci A&P Assessment and plan (1) Acute respiratory failure with hypoxia and hypercapnia: Right lower lobe pneumonia. Pseudomonas on sputum culture, sensitive to cefepime blood culture now demonstrates 4/4 bottles coag negative staph. Repeat blood culture 1/4 bottles growing. Third set negative so far.. Currently on vancomycin. Awaiting formal ID and sensitivity. Transthoracic echo poor quality, no vegetation. PAMELA planned for Thursday with Dr. Murillo. Will likely need PICC line Thursday if repeat culture of blood remains negative CT neck did not demonstrate any abscess or narrowing of airway Covid PCR has been completed and negative Continue cefepime and vancomycin currently Was extubated February 05 Wean oxygen as tolerated He has some edema in his lower extremities today. Lasix 20 mg IV x1. Repeat chest x-ray for recheck of pneumonia as well as checking for any evidence of pulmonary edema. Status: Acute (2) Sore throat: CT neck as above Status: Inactive (3) Sepsis: As evidenced by leukocytosis, elevated lactic acid and respiratory failure. Overall appears to be improving Has required pressors in the form of norepinephrine. 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 (5) COPD (chronic obstructive pulmonary disease): No evidence of exacerbation currently Bronchodilators as needed Status: Chronic Qualifiers: COPD type: unspecified COPD Qualified Code(s): J44.9 - Chronic obstructive pulmonary disease, unspecified (6) DM type 2 (diabetes mellitus, type 2): Sliding scale insulin Status: Chronic Qualifiers: Diabetes mellitus exterminator helper termite insulin use: without exterminator helper termite use Diabetes mellitus complication status: without complication Qualified Code(s): E11.9 - Type 2 diabetes mellitus without complications (7) CAD (coronary artery disease): No evidence of acute coronary event Status: Chronic Qualifiers: Coronary Disease-Associated Artery/Lesion type: [place] artery [place] vs. transplanted heart: [place] heart Associated angina: angina presence unspecified Qualified Code(s): I25.10 - Atherosclerotic heart disease of [place] coronary artery without angina pectoris (8) HTN (hypertension): Holding medication currently secondary to hypotension on presentation. Previous echocardiogram demonstrated preserved EF, in 2019 Status: Chronic Qualifiers: Hypertension type: unspecified Qualified Code(s): I10 - Essential (primary) hypertension (9) HLD (hyperlipidemia): Status: Chronic Qualifiers: Hyperlipidemia type: unspecified Qualified Code(s): E78.5 - Hyperlipidemia, unspecified Additional A&P Information Bacteremia with gram-positive coag negative staph. Transthoracic echo poor quality, PAMELA for Thursday. Does have hardware right pelvic area but no obvious osteomyelitis or concerns on CT chest abdomen and pelvis done February 03. Likely will need PICC placement Thursday, this will need to be ordered if appropriate and cultures negative. Hypotension. Related to sepsis as well as sedative medicines. Resolved currently Pharyngitis, with description of white stuff in back of oropharynx during intubation. Continue fluconazole currently. Hypokalemia. Supplement Hypomagnesemia, corrected Type 2 diabetes. Sliding scale insulin Protonix for GI prophylaxis Lovenox for DVT prophylaxis Full code Attestations Medical Necessity Statement*: Needs continued hospitalization for IV antibiotics secondary to bacteremia. Coding Level of Care Code Acute Dispensing Audiologist for [facility] Diagnoses Acute respiratory failure with hypoxia and hypercapnia J96.01; J96.02 Sore throat J02.9 Sepsis A41.9; R65.20; J96.01 Sepsis type: sepsis due to unspecified organism Sepsis acute organ dysfunction status: with acute organ dysfunction Severe sepsis acute organ dysfunction type: acute respiratory failure Acute respiratory failure type: with hypoxia Severe sepsis shock status: without septic shock Post-traumatic seizures R56.1 COPD (chronic obstructive pulmonary disease) J44.9 COPD type: unspecified COPD DM type 2 (diabetes mellitus, type 2) E11.9 Diabetes mellitus exterminator helper termite insulin use: without exterminator helper termite use Diabetes mellitus complication status: without complication CAD (coronary artery disease) I25.10 Coronary Disease-Associated Artery/Lesion type: [place] artery [place] vs. transplanted heart: [place] heart Associated angina: angina presence unspecified HTN (hypertension) I10 Hypertension type: unspecified HLD (hyperlipidemia) E78.5 Hyperlipidemia type: unspecified
--- NOTE | 2021-02-08 08:41 | XR_ITS ---
WS: [id number] Exam: XR chest 1V portable [id number] Date/Time of Exam: 02/08/2021 8:45 AM Reason For Exam: follow up pneumonia Comparison 02/05/2021. The lungs are clear. Previously noted infiltrates have resolved. Normal-appearing cardiomediastinal s ilhouette. No pleural effusions. ET tube and NG tube have been removed. Monitoring leads superimpose the chest. Old fracture and postoperative changes involving the proximal left humerus. XR/XR chest 1V portable [id number] IMPRESSION: 1. Resolved pulmonary infiltrates since previous exam. No acute process identif ied on today's study.
[2021-02-08] MEDS: FUROsemide 10 mg/mL SDV 2mL 20 MG IVP (09:16)
[2021-02-08 10:40] LABS: Glucose Point of Care 139 mg/dL (70-110)
[2021-02-08] MEDS: vancomycin 1,250 MG/250 ML PIGGYBACK 200 MG IV ×2 (10:57→23:03)
--- NOTE | 2021-02-08 15:46 | DCPLANNER ---
Cleat Thrower explained the IM to pt. Not able to find the pg 1 but it's obvious that he has medicare. He agrees and even states that he read that on the wall somewhere before so he knew about it. Pgs 1 & 2 presented to pt. Copy to the chart.
[2021-02-08 18:26] LABS: Glucose Point of Care 181 mg/dL (70-110)
[2021-02-08 18:58] LABS: Levetiracetam Keppra 74.8 mcg/mL
[2021-02-08 20:34] LABS: Glucose Point of Care 187 mg/dL (70-110)
[2021-02-08] MEDS: fluconazole premix 200 MG/100 ML PREMIX 100 MG IV (20:47)
[2021-02-08] MEDS: levETIRAcetam 500 mg Tablet 1000 MG PO (20:48)
[2021-02-08] MEDS: enoxaparin 40 mg/0.4 mL Syringe SUBCUT (20:48)
[2021-02-09] VITALS (17 sets, daily range): BP systolic 117–153; BP diastolic 69–84; PULSE 69–84; RESP 16–20; TEMP 36.4–37.4; O2SAT 92–99
[2021-02-09] MEDS: haloperidol inj 5 mg/mL INJ 1 mL 2 MG IM (03:41)
[2021-02-09] MEDS: ipratropium-albuterol 3 mL Neb INHALATION ×4 (03:50→20:09)
[2021-02-09] MEDS: cefepime 1,000 MG in sodium chloride 0.9% (plus) 50 ML 100 MG IV (04:23)
--- NOTE | 2021-02-09 04:29 | PC.NURSE ---
Through out the night patient experienced auditory and visual hallucinations which gradually increased in occurrence and intensity. Patient expressed multiple times that his spouse was outside his room at the nurses station or outside room window. Redirection attempts were made multiple times through out night. Nursing staff explained multiple times that patient was currently in the hospital and his spouse was at home. Pt was not able to comprehend this and insisted nurses were not telling him the truth. As shift progressed, pt continued to escalate with verbal outbursts, increased energy, yelling for spouse and family members who were not at bedside. Nursing staff continued to attempt to redirect patient with multiple failed attempts. Attempts to reorient pt failed on several attempts. Pt believes family members are in the room, regardless of attempts of staff to calm patient. This continued for several hours with several staff members attempting to convince patient that it was late and family were not present. Patient is unable to calm himself and as a result he has had difficulty going to sleep this evening, nursing attempts were futile as pt declined every attempt to aid him to rest. Pt stated, I just want my to come talk to me and begged nursing staff to go get her as she was just over there and pointed to the other unoccupied bed in room. Again patient was redirected and told he was currently in the hospital. At approximately 0315 patient was found attempting to exit the floor via [place] emergency exit. When asked where he was going, pt stated I am going to find my grandson, who the patient believes he had just seen in the hallway. Again attempt to reorientate patient were made by the nursing staff, telling him that he was in the hospital and that his grandson was not here. Patient became agitated with the nursing staff, pointing up the muniz saying There he is . Nursing staff informed patient that there was currently no persons in the muniz and he needed to return to his room and rest. Patient was assisted back to his room and into bed. Physician was contacted and made aware of the current situation. Physician ordered 2mg of IM Haldol. Patient tolerated well. Pt response to medication was decrease in energy along with decrease in severity of auditory and visual hallucinations. Pt resting in bed with eyes closed at this time.
[2021-02-09 08:44] LABS: Glucose Point of Care 114 mg/dL (70-110)
--- NOTE | 2021-02-09 08:45 | PC.OT ---
OT tx attempted. Pt resting in bed after having a rough night and medication for anxiety and hallucinations. OT to check later in the day if possible.
[2021-02-09] MEDS: levETIRAcetam 500 mg Tablet 1500 MG PO (08:53)
[2021-02-09] MEDS: gabapentin 300 mg Capsule 600 MG PO ×2 (08:54→17:00)
[2021-02-09] MEDS: atorvastatin 40 mg Tablet 20 MG PO (08:54)
[2021-02-09] MEDS: docusate sodium 100 mg Capsule PO ×2 (08:54→17:00)
[2021-02-09] MEDS: pantoprazole DR 40 mg Tablet PO (08:54)
[2021-02-09] MEDS: aspirin 325 mg Tablet PO (08:54)
[2021-02-09 10:18] LABS: Basophils # 0.1 10^3/uL (0.0-0.1); Basophils % 0.7 %; Eosinophils # 0.4 10^3/uL (0.0-0.8); Eosinophils % 4.6 %; Hematocrit 45.5 % (42.0-52.0); Hemoglobin 14.4 g/dL (11.7-16.6); Lymphocytes % 22.2 %; Mean Corpuscular HGB Conc 31.6 g/dL (30.0-36.0); Mean Corpuscular Volume 94.8 fL (80-94); Mean Platelet Volume 10.3 fL (7.4-10.4); Monocytes # 0.8 10^3/uL (0.2-0.9); Monocytes % 8.6 %; Neutrophils # 5.65 10^3/uL (1.8-7.7); Neutrophils % 62.5 %; Nucleated Red Blood Cells % 0 %; Platelet Count 266 10^3/cmm (130-400); Red Cell Distribution Width 12.5 % (12.1-15.1); White Blood Count 9.1 10^3/uL (4.0-10.0)
[2021-02-09] MEDS: vancomycin 1,250 MG/250 ML PIGGYBACK 200 MG IV (10:23)
[2021-02-09 10:27] LABS: Alanine Aminotransferase 7 U/L (0-41); Albumin Level 3.4 g/dL (3.5-5.2); Alkaline Phosphatase 81 IU/L (40-130); Anion Gap 13.4 (5-19); Aspartate Amino Transferase 13 U/L (0-40); Blood Urea Nitrogen 10 mg/dL (8-23); Calcium 8.8 mg/dL (8.5-10.5); Carbon Dioxide 29 mmol/L (22-29); Chloride 99 mmol/L (98-107); Glucose 131 mg/dL (65-115); Osmolality Calculated 287 mOsm/kg (285-295); Potassium 3.4 mmol/L (3.5-5.1); Sodium 138 mmol/L (136-145); Total Bilirubin 0.4 mg/dL (0.15-1.2); Total Protein 7.4 g/dL (6.6-8.7)
[2021-02-09 11:03] LABS: Glucose Point of Care 127 mg/dL (70-110)
--- NOTE | 2021-02-09 11:03 | P.PN_ITS ---
Subjective Subjective: Interval history: No acute overnight events. Chest x-ray yesterday with resolved infiltrates. Blood culture from 325 also positive for coag negative staph. 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: no focal neuro deficits Urinary Catheter Management^: Shirley: Cath Placed During This Visit: yes, but has since been removed by the nurse Reason for Continuing Indwelling Catheter: Decision to DC Catheter Urinary Catheter Date of Insertion: 02/03/21 Urinary Catheter Time of Insertion: 16:00 Date Urinary Catheter Removed: 02/07/21 Time Urinary Catheter Discontinued: 10:28 Data : 02/09/21 09:29 02/09/21 09:29 Micro: Microbiology 02/07/21 09:48 Blood Culture - Preliminary Blood NEGATIVE TO DATE 02/07/21 09:40 Blood Culture - Preliminary Blood Coagulase negativ staphylococc 02/03/21 15:45 Blood Culture - Final Blood Staphylococcus cohnii subsp. u Staphylococcus epidermidis 02/03/21 15:44 Blood Culture - Final Blood Staphylococcus cohnii subsp. u Staphylococcus epidermidis 02/05/21 09:38 Blood Culture - Preliminary Blood Coagulase negativ staphylococc A&P Assessment and plan (1) Acute respiratory failure with hypoxia and hypercapnia: Right lower lobe pneumonia. Pseudomonas on sputum culture, sensitive to cefepime. On day 6 of abx for pneumonia, aim for days and then discontinue. blood culture + for CoNS 4/4 on 02/03. then persistent positive on 02/05 and 02/07 Currently on vancomycin, started 02/05. Unclear source thus far Awaiting formal ID and sensitivity. Transthoracic echo poor quality, no vegetation. PAMELA planned for Thursday with Dr. Murillo. Will likely need PICC line once blood cx negative for 48 hrs no open wounds or sores. no h/o IVDU. hardware in rigth hip, grossly normal on x ray . CRP 121 on admission, improving to 77 Check repeat blood cx today CT neck did not demonstrate any abscess or narrowing of airway Covid PCR has been completed and negative Continue cefepime and vancomycin currently Was extubated February 05 Wean oxygen as tolerated Status: Acute (2) Sore throat: CT neck as above Status: Inactive (3) Sepsis: As evidenced by leukocytosis, elevated lactic acid and respiratory failure. Overall appears to be improving Has required pressors in the form of norepinephrine. 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 (5) COPD (chronic obstructive pulmonary disease): No evidence of exacerbation currently Bronchodilators as needed Status: Chronic Qualifiers: COPD type: unspecified COPD Qualified Code(s): J44.9 - Chronic obstructive pulmonary disease, unspecified (6) DM type 2 (diabetes mellitus, type 2): Sliding scale insulin Status: Chronic Qualifiers: Diabetes mellitus local company intermodal truck driver insulin use: without local company intermodal truck driver use Diabetes mellitus complication status: without complication Qualified Code(s): E11.9 - Type 2 diabetes mellitus without complications (7) CAD (coronary artery disease): No evidence of acute coronary event Status: Chronic Qualifiers: Coronary Disease-Associated Artery/Lesion type: [place] artery [place] vs. transplanted heart: [place] heart Associated angina: angina presence u nspecified Qualified Code(s): I25.10 - Atherosclerotic heart disease of [place] coronary artery without angina pectoris (8) HTN (hypertension): Holding medication currently secondary to hypotension on presentation. Previous echocardiogram demonstrated preserved EF, in 2019 Status: Chronic Qualifiers: Hypertension type: unspecified Qualified Code(s): I10 - Essential (primary) hypertension (9) HLD (hyperlipidemia): Status: Chronic Qualifiers: Hyperlipidemia type: unspecified Qualified Code(s): E78.5 - Hyperlipidemia, unspecified Additional A&P Information Bacteremia with gram-positive coag negative staph. Transthoracic echo poor quality, PAMELA for Thursday. Does have hardware right pelvic area but no obvious osteomyelitis or concerns on CT chest abdomen and pelvis done February 03. Hypotension. Related to sepsis as well as sedative medicines. Resolved currently Pharyngitis, with description of white stuff in back of oropharynx during intubation. Continue fluconazole currently. Hypokalemia. Supplement Hypomagnesemia, corrected Type 2 diabetes. Sliding scale insulin Protonix for GI prophylaxis Lovenox for DVT prophylaxis Full code Attestations Medical Necessity Statement*: ongoing need for iv abx. CoNS bacteremia, source under evaluation Coding Level of Care Code Acute Food Product Inspector for [facility] Diagnoses Acute respiratory failure with hypoxia and hypercapnia J96.01; J96.02 Sore throat J02.9 Sepsis A41.9; R65.20; J96.01 Sepsis type: sepsis due to unspecified organism Sepsis acute organ dysfunction status: with acute organ dysfunction Severe sepsis acute organ dysfunction type: acute respiratory failure Acute respiratory failure type: with hypoxia Severe sepsis shock status: without septic shock Post-traumatic seizures R56.1 COPD (chronic obstructive pulmonary disease) J44.9 COPD type: unspecified COPD DM type 2 (diabetes mellitus, type 2) E11.9 Diabetes mellitus long-term insulin use: without local company intermodal truck driver use Diabetes mellitus complication status: without complication CAD (coronary artery disease) I25.10 Coronary Disease-Associated Artery/Lesion type: [place] artery [place] vs. transplanted heart: [place] heart Associated angina: angina presence unspecified HTN (hypertension) I10 Hypertension type: unspecified HLD (hyperlipidemia) E78.5 Hyperlipidemia type: unspecified
[2021-02-09] MEDS: cefepime 2,000 MG in sodium chloride 0.9% (plus) 50 ML 100 MG IV ×2 (11:50→23:51)
[2021-02-09 16:58] LABS: Glucose Point of Care 133 mg/dL (70-110)
[2021-02-09 20:29] LABS: Glucose Point of Care 196 mg/dL (70-110)
[2021-02-09] MEDS: enoxaparin 40 mg/0.4 mL Syringe SUBCUT (20:32)
[2021-02-09] MEDS: levETIRAcetam 500 mg Tablet 1000 MG PO (20:32)
[2021-02-09] MEDS: fluconazole premix 200 MG/100 ML PREMIX 100 MG IV (20:32)
[2021-02-09 22:07] LABS: Vancomycin Trough 20.1 ug/mL (10-15)
[2021-02-09] MEDS: diphenhydrAMINE 50 mg Capsule PO (23:50)
[2021-02-10] VITALS (15 sets, daily range): BP systolic 129–154; BP diastolic 68–83; PULSE 70–87; RESP 16–18; TEMP 36.7–37.1; O2SAT 90–96
[2021-02-10] MEDS: ipratropium-albuterol 3 mL Neb INHALATION ×4 (03:06→20:40)
[2021-02-10 06:42] LABS: Glucose Point of Care 108 mg/dL (70-110)
[2021-02-10] MEDS: levETIRAcetam 500 mg Tablet 1500 MG PO (07:58)
[2021-02-10] MEDS: atorvastatin 40 mg Tablet 20 MG PO (08:00)
[2021-02-10] MEDS: aspirin 325 mg Tablet PO (08:00)
[2021-02-10] MEDS: gabapentin 300 mg Capsule 600 MG PO ×2 (08:00→17:52)
[2021-02-10] MEDS: docusate sodium 100 mg Capsule PO ×2 (08:00→17:52)
[2021-02-10] MEDS: pantoprazole DR 40 mg Tablet PO (08:00)
[2021-02-10 10:15] LABS: Basophils % 0.5 %; Eosinophils # 0.3 10^3/uL (0.0-0.8); Eosinophils % 3.8 %; Hematocrit 43.8 % (42.0-52.0); Hemoglobin 13.9 g/dL (11.7-16.6); Lymphocytes # 1.7 10^3/uL (0.8-4.8); Lymphocytes % 20.4 %; Mean Corpuscular HGB Conc 31.7 g/dL (30.0-36.0); Mean Corpuscular Hemoglobin 30.2 pg (28.0-34.0); Mean Platelet Volume 9.7 fL (7.4-10.4); Monocytes # 0.6 10^3/uL (0.2-0.9); Monocytes % 7.3 %; Neutrophils # 5.43 10^3/uL (1.8-7.7); Neutrophils % 66.5 %; Nucleated Red Blood Cells % 0 %; Platelet Count 270 10^3/cmm (130-400); Red Blood Count 4.61 10^6/uL (4.1-5.3); Red Cell Distribution Width 12.4 % (12.1-15.1); White Blood Count 8.2 10^3/uL (4.0-10.0)
[2021-02-10 10:44] LABS: Alanine Aminotransferase 10 U/L (0-41); Albumin Level 3.3 g/dL (3.5-5.2); Alkaline Phosphatase 77 IU/L (40-130); Anion Gap 14.7 (5-19); Aspartate Amino Transferase 13 U/L (0-40); Blood Urea Nitrogen 12 mg/dL (8-23); C Reactive Protein 23.4 mg/L (0.0-4.9); Carbon Dioxide 28 mmol/L (22-29); Chloride 98 mmol/L (98-107); Glucose 161 mg/dL (65-115); Osmolality Calculated 287 mOsm/kg (285-295); Potassium 3.7 mmol/L (3.5-5.1); Sodium 137 mmol/L (136-145); Total Bilirubin 0.3 mg/dL (0.15-1.2); Total Protein 7.3 g/dL (6.6-8.7)
[2021-02-10 10:49] LABS: Glucose Point of Care 165 mg/dL (70-110)
[2021-02-10] MEDS: cefepime 2,000 MG in sodium chloride 0.9% (plus) 50 ML 100 MG IV (11:06)
[2021-02-10 11:08] LABS: Erythrocyte Sedimentation Rate 55 mm/hr (0-10)
[2021-02-10] MEDS: vancomycin 1,250 MG/250 ML PIGGYBACK 200 MG IV (16:38)
--- NOTE | 2021-02-10 17:02 | P.PN_ITS ---
Subjective Subjective: Interval history: No new complaints today, afebrile, hemodynamically stable, last positive culture from 325, thus far from 327 cultures remain negative. Plan for PAMELA tomorrow. 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: no focal neuro deficits Urinary Catheter Management^: Shirley: Cath Placed During This Visit: yes, but has since been removed by the nurse Reason for Continuing Indwelling Catheter: Decision to DC Catheter Urinary Catheter Date of Insertion: 02/03/21 Urinary Catheter Time of Insertion: 16:00 Date Urinary Catheter Removed: 02/07/21 Time Urinary Catheter Discontinued: 10:28 Data : 02/10/21 09:45 02/10/21 09:45 Micro: Microbiology 02/09/21 11:57 Blood Culture - Preliminary Blood NEGATIVE TO DATE 02/09/21 11:55 Blood Culture - Preliminary Blood NEGATIVE TO DATE 02/05/21 09:38 Blood Culture - Final Blood Coagulase negativ staphylococc 02/05/21 07:32 Blood Culture - Final Blood NO GROWTH AFTER 5 DAYS A&P Assessment and plan (1) Acute respiratory failure with hypoxia and hypercapnia: Right lower lobe pneumonia. Pseudomonas on sputum culture, sensitive to cefepime. Completed 7 days of IV cefepime, discontinued today blood culture + for CoNS 4/4 on 02/03. then persistent positive on 02/05 and 02/07 Currently on vancomycin, started 02/05. Vanco trough at 20, dose readjusted, goal trough of 15-20 Unclear source thus far Transthoracic echo poor quality, no vegetation. PAMELA planned for Thursday with Dr. Murillo. Will need PICC line once blood cx negative for 48 hrs no open wounds or sores. no h/o IVDU. hardware in rigth hip, grossly normal on x ray . Hardware also in the left shoulder, order x-ray today CRP 121 on admission, improving to CT neck did not demonstrate any abscess or narrowing of airway Covid PCR has been completed and negative Continue vancomycin, plan for a 4 to 6-week course from clearance of culture, depending on results of PAMELA ,persistent positivity over 3 days. Was extubated February 05 Wean oxygen as tolerated Status: Acute (2) Sore throat: CT neck as above Status: Inactive (3) Sepsis: As evidenced by leukocytosis, elevated lactic acid and respiratory failure. Overall appears to be improving Has required pressors in the form of norepinephrine. 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 (5) COPD (chronic obstructive pulmonary disease): No evidence of exacerbation currently Bronchodilators as needed Status: Chronic Qualifiers: COPD type: unspecified COPD Qualified Code(s): J44.9 - Chronic obstructive pulmonary disease, unspecified (6) DM type 2 (diabetes mellitus, type 2): Sliding scale insulin Status: Chronic Qualifiers: Diabetes mellitus parts counterman insulin use: without penitentiary use Diabetes mellitus complication status: without complication Qualified Code(s): E11.9 - Type 2 diabetes mellitus without complications (7) CAD (coronary artery disease): No evidence of acute coronary event Status: Chronic Qualifiers: Coronary Disease-Associated Artery/Lesion type: [place] artery [place] vs. transplanted heart: [place] heart Associated angina: angina presence unspecified Qualified Code(s): I25.10 - Atherosclerotic heart disease of [place] coronary artery without angina pectoris (8) HTN (hypertension): Holding medication currently secondary to hypotension on presentation. Previous echocardiogram demonstrated preserved EF, in 2019 Status: Chronic Qualifiers: Hypertension type: unspecified Qualified Code(s): I10 - Essential (primary) hypertension (9) HLD (hyperlipidemia): Status: Chronic Qualifiers: Hyperlipidemia type: unspecified Qualified Code(s): E78.5 - Hyperlipidemia, unspecified Additional A&P Information Oral thrush, complete 10 days of fluconazole, convert IV to p.o., 4 days remaining Type 2 diabetes. Sliding scale insulin Protonix for GI prophylaxis Lovenox for DVT prophylaxis Full code Attestations Medical Necessity Statement*: Ongoing need for IV antibiotics, PAMELA tomorrow, and PICC line prior to discharge to continue antibiotics at home. Coding Level of Care Code Acute Loan Servicing Specialist for [facility] Diagnoses Acute respiratory failure with hypoxia and hypercapnia J96.01; J96.02 Sore throat J02.9 Sepsis A41.9; R65.20; J96.01 Sepsis type: sepsis due to unspecified organism Sepsis acute organ dysfunction status: with acute organ dysfunction Severe sepsis acute organ dysfunction type: acute respiratory failure Acute respiratory failure type: with hypoxia Severe sepsis shock status: without septic shock Post-traumatic seizures R56.1 COPD (chronic obstructive pulmonary disease) J44.9 COPD type: unspecified COPD DM type 2 (diabetes mellitus, type 2) E11.9 Diabetes mellitus parts counterman insulin use: without penitentiary use Diabetes mellitus complication status: without complication CAD (coronary artery disease) I25.10 Coronary Disease-Associated Artery/Lesion type: [place] artery [place] vs. transplanted heart: [place] heart Associated angina: angina presence unspecified HTN (hypertension) I10 Hypertension type: unspecified HLD (hyperlipidemia) E78.5 Hyperlipidemia type: unspecified
--- NOTE | 2021-02-10 17:08 | XRR_ITS ---
PROCEDURE INFORMATION: Exam: XR Left Shoulder Exam date and time: 02/10/2021 6:23 PM Age: 70 years old Clinical indication: Pain; Shoulder; Left; Prior surgery; Additional info: Evalute for hardware loosening, osteomyelitis TECHNIQUE: Imaging protocol: XR Left shoulder. Views: 2 or more views. COMPARISON: No relevant prior studies available. FINDINGS: Bones/joints: Chronic erosive changes of the left shoulder are identified. Difficult to evaluate the joint space secondary to the orientation of the shoulder and single view imaging. Large metallic postsurgical missy are noted in the medial region of glenoid. Osseous remodeling changes diffusely of the humeral head. Bones are diffusely demineralized. Soft tissues: No obvious significant finding. 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
[2021-02-10 17:29] LABS: Glucose Point of Care 161 mg/dL (70-110)
--- NOTE | 2021-02-10 18:59 | P.CONIM_ITS ---
Providers/Reason For Consult Consulting Physican/Specialty*: Kennedy Sainz MD/Cardiology Reason for Consult*: Evaluation for PAMELA Requesting Physcian: Dr Avina Attending Physician: Ayse Tovar MD History of Present Illness History of Present Illness Robert Crisostomo is a 70 year old male with PMH of HTN, HLD, CAD, smoking, DM who had presented with pneumonia and had positive blood cultures. Cardiology consulted for evaluation for need of PAMELA. TTE was of limited quality but no vegetations were seen.Denies any chest pain, breathing is improved. Was extubated on 02/05. Blood cultures positive for coagulase negative staph Review of Systems General: Reports: 10 or more systems reviewed and unremarkable except in HPI and below Const: Denies: fever(s), chills, body aches or fatigue Eyes: Denies: change in vision or blurry vision ENMT: Denies: throat pain, hoarseness or mouth pain Card: Denies: chest pain or palpitations Resp: Denies: dyspnea GI: Denies: nausea or vomiting : Denies: flank pain, dysuria, urinary frequency, urinary urgency or urinary hesitancy Musc: Denies: neck pain, back pain, extremity pain, extremity swelling, joint pain, joint swelling, joint redness, joint warmth or limited range of motion Skin/Breast: Denies: rash Neuro: Denies: headache(s) Psych: Denies: anxiety or depression Meds/Allergies Home Medications and Allergies Home Medications Medication Instructions Recorded Confirmed Last Taken Type albuterol sulfate 2 puff INHALATION QID 05/30/20 02/03/21 Unknown History amlodipine 2.5 mg PO DAILY 05/30/20 02/03/21 07/07/20 History dorzolamide-timolol 1 drp OPHTHALMIC (EYE) BID 05/30/20 02/03/21 07/07/20 History gabapentin 600 mg PO BID 05/30/20 02/03/21 07/07/20 History ipratropium-albuterol 3 ml INHALATION QID 05/30/20 02/03/21 Unknown History levetiracetam See Rx Instructions .ROUTE .COMPLEX 05/30/20 02/03/21 07/07/20 History metformin 500 mg PO DAILY 05/30/20 02/03/21 07/07/20 History omega [id number] oil [Fish Oil] 1 cap PO BID 05/30/20 02/03/21 07/07/20 History pantoprazole [Protonix] 40 mg PO DAILY 05/30/20 02/03/21 07/07/20 History polyethylene glycol 3350 [Miralax] See Rx Instructions .ROUTE .COMPLEX 05/30/20 02/03/21 Unknown History rosuvastatin [Crestor] 5 mg PO DAILY 05/30/20 02/03/21 07/07/20 History albuterol sulfate 2 inh INHALATION Q4H PRN #6.7 gm 07/07/20 02/03/21 Unknown Rx aspirin 325 mg PO DAILY 07/07/20 02/03/21 07/07/20 History hydrochlorothiazide 25 mg PO DAILY 07/07/20 02/03/21 07/06/20 History ondansetron HCl [Zofran] 4 mg PO Q6H PRN #20 tab 09/22/20 02/03/21 Unknown Rx azithromycin [Zithromax Z-Tres] See Rx Instructions .ROUTE 01/31/21 02/03/21 Unknown Rx .COMPLEX #6 tab Allergies Allergy/AdvReac Type Severity Reaction Status Date / Time melton Allergy Unknown Verified 01/31/21 00:24 hydrocodone Allergy Unknown Verified 01/31/21 00:24 lisinopril Allergy Unknown Verified 01/31/21 00:24 niacin Allergy Unknown Verified 01/31/21 00:24 pravastatin Allergy Unknown Verified 01/31/21 00:24 simvastatin Allergy Unknown Verified 01/31/21 00:24 strawberry Allergy Unknown Verified 01/31/21 00:24 tramadol Allergy Unknown Verified 01/31/21 00:24 Current Medications Current Medications Generic Name Dose Route Start Last Admin Trade Name Freq PRN Reason Stop Dose Admin Albuterol/Ipratropium 3 ml 02/06/21 15:00 02/10/21 14:13 Ipratropium-Albuterol 3 Ml Neb INHALATION 3 ml Q6H.RESPIRATORY AMELIA Administration Aspirin 325 mg 02/06/21 10:53 02/10/21 08:00 Aspirin 325 Mg Tablet PO 325 mg DAILY AMELIA Administration Atorvastatin Calcium 20 mg 02/07/21 09:00 02/10/21 08:00 Atorvastatin 40 Mg Tablet PO 20 mg DAILY AMELIA Administration Diphenhydramine HCl 50 mg 02/09/21 23:41 02/09/21 23:50 Diphenhydramine 50 Mg Capsule PO 50 mg BEDTIME PRN Administration insomnia Docusate Sodium 100 mg 02/04/21 09:00 02/10/21 17:52 Docusate Sodium 100 Mg Capsule PO 100 mg BID AMELIA Administration Enoxaparin Sodium 40 mg 02/03/21 21:31 02/09/21 20:32 Enoxaparin 40 Mg/0.4 Ml Syringe SUBCUT 40 mg Q24H AMELIA Administration Gabapentin 600 mg 02/06/21 18:00 02/10/21 17:52 Gabapentin 300 Mg Capsule PO 600 mg BID AMELIA Administration Vancomycin/PEG/NADA/Lysine/Water 1,250 mg in 250 mls @ 200 mls/hr 02/10/21 16:00 02/10/21 17:53 Vancocin IV Infused Q18H AMELIA Infusion Insulin Aspart 0 unit 02/03/21 21:31 02/09/21 20:31 Insulin Aspart 100 Unit/1 Ml SUBCUT 2 unit BEDTIME AMELIA Administration Protocol Insulin Aspart 0 unit 02/04/21 08:00 02/10/21 17:52 Insulin Aspart 100 Unit/1 Ml SUBCUT 2 unit TIDWM AMELIA Administration Protocol Levetiracetam 1,500 mg 02/07/21 08:00 02/10/21 07:58 Levetiracetam 500 Mg Tablet PO 1,500 mg 0800 AMELIA Administration Levetiracetam 1,000 mg 02/06/21 20:00 02/09/21 20:32 Levetiracetam 500 Mg Tablet PO 1,000 mg 2000 AMELIA Administration Pantoprazole Sodium 40 mg 02/06/21 10:53 02/10/21 08:[address] 40 Mg Tablet PO 40 mg DAILY AMELIA Administration PFSH Acute PFSH: Medical History CAD (coronary artery disease) Details unknown COPD (chronic obstructive pulmonary disease) DM type 2 (diabetes mellitus, type 2) Mey-[id number]-uhzplehst, on Metformin History of echocardiogram (~05/2020) Normal left ventricular size and systolic function with an EF of 60%, no regional wall motion abnormalities, grade 1/4 diastolic dysfunction, normal to mildly elevated filling pressures and mild left ventricular hypertrophy. Thickened aortic and mitral valves were noted. 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, details otherwise unknown, on [facility] Smoking addiction Surgical History H/O neck surgery H/O: knee surgery History of shoulder surgery Hx of appendectomy Family History Other Cancer Heart disease Social History Smoking and tobacco status: current every day smoker cigarettes Packs smoked per day: 1 Alcohol intake: never Lives independently: Yes Household members: spouse Marital status: Current occupational status: retired Vitals/I&O/Wt Last Vital Signs Temp 98.7 F 02/10/21 15:32 Pulse 87 02/10/21 15:32 Resp 18 02/10/21 15:32 BP 132/68 02/10/21 15:32 Pulse Ox 96 02/10/21 15:32 02/10/21 02/10/21 02/10/21 06:59 14:59 22:59 Intake Total 50 / 1010 410 / 410 370 / 780 Balance 50 / 1010 410 / 410 370 / 780 Weight last 48 hrs Weight 203 lb 6.4 oz Weight 206 lb Physical Exam Narrative: EXAM NARRATIVE: GENERAL: Patient is alert, awake and oriented x3. [] NECK: No jugular vein distension. [] HEENT: No cyanosis. No icterus. No pallor. [] HEART: Regular S1 and S2. No murmur, rub or gallop. [] LUNGS: Clear to auscultate bilaterally. [] ABDOMEN: Soft, nontender and nondistended. Positive bowel sounds. No guarding, rebound or tenderness. [] CENTRAL NERVOUS SYSTEM: Grossly nonfocal. [] EXTREMITIES: Lower extremities with 1+ edema bilaterally. Pulses palpable in the lower extremities, both dorsalis pedis and posterior tibial. Urinary Catheter Management^: Shirley: Cath Placed During This Visit: yes, but has since been removed by the nurse Reason for Continuing Indwelling Catheter: Decision to DC Catheter Urinary Catheter Date of Insertion: 02/03/21 Urinary Catheter Time of Insertion: 16:00 Date Urinary Catheter Removed: 02/07/21 Time Urinary Catheter Discontinued: 10:28 Data Micro: Micro: Microbiology 02/09/21 11:57 Blood Culture - Pr eliminary Blood NEGATIVE TO NICHO E 02/09/21 11:55 Blood Culture - Pr eliminary Blood NEGATIVE TO NICHO E 02/05/21 09:38 Blood Culture - Fi nal Blood Coagulase negat iv staphylococc 02/05/21 07:32 Blood Culture - Fi nal Blood NO GROWTH AFTER 5 DAYS A&P Assessment and plan (1) Acute respiratory failure with hypoxia and hypercapnia: Status: Acute (2) COPD (chronic obstructive pulmonary disease): Status: Chronic Qualifiers: COPD type: unspecified COPD Qualified Code(s): J44.9 - Chronic obstructive pulmonary disease, unspecified (3) Pneumonia: Status: Acute (4) CAD (coronary artery disease): Status: Chronic Qualifiers: Coronary Disease-Associated Artery/Lesion type: [place] artery [place] vs. transplanted heart: [place] heart Associated angina: angina presence unspecified Qualified Code(s): I25.10 - Atherosclerotic heart disease of [place] coronary artery without angina pectoris (5) DM type 2 (diabetes mellitus, type 2): Status: Chronic Qualifiers: Diabetes mellitus superintendent terminal insulin use: without fpc use Diabetes mellitus complication status: without complication Qualified Code(s): E11.9 - Type 2 diabetes mellitus without complications (6) HLD (hyperlipidemia): Status: Chronic Qualifiers: Hyperlipidemia type: unspecified Qualified Code(s): E78.5 - Hyperlipidemia, unspecified (7) HTN (hypertension): Status: Chronic Qualifiers: Hypertension type: unspecified Qualified Code(s): I10 - Essential (primary) hypertension Patient is feeling better. Had positive blood cultures for coagulase negative staph. Transthoracic echo was of limited quality and did not rule out endocarditis. We will proceed with PAMELA tomorrow. Patient had questions regarding the procedure. Had a detailed discussion regarding it NPO past midnight Thank you for involving us with care for this patient. 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 transplanted heart: [place] heart Associated angina: angina presence unspecified DM type 2 (diabetes mellitus, type 2) E11.9 Diabetes mellitus fpc insulin use: without fpc use Diabetes mellitus complication status: without complication HLD (hyperlipidemia) E78.5 Hyperlipidemia type: unspecified HTN (hypertension) I10 Hypertension type: unspecified
[2021-02-10 20:38] LABS: Glucose Point of Care 118 mg/dL (70-110)
[2021-02-10] MEDS: enoxaparin 40 mg/0.4 mL Syringe SUBCUT (20:56)
[2021-02-10] MEDS: levETIRAcetam 500 mg Tablet 1000 MG PO (20:57)
[2021-02-11] VITALS (15 sets, daily range): BP systolic 110–146; BP diastolic 67–78; PULSE 61–88; RESP 16–18; TEMP 36.7–37; O2SAT 89–96
[2021-02-11] MEDS: ipratropium-albuterol 3 mL Neb INHALATION ×3 (03:30→20:03)
[2021-02-11 06:31] LABS: Basophils # 0.1 10^3/uL (0.0-0.1); Basophils % 0.8 %; Eosinophils # 0.4 10^3/uL (0.0-0.8); Eosinophils % 4.4 %; Hematocrit 44.6 % (42.0-52.0); Hemoglobin 13.9 g/dL (11.7-16.6); Lymphocytes # 2.3 10^3/uL (0.8-4.8); Lymphocytes % 25.6 %; Mean Corpuscular HGB Conc 31.2 g/dL (30.0-36.0); Mean Corpuscular Hemoglobin 29.4 pg (28.0-34.0); Mean Corpuscular Volume 94.5 fL (80-94); Monocytes # 0.7 10^3/uL (0.2-0.9); Monocytes % 7.7 %; Neutrophils # 5.48 10^3/uL (1.8-7.7); Neutrophils % 60.5 %; Nucleated Red Blood Cells % 0 %; Platelet Count 269 10^3/cmm (130-400); Red Blood Count 4.72 10^6/uL (4.1-5.3); Red Cell Distribution Width 12.4 % (12.1-15.1); White Blood Count 9.1 10^3/uL (4.0-10.0)
[2021-02-11 06:39] LABS: Glucose Point of Care 113 mg/dL (70-110)
[2021-02-11 06:41] LABS: Alanine Aminotransferase 10 U/L (0-41); Albumin Level 3.1 g/dL (3.5-5.2); Alkaline Phosphatase 73 IU/L (40-130); Anion Gap 12.6 (5-19); Aspartate Amino Transferase 13 U/L (0-40); Blood Urea Nitrogen 14 mg/dL (8-23); Calcium 8.5 mg/dL (8.5-10.5); Carbon Dioxide 26 mmol/L (22-29); Chloride 100 mmol/L (98-107); Glucose 112 mg/dL (65-115); Osmolality Calculated 281 mOsm/kg (285-295); Potassium 3.6 mmol/L (3.5-5.1); Sodium 135 mmol/L (136-145); Total Bilirubin 0.3 mg/dL (0.15-1.2); Total Protein 7.1 g/dL (6.6-8.7)
--- NOTE | 2021-02-11 09:37 | PM.PN ---
Subjective Subjective: Interval history: No new complaints today, afebrile, hemodynamically stable, last positive culture from , thus far from cultures remain negative. Medications: Reviewed: Yes Medication Review Details: Patient had a bag of medications brought in with him that only included, from the list of above, amlodipine, aspirin, azithromycin, hydrochlorothiazide, Keppra, Metformin, fish oil, Protonix and Crestor. Vitals/I&O/Wt Last Vital Signs Temp 98.6 F 02/11/21 07:48 Pulse 84 02/11/21 08:07 Resp 16 02/11/21 08:00 BP 129/78 02/11/21 07:48 Pulse Ox 92 02/11/21 08:01 02/10/21 02/11/21 02/11/21 22:59 06:59 14:59 Intake Total 490 / 900 120 / 120 Balance 490 / 900 120 / 120 Weight last 48 hrs Weight 89.494 kg Weight 92.261 kg Physical Exam Const: COMMON NORMALS: patient oriented x3 HENMT: COMMON NORMALS: normocephalic and atraumatic HEAD & SCALP: normocephalic and atraumatic Chest: COMMONS NORMALS: normal inspection of the chest CHEST: Yes Symmetrical chest wall rise Resp: COMMON NORMALS: normal respiratory effort and clear to auscultation bilaterally EFFORT & INSPECTION: Yes symmetric chest movement AUSCULTATION: clear to auscultation bilaterally Cardio: COMMON NORMALS: regular rate, regular rhythm, S1 normal heart sound present, S2 normal heart sound present, No gallops present (Cardio), No murmurs present (Cardio), No rub (Cardio) and Peripheral pulses 2+ throughout RATE: regular rate RHYTHM: regular rhythm HEART SOUNDS: S1 normal heart sound present and S2 normal heart sound present PERIPHERAL PULSES: Peripheral pulses 2+ throughout GI: COMMON NORMALS: Normal to inspection, nondistended, normoactive bowel sounds present, Soft to palpation, non-tender, No hepatosplenomegaly present and no masses AUSCULTATION: Yes normoactive bowel sounds PALPATION: Yes Soft to palpation and Yes No hepatosplenomegaly present RECTAL EXAM: Yes deferred Extremity: NARRATIVE EXTREMITY EXAM: 1+ bilateral lower extremity pitting edema present Neuro: COMMON NORMALS: patient oriented x3 Urinary Catheter Management^: Shirley: Cath Placed During This Visit: yes, but has since been removed by the nurse Reason for Continuing Indwelling Catheter: Decision to DC Catheter Urinary Catheter Date of Insertion: 02/03/21 Urinary Catheter Time of Insertion: 16:00 Date Urinary Catheter Removed: 02/07/21 Time Urinary Catheter Discontinued: 10:28 Data : 02/11/21 06:01 02/11/21 06:01 Micro: Microbiology 02/09/21 11:57 Blood Culture - Preliminary Blood NEGATIVE TO DATE 02/09/21 11:55 Blood Culture - Preliminary Blood NEGATIVE TO DATE 02/05/21 09:38 Blood Culture - Final Blood Coagulase negativ staphylococc 02/05/21 07:32 Blood Culture - Final Blood NO GROWTH AFTER 5 DAYS A&P Assessment and plan (1) Acute respiratory failure with hypoxia and hypercapnia: Right lower lobe pneumonia. Pseudomonas on sputum culture, sensitive to cefepime. Completed 7 days of IV cefepime, discontinued today blood culture + for CoNS 4/4 on 02/03. then persistent positive on 02/05 and 02/07 Currently on vancomycin, started 02/05. Vanco trough at 20, dose readjusted, goal trough of 15-20 Unclear source thus far Transthoracic echo poor quality, no vegetation. PAMELA planned for Thursday with Dr. Murillo. Will need PICC line once blood cx negative for 48 hrs no open wounds or sores. no h/o IVDU. hardware in rigth hip, grossly normal on x ray . 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 Overall appears to be improving Has required pressors in the form of norepinephrine. These were discontinued on February 04 Status: Acute Qualifiers: Acute respiratory failure type: with hypoxia Sepsis acute organ dysfunction status: with acute organ dysfunction Sepsis type: sepsis due to unspecified organism Severe sepsis acute organ dysfunction type: acute respiratory failure Severe sepsis shock status: without septic shock Qualified Code(s): A41.9 - Sepsis, unspecified organism; R65.20 - Severe sepsis without septic shock; J96.01 - Acute respiratory failure with hypoxia (4) Post-traumatic seizures: Continue Keppra p.o. No seizures in house. Status: Chronic (5) COPD (chronic obstructive pulmonary disease): No evidence of exacerbation currently Bronchodilators as needed Status: Chronic Qualifiers: COPD type: unspecified COPD Qualified Code(s): J44.9 - Chronic obstructive pulmonary disease, unspecified (6) DM type 2 (diabetes mellitus, type 2): Sliding scale insulin Status: Chronic Qualifiers: Diabetes mellitus complication status: without complication Diabetes mellitus penitentiary insulin use: without termite exterminator use Qualified Code(s): E11.9 - Type 2 diabetes mellitus without complications (7) CAD (coronary artery disease): No evidence of acute coronary event Status: Chronic Qualifiers: Associated angina: angina presence unspecified Coronary Disease-Associated Artery/Lesion type: [place] artery [place] vs. transplanted heart: [place] heart Qualified Code(s): I25.10 - Atherosclerotic heart disease of [place] coronary artery without angina pectoris (8) HTN (hypertension): Holding medication currently secondary to hypotension on presentation. Previous echocardiogram demonstrated preserved EF, in 2019 Status: Chronic Qualifiers: Hypertension type: unspecified Qualified Code(s): I10 - Essential (primary) hypertension (9) HLD (hyperlipidemia): Status: Chronic Qualifiers: Hyperlipidemia type: unspecified Qualified Code(s): E78.5 - Hyperlipidemia, unspecified Additional A&P Information Oral thrush, complete 10 days of fluconazole, convert IV to p.o., 4 days remaining Type 2 diabetes. Sliding scale insulin Protonix for GI prophylaxis Lovenox for DVT prophylaxis Full code Attestations Medical Necessity Statement*: Patient needs to be in hospital for management of sepsis, and the need for IV antibiotic. 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 [facility] Diagnoses Acute respiratory failure with hypoxia and hypercapnia J96.01; J96.02 Sore throat J02.9 Sepsis A41.9; R65.20; J96.01 Acute respiratory failure type: with hypoxia Sepsis acute organ dysfunction status: with acute organ dysfunction Sepsis type: sepsis due to unspecified organism Severe sepsis acute organ dysfunction type: acute respiratory failure Severe sepsis shock status: without septic shock Post-traumatic seizures R56.1 COPD (chronic obstructive pulmonary disease) J44.9 COPD type: unspecified COPD DM type 2 (diabetes mellitus, type 2) E11.9 Diabetes mellitus complication status: without complication Diabetes mellitus penitentiary insulin use: without termite exterminator use CAD (coronary artery disease) I25.10 Associated angina: angina presence unspecified Coronary Disease-Associated Artery/Lesion type: [place] artery [place] vs. transplanted heart: [place] heart HTN (hypertension) I10 Hypertension type: unspecified HLD (hyperlipidemia) E78.5 Hyperlipidemia type: unspecified
[2021-02-11] MEDS: fluconazole 100 mg Tablet PO (10:04)
[2021-02-11] MEDS: levETIRAcetam 500 mg Tablet 1500 MG PO (10:04)
[2021-02-11] MEDS: gabapentin 300 mg Capsule 600 MG PO (10:04)
[2021-02-11] MEDS: atorvastatin 40 mg Tablet 20 MG PO (10:05)
[2021-02-11] MEDS: vancomycin 1,250 MG/250 ML PIGGYBACK 200 MG IV (10:05)
[2021-02-11] MEDS: pantoprazole DR 40 mg Tablet PO (10:05)
[2021-02-11] MEDS: aspirin 325 mg Tablet PO (10:05)
[2021-02-11] MEDS: docusate sodium 100 mg Capsule PO (10:05)
[2021-02-11 10:54] LABS: Glucose Point of Care 122 mg/dL (70-110)
--- NOTE | 2021-02-11 11:28 | PC.OT ---
OT attempted to see pt this A.M. Nurse informs therapist that pt is off the floor at GI lab for procedure. Will attempt to see pt again later this afternoon. IRMA Philip/Ry BURNETT/Justyna
--- NOTE | 2021-02-11 11:29 | ANES.PREANE2 ---
Pre-Anesthetic Assessment Pre-Anesthetic Assessment: Height/Weight: Height 1.65 m Weight 89.494 kg Temp Pulse Resp BP Pulse Ox 98.4 F 78 18 146/77 94 02/11/21 11:11 02/11/21 11:11 02/11/21 11:11 02/11/21 11:11 02/11/21 11:11 Proposed Procedure: Operation Date: 02/11/21 12:00 Proposed Procedures p PAMELA(Not Applicable) - Asael Tobin Beta María taken within 24 hours: Yes Last intake: Intake Last Liquid Date 02/10/21 Last Liquid Time 20:00 Last Solid Date 02/10/21 Last Solid Time 15:00 Social: Social History: Tobacco and No alcohol Packs per day: 1 Exam: Pre-Anes Outpt Exam: alert, oriented x 3, clear to auscultation bilaterally and regular rate & rhythm Airway: Submandibular: WNL Cervical ROM: WNL MP: 2 Dentition: False History/ROS: No significant history except as noted and No significant complaints Pulmonary: Pulmonary: COPD, Cough, Sleep apnea and SOB Comments: Bilat rales. Recently in ICU intubated. Extubated a few days ago CV/HEM: CV/HEM: CAD and HTN : : None reported Hepatic: Hepatic: Hepatitis GI: GI: None reported Metabolic: Metabolic: DM Musc/skel: Musc/skel: OA/DJD Neuropsych: Neuropsych: Anxiety Anesthetic Plan: ASA status: 4 Anesthesia: Anesthesia Evaluation and MAC Risk of > 500 ml blood loss (7ml/kg in children): No Meds/Allergies Current Medications: Current Medications Generic Name Dose Route Start Last Admin Trade Name Freq PRN Reason Stop Dose Admin Albuterol/Ipratrop ium 3 ml 02/06/21 15:00 02/11/21 08:00 Ipratropium-Albu terol 3 Ml Neb INHALATION 3 ml Q6H.RESPIRATORY S CH Administration Aspirin 325 mg 02/06/21 10:53 02/11/21 10:05 Aspirin 325 Mg T ablet PO 325 mg DAILY AMELIA Administration Atorvastatin Calci um 20 mg 02/07/21 09:00 02/11/21 10:05 Atorvastatin 40 Mg Tablet PO 20 mg DAILY AMELIA Administration Diphenhydramine HC l 50 mg 02/09/21 23:41 02/09/21 23:50 Diphenhydramine 50 Mg Capsule PO 50 mg BEDTIME PRN Administration insomnia Docusate Sodium 100 mg 02/04/21 09:00 02/11/21 10:05 Docusate Sodium 100 Mg Capsule PO 100 mg BID AMELIA Administration Enoxaparin Sodium 40 mg 02/03/21 21:31 02/10/21 20:56 Enoxaparin 40 Mg /0.4 Ml Syringe SUBCUT 40 mg Q24H AMELIA Administration Fluconazole 100 mg 02/11/21 09:00 02/11/21 10:04 Fluconazole 100 Mg Tablet PO 02/15/21 08:59 100 mg DAILY AMELIA Administration Gabapentin 600 mg 02/06/21 18:00 02/11/21 10:04 Gabapentin 300 M g Capsule PO 600 mg BID AMELIA Administration Vancomycin/PEG/NAD A/Lysine/Water 1,250 mg in 250 m ls @ 200 mls/hr 02/10/21 16:00 02/11/21 10:05 Vancocin IV 200 mls/hr Q18H AMELIA Administration Insulin Aspart 0 unit 02/03/21 21:31 02/10/21 20:57 Insulin Aspart 1 00 Unit/1 Ml SUBCUT Not Given BEDTIME AMELIA Protocol Insulin Aspart 0 unit 02/04/21 08:00 02/11/21 09:30 Insulin Aspart 1 00 Unit/1 Ml SUBCUT Not Given TIDWM AMELIA Protocol Levetiracetam 1,500 mg 02/07/21 08:00 02/11/21 10:04 Levetiracetam 50 0 Mg Tablet PO 1,500 mg 0800 AMELIA Administration Levetiracetam 1,000 mg 02/06/21 20:00 02/10/21 20:57 Levetiracetam 50 0 Mg Tablet PO 1,000 mg 2000 AMELIA Administration Pantoprazole Sodiu m 40 mg 02/06/21 10:53 02/11/21 10:[address] 40 Mg Tablet PO 40 mg DAILY AMELIA Administration Additional Medication Information: Patient had a bag of medications brought in with him that only included, from the list of above, amlodipine, aspirin, azithromycin, hydrochlorothiazide, Keppra, Metformin, fish oil, Protonix and Crestor. PFSH Anesthesia PFSH: Medical History CAD (coronary artery disease) Details unknown COPD (chronic obstructive pulmonary disease) DM type 2 (diabetes mellitus, type 2) [id number], on Metformin History of echocardiogram (~05/2020) Normal left ventricular size and systolic function with an EF of 60%, no regional wall motion abnormalities, grade 1/4 diastolic dysfunction, normal to mildly elevated filling pressures and mild left ventricular hypertrophy. Thickened aortic and mitral valves were noted. 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, details otherwise unknown, on [facility] Smoking addiction Surgical History H/O neck surgery H/O: knee surgery History of shoulder surgery Hx of appendectomy Family History Other Cancer Heart disease Social History Smoking and tobacco status: current every day smoker cigarettes Packs smoked per day: 1 Alcohol intake: never Lives independently: Yes Household members: spouse Marital status: Current occupational status: retired Supplemental [facility] Information: I was not able to verify any of the above information with patient, information is based on what was already inputted into the system and review of old records Data Anesthesia CBC & Chem 7: 02/11/21 06:01 02/11/21 06:01 Other Labs: Laboratory Results - last 48 hr 02/09/21 02/09/21 02/09/21 16:42 20:27 21:32 WBC RBC Hgb Hct MCV MCH MCHC RDW Plt Count MPV Neut % (Auto) Lymph % (Auto) [place] % (Auto) Eos % (Auto) Baso % (Auto) Neut # (Auto) Lymph # (Auto) [place] # (Auto) Eos # (Auto) Baso # (Auto) Nucleated RBC % (auto) Nucleated RBCs # ESR Sodium Potassium Chloride Carbon Dioxide Anion Gap BUN Creatinine GFR Calculation Glucose POC Glucose 133 H 196 H Calculated Osmolality Calcium Total Bilirubin AST ALT Alkaline Phosphatase C-Reactive Protein Total Protein Albumin Globulin Vancomycin Trough 20.1 H 02/10/21 02/10/21 02/10/21 06:32 09:45 09:45 WBC 8.2 RBC 4.61 Hgb 13.9 Hct 43.8 MCV 95.0 H MCH 30.2 MCHC 31.7 RDW 12.4 Plt Count 270 MPV 9.7 Neut % (Auto) 66.5 Lymph % (Auto) 20.4 [place] % (Auto) 7.3 Eos % (Auto) 3.8 Baso % (Auto) 0.5 Neut # (Auto) 5.43 Lymph # (Auto) 1.7 [place] # (Auto) 0.6 Eos # (Auto) 0.3 Baso # (Auto) 0.0 Nucleated RBC % (auto) 0 Nucleated RBCs # 0.0 ESR 55 H Sodium Potassium Chloride Carbon Dioxide Anion Gap BUN Creatinine GFR Calculation Glucose POC Glucose 108 Calculated Osmolality Calcium Total Bilirubin AST ALT Alkaline Phosphatase C-Reactive Protein Total Protein Albumin Globulin Vancomycin Trough 02/10/21 02/10/21 02/10/21 09:45 10:37 17:07 WBC RBC Hgb Hct MCV MCH MCHC RDW Plt Count MPV Neut % (Auto) Lymph % (Auto) [place] % (Auto) Eos % (Auto) Baso % (Auto) Neut # (Auto) Lymph # (Auto) [place] # (Auto) Eos # (Auto) Baso # (Auto) Nucleated RBC % (auto) Nucleated RBCs # ESR Sodium 137 Potassium 3.7 Chloride 98 Carbon Dioxide 28 Anion Gap 14.7 BUN 12 Creatinine 0.6 L GFR Calculation Not Reportable Glucose 161 H POC Glucose 165 H 161 H Calculated Osmolality 287 Calcium 9.0 Total Bilirubin 0.3 AST 13 ALT 10 Alkaline Phosphatase 77 C-Reactive Protein 23.4 H Total Protein 7.3 Albumin 3.3 L Globulin 4.0 Vancomycin Trough 02/10/21 02/11/21 02/11/21 20:32 06:01 06:01 WBC 9.1 RBC 4.72 Hgb 13.9 Hct 44.6 MCV 94.5 H MCH 29.4 MCHC 31.2 RDW 12.4 Plt Count 269 MPV 10.0 Neut % (Auto) 60.5 Lymph % (Auto) 25.6 [place] % (Auto) 7.7 Eos % (Auto) 4.4 Baso % (Auto) 0.8 Neut # (Auto) 5.48 Lymph # (Auto) 2.3 [place] # (Auto) 0.7 Eos # (Auto) 0.4 Baso # (Auto) 0.1 Nucleated RBC % (auto) 0 Nucleated RBCs # 0.0 ESR Sodium 135 L Potassium 3.6 Chloride 100 Carbon Dioxide 26 Anion Gap 12.6 BUN 14 Creatinine 0.5 L GFR Calculation Not Reportable Glucose 112 POC Glucose 118 H Calculated Osmolality 281 L Calcium 8.5 Total Bilirubin 0.3 AST 13 ALT 10 Alkaline Phosphatase 73 C-Reactive Protein Total Protein 7.1 Albumin 3.1 L Globulin 4.0 Vancomycin Trough 02/11/21 02/11/21 06:29 10:46 WBC RBC Hgb Hct MCV MCH MCHC RDW Plt Count MPV Neut % (Auto) Lymph % (Auto) [place] % (Auto) Eos % (Auto) Baso % (Auto) Neut # (Auto) Lymph # (Auto) [place] # (Auto) Eos # (Auto) Baso # (Auto) Nucleated RBC % (auto) Nucleated RBCs # ESR Sodium Potassium Chloride Carbon Dioxide Anion Gap BUN Creatinine GFR Calculation Glucose POC Glucose 113 H 122 H Calculated Osmolality Calcium Total Bilirubin AST ALT Alkaline Phosphatase C-Reactive Protein Total Protein Albumin Globulin Vancomycin Trough Micro: Microbiology 02/09/21 11:57 Blood Culture - Preliminary Blood NEGATIVE TO DATE 02/09/21 11:55 Blood Culture - Preliminary Blood NEGATIVE TO DATE 02/05/21 09:38 Blood Culture - Final Blood Coagulase negativ staphylococc 02/05/21 07:32 Blood Culture - Final Blood NO GROWTH AFTER 5 DAYS Cardiac Studies: No Data to Display
--- NOTE | 2021-02-11 11:57 | PC.NURSE ---
After speaking with Dr. Gregorio pt decided not to have procedure done at this time.
[2021-02-11 17:39] LABS: Glucose Point of Care 108 mg/dL (70-110)
--- NOTE | 2021-02-11 17:52 | PC.NURSE ---
Patient returned to the unit at 1300, patient refused PAMELA. Upon arrival to the unit Dr. Larson was notified that medications and other orders were not restarted. Dr. Larson states that it is up to Dr. Sainz to resume orders after transfer. Placed call to Dr. Sainz x 2 was unable to reach him and was unable to leave a message. At 1620 received a back from Dr. Sainz stating that he would try to resume orders. At 1758 no medication orders have been resumed.
[2021-02-11] MEDS: enoxaparin 40 mg/0.4 mL Syringe SUBCUT (21:19)
[2021-02-11] MEDS: levETIRAcetam 500 mg Tablet 1000 MG PO (21:19)
[2021-02-11 21:34] LABS: Glucose Point of Care 108 mg/dL (70-110)
[2021-02-12] VITALS (19 sets, daily range): BP systolic 112–163; BP diastolic 70–82; PULSE 69–93; RESP 15–18; TEMP 36.7–37.1; O2SAT 84–96
[2021-02-12] MEDS: ipratropium-albuterol 3 mL Neb INHALATION ×4 (02:21→20:30)
[2021-02-12] MEDS: vancomycin 1,250 MG/250 ML PIGGYBACK 200 MG IV ×2 (05:07→22:13)
[2021-02-12 06:31] LABS: Glucose Point of Care 93 mg/dL (70-110)
[2021-02-12 06:44] LABS: Basophils # 0.1 10^3/uL (0.0-0.1); Basophils % 0.7 %; Eosinophils # 0.4 10^3/uL (0.0-0.8); Eosinophils % 4.5 %; Hematocrit 42.4 % (42.0-52.0); Hemoglobin 13.4 g/dL (11.7-16.6); Lymphocytes # 2.5 10^3/uL (0.8-4.8); Mean Corpuscular HGB Conc 31.6 g/dL (30.0-36.0); Mean Corpuscular Hemoglobin 29.8 pg (28.0-34.0); Mean Corpuscular Volume 94.4 fL (80-94); Mean Platelet Volume 9.9 fL (7.4-10.4); Monocytes # 0.7 10^3/uL (0.2-0.9); Monocytes % 8.4 %; Neutrophils # 4.85 10^3/uL (1.8-7.7); Neutrophils % 56.6 %; Nucleated Red Blood Cells % 0 %; Platelet Count 254 10^3/cmm (130-400); Red Blood Count 4.49 10^6/uL (4.1-5.3); Red Cell Distribution Width 12.6 % (12.1-15.1); White Blood Count 8.6 10^3/uL (4.0-10.0)
[2021-02-12 07:12] LABS: Anion Gap 13.6 (5-19); Blood Urea Nitrogen 11 mg/dL (8-23); Calcium 8.6 mg/dL (8.5-10.5); Carbon Dioxide 26 mmol/L (22-29); Chloride 101 mmol/L (98-107); Glucose 91 mg/dL (65-115); Osmolality Calculated 283 mOsm/kg (285-295); Potassium 3.6 mmol/L (3.5-5.1); Sodium 137 mmol/L (136-145)
[2021-02-12] MEDS: levETIRAcetam 500 mg Tablet 1500 MG PO (10:24)
[2021-02-12] MEDS: pantoprazole DR 40 mg Tablet PO (10:25)
[2021-02-12] MEDS: docusate sodium 100 mg Capsule PO ×2 (10:25→17:33)
[2021-02-12] MEDS: atorvastatin 40 mg Tablet 20 MG PO (10:25)
[2021-02-12] MEDS: fluconazole 100 mg Tablet PO (10:25)
[2021-02-12] MEDS: gabapentin 300 mg Capsule 600 MG PO ×2 (10:25→17:33)
[2021-02-12] MEDS: aspirin 325 mg Tablet PO (10:26)
--- NOTE | 2021-02-12 10:37 | PC.OT ---
OT attempted to see pt at this time. Pt was sitting at edge of bed. Pt states I want to see the doctor and I want to go home . Therapist offered pt grooming and bilateral upper extremity exercise, pt declined. Pt left with physician in room. IRMA Philip/Ry BURNETT/Justyna
[2021-02-12 11:29] LABS: Glucose Point of Care 120 mg/dL (70-110)
--- NOTE | 2021-02-12 11:47 | PM.PN ---
Subjective Subjective: Interval history: No new complaints today, afebrile, hemodynamically stable, last positive culture from , thus far from cultures remain negative. Medications: Reviewed: Yes Medication Review Details: Patient had a bag of medications brought in with him that only included, from the list of above, amlodipine, aspirin, azithromycin, hydrochlorothiazide, Keppra, Metformin, fish oil, Protonix and Crestor. Vitals/I&O/Wt Last Vital Signs Temp 98.7 F 02/12/21 08:00 Pulse 79 02/12/21 09:52 Resp 16 02/12/21 09:40 BP 163/82 02/12/21 08:00 Pulse Ox 94 02/12/21 09:40 02/11/21 02/12/21 02/12/21 22:59 06:59 14:59 Intake Total 250 / 370 250 / 620 Balance 250 / 370 250 / 620 Weight last 48 hrs Weight 88.768 kg Weight 89.494 kg Physical Exam Const: COMMON NORMALS: patient oriented x3 HENMT: COMMON NORMALS: normocephalic and atraumatic HEAD & SCALP: normocephalic and atraumatic Chest: COMMONS NORMALS: normal inspection of the chest CHEST: Yes Symmetrical chest wall rise Resp: COMMON NORMALS: normal respiratory effort and clear to auscultation bilaterally EFFORT & INSPECTION: Yes symmetric chest movement AUSCULTATION: clear to auscultation bilaterally Cardio: COMMON NORMALS: regular rate, regular rhythm, S1 normal heart sound present, S2 normal heart sound present, No gallops present (Cardio), No murmurs present (Cardio), No rub (Cardio) and Peripheral pulses 2+ throughout RATE: regular rate RHYTHM: regular rhythm HEART SOUNDS: S1 normal heart sound present and S2 normal heart sound present PERIPHERAL PULSES: Peripheral pulses 2+ throughout GI: COMMON NORMALS: Normal to inspection, nondistended, normoactive bowel sounds present, Soft to palpation, non-tender, No hepatosplenomegaly present and no masses AUSCULTATION: Yes normoactive bowel sounds PALPATION: Yes Soft to palpation and Yes No hepatosplenomegaly present RECTAL EXAM: Yes deferred Extremity: NARRATIVE EXTREMITY EXAM: 1+ bilateral lower extremity pitting edema present Neuro: COMMON NORMALS: patient oriented x3 Urinary Catheter Management^: Shirley: Cath Placed During This Visit: yes, but has since been removed by the nurse Reason for Continuing Indwelling Catheter: Decision to DC Catheter Urinary Catheter Date of Insertion: 02/03/21 Urinary Catheter Time of Insertion: 16:00 Date Urinary Catheter Removed: 02/07/21 Time Urinary Catheter Discontinued: 10:28 Data : 02/12/21 06:26 02/12/21 06:26 Micro: Microbiology 02/07/21 09:48 Blood Culture - Final Blood NO GROWTH AFTER 5 DAYS A&P Assessment and plan (1) Acute respiratory failure with hypoxia and hypercapnia: Right lower lobe pneumonia. Pseudomonas on sputum culture, sensitive to cefepime. Completed 7 days of IV cefepime, discontinued today blood culture + for CoNS 4/ on 02/03. then persistent positive on 02/05 and 02/07 Currently on vancomycin, started 02/05. Vanco trough at 20, dose readjusted, goal trough of 15-20 Unclear source thus far Transthoracic echo poor quality, no vegetation. PAMELA planned for Thursday with Dr. Murillo. Will need PICC line once blood cx negative for 48 hrs no open wounds or sores. no h/o IVDU. hardware in rigth hip, grossly normal on x ray . 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 Overall appears to be improving Has required pressors in the form of norepinephrine. These were discontinued on February 04 Status: Acute Qualifiers: Acute respiratory failure type: with hypoxia Sepsis acute organ dysfunction status: with acute organ dysfunction Sepsis type: sepsis due to unspecified organism Severe sepsis acute organ dysfunction type: acute respiratory failure Severe sepsis shock status: without septic shock Qualified Code(s): A41.9 - Sepsis, unspecified organism; R65.20 - Severe sepsis without septic shock; J96.01 - Acute respiratory failure with hypoxia (4) Post-traumatic seizures: Continue Keppra p.o. No seizures in house. Status: Chronic (5) COPD (chronic obstructive pulmonary disease): No evidence of exacerbation currently Bronchodilators as needed Status: Chronic Qualifiers: COPD type: unspecified COPD Qualified Code(s): J44.9 - Chronic obstructive pulmonary disease, unspecified (6) DM type 2 (diabetes mellitus, type 2): Sliding scale insulin Status: Chronic Qualifiers: Diabetes mellitus complication status: without complication Diabetes mellitus assisted insulin use: without technology specialist use Qualified Code(s): E11.9 - Type 2 diabetes mellitus without complications (7) CAD (coronary artery disease): No evidence of acute coronary event Status: Chronic Qualifiers: Associated angina: angina presence unspecified Coronary Disease-Associated Artery/Lesion type: [place] artery [place] vs. transplanted heart: [place] heart Qualified Code(s): I25.10 - Atherosclerotic heart disease of [place] coronary artery without angina pectoris (8) HTN (hypertension): Holding medication currently secondary to hypotension on presentation. Previous echocardiogram demonstrated preserved EF, in 2019 Status: Chronic Qualifiers: Hypertension type: unspecified Qualified Code(s): I10 - Essential (primary) hypertension (9) HLD (hyperlipidemia): Status: Chronic Qualifiers: Hyperlipidemia type: unspecified Qualified Code(s): E78.5 - Hyperlipidemia, unspecified Additional A&P Information Oral thrush, complete 10 days of fluconazole, convert IV to p.o., 4 days remaining Type 2 diabetes. Sliding scale insulin Protonix for GI prophylaxis Lovenox for DVT prophylaxis Full code Attestations Medical Necessity Statement*: Patient needs to be in hospital for the management of CoNS bacteremia and the need for I.V Abxs, PICC Line placement. Coding Level of Care Code Acute Cuff Setter Lock[facility]ch for [facility] Fwd Exam Detailed Diagnoses Acute respiratory failure with hypoxia and hypercapnia J96.01; J96.02 Sore throat J02.9 Sepsis A41.9; R65.20; J96.01 Acute respiratory failure type: with hypoxia Sepsis acute organ dysfunction status: with acute organ dysfunction Sepsis type: sepsis due to unspecified organism Severe sepsis acute organ dysfunction type: acute respiratory failure Severe sepsis shock status: without septic shock Post-traumatic seizures R56.1 COPD (chronic obstructive pulmonary disease) J44.9 COPD type: unspecified COPD DM type 2 (diabetes mellitus, type 2) E11.9 Diabetes mellitus complication status: without complication Diabetes mellitus technology specialist insulin use: without technology specialist use CAD (coronary artery disease) I25.10 Associated angina: angina presence unspecified Coronary Disease-Associated Artery/Lesion type: [place] artery [place] vs. transplanted heart: [place] heart HTN (hypertension) I10 Hypertension type: unspecified HLD (hyperlipidemia) E78.5 Hyperlipidemia type: unspecified
--- NOTE | 2021-02-12 12:50 | PC.SOCIAL ---
*IMM* Patient received updated IMM, SS initialled in the chart.
[2021-02-12 18:11] LABS: Glucose Point of Care 168 mg/dL (70-110)
[2021-02-12 20:14] LABS: Glucose Point of Care 154 mg/dL (70-110)
[2021-02-12] MEDS: levETIRAcetam 500 mg Tablet 1000 MG PO (20:34)
[2021-02-12] MEDS: enoxaparin 40 mg/0.4 mL Syringe SUBCUT (21:36)
[2021-02-13] VITALS (10 sets, daily range): BP systolic 119–126; BP diastolic 61–74; PULSE 70–87; RESP 16–18; TEMP 36.5–37.1; O2SAT 91–95
--- NOTE | 2021-02-13 02:23 | PC.NURSE ---
Patient urinatd 1 time between 1900 and 0100 350 ml.
[2021-02-13] MEDS: ipratropium-albuterol 3 mL Neb INHALATION ×2 (02:42→08:42)
[2021-02-13 05:29] LABS: Basophils # 0.1 10^3/uL (0.0-0.1); Basophils % 0.6 %; Eosinophils # 0.3 10^3/uL (0.0-0.8); Eosinophils % 3.6 %; Hematocrit 42.1 % (42.0-52.0); Hemoglobin 13.3 g/dL (11.7-16.6); Lymphocytes # 2.5 10^3/uL (0.8-4.8); Lymphocytes % 28.6 %; Mean Corpuscular HGB Conc 31.6 g/dL (30.0-36.0); Mean Corpuscular Hemoglobin 29.6 pg (28.0-34.0); Mean Corpuscular Volume 93.8 fL (80-94); Mean Platelet Volume 9.6 fL (7.4-10.4); Monocytes # 0.7 10^3/uL (0.2-0.9); Monocytes % 8.5 %; Neutrophils # 4.95 10^3/uL (1.8-7.7); Neutrophils % 57.9 %; Nucleated Red Blood Cells % 0 %; Platelet Count 258 10^3/cmm (130-400); Red Blood Count 4.49 10^6/uL (4.1-5.3); Red Cell Distribution Width 12.6 % (12.1-15.1); White Blood Count 8.6 10^3/uL (4.0-10.0)
[2021-02-13 05:45] LABS: Anion Gap 12.6 (5-19); Blood Urea Nitrogen 10 mg/dL (8-23); Calcium 9.2 mg/dL (8.5-10.5); Carbon Dioxide 27 mmol/L (22-29); Chloride 102 mmol/L (98-107); Glucose 117 mg/dL (65-115); Osmolality Calculated 286 mOsm/kg (285-295); Potassium 3.6 mmol/L (3.5-5.1); Sodium 138 mmol/L (136-145)
[2021-02-13 07:06] LABS: Glucose Point of Care 114 mg/dL (70-110)
[2021-02-13] MEDS: aspirin 325 mg Tablet PO (08:32)
[2021-02-13] MEDS: gabapentin 300 mg Capsule 600 MG PO (08:32)
[2021-02-13] MEDS: fluconazole 100 mg Tablet PO (08:32)
[2021-02-13] MEDS: levETIRAcetam 500 mg Tablet 1500 MG PO (08:32)
[2021-02-13] MEDS: docusate sodium 100 mg Capsule PO (08:32)
[2021-02-13] MEDS: pantoprazole DR 40 mg Tablet PO (08:32)
[2021-02-13] MEDS: atorvastatin 40 mg Tablet 20 MG PO (08:33)
--- NOTE | 2021-02-13 08:41 | XR_ITS ---
WS: [id number] PORTABLE CHEST HISTORY: picc placement COMPARISON: 02/08/2021 Right-sided PICC line in good position with tip terminating in the mid SVC. Mild pulmonary hyperinflation. No pneumonia. No pleural effusion or pneumothorax. Cardiac size: Normal. Mediastinum/Aorta: Normal mediastinum. [place] overlying the LEFT humerus. XR/XR chest 1V portable [id number] IMPRESSION: Satisfactory placement of a LEFT PICC line.
--- NOTE | 2021-02-13 08:48 | P.DS_ITS ---
Discharge Providers Date of Admission: 02/03/21 20:21 Date of Discharge: February 13, 2021 Attending Provider at Admission: Vee Chester MD Attending Provider at Discharge: Milad Larson MD Diagnoses at Discharge Discharge Diagnosis (1) Acute respiratory failure with hypoxia and hypercapnia: Status: Resolved (2) Sore throat: Status: Inactive (3) Sepsis: Status: Acute Qualifiers: Acute respiratory failure type: with hypoxia Sepsis acute organ dysfunction status: with acute organ dysfunction Sepsis type: sepsis due to unspecified organism Severe sepsis acute organ dysfunction type: acute respirat ory failure Severe sepsis shock status: without septic shock Qualified Code(s): A41.9 - Sepsis, unspecified organism; R65.20 - Severe sepsis without septic shock; J96.01 - Acute respiratory failure with hypoxia (4) Post-traumatic seizures: Status: Chronic Permanent problem details: Notated on several ER visits, details otherwise unknown, on [facility] (5) COPD (chronic obstructive pulmonary disease): Status: Chronic Qualifiers: COPD type: unspecified COPD Qualified Code(s): J44.9 - Chronic obst ructive pulmonary disease, unspecified (6) DM type 2 (diabetes mellitus, type 2): Status: Chronic Permanent problem details: [id number], on Metformin Qualifiers: Diabetes mellitus complication status: without complication Diabetes mellitus ad terminal makeup operator insulin use: without ad terminal makeup operator use Qualified Code(s): E11.9 - Type 2 diabetes mellitus without complications (7) CAD (coronary artery disease): Status: Chronic Permanent problem details: Details unknown Qualifiers: Associated angina: angina presence unspecified Coronary Disease- Associated Artery/Lesion type: [place] artery [place] vs. transplanted heart: [place] heart Qualified Code(s): I25.10 - Atherosclerotic heart disease of [place] coronary artery without angina pectoris (8) HTN (hypertension): Status: Chronic Qualifiers: Hypertension type: unspecified Qualified Code(s): I10 - Essential (primary) hypertension (9) HLD (hyperlipidemia): Status: Chronic Permanent problem details: Statin therapy Qualifiers: Hyperlipidemia type: unspecified Qualified Code(s): E78.5 - Hyperlipidemia, unspecified Reason for Visit Reason for Visit: SORE THROAT Hospital Course Hospital Course 70 year old male with pmh of CAD, COPD, diabetes hypertension, who presented to the emergency room complaining of weakness, malaise, sore throat. Oxygen saturations on arrival were 69% on room air. Blood pressure and heart rate were normal. Patient rapidly decompensated and was intubated. Patient was admitted for the management of Acute respiratory failure with hypoxia and hypercapnia: 2/2 Right lower lobe pneumonia. Pseudomonas on sputum culture, sensitive to cefepime. Completed 7 days of IV cefepime. blood culture + for CoNS 4/4 on 02/03. then persistent positive on 02/05 and 02/07. Patient was on vancomycin. Transthoracic echo poor quality, no vegetation. PAMELA was planned but patient refused PAMELA. CT neck did not demonstrate any abscess or narrowing of airway Covid PCR has been completed and negative.no open wounds or sores. no h/o IVDU. hardware in rigth hip, grossly normal on x ray .Hardware also in the left shoulder. 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 Patient was kept on vancomycin. PICC line was placed he will continue for IV Vancomycin for 4 weeks. Patient was also managed for sepsis secondary to pneumonia. He was also managed for oral thrush he was kept on fluconazole. And completed the 14-day course of fluconazole. Pertinent imaging study: CT chest abd pel w con: Patchy airspace disease in the right middle lobe and the right lower lobe are nonspecific. Cannot exclude pneumonia.No acute pathology in the abdomen or pelvis identified. CT neck w con: Large amount of inflammatory debris or mucosal secretions within the posterior nasopharynx abutting the adenoid soft tissue. There is also adjacent maxillary and sphenoid sinusitis. Physical Exam Const: COMMON NORMALS: patient oriented x3 HENMT: COMMON NORMALS: normocephalic and atraumatic HEAD & SCALP: normocephalic and atraumatic Chest: COMMONS NORMALS: normal inspection of the chest CHEST: Yes Symmetrical chest wall rise Resp: COMMON NORMALS: normal respiratory effort and clear to auscultation bilaterally EFFORT & INSPECTION: Yes symmetric chest movement AUSCULTATION: clear to auscultation bilaterally Cardio: COMMON NORMALS: regular rate, regular rhythm, S1 normal heart sound present, S2 normal heart sound present, No gallops present (Cardio), No murmurs present (Cardio), No rub (Cardio) and Peripheral pulses 2+ throughout RATE: regular rate RHYTHM: regular rhythm HEART SOUNDS: S1 normal heart sound present and S2 normal heart sound present PERIPHERAL PULSES: Peripheral pulses 2+ throughout GI: COMMON NORMALS: Normal to inspection, nondistended, normoactive bowel sounds present, Soft to palpation, non-tender, No hepatosplenomegaly present and no masses AUSCULTATION: Yes normoactive bowel sounds PALPATION: Yes Soft to palpation and Yes No hepatosplenomegaly present RECTAL EXAM: Yes deferred Extremity: NARRATIVE EXTREMITY EXAM: 1+ bilateral lower extremity pitting edema present Neuro: COMMON NORMALS: patient oriented x3 Urinary Catheter Management^: Shirley: Cath Placed During This Visit: yes, but has since been removed by the nurse Reason for Continuing Indwelling Catheter: Decision to DC Catheter Urinary Catheter Date of Insertion: 02/03/21 Urinary Catheter Time of Insertion: 16:00 Date Urinary Catheter Removed: 02/07/21 Time Urinary Catheter Discontinued: 10:28 Discharge Data Data Completed and Pending: Completed Studies During Hospitalization Category Date Time Status CT chest abd pel w con* Urgent Cat Scan 02/03/21 17:[address] head wo con* 7 0450 Urgent Cat Scan 02/03/21 17:[address] neck w con* 70 491 Routine Cat Scan 02/04/21 08:07 Completed XR chest 1V tricia ble [id number] AM LABS Exams 02/04/21 04:00 Completed XR chest 1V tricia ble [id number] Routine Exams 02/05/21 07:00 Completed XR chest 1V tricia ble [id number] Routine Exams 02/08/21 08:41 Completed XR chest 1V tricia ble [id number] Stat Exams 02/03/21 15:52 Completed XR elbow LT 2V 73 070 Routine Exams 02/06/21 06:12 Completed XR shoulder LT 1V [id number] Routine Exams 02/10/21 17:08 Completed CV echo complete* [id number] Routine Ultrasound 02/07/21 08:26 Completed Pending at discharge Category Date Time Status XR chest 1V tricia ble [id number] Routine Exams 02/13/21 08:41 Ordered Basic Metabolic P fernando AM LABS Lab 02/14/21 04:00 Ordered Blood Culture Sta t Lab 02/07/21 09:48 Results Blood Culture Sta t Lab 02/09/21 11:57 Results Complete Blood Co unt w/Auto AM LABS Lab 02/14/21 04:00 Ordered Labs from last 24 hours 02/13/21 02/13/21 02/13/21 07:01 05:13 05:13 WBC 8.6 RBC 4.49 Hgb 13.3 Hct 42.1 MCV 93.8 MCH 29.6 MCHC 31.6 RDW 12.6 Plt Count 258 MPV 9.6 Neut % (Auto) 57.9 Lymph % (Auto) 28.6 [place] % (Auto) 8.5 Eos % (Auto) 3.6 Baso % (Auto) 0.6 Neut # (Auto) 4.95 Lymph # (Auto) 2.5 [place] # (Auto) 0.7 Eos # (Auto) 0.3 Baso # (Auto) 0.1 Nucleated RBC % (a uto) 0 Nucleated RBCs # 0.0 Sodium 138 Potassium 3.6 Chloride 102 Carbon Dioxide 27 Anion Gap 12.6 BUN 10 Creatinine 0.5 L GFR Calculation Not Reportable Glucose 117 H POC Glucose 114 H Calculated Osmolal ity 286 Calcium 9.2 02/12/21 02/12/21 02/12/21 20:08 18:08 11:23 WBC RBC Hgb Hct MCV MCH MCHC RDW Plt Count MPV Neut % (Auto) Lymph % (Auto) [place] % (Auto) Eos % (Auto) Baso % (Auto) Neut # (Auto) Lymph # (Auto) [place] # (Auto) Eos # (Auto) Baso # (Auto) Nucleated RBC % (a uto) Nucleated RBCs # Sodium Potassium Chloride Carbon Dioxide Anion Gap BUN Creatinine GFR Calculation Glucose POC Glucose 154 H 168 H 120 H Calculated Osmolal ity Calcium Vitals: Last Vital Signs Temp 98.8 F 02/13/21 07:59 Pulse 78 02/13/21 08:43 Resp 17 02/13/21 08:43 BP 119/62 02/13/21 07:59 Pulse Ox 94 02/13/21 08:43 Discharge Plan Discharge Patient Disposition: Home Condition: Stable Prescriptions: New fluconazole 100 mg Tablet 100 mg PO DAILY 3 Days RF: 0 Continued aspirin 325 mg Tablet 325 mg PO DAILY RF: 0 albuterol sulfate 90 mcg/actuation HFA aerosol inhaler 2 inh INHALATION Q4H PRN (Reason: shortness of breath or wheezing) Qty: 6.7 RF: 0 ondansetron HCl [Zofran] 4 mg tablet 4 mg PO Q6H PRN (Reason: nausea and vomiting) Qty: 20 RF: 0 gabapentin 600 mg Tablet 600 mg PO BID RF: 0 ipratropium-albuterol 0.5 mg-3 mg(2.5 mg base)/3 mL Solution For Nebulization 3 ml INHALATION QID RF: 0 polyethylene glycol 3350 [Miralax] 17 gram Powder In Packet See Rx Instructions .ROUTE .COMPLEX RF: 0 levetiracetam 500 mg Tablet See Rx Instructions .ROUTE .COMPLEX RF: 0 amlodipine 2.5 mg Tablet 2.5 mg PO DAILY RF: 0 pantoprazole [Protonix] 40 mg Tablet,Delayed Release (Dr/Ec) 40 mg PO DAILY RF: 0 dorzolamide-timolol 22.3-6.8 mg/mL Drops 1 drp OPHTHALMIC (EYE) BID RF: 0 albuterol sulfate 90 mcg/actuation Hfa Aerosol Inhaler 2 puff INHALATION QID RF: 0 metformin 500 mg Tablet Extended Release 24 Hr 500 mg PO DAILY RF: 0 rosuvastatin [Crestor] 5 mg Tablet 5 mg PO DAILY RF: 0 omega 7-vbp-qvp-fish oil [Fish Oil] 1,000 mg (120 mg-180 mg) Capsule 1 cap PO BID RF: 0 Held hydrochlorothiazide 25 mg Tablet 25 mg PO DAILY RF: 0 Hold Instructions: Resume on 02/20/21. Discontinued azithromycin [Zithromax Z-Tres] 250 mg tablet See Rx Instructions .ROUTE .COMPLEX Qty: 6 RF: 0 Discharge Orders: Discharge Order (Routine); Ordered 02/13/21 Ordered By: Milad Larson Referrals: Ayse Tovar MD [Hospitalist] - 03/12/21 2:20 pm [facility] [Occupational Therapist] - 02/26/21 1:00 pm (A[PPOINTMENT WITH [facility]) Discharge Diet: Low Salt Discharge Activity: Resume usual activity Patient Instructions: Fluconazole (By mouth), Peripherally Inserted Central Catheters and Midline Catheters (GEN), Sepsis (GEN) Activity Restrictions/Additional Instructions: Patient will need weekly CBC CMP, vancomycin trough to be checked by home infusion company and fax results to infectious disease office for review. Total duration of vancomycin I.V therapy is 2 weeks. Call the infectious disease office at [phone] for any abnormal vancomycin trough. Goal trough at 15-20. Discharge Attestations Time Spent in Discharge Care*: less than 30 min Specific Discharge Activities: educating patient, educating and/or supporting family/caregiver, discussing with pcp/other providers, discussing with case advocate/social workers/dc planners, documenting/other paperwork and evaluating patient/reviewing data Status at Discharge: Cognitive status at discharge: cognitively intact , Behavioral status at discharge: cooperative , Functional status at discharge: independent ambulation Overall status at discharge: patient is back to baseline Quality Metrics Clinical Quality Measures During this hospital stay, did patient experience: None Coding Level of Care Code Acute Chg FW DC note Exam Detailed Diagnoses Acute respiratory failure with hypoxia and hypercapnia J96.01; J96.02 Sore throat J02.9 Sepsis A41.9; R65.20; J96.01 Acute respiratory failure type: with hypoxia Sepsis acute organ dysfunction status: with acute organ dysfunction Sepsis type: sepsis due to unspecified organism Severe sepsis acute organ dysfunction type: acute respiratory failure Severe sepsis shock status: without septic shock Post-traumatic seizures R56.1 COPD (chronic obstructive pulmonary disease) J44.9 COPD type: unspecified COPD DM type 2 (diabetes mellitus, type 2) E11.9 Diabetes mellitus complication status: without complication Diabetes mellitus long-term insulin use: without long-term use CAD (coronary artery disease) I25.10 Associated angina: angina presence unspecified Coronary Disease-Associated Artery/Lesion type: [place] artery [place] vs. transplanted heart: [place] heart HTN (hypertension) I10 Hypertension type: unspecified HLD (hyperlipidemia) E78.5 Hyperlipidemia type: unspecified
[2021-02-13 11:34] LABS: Glucose Point of Care 173 mg/dL (70-110)
[2021-02-13] MEDS: vancomycin 1,250 MG/250 ML PIGGYBACK 200 MG IV (14:21)
--- NOTE | 2021-02-13 14:22 | PC.NURSE ---
Per Dr. Neo houston to run Vanc at 1400.
--- NOTE | 2021-02-13 16:07 | PC.NURSE ---
PICC line flushed, patent and intact. Discharge instructions given to patient and daughter in law, all questions answered, patient states verbal understanding. Patient discharged at this time in stable condition.
== END 2021-02-13 16:09 | disposition home health service (06) | DRG 871 ==
LOC: ER 19:57 → ICU 20:23 → MEDSURG 02-06 10:45
PROVIDERS: Family Medicine; Internal Medicine; Internal Medicine Cardiovascular Disease; Student in an Organized Health Care Education/Training Program; Admitting Provider Hospitalist; Emergency Provider Emergency Medicine; Visit Provider Internal Medicine
PROC: (CPT 93312; principal; 2021-02-11 12:00)
DX: A41.9 Sepsis, unspecified organism (principal); J15.1 Pneumonia due to Pseudomonas; J96.01 Acute respiratory failure with hypoxia; J96.02 Acute respiratory failure with hypercapnia; J44.0 Chronic obstructive pulmonary disease with (acute) lower respiratory infection; R56.1 Post traumatic seizures; E87.2 Acidosis; B37.0 Candidal stomatitis; R65.20 Severe sepsis without septic shock; Z85.118 Personal history of other malignant neoplasm of bronchus and lung; E11.9 Type 2 diabetes mellitus without complications; I10 Essential (primary) hypertension; I25.10 Atherosclerotic heart disease of native coronary artery without angina pectoris; E78.5 Hyperlipidemia, unspecified; F17.210 Nicotine dependence, cigarettes, uncomplicated; K44.9 Diaphragmatic hernia without obstruction or gangrene; I95.9 Hypotension, unspecified; E87.6 Hypokalemia; E83.42 Hypomagnesemia; M15.4 Erosive (osteo)arthritis; Z79.84 Long term (current) use of oral hypoglycemic drugs; Z79.51 Long term (current) use of inhaled steroids
CPT/HCPCS: 36415; 36416; 36569; 36600; 51702; 70450; 70491; 71045; 71260; 73020; 73070; 74177; 80048; 80051; 80053; 80061; 80177; 80202; 80306; 81001; 81003; 82140; 82330; 82550; 82728; 82803; 82805; 82962; 83036; 83605; 83615; 83735; 83880; 84100; 84145; 84443; 84484; 85025; 85378; 85384; 85610; 85651; 86140; 87040; 87070; 87077; 87081; 87086; 87186; 87205; 87426; 87635; 87641; 87804; 87880; 93005; 93306; 94002; 94003; 94640; 94664; 94799; 96365; 96366; 96367; 96372; 96375; 97110; 97116; 97163; 97166; 97530; 97535; 99291; 99292; J0330; J0692; J1450; J1630; J1650; J1815; J1940; J1953; J2704; J3010; J3370; J3475; J3480; J3490; J7030; J7040; Q0163; Q9967

== ENCOUNTER 2021-02-18 10:23 | Outpatient (CLI) | payer OTHER, SELFPAY ==
[2021-02-18 10:56] LABS: Basophils # 0.1 10^3/uL (0.0-0.1); Basophils % 1.1 %; Eosinophils # 0.7 10^3/uL (0.0-0.8); Eosinophils % 6.9 %; Hematocrit 49.9 % (42.0-52.0); Hemoglobin 15.7 g/dL (11.7-16.6); Lymphocytes # 2.2 10^3/uL (0.8-4.8); Lymphocytes % 23.4 %; Mean Corpuscular HGB Conc 31.5 g/dL (30.0-36.0); Mean Corpuscular Hemoglobin 29.8 pg (28.0-34.0); Mean Corpuscular Volume 94.9 fL (80-94); Mean Platelet Volume 10.6 fL (7.4-10.4); Monocytes # 0.7 10^3/uL (0.2-0.9); Monocytes % 7.5 %; Neutrophils # 5.82 10^3/uL (1.8-7.7); Neutrophils % 60.7 %; Nucleated Red Blood Cells % 0 %; Platelet Count 308 10^3/cmm (130-400); Red Blood Count 5.26 10^6/uL (4.1-5.3); Red Cell Distribution Width 12.4 % (12.1-15.1); White Blood Count 9.6 10^3/uL (4.0-10.0)
[2021-02-18 11:19] LABS: Alanine Aminotransferase 20 U/L (0-41); Albumin Level 3.9 g/dL (3.5-5.2); Alkaline Phosphatase 92 IU/L (40-130); Blood Urea Nitrogen 8 mg/dL (8-23); Calcium 8.4 mg/dL (8.5-10.5); Carbon Dioxide 29 mmol/L (22-29); Chloride 99 mmol/L (98-107); Globulin 3.8 g/dL (1.3-4.6); Glucose 110 mg/dL (65-115); Osmolality Calculated 287 mOsm/kg (285-295); Sodium 139 mmol/L (136-145); Total Bilirubin 0.3 mg/dL (0.15-1.2); Total Protein 7.7 g/dL (6.6-8.7)
[2021-02-18 11:30] LABS: Anion Gap 14.3 (5-19); Aspartate Amino Transferase 20 U/L (0-40); Potassium 3.3 mmol/L (3.5-5.1)
== END 2021-02-18 10:24 | disposition home or self-care (01) ==
LOC: LAB 10:28
PROVIDERS: Visit Provider Student in an Organized Health Care Education/Training Program
DX: A41.9 Sepsis, unspecified organism (principal)
CPT/HCPCS: 80053; 85025

== ENCOUNTER 2021-02-19 10:39 | Outpatient (CLI) | payer OTHER, SELFPAY ==
[2021-02-19 11:36] LABS: Vancomycin Trough 11.2 ug/mL (10-15)
== END 2021-02-19 10:40 | disposition home or self-care (01) ==
PROVIDERS: Visit Provider Student in an Organized Health Care Education/Training Program
DX: A41.9 Sepsis, unspecified organism (principal)
CPT/HCPCS: 80202

== ENCOUNTER 2021-02-21 10:07 | Outpatient (CLI) | payer OTHER, SELFPAY ==
[2021-02-21 11:09] LABS: Vancomycin Trough 14.3 ug/mL (10-15)
== END 2021-02-21 10:08 | disposition home or self-care (01) ==
LOC: LAB 10:13
PROVIDERS: Visit Provider Student in an Organized Health Care Education/Training Program
DX: A41.9 Sepsis, unspecified organism (principal)
CPT/HCPCS: 80202

== ENCOUNTER 2021-02-25 10:42 | Outpatient (CLI) | payer OTHER, SELFPAY ==
[2021-02-25 11:36] LABS: Alanine Aminotransferase 20 U/L (0-41); Albumin Level 3.7 g/dL (3.5-5.2); Alkaline Phosphatase 107 IU/L (40-130); Anion Gap 15.9 (5-19); Aspartate Amino Transferase 20 U/L (0-40); Blood Urea Nitrogen 7 mg/dL (8-23); Calcium 8.8 mg/dL (8.5-10.5); Carbon Dioxide 27 mmol/L (22-29); Chloride 99 mmol/L (98-107); Globulin 3.6 g/dL (1.3-4.6); Glucose 165 mg/dL (65-115); Osmolality Calculated 290 mOsm/kg (285-295); Sodium 139 mmol/L (136-145); Total Bilirubin 0.5 mg/dL (0.15-1.2); Total Protein 7.3 g/dL (6.6-8.7)
[2021-02-25 11:56] LABS: Vancomycin Trough 14.2 ug/mL (10-15)
[2021-02-25 12:23] LABS: Potassium 2.9 mmol/L (3.5-5.1)
[2021-02-25 12:24] LABS: Hematocrit 49.8 % (42.0-52.0); Hemoglobin 15.9 g/dL (11.7-16.6); Mean Corpuscular HGB Conc 31.9 g/dL (30.0-36.0); Mean Corpuscular Hemoglobin 29.4 pg (28.0-34.0); Mean Corpuscular Volume 92.1 fL (80-94); Platelet Count 210 10^3/cmm (130-400); Red Blood Count 5.41 10^6/uL (4.1-5.3); Red Cell Distribution Width 12.1 % (12.1-15.1); White Blood Count 7.5 10^3/uL (4.0-10.0)
[2021-02-25 12:27] LABS: Absolute Eosinophils 0.3 10^3/cmm (0.0-0.7); Eosinophils 4 %; Lymphocytes 28 %; Lymphocytes Absolute 2.1 10^3/cmm (1.2-3.4); Monocytes Absolute 0.2 10^3/cmm (0.1-0.6); Segmented Neutrophils 66 %; Total Cells Counted 100 (0-100)
[2021-02-25 12:28] LABS: Platelet Estimate Normal (Normal)
== END 2021-02-25 10:43 | disposition home or self-care (01) ==
LOC: LAB 10:45
PROVIDERS: Visit Provider Student in an Organized Health Care Education/Training Program
DX: A41.9 Sepsis, unspecified organism (principal)
CPT/HCPCS: 80053; 80202; 85007; 85027

== ENCOUNTER 2021-02-25 16:10 | Emergency (ER) | payer OTHER, SELFPAY ==
[2021-02-25 16:23] VITALS: BP 122/78; PULSE 83; RESP 18; TEMP 36.7; O2SAT 95; BMI 36.6
[2021-02-25 18:40] LABS: Basophils # 0.1 10^3/uL (0.0-0.1); Basophils % 0.7 %; Eosinophils # 0.2 10^3/uL (0.0-0.8); Eosinophils % 2.4 %; Hemoglobin 16.1 g/dL (11.7-16.6); Lymphocytes # 1.8 10^3/uL (0.8-4.8); Lymphocytes % 19.9 %; Mean Corpuscular HGB Conc 31.6 g/dL (30.0-36.0); Mean Corpuscular Hemoglobin 29.4 pg (28.0-34.0); Mean Corpuscular Volume 93.1 fL (80-94); Mean Platelet Volume 10.1 fL (7.4-10.4); Monocytes # 0.8 10^3/uL (0.2-0.9); Monocytes % 8.5 %; Neutrophils # 6.13 10^3/uL (1.8-7.7); Neutrophils % 68.3 %; Nucleated Red Blood Cells % 0 %; Platelet Count 202 10^3/cmm (130-400); Red Blood Count 5.48 10^6/uL (4.1-5.3); Red Cell Distribution Width 12.1 % (12.1-15.1)
[2021-02-25 18:59] LABS: Lactic Sepsis W/Reflex 3.1 mmol/L (0.5-2.2)
[2021-02-25 19:00] LABS: Alanine Aminotransferase 22 U/L (0-41); Alkaline Phosphatase 109 IU/L (40-130); Anion Gap 15.2 (5-19); Aspartate Amino Transferase 18 U/L (0-40); Blood Urea Nitrogen 9 mg/dL (8-23); Calcium 8.7 mg/dL (8.5-10.5); Carbon Dioxide 30 mmol/L (22-29); Chloride 99 mmol/L (98-107); Creatinine Clr Calc Pharmacy 90.6856; Globulin 3.5 g/dL (1.3-4.6); Glucose 166 mg/dL (65-115); Osmolality Calculated 294 mOsm/kg (285-295); Potassium 3.2 mmol/L (3.5-5.1); Sodium 141 mmol/L (136-145); Total Bilirubin 0.4 mg/dL (0.15-1.2); Total Protein 7.5 g/dL (6.6-8.7)
--- NOTE | 2021-02-25 19:11 | ED_ITS ---
HPI - General Adult General: Chief complaint: General Medical Stated complaint: picc line (?) smells bad, was placed here History of Present Illness: HPI narrative: Patient is a 70-year-old male comes to the ED with PICC line complaint. Patient says that he was lying in bed last night in ER with foul odor. He was concerned that it might of come from his PICC line so he wanted to get his PICC line evaluated. Patient says his home health nurse checked PICC line today and she thought it looked good. He says he is also get his PICC line out in 2 weeks. Denies any pain around PICC line, fever, chills, nausea/vomiting. Patient has no other complaints besides wanting us to check his PICC line. Associated symptoms: Deny chest pain, dyspnea, headache(s), nausea, rash, palpitations or vomiting Review of Systems Narrative: PICC line complaint. Const: Denies: fever(s), chills or fatigue Eyes: Denies: change in vision or eye discomfort ENMT: Denies: throat pain, odynophagia, nasal discharge or nasal congestion Card: Denies: chest pain, palpitations, edema, swelling of feet/ankles, dyspnea on exertion or orthopnea Resp: Denies: dyspnea, productive cough or non-productive cough GI: Denies: abdominal pain, nausea, vomiting, diarrhea, constipation or hematochezia : Denies: flank pain, difficulty urinating, dysuria or hematuria Musc: Denies: neck pain, back pain or extremity swelling Skin/Breast: Denies: rash or new lesions Neuro: Denies: headache(s), numbness in extremities or weakness in extremities PFSH ED PFSH: Medical History Acute respiratory failure with hypoxia and hypercapnia CAD (coronary artery disease) Details unknown COPD (chronic obstructive pulmonary disease) DM type 2 (diabetes mellitus, type 2) Bwe-gnmyrjr-hqmvzkyvo, on Metformin History of echocardiogram (~05/2020) Normal left ventricular size and systolic function with an EF of 60%, no regional wall motion abnormalities, grade 1/4 diastolic dysfunction, normal to mildly elevated filling pressures and mild left ventricular hypertrophy. Thickened aortic and mitral valves were noted. HLD (hyperlipidemia) Statin therapy HTN (hypertension) Hyperammonemia Ammonia level of 92 in May 2020 Lung cancer Diagnosis reported in old records but details unknown Pneumonia Post-traumatic seizures Notated on several ER visits, details otherwise unknown, on Keppra Sepsis Smoking addiction Surgical History H/O neck surgery H/O: knee surgery History of shoulder surgery Hx of appendectomy Family History Other Cancer Heart disease Social History Smoking and tobacco status: current every day smoker cigarettes Packs smoked per day: 1 Alcohol intake: never Lives independently: Yes Household members: spouse Marital status: Current occupational status: retired Physical Exam Const: COMMON NORMALS: no acute distress, patient oriented x3 and alert GENERAL APPEARANCE: cooperative and comfortable NUTRITIONAL APPEARANCE: obese HENMT: COMMON NORMALS: normocephalic HEAD & SCALP: normocephalic MOUTH: Normal oral and palatal mucosa present THROAT: posterior oropharynx normal and uvula midline Neck/C-Spine: COMMON NORMALS: supple GENERAL: Yes normal visual inspection Resp: COMMON NORMALS: normal respiratory effort, No retractions, No use of accessory muscles and clear to auscultation bilaterally AUSCULTATION: clear to auscultation bilaterally Cardio: COMMON NORMALS: regular rate, regular rhythm, S1 normal heart sound present, S2 normal heart sound present, No gallops present (Cardio), No clicks present (Cardio), No murmurs present (Cardio) and Peripheral pulses 2+ throughout RATE: regular rate RHYTHM: regular rhythm HEART SOUNDS: S1 normal heart sound present and S2 normal heart sound present PERIPHERAL P ULSES: Peripheral pulses 2+ throughout GI: COMMON NORMALS: Normal to inspection, nondistended, normoactive bowel sounds present, Soft to palpation, non-tender and no masses PALPATION: Yes Soft to palpation : COMMON NORMALS: Yes no CVA tenderness BLADDER/KIDNEY EXAM: Yes no CVA tenderness Back/Pelvis: COMMON NORMALS: no CVA tenderness Extremity: COMMON NORMALS: normal to inspection NARRATIVE EXTREMITY EXAM: Patient's PIC line in right arm is showing no signs of any infection. No erythema, warmth or drainage seen. No tenderness to palpation. Neuro: COMMON NORMALS: patient oriented x3 and moves all extremities SENSORIUM/ORIENTATION: Yes alert Skin: NARRATIVE SKIN EXAM: Patient's PIC line in right arm is showing no signs of any infection. No erythema, warmth or drainage seen. No tenderness to palpation. GENERAL SKIN EXAM: dry skin Course ED course: Nurse tested and flushed central line and everything was working properly. Vital Signs: Vital signs: Vital Signs Temperature 98.0 F 02/25/21 16:23 Pulse Rate 83 02/25/21 16:23 Respiratory Rate 18 02/25/21 16:23 Blood Pressure 122/78 02/25/21 16:23 Pulse Oximetry 95 02/25/21 16:23 MDM - General Adult MDM Narrative: Medical decision making narrative: Patient is 70-year-old male comes to the ED with concerns of PICC line. Nurse was able to check PICC line and it flushed appropriately. Patient appears nontoxic and in no acute distress or pain. Exam of PICC line showed no signs of any infection, no erythema, warmth or drainage and it was nontender to palpation. CBC unremarkable. Potassium 3.2 and the rest of CMP was unremarkable. Patient was given a dose of potassium chloride 20 meq while here in the ED. Pt has no other complaints of pain. Patient diagnosed with status post PICC central line placement and hypokalemia. Patient was discharged home told to follow-up with his PCP in 7 to 10 days for reevaluation. Return to ED precautions given. Patient understood and agreed with plan. Lab Data: Attestation: I reviewed the patient's lab results. Labs: Lab Results 02/25/21 02/25/21 02/25/21 Range/Units 18:33 18:33 18:33 WBC 9.0 (4.0-10.0) 10^3/ uL RBC 5.48 H (4.1-5.3) 10^6/u L Hgb 16.1 (11.7-16.6) g/dL Hct 51.0 (42.0-52.0) % MCV 93.1 (80-94) fL MCH 29.4 (28.0-34.0) pg MCHC 31.6 (30.0-36.0) g/dL RDW 12.1 (12.1-15.1) % Plt Count 202 (130-400) 10^3/c mm MPV 10.1 (7.4-10.4) fL Neut % (Auto) 68.3 % Lymph % (Auto) 19.9 % [place] % (Auto) 8.5 % Eos % (Auto) 2.4 % Baso % (Auto) 0.7 % Neut # (Auto) 6.13 (1.8-7.7) 10^3/u L Lymph # (Auto) 1.8 (0.8-4.8) 10^3/u L [place] # (Auto) 0.8 (0.2-0.9) 10^3/u L Eos # (Auto) 0.2 (0.0-0.8) 10^3/u L Baso # (Auto) 0.1 (0.0-0.1) 10^3/u L Nucleated RBC % (a uto) 0 % Nucleated RBCs # 0.0 /100WBC Sodium 141 (136-145) mmol/L Potassium 3.2 L (3.5-5.1) mmol/L Chloride 99 (98-107) mmol/L Carbon Dioxide 30 H (22-29) mmol/L Anion Gap 15.2 (5-19) BUN 9 (8-23) mg/dL Creatinine 0.6 L (0.7-1.2) mg/dL GFR Calculation Not Reportable Glucose 166 H (65-115) mg/dL Calculated Osmolal ity 294 (285-295) mOsm/k g Lactic Acid 3.1 H (0.5-2.2) mmol/L Calcium 8.7 (8.5-10.5) mg/dL Total Bilirubin 0.4 (0.15-1.2) mg/dL AST 18 (0-40) U/L ALT 22 (0-41) U/L Alkaline Phosphata se 109 (40-130) IU/L Total Protein 7.5 (6.6-8.7) g/dL Albumin 4.0 (3.5-5.2) g/dL Globulin 3.5 (1.3-4.6) g/dL Discharge Plan Discharge Patient Disposition: Home Clinical Impression: S/P PICC central line placement, Hypokalemia Condition: Stable Prescriptions: No Action aspirin 325 mg Tablet 325 mg PO DAILY RF: 0 hydrochlorothiazide 25 mg Tablet 25 mg PO DAILY RF: 0 Hold Instructions: Resume on 02/20/21. albuterol sulfate 90 mcg/actuation HFA aerosol inhaler 2 inh INHALATION Q4H PRN (Reason: shortness of breath or wheezing) Qty: 6.7 RF: 0 ondansetron HCl [Zofran] 4 mg tablet 4 mg PO Q6H PRN (Reason: nausea and vomiting) Qty: 20 RF: 0 gabapentin 600 mg Tablet 600 mg PO BID RF: 0 ipratropium-albuterol 0.5 mg-3 mg(2.5 mg base)/3 mL Solution For Nebulization 3 ml INHALATION QID RF: 0 polyethylene glycol 3350 [Miralax] 17 gram Powder In Packet See Rx Instructions .ROUTE .COMPLEX RF: 0 levetiracetam 500 mg Tablet See Rx Instructions .ROUTE .COMPLEX RF: 0 amlodipine 2.5 mg Tablet 2.5 mg PO DAILY RF: 0 pantoprazole [Protonix] 40 mg Tablet,Delayed Release (Dr/Ec) 40 mg PO DAILY RF: 0 dorzolamide-timolol 22.3-6.8 mg/mL Drops 1 drp OPHTHALMIC (EYE) BID RF: 0 albuterol sulfate 90 mcg/actuation Hfa Aerosol Inhaler 2 puff INHALATION QID RF: 0 metformin 500 mg Tablet Extended Release 24 Hr 500 mg PO DAILY RF: 0 rosuvastatin [Crestor] 5 mg Tablet 5 mg PO DAILY RF: 0 omega 5-fri-apm-fish oil [Fish Oil] 1,000 mg (120 mg-180 mg) Capsule 1 cap PO BID RF: 0 Discharge Orders: Discharge ED (Routine); Ordered 02/25/21 Ordered By: Mo Ramirez Discharge Diet: Regular Discharge Activity: Resume usual activity Patient Instructions: Peripherally Inserted Central Catheters and Midline Catheters (ED) Activity Restrictions/Additional Instructions: Follow-up with medical provider as directed in 7 to 10 days for reevaluation. Continue taking all home medications as previously prescribed. Return to the ER or your medical provider if condition worsens. Please read and understand discharge instructions. If any questions, please ask. Coding Level of Care Code ED Embossograph Operator for Jeremy Fwiftikhar Exam Comprehensive
--- NOTE | 2021-02-25 19:14 | PC.NURSE ---
pt PICC line flushed with no resistance. blood return present. Provider Yony Ramirez notified.
[2021-02-25] MEDS: potassium chloride ER 20 mEq Tablet PO (19:39)
[2021-02-25 20:25] LABS: Reflex Lactate Order REFLEX LACTIC ORDERD
== END 2021-02-25 19:40 | disposition home or self-care (01) ==
PROVIDERS: Physician Assistant; Emergency Provider Physician Assistant
DX: E87.6 Hypokalemia (principal); Z79.82 Long term (current) use of aspirin; Z79.84 Long term (current) use of oral hypoglycemic drugs; I25.10 Atherosclerotic heart disease of native coronary artery without angina pectoris; J44.9 Chronic obstructive pulmonary disease, unspecified; E11.9 Type 2 diabetes mellitus without complications; E78.5 Hyperlipidemia, unspecified; I10 Essential (primary) hypertension; Z85.118 Personal history of other malignant neoplasm of bronchus and lung; F17.210 Nicotine dependence, cigarettes, uncomplicated
CPT/HCPCS: 36415; 80053; 83605; 85025; 87040; 99283

== ENCOUNTER 2021-03-04 10:28 | Outpatient (CLI) | payer OTHER, SELFPAY ==
[2021-03-04 11:02] LABS: Alanine Aminotransferase 17 U/L (0-41); Alkaline Phosphatase 99 IU/L (40-130); Aspartate Amino Transferase 17 U/L (0-40); Blood Urea Nitrogen 9 mg/dL (8-23); Calcium 8.7 mg/dL (8.5-10.5); Carbon Dioxide 25 mmol/L (22-29); Chloride 99 mmol/L (98-107); Globulin 3.1 g/dL (1.3-4.6); Glucose 103 mg/dL (65-115); Osmolality Calculated 281 mOsm/kg (285-295); Sodium 136 mmol/L (136-145); Total Bilirubin 0.4 mg/dL (0.15-1.2); Total Protein 7.1 g/dL (6.6-8.7)
[2021-03-04 11:03] LABS: Anion Gap 15.7 (5-19)
[2021-03-04 11:04] LABS: Potassium 3.7 mmol/L (3.5-5.1)
[2021-03-04 11:44] LABS: Vancomycin Trough 9.7 ug/mL (10-15)
== END 2021-03-04 10:29 | disposition home or self-care (01) ==
PROVIDERS: Visit Provider Student in an Organized Health Care Education/Training Program
DX: A41.9 Sepsis, unspecified organism (principal)
CPT/HCPCS: 80053; 80202

== ENCOUNTER 2021-03-06 09:35 | Outpatient (CLI) | payer OTHER, SELFPAY ==
[2021-03-06 09:54] LABS: Basophils # 0.1 10^3/uL (0.0-0.1); Basophils % 0.9 %; Eosinophils # 0.9 10^3/uL (0.0-0.8); Eosinophils % 11.6 %; Hematocrit 51.2 % (42.0-52.0); Hemoglobin 16.5 g/dL (11.7-16.6); Lymphocytes # 2.1 10^3/uL (0.8-4.8); Lymphocytes % 26.1 %; Mean Corpuscular HGB Conc 32.2 g/dL (30.0-36.0); Mean Corpuscular Hemoglobin 28.4 pg (28.0-34.0); Mean Corpuscular Volume 88.3 fL (80-94); Mean Platelet Volume 10.9 fL (7.4-10.4); Monocytes # 0.7 10^3/uL (0.2-0.9); Monocytes % 9.2 %; Neutrophils # 4.16 10^3/uL (1.8-7.7); Nucleated Red Blood Cells % 0 %; Platelet Count 195 10^3/cmm (130-400); Red Cell Distribution Width 12.2 % (12.1-15.1)
[2021-03-06 10:31] LABS: Vancomycin Trough 14.5 ug/mL (10-15)
== END 2021-03-06 09:36 | disposition home or self-care (01) ==
LOC: LAB 09:38
PROVIDERS: Visit Provider Student in an Organized Health Care Education/Training Program
DX: A41.9 Sepsis, unspecified organism (principal)
CPT/HCPCS: 80202; 85025

== ENCOUNTER 2021-03-11 10:51 | Outpatient (CLI) | payer OTHER, SELFPAY ==
[2021-03-11 12:02] LABS: Basophils # 0.1 10^3/uL (0.0-0.1); Basophils % 0.7 %; Eosinophils # 1.2 10^3/uL (0.0-0.8); Eosinophils % 13.8 %; Hematocrit 53.9 % (42.0-52.0); Hemoglobin 15.9 g/dL (11.7-16.6); Lymphocytes % 23.1 %; Mean Corpuscular HGB Conc 29.5 g/dL (30.0-36.0); Mean Corpuscular Hemoglobin 28.7 pg (28.0-34.0); Mean Corpuscular Volume 97.3 fL (80-94); Mean Platelet Volume 10.2 fL (7.4-10.4); Monocytes # 0.6 10^3/uL (0.2-0.9); Monocytes % 6.6 %; Neutrophils # 4.69 10^3/uL (1.8-7.7); Neutrophils % 55.6 %; Nucleated Red Blood Cells % 0 %; Platelet Count 196 10^3/cmm (130-400); Red Blood Count 5.54 10^6/uL (4.1-5.3); Red Cell Distribution Width 12.4 % (12.1-15.1); White Blood Count 8.5 10^3/uL (4.0-10.0)
[2021-03-11 12:21] LABS: Alanine Aminotransferase 13 U/L (0-41); Albumin Level 3.7 g/dL (3.5-5.2); Alkaline Phosphatase 101 IU/L (40-130); Blood Urea Nitrogen 7 mg/dL (8-23); Calcium 8.7 mg/dL (8.5-10.5); Carbon Dioxide 22 mmol/L (22-29); Chloride 100 mmol/L (98-107); Globulin 3.2 g/dL (1.3-4.6); Glucose 78 mg/dL (65-115); Osmolality Calculated 279 mOsm/kg (285-295); Sodium 136 mmol/L (136-145); Total Bilirubin 0.4 mg/dL (0.15-1.2); Total Protein 6.9 g/dL (6.6-8.7)
[2021-03-11 12:28] LABS: Anion Gap 18.3 (5-19); Aspartate Amino Transferase 16 U/L (0-40); Potassium 4.3 mmol/L (3.5-5.1)
[2021-03-11 12:36] LABS: Vancomycin Trough 17.5 ug/mL (10-15)
== END 2021-03-11 10:52 | disposition home or self-care (01) ==
PROVIDERS: Visit Provider Student in an Organized Health Care Education/Training Program
DX: A41.9 Sepsis, unspecified organism (principal)
CPT/HCPCS: 80053; 80202; 85025

== ENCOUNTER 2021-06-11 18:37 | Inpatient (IN) | payer OTHER, SELFPAY ==
[2021-06-11] VITALS (22 sets, daily range): BP systolic 91–145; BP diastolic 66–90; PULSE 62–95; RESP 16–28; TEMP 36.4; O2SAT 93–99; BMI 49.9
[2021-06-11] MEDS: vecuronium 10 mg SDV IVP (18:57)
--- NOTE | 2021-06-11 18:57 | CTR_ITS ---
PROCEDURE INFORMATION: Exam: CT Head Without Contrast Exam date and time: 06/11/2021 6:57 PM Age: 70 years old Clinical indication: Altered mental status/memory loss; Additional info: Ams/pt intubated TECHNIQUE: Imaging protocol: Computed tomography of the head without contrast. Radiation optimization: All CT scans at this facility use at least one of these dose optimization techniques: automated exposure control; mA and/or kV adjustment per patient size (includes targeted exams where dose is matched to clinical indication); or iterative reconstruction. COMPARISON: CT head wo con* [id number] 02/03/2021 6:30 PM RADIATION DOSE METRICS: Total DLP (mGy-cm): 936.01 FINDINGS: Brain: There is marked cerebral atrophy. There is moderate diffuse heterogeneity of the white matter attenuation, consistent with chronic white matter ischemic changes. Negative for intracranial hemorrhage. No intracranial mass. No acute brain ischemia. No midline shift of brain. Small lacunar infarct within the anterior right thalamus region. Cerebral ventricles: No ventriculomegaly. Paranasal sinuses: Small air-fluid level in the left maxillary sinus. Scattered ethmoid air cell mucosal thickening. Mastoid air cells: Visualized mastoid air cells are well aerated. Orbital cavity: Symmetric orbits. Bones/joints: Unremarkable. No acute fracture. Soft tissues: Unremarkable. Nasopharynx: Fluid within posterior nasopharynx. CT/CT head wo con* [id number] IMPRESSION: Negative for acute intracranial abnormality. Radiation Dose CTDIVOL = (mGy): DLP = 936.01 (mGy-cm)
--- NOTE | 2021-06-11 18:57 | XRR_ITS ---
PROCEDURE INFORMATION: Exam: XR Chest Exam date and time: 06/11/2021 6:57 PM Age: 70 years old Clinical indication: Device placement; Other: Et and ng tube; Additional info: SOB TECHNIQUE: Imaging protocol: XR of the chest. Views: 1 view. COMPARISON: CR XR chest 1V portable [id number] 02/13/2021 9:18 AM FINDINGS: Tubes, catheters and devices: Mid trachea positioning of endotracheal tube. NG tube in the proximal stomach. Distal side hole just above esophageal hiatus. Lungs: Unremarkable. No consolidation. Pleural spaces: Unremarkable. No pleural effusion. No pneumothorax. Heart/Mediastinum: Unremarkable. No cardiomegaly. Bones/joints: Unremarkable. XR/XR chest 1V portable [id number] IMPRESSION: 1. Satisfactory endotracheal tube position. 2. Recommended advancing of enteric tube 10 cm.
--- NOTE | 2021-06-11 18:57 | ECG_ITS ---
[facility] ED Test Date: 2021-06-11 Pat Name: Robert Crisostomo Department: Room: Gender: Male Private Pilot: : 1950 Requested By: Harvey Mckeon Order Number: [id number] Yaya MD: Jessica Murillo M.D. Measurements Intervals [place] Rate: 62 P: 74 OR: 146 QRS: 72 QRSD: 88 T: 85 QT: 399 QTc: 405 Interpretive Statements SINUS RHYTHM MODERATE T-WAVE ABNORMALITY, CONSIDER ANTERIOR ISCHEMIA [-0.1+ mV T WAVE IN V3/V4] Compared to ECG 06/11/2021 21:48:40 T-wave abnormality now present Possible ischemia now present Electronically Signed On 06-17-2021 0:31:21 CDT by Jessica Murillo M.D. [id number]
--- NOTE | 2021-06-11 18:57 | PC.NURSE ---
PT WAS INTUBATED AT 1855 WITH A 8.0 TUBE AND 25 AT LIP
[2021-06-11 19:05] LABS: Basophils # 0.1 10^3/uL (0.0-0.1); Basophils % 0.4 %; Eosinophils # 0.1 10^3/uL (0.0-0.8); Eosinophils % 0.4 %; Hematocrit 52.6 % (42.0-52.0); Hemoglobin 16.5 g/dL (11.7-16.6); Lymphocytes # 1.7 10^3/uL (0.8-4.8); Lymphocytes % 10.8 %; Mean Corpuscular HGB Conc 31.4 g/dL (30.0-36.0); Mean Corpuscular Hemoglobin 31.4 pg (28.0-34.0); Mean Corpuscular Volume 100.2 fL (80-94); Mean Platelet Volume 10.4 fL (7.4-10.4); Monocytes # 1.7 10^3/uL (0.2-0.9); Monocytes % 10.8 %; Neutrophils # 11.82 10^3/uL (1.8-7.7); Neutrophils % 75.9 %; Nucleated Red Blood Cells % 0.3 %; Platelet Count 239 10^3/cmm (130-400); Red Blood Count 5.25 10^6/uL (4.1-5.3); Red Cell Distribution Width 14.4 % (12.1-15.1); White Blood Count 15.6 10^3/uL (4.0-10.0)
[2021-06-11] MEDS: propofol 1,000 MG/100 ML INJ 4.08 MG IV (19:14)
[2021-06-11 19:17] LABS: INR 1.23 (0.8-1.2)
[2021-06-11] MEDS: sodium chloride 0.9% 1,000 ML 999 ML IV (19:22)
[2021-06-11 19:24] LABS: Lactate (Lactic Acid level) 1.2 mmol/L (0.5-2.2)
[2021-06-11 19:26] LABS: ABG PCO2 54.1 mmHg (35-45); ABG PH Result 7.38 (7.35-7.45); Arterial Blood Gas Hematocrit 47.9 % (42-52); Base Excess ABG 5.1 mmol/L (-2.0-2.0); Blood Gas Allen Test Pos; Blood Gas Sample Site Radial, right; Blood Gas Sample Type Arterial; Blood Gas Tidal Volume 0.45; HCO3 ABG 31.9 mmol/L (22-26); Oxygen Device VENT
[2021-06-11 19:34] LABS: Alanine Aminotransferase 270 U/L (0-41); Albumin Level 4.2 g/dL (3.5-5.2); Alkaline Phosphatase 114 IU/L (40-130); Anion Gap 16.8 (5-19); Aspartate Amino Transferase 190 U/L (0-40); Blood Urea Nitrogen 44 mg/dL (8-23); Calcium 7.8 mg/dL (8.5-10.5); Carbon Dioxide 33 mmol/L (22-29); Chloride 90 mmol/L (98-107); Globulin 3.1 g/dL (1.3-4.6); Glucose 191 mg/dL (65-115); Magnesium 1.9 mg/dL (1.7-2.3); NT Pro B Type Natriuretic Pept 7307 pg/mL (0-125); Osmolality Calculated 296 mOsm/kg (285-295); Phosphorus 4.7 mg/dL (2.5-4.5); Potassium 4.8 mmol/L (3.5-5.1); Sodium 135 mmol/L (136-145); Total Bilirubin 0.7 mg/dL (0.15-1.2); Total Protein 7.3 g/dL (6.6-8.7)
[2021-06-11 19:35] LABS: Acetaminophen < 5.0 ug/mL (10-30); Alcohol Level < 10 mg/dL (0-10); Salicylate < 0.3 mg/dL (3-10)
[2021-06-11 19:36] LABS: Troponin(5th) Baseline 60 ng/L (0-15)
[2021-06-11 19:41] LABS: Bilirubin Urine 1+ (Negative); Blood Urine Neg (Negative); Glucose Urine UA Norm (Normal); Ketones Urine Negative (Negative); Nitrate Urine Negative (Negative); Protein Urine 1+ (Negative); Specific Gravity, Urine 1.025 (1.005-1.030); Urine Appearance Clear (CLEAR); Urine Color Dark Yellow (Yellow); Urobilinogen Urine 8 mg/dL (Negative); pH Urine 5 (5-7)
[2021-06-11 19:42] LABS: Add Urine Microscopic? YES; Bacteria Urine TRACE /hpf; Hyaline Casts Urine 0-4 /lpf; Leukocyte Esterase Urine Negative (Negative); RBC Urine RARE /hpf (0-2); Squamous Epithelial Cell Urine 0-4 /hpf (0-5); WBC Urine RARE /hpf (0-5)
--- NOTE | 2021-06-11 20:04 | ED_ITS ---
HPI - General Adult General: Chief complaint: Altered Mental Status Stated complaint: AMS, LOW O2 SAT Time Seen by Provider: 06/11/21 18:37 Source: family and EMS Mode of arrival: EMS Limitations: altered mental status History of Present Illness: HPI narrative: 70-year-old male here by EMS. Spoke to family on the phone he states that he had a seizure at 6. He does have a seizure history but he states that he was unresponsive for quite some time after the seizure. EMS brought him in he is still completely unresponsive with shallow tachypnea breathing and on 15 L nonrebreather. He was hypoxic at the scene. Patient was immediately and abated due to his respiratory distress. Family states he said no recent fever cough. No recent injuries or head trauma. Patient here is completely unresponsive and no history available from patient. Review of Systems General: Reports: ROS unobtainable due to mental status PFSH ED PFSH: Medical History Acute respiratory failure with hypoxia and hypercapnia CAD (coronary artery disease) Details unknown COPD (chronic obstructive pulmonary disease) DM type 2 (diabetes mellitus, type 2) [id number], on Metformin History of echocardiogram (~05/2020) Normal left ventricular size and systolic function with an EF of 60%, no regional wall motion abnormalities, grade 1/4 diastolic dysfunction, normal to mildly elevated filling pressures and mild left ventricular hypertrophy. Thickened aortic and mitral valves were noted. HLD (hyperlipidemia) Statin therapy HTN (hypertension) Hyperammonemia Ammonia level of 92 in May 2020 Lung cancer Diagnosis reported in old records but details unknown Pneumonia Post-traumatic seizures Notated on several ER visits, details otherwise unknown, on Kera Sepsis Smoking addiction Surgical History H/O neck surgery H/O: knee surgery History of shoulder surgery Hx of appendectomy Family History Other Cancer Heart disease Social History Smoking and tobacco status: current every day smoker cigarettes Packs smoked per day: 1 Alcohol intake: never Lives independently: Yes Household members: spouse Marital status: Current occupational status: retired Physical Exam Const: COMMON NORMALS: healthy appearing; apparent distress and negative for patient oriented x3 EXAM LIMITATIONS: altered mental status GENERAL APPEARANCE: in distress HENMT: COMMON NORMALS: normocephalic and atraumatic HEAD & SCALP: normocephalic and atraumatic Eye: COMMON NORMALS: Equal, round and reactive pupils present and EOMs intact bilaterally PUPIL: Yes Equal, round and reactive pupils present Neck/C-Spine: COMMON NORMALS: full ROM and supple Chest: COMMONS NORMALS: normal inspection of the chest and normal palpation of entire chest wall Resp: COMMON NORMALS: clear to auscultation bilaterally EFFORT & INSPECTION: Yes tachypneic and Yes labored AUSCULTATION: clear to auscultation bilaterally Cardio: COMMON NORMALS: regular rate, regular rhythm and No murmurs present (Cardio) RATE: regular rate RHYTHM: regular rhythm GI: COMMON NORMALS: Normal to inspection, nondistended, normoactive bowel sounds present, Soft to palpation, non-tender and no masses PALPATION: Yes Soft to palpation Extremity: COMMON NORMALS: normal to inspection and full ROM Neuro: COMMON NORMALS: moves all extremities and no focal motor deficits; negative for patient oriented x3 Psych: COMMON NORMALS: mental status grossly normal, Normal thought process present and cooperative THOUGHT PROCESS: Normal thought process present Skin: COMMON NORMALS: no rashes or lesions noted and no wounds GENERAL SKIN EXAM: no rashes or lesions noted Procedures Intubation Time out performed: Yes sedative: Etomidate Mg Given: 20 paralytic: Vecuronium Mg Given: 10 Laryngoscope: Patria ET Tube Size: 8 ET Tube Uncuffed: No Tube Secured Depth (cm): 15 Tube Secured Location: lips Tube Placement Confirmation: visualized tube passing through cords, equal breath sounds bilaterally, no breath sounds over epigastrium and confirmation by capn ometry Patient Tolerated Procedure: well Intubation Complications: none Course Vital Signs: Vital signs: Vital Signs Pulse Rate 62 06/11/21 21:15 Respiratory Rate 16 06/11/21 19:39 Blood Pressure 101/66 06/11/21 21:15 Pulse Oximetry 97 06/11/21 21:15 MDM - General Adult MDM Narrative: Medical decision making narrative: Patient presents here with seizure at home and has been having extended period of altered mental status. Patient had respiratory failure as well and had to be intubated. Patient's been stable here. I spoke to the hospitalist and will admit at this time. Has had no more seizures. Did give him IV Keppra here. Lab Data: Labs: Lab Results 06/11/21 06/11/21 06/11/21 Range/Units 18:52 18:52 18:52 WBC (4.0-10.0) 10^3/ uL RBC (4.1-5.3) 10^6/u L Hgb (11.7-16.6) g/dL Hct (42.0-52.0) % MCV (80-94) fL MCH (28.0-34.0) pg MCHC (30.0-36.0) g/dL RDW (12.1-15.1) % Plt Count (130-400) 10^3/c mm MPV (7.4-10.4) fL Neut % (Auto) % Lymph % (Auto) % [place] % (Auto) % Eos % (Auto) % Baso % (Auto) % Neut # (Auto) (1.8-7.7) 10^3/u L Lymph # (Auto) (0.8-4.8) 10^3/u L [place] # (Auto) (0.2-0.9) 10^3/u L Eos # (Auto) (0.0-0.8) 10^3/u L Baso # (Auto) (0.0-0.1) 10^3/u L Nucleated RBC % (a uto) % Nucleated RBCs # /100WBC PT 15.90 H (12.1-14.9) SECO NDS INR 1.23 H (0.8-1.2) Specimen Type Sample Site ABG pH (7.35-7.45) ABG pCO2 (35-45) mmHg ABG pO2 (80.0-100.0) mmH g ABG HCO3 (22-26) mmol/L ABG Base Excess (-2.0-2.0) mmol/ L Newton Test Hematocrit (42-52) % O2 Delivery Device FiO2 % Tidal Volume PEEP cmH20 Pile Driver Operator Barge Mounted ID Sodium 135 L (136-145) mmol/L Potassium 4.8 (3.5-5.1) mmol/L Chloride 90 L (98-107) mmol/L Carbon Dioxide 33 H (22-29) mmol/L Anion Gap 16.8 (5-19) BUN 44 H (8-23) mg/dL Creatinine 1.7 H (0.7-1.2) mg/dL GFR Calculation Not Reportable Glucose 191 H (65-115) mg/dL POC Glucose (70-110) mg/dL Calculated Osmolal ity 296 H (285-295) mOsm/k g Lactate 1.2 (0.5-2.2) mmol/L Calcium 7.8 L (8.5-10.5) mg/dL Phosphorus 4.7 H (2.5-4.5) mg/dL Magnesium 1.9 (1.7-2.3) mg/dL Total Bilirubin 0.7 (0.15-1.2) mg/dL AST 190 H (0-40) U/L ALT 270 H (0-41) U/L Alkaline Phosphata se 114 (40-130) IU/L Troponin T Baselin e (0-15) ng/L NT-Pro-B Natriuret Pep 7307 H (0-125) pg/mL Total Protein 7.3 (6.6-8.7) g/dL Albumin 4.2 (3.5-5.2) g/dL Globulin 3.1 (1.3-4.6) g/dL Urine Color (Yellow) Urine Appearance (CLEAR) Urine pH (5-7) Ur Specific Gravit y (1.005-1.030) Urine Protein (Negative) Urine Glucose (UA) (Normal) Urine Ketones (Negative) Urine Blood (Negative) Urine Nitrate (Negative) Urine Bilirubin (Negative) Urine Urobilinogen (Negative) mg/dL Ur Leukocyte Lizzeth ase (Negative) Urine RBC (0-2) /hpf Urine WBC (0-5) /hpf Ur Squamous Epith Cells (0-5) /hpf Amorphous Sediment Urine Bacteria (NONE) /hpf Hyaline Casts /lpf Salicylates < 0.3 L (3-10) mg/dL Acetaminophen < 5.0 L (10-30) ug/mL Ethyl Alcohol < 10 (0-10) mg/dL SARS-CoV-2 Ag (Rap id) (Negative) 06/11/21 06/11/21 06/11/21 Range/Units 18:52 18:56 19:06 WBC 15.6 H (4.0-10.0) 10^3/ uL RBC 5.25 (4.1-5.3) 10^6/u L Hgb 16.5 (11.7-16.6) g/dL Hct 52.6 H (42.0-52.0) % MCV 100.2 H (80-94) fL MCH 31.4 (28.0-34.0) pg MCHC 31.4 (30.0-36.0) g/dL RDW 14.4 (12.1-15.1) % Plt Count 239 (130-400) 10^3/c mm MPV 10.4 (7.4-10.4) fL Neut % (Auto) 75.9 % Lymph % (Auto) 10.8 % [place] % (Auto) 10.8 % Eos % (Auto) 0.4 % Baso % (Auto) 0.4 % Neut # (Auto) 11.82 H (1.8-7.7) 10^3/u L Lymph # (Auto) 1.7 (0.8-4.8) 10^3/u L [place] # (Auto) 1.7 H (0.2-0.9) 10^3/u L Eos # (Auto) 0.1 (0.0-0.8) 10^3/u L Baso # (Auto) 0.1 (0.0-0.1) 10^3/u L Nucleated RBC % (a uto) 0.3 % Nucleated RBCs # 0.0 /100WBC PT (12.1-14.9) SECO NDS INR (0.8-1.2) Specimen Type Sample Site ABG pH (7.35-7.45) ABG pCO2 (35-45) mmHg ABG pO2 (80.0-100.0) mmH g ABG HCO3 (22-26) mmol/L ABG Base Excess (-2.0-2.0) mmol/ L Newton Test Hematocrit (42-52) % O2 Delivery Device FiO2 % Tidal Volume PEEP cmH20 Pile Driver Operator Barge Mounted ID Sodium (136-145) mmol/L Potassium (3.5-5.1) mmol/L Chloride (98-107) mmol/L Carbon Dioxide (22-29) mmol/L Anion Gap (5-19) BUN (8-23) mg/dL Creatinine (0.7-1.2) mg/dL GFR Calculation Glucose (65-115) mg/dL POC Glucose (70-110) mg/dL Calculated Osmolal ity (285-295) mOsm/k g Lactate (0.5-2.2) mmol/L Calcium (8.5-10.5) mg/dL Phosphorus (2.5-4.5) mg/dL Magnesium (1.7-2.3) mg/dL Total Bilirubin (0.15-1.2) mg/dL AST (0-40) U/L ALT (0-41) U/L Alkaline Phosphata se (40-130) IU/L Troponin T Baselin e 60 H (0-15) ng/L NT-Pro-B Natriuret Pep (0-125) pg/mL Total Protein (6.6-8.7) g/dL Albumin (3.5-5.2) g/dL Globulin (1.3-4.6) g/dL Urine Color Dark yellow (Yellow) Urine Appearance Clear (CLEAR) Urine pH 5 (5-7) Ur Specific Gravit y 1.025 (1.005-1.030) Urine Protein 1+ H (Negative) Urine Glucose (UA) Norm (Normal) Urine Ketones Negative (Negative) Urine Blood Neg (Negative) Urine Nitrate Negative (Negative) Urine Bilirubin 1+ H (Negative) Urine Urobilinogen 8 H (Negative) mg/dL Ur Leukocyte Lizzeth ase Negative (Negative) Urine RBC Rare (0-2) /hpf Urine WBC Rare (0-5) /hpf Ur Squamous Epith Cells 0-4 H (0-5) /hpf Amorphous Sediment Not Reportable Urine Bacteria Trace (NONE) /hpf Hyaline Casts 0-4 H /lpf Salicylates (3-10) mg/dL Acetaminophen (10-30) ug/mL Ethyl Alcohol (0-10) mg/dL SARS-CoV-2 Ag (Rap id) (Negative) 06/11/21 06/11/21 06/11/21 Range/Units 19:15 19:20 20:05 WBC (4.0-10.0) 10^3/ uL RBC (4.1-5.3) 10^6/u L Hgb (11.7-16.6) g/dL Hct (42.0-52.0) % MCV (80-94) fL MCH (28.0-34.0) pg MCHC (30.0-36.0) g/dL RDW (12.1-15.1) % Plt Count (130-400) 10^3/c mm MPV (7.4-10.4) fL Neut % (Auto) % Lymph % (Auto) % [place] % (Auto) % Eos % (Auto) % Baso % (Auto) % Neut # (Auto) (1.8-7.7) 10^3/u L Lymph # (Auto) (0.8-4.8) 10^3/u L [place] # (Auto) (0.2-0.9) 10^3/u L Eos # (Auto) (0.0-0.8) 10^3/u L Baso # (Auto) (0.0-0.1) 10^3/u L Nucleated RBC % (a uto) % Nucleated RBCs # /100WBC PT (12.1-14.9) SECO NDS INR (0.8-1.2) Specimen Type Arterial Sample Site Radial, right ABG pH 7.38 (7.35-7.45) ABG pCO2 54.1 H (35-45) mmHg ABG pO2 454.0 H (80.0-100.0) mmH g ABG HCO3 31.9 H (22-26) mmol/L ABG Base Excess 5.1 H (-2.0-2.0) mmol/ L Newton Test Pos Hematocrit 47.9 (42-52) % O2 Delivery Device Vent FiO2 100.0 % Tidal Volume 0.45 PEEP 5.0 cmH20 Pile Driver Operator Barge Mounted ID Hinja Sodium (136-145) mmol/L Potassium (3.5-5.1) mmol/L Chloride (98-107) mmol/L Carbon Dioxide (22-29) mmol/L Anion Gap (5-19) BUN (8-23) mg/dL Creatinine (0.7-1.2) mg/dL GFR Calculation Glucose (65-115) mg/dL POC Glucose 190 H (70-110) mg/dL Calculated Osmolal ity (285-295) mOsm/k g Lactate (0.5-2.2) mmol/L Calcium (8.5-10.5) mg/dL Phosphorus (2.5-4.5) mg/dL Magnesium (1.7-2.3) mg/dL Total Bilirubin (0.15-1.2) mg/dL AST (0-40) U/L ALT (0-41) U/L Alkaline Phosphata se (40-130) IU/L Troponin T Baselin e (0-15) ng/L NT-Pro-B Natriuret Pep (0-125) pg/mL Total Protein (6.6-8.7) g/dL Albumin (3.5-5.2) g/dL Globulin (1.3-4.6) g/dL Urine Color (Yellow) Urine Appearance (CLEAR) Urine pH (5-7) Ur Specific Gravit y (1.005-1.030) Urine Protein (Negative) Urine Glucose (UA) (Normal) Urine Ketones (Negative) Urine Blood (Negative) Urine Nitrate (Negative) Urine Bilirubin (Negative) Urine Urobilinogen (Negative) mg/dL Ur Leukocyte Lizzeth ase (Negative) Urine RBC (0-2) /hpf Urine WBC (0-5) /hpf Ur Squamous Epith Cells (0-5) /hpf Amorphous Sediment Urine Bacteria (NONE) /hpf Hyaline Casts /lpf Salicylates (3-10) mg/dL Acetaminophen (10-30) ug/mL Ethyl Alcohol (0-10) mg/dL SARS-CoV-2 Ag (Rap id) Negative (Negative) Imaging Data^: CXR: Attestation: I personally reviewed and interpreted this imaging study as follows: My impression: no acute abnormality, et tube in place EKG Data^: EKG 1: Attestation: I personally reviewed and interpreted this EKG as follows: EKG interpretation date: 06/11/21 EKG interpretation time: 18:50 Interpretation: nsr hr [address] or t wave abnormalities Computer generated interpretation: Chest X-Ray 06/11/21 18:57 IMPRESSION: 1. Satisfactory endotracheal tube position. 2. Recommended advancing of enteric tube [address] 06/11/21 18:57 IMPRESSION: Negative for acute intracranial abnormality. Radiation Dose CTDIVOL = (mGy): DLP = 936.01 (mGy-cm) Critical Care Time Critical Care Time: Critical Care Time: Yes Total Critical Care Time: 35 Attestation: This case had a high probability of a clinically significant, sudden, or life threatening deterioration of this patient's condition which required my full and direct attention, intervention and personal management. Discharge Plan Discharge Patient Disposition: Admitted As Inpatient Clinical Impression: Seizure, Respiratory failure Condition: Stable Coding Level of Care Code ED Welding Machine Operator Arc for Jeremy Howell Exam Comprehensive
[2021-06-11 20:07] LABS: SARS Covid-2 Antigen Negative (Negative)
[2021-06-11 20:08] LABS: Glucose Point of Care 190 mg/dL (70-110)
--- NOTE | 2021-06-11 20:57 | ECG_ITS ---
[facility] ED Test Date: 2021-06-11 Pat Name: Robert Crisostomo Department: Room: Gender: Male Credit Resolution Representative: : 1950 Requested By: Harvey Mckeon Order Number: [id number] Yaya MD: Jessica Murillo M.D. Measurements Intervals [place] Rate: 60 P: 74 PA: 142 QRS: 73 QRSD: 94 T: 86 QT: 397 QTc: 399 Interpretive Statements SINUS RHYTHM Compared to ECG 02/03/2021 23:33:28 Sinus arrhythmia no longer present Electronically Signed On 06-20-2021 12:43:45 CDT by Jessica Murillo M.D. [email or web address] [email or web address].[employer]store/OM/[id number]
--- NOTE | 2021-06-11 21:42 | PM.HP ---
Providers/Chief Complaint Admitting Physician: Ayse Tovar MD Chief Complaint: AMS, LOW O2 SAT History of Present Illness Robert Crisostomo is a 70 year old male With a past medical history as outlined below who was brought by EMS after having sustained a seizure at 6 PM at home today. Upon arrival at the ER he was unresponsive with shallow breathing requiring supplemental oxygen with 15 L nonrebreather and was intubated. Limited history is available from his . She states he had not been sick recently. No fever chills. Uncertain if patient has been taking his Keppra as prescribed. CT head negative for any acute intracranial abnormalities. Chest x-ray with clear lungs, no consolidation. Negative rapid Covid antigen. Other notable labs are leukocytosis of 15.6, BELKIS with creatinine of 1.7, transaminitis, negative serial troponins Review of Systems General: Reports: ROS unobtainable due to endotracheal tube and ROS unobtainable due to medical condition Medications/Allergies Home Medications Medication Instructions Recorded Confirmed Last Taken Type albuterol sulfate 2 puff INHALATION QID 05/30/20 06/11/21 Unknown History amlodipine 2.5 mg PO DAILY 05/30/20 06/11/21 07/07/20 History dorzolamide-timolol 1 drp OPHTHALMIC (EYE) BID 05/30/20 06/11/21 07/07/20 History gabapentin 600 mg PO BID 05/30/20 06/11/21 07/07/20 History ipratropium-albuterol 3 ml INHALATION QID 05/30/20 06/11/21 Unknown History levetiracetam See Rx Instructions .ROUTE .COMPLEX 05/30/20 06/11/21 07/07/20 History metformin 500 mg PO DAILY 05/30/20 06/11/21 07/07/20 History omega 3-bcj-zvs-fish oil [Fish Oil] 1 cap PO BID 05/30/20 06/11/21 07/07/20 History pantoprazole [Protonix] 40 mg PO DAILY 05/30/20 06/11/21 07/07/20 History polyethylene glycol 3350 [Miralax] See Rx Instructions .ROUTE .COMPLEX 05/30/20 06/11/21 Unknown History rosuvastatin [Crestor] 5 mg PO DAILY 05/30/20 06/11/21 07/07/20 History albuterol sulfate 2 inh INHALATION Q4H PRN #6.7 gm 07/07/20 06/11/21 Unknown Rx aspirin 325 mg PO DAILY 07/07/20 06/11/21 07/07/20 History Allergies Allergy/AdvReac Type Severity Reaction Status Date / Time melton Allergy Unknown Verified 06/11/21 18:55 hydrocodone Allergy Unknown Verified 06/11/21 18:55 lisinopril Allergy Unknown Verified 06/11/21 18:55 niacin Allergy Unknown Verified 06/11/21 18:55 pravastatin Allergy Unknown Verified 06/11/21 18:55 simvastatin Allergy Unknown Verified 06/11/21 18:55 strawberry Allergy Unknown Verified 06/11/21 18:55 tramadol Allergy Unknown Verified 06/11/21 18:55 PFSH Acute PFSH: Medical History Acute respiratory failure with hypoxia and hypercapnia CAD (coronary artery disease) Details unknown COPD (chronic obstructive pulmonary disease) DM type 2 (diabetes mellitus, type 2) Lzq-clrfoks-vqyzuouus, on Metformin History of echocardiogram (~05/2020) Normal left ventricular size and systolic function with an EF of 60%, no regional wall motion abnormalities, grade 1/4 diastolic dysfunction, normal to mildly elevated filling pressures and mild left ventricular hypertrophy. Thickened aortic and mitral valves were noted. HLD (hyperlipidemia) Statin therapy HTN (hypertension) Hyperammonemia Ammonia level of 92 in May 2020 Lung cancer Diagnosis reported in old records but details unknown Pneumonia Post-traumatic seizures Notated on several ER visits, details otherwise unknown, on Keppra Sepsis Smoking addiction Surgical History H/O neck surgery H/O: knee surgery History of shoulder surgery Hx of appendectomy Family History Other Cancer Heart disease Social History Smoking and tobacco status: current every day smoker cigarettes Packs smoked per day: 1 Alcohol intake: never Lives independently: Yes Household members: spouse Marital status: Current occupational status: retired Vitals/I&O/Wt Last Vital Signs Pulse 62 06/11/21 21:15 Resp 16 06/11/21 19:39 BP 101/66 06/11/21 21:15 Pulse Ox 97 06/11/21 21:15 Weight last 48 hrs Weight 136.078 kg Physical Exam Narrative: EXAM NARRATIVE: General: intubated,sedated HEENT: PERRLA, pupils bilaterally equal and reactive, pallors not present Chest: Normal vesicular breath sounds, no added sounds, equal good air entry bilaterally CVS: S1-S2 regular, no murmurs, no tachycardia, no gallops, no rubs Abdomen: Soft, nontender, no organomegaly, bowel sounds present Neuro: No focal deficits, no facial deformity, AO x3, power 5/5 in all limbs Extremities: Healthy surgical dressing present on the right hip, mild tenderness, soft no erythema. Urinary Catheter Management^: Shirley: Cath Placed During This Visit: yes Urinary Catheter Date of Insertion: 06/11/21 Urinary Catheter Time of Insertion: 19:06 Data : 06/12/21 01:43 06/12/21 01:43 Micro: Microbiology 06/11/21 20:59 Blood Culture - Preliminary Blood SPECIMEN COLLECTED 06/11/21 18:52 Blood Culture - Preliminary Blood SPECIMEN COLLECTED A&P Assessment and plan (1) Seizure: Patient presenting today with reported breakthrough seizure this evening in spite of being on Keppra. Unable to ascertain if patient is compliant with his home medications. Check Keppra level Intubated upon admission due to low GCS and airway protection, likely from postictal state CT head without acute intracranial abnormalities Electrolytes within range. Check TSH Is as per received a loading dose of Keppra 1000 mg in the ED. Home dose appears to be 1500 mg in the morning, 1000 mg in the day. For now we will start patient with Keppra 1000 mg IV every 12 hours and monitor closely. Status: Acute (2) Respiratory failure: Low GCS secondary to seizure Status: Acute Qualifiers: Chronicity: acute Respiratory failure complication: hypoxia Qualified Code(s): J96.01 - Acute respiratory failure with hypoxia (3) BELKIS (acute kidney injury): Likely as a result of seizures Normal saline 75 cc an hour Monitor urine output closely with hydration Status: Acute Additional A&P Information Recent history of coag negative staph bacteremia in January 2021, treated with 1 month of IV vancomycin Elevated leukocytosis noted today, may be as a result of stress reaction from seizure No evident signs or symptoms of infection per history currently. Monitor off antimicrobials for now and trend leukocytosis with hydration DVT prophylaxis Lovenox Full code Attestations Medical Necessity Statement*: Anticipate greater than 2 midnight admission for seizure, low GCS, needing intubation for airway protection Coding Level of Care Code Acute Golf Stud Riveter for [facility] Diagnoses Seizure R56.9 Respiratory failure J96.01 Chronicity: acute Respiratory failure complication: hypoxia BELKIS (acute kidney injury) N17.9
[2021-06-11 22:13] LABS: Troponin 5 2HR 50.93 ng/L (0-15)
[2021-06-11 22:14] LABS: Troponin 5 2HR Delta -9.07 ABS# (0-10)
[2021-06-11 22:19] LABS: Creatine Phosphokinase 70 U/L (39-308)
[2021-06-11] MEDS: famotidine 20 mg/2 mL INJ IVP (22:52)
[2021-06-11] MEDS: enoxaparin 40 mg/0.4 mL Syringe SUBCUT (22:52)
[2021-06-11] MEDS: sodium chloride 0.9% 1,000 ML 75 ML IV (23:16)
[2021-06-12] VITALS (70 sets, daily range): BP systolic 96–156; BP diastolic 47–100; PULSE 63–93; RESP 14–26; TEMP 36.3–36.8; O2SAT 91–100
--- NOTE | 2021-06-12 00:57 | ECG_ITS ---
[facility] Test Date: 2021-06-11 Pat Name: Robert Crisostomo Department: Room: ICU08 Gender: Male Lease Out Man: : 1950 Requested By: Harvey Mckeon Order Number: [id number] Yaya MD: Toshia Bedoya M.D. Measurements Intervals [place] Rate: 93 P: 64 [place]: 146 QRS: 72 QRSD: 86 T: 78 QT: 342 QTc: 427 Interpretive Statements SINUS RHYTHM MODERATE T-WAVE ABNORMALITY, CONSIDER ANTERIOR ISCHEMIA [-0.1+ mV T WAVE IN V3/V4] Compared to ECG 02/03/2021 23:33:28 T-wave abnormality now present Possible ischemia now present Sinus arrhythmia no longer present Electronically Signed On 06-13-2021 14:43:26 CDT by Toshia Bedoya M.D. [email or web address].iN[facility] Realtyclevel[facility].[employer]/store/NU/[id number] f
[2021-06-12 01:50] LABS: Basophils # 0.1 10^3/uL (0.0-0.1); Basophils % 0.4 %; Eosinophils # 0.1 10^3/uL (0.0-0.8); Eosinophils % 0.8 %; Hematocrit 48.2 % (42.0-52.0); Hemoglobin 14.6 g/dL (11.7-16.6); Lymphocytes # 2.6 10^3/uL (0.8-4.8); Lymphocytes % 19.7 %; Mean Corpuscular HGB Conc 30.3 g/dL (30.0-36.0); Mean Corpuscular Hemoglobin 31.8 pg (28.0-34.0); Mean Platelet Volume 10.3 fL (7.4-10.4); Monocytes # 1.6 10^3/uL (0.2-0.9); Monocytes % 12.2 %; Neutrophils # 8.71 10^3/uL (1.8-7.7); Neutrophils % 66.1 %; Nucleated Red Blood Cells % 0.3 %; Platelet Count 156 10^3/cmm (130-400); Red Blood Count 4.59 10^6/uL (4.1-5.3); Red Cell Distribution Width 14.3 % (12.1-15.1); White Blood Count 13.2 10^3/uL (4.0-10.0)
[2021-06-12 02:10] LABS: Troponin 5 6HR 50.55 ng/L (0-15)
[2021-06-12 02:19] LABS: Alanine Aminotransferase 228 U/L (0-41); Albumin Level 3.2 g/dL (3.5-5.2); Alkaline Phosphatase 92 IU/L (40-130); Anion Gap 14.8 (5-19); Aspartate Amino Transferase 149 U/L (0-40); Blood Urea Nitrogen 40 mg/dL (8-23); Calcium 7.3 mg/dL (8.5-10.5); Carbon Dioxide 28 mmol/L (22-29); Chloride 95 mmol/L (98-107); Globulin 2.8 g/dL (1.3-4.6); Glucose 118 mg/dL (65-115); Osmolality Calculated 289 mOsm/kg (285-295); Potassium 3.8 mmol/L (3.5-5.1); Sodium 134 mmol/L (136-145); Thyroid Stimulating Hormone 1.09 uIU/mL (0.27-4.20); Total Bilirubin 0.8 mg/dL (0.15-1.2)
[2021-06-12] MEDS: ipratropium-albuterol 3 mL Neb INHALATION ×3 (04:32→14:25)
[2021-06-12 05:40] LABS: ABG PCO2 44.1 mmHg (35-45); ABG PH Result 7.48 (7.35-7.45); Base Excess ABG 7.9 mmol/L (-2.0-2.0); Blood Gas Allen Test Pos; Blood Gas Sample Site Radial, right; Blood Gas Sample Type Arterial; Blood Gas Tidal Volume 0.45; HCO3 ABG 32.6 mmol/L (22-26); Oxygen Device VENT
[2021-06-12 08:29] LABS: D Dimer 5.73 ug/mIFEU (0-0.59)
--- NOTE | 2021-06-12 08:29 | PC.NURSE ---
recd. more awake. weak buckle coverer on command. opens eyes to command.
[2021-06-12] MEDS: amlodipine 5 mg Tablet 2.5 MG PO (08:50)
[2021-06-12] MEDS: aspirin 325 mg Tablet PO (08:51)
[2021-06-12] MEDS: famotidine 20 mg/2 mL INJ IVP ×2 (08:51→21:58)
[2021-06-12] MEDS: atorvastatin 40 mg Tablet 20 MG PO (08:52)
--- NOTE | 2021-06-12 09:08 | PC.CHAP ---
Pastoral Care Encounter/Spiritual Assessment Type of Contact [] Declined pediatric physician assistant visit [] Patient/Family/Request visit [] Outpatient visit [] Follow-up visit [] Physician referral [] Code/Alert [x] Routine visit [] Staff referral [] Actively dying [] Patient sleeping [] Family support [] [] Out of room [] Palliative care [] [x] Receiving care in room [] Pre-surgical visit [] Trauma [] Long length of stay [x] ICU visit [x] Other: ventilator Relational/Emotional Strength [] Patient feels connected with others/family/visitors/staff [] Distress [] Loneliness/isolation [] Abandonment Spirituality of Patient [] Person of Bianca [] Attends Mosque of their Bianca [] Believes in Prayer [] Reads Bible or Mosque materials [] There are Spiritual issues to be addressed Sports Broadcaster Interventions [x] Prayer [] Active listening [] Non-anxious presence [] Spiritual/emotional support [] Crisis/trauma care [] Spiritual counseling [] Bereavement support [] Provided bereavement packet [] Provided Bible/devotional materials [] Provided toy/stuffed animal, coloring book to patient or family member [] Provided Communion [] Anointing/[place] [] Salvation [x] Completed spiritual assessment [] Other: Impact on Illness or Injury [] Angry [] Fearful [] Anxious [] Often cries [] Exhaustion [] Unable to work [] Unable to attend temple [] Unable to walk/stand [] Unable to read [] Unable to drive [] Unable to eat/drink [] Unable to sleep [] Unable to be with family [] Patient intubated [] Other: Summary Time spent with patient
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
[2021-06-12] MEDS: sodium chloride 0.9% 1,000 ML 75 ML IV (13:24)
--- NOTE | 2021-06-12 13:45 | PC.NURSE ---
gtts off. on assist control. chris. well. sx copious amts of light yellow secretions.
[2021-06-12 14:20] LABS: Coronavirus Test Green County Not Detected
--- NOTE | 2021-06-12 17:34 | PC.NURSE ---
17:25-extubated. jerald voice asked, what happened. explained we thought he may have had a seizure I did have a seizure . stated
--- NOTE | 2021-06-12 17:49 | PC.NURSE ---
family updated on how pt. was doing, extubaton, and his statement r/t seizure. he states he takes 3 keppra in the morning and 4 at night. 650 mg ea tab.
--- NOTE | 2021-06-12 17:57 | PC.NURSE ---
nabor reached re: meds. pt hasnt filled meds for a year. and that was a pain reliever and augmentin. afamily, skylar stated ealier [facility]. pt. states that is correct.
--- NOTE | 2021-06-12 20:05 | PC.NURSE ---
Addendum entered by Tika Bartlett RN 06/13/21 03:28: Witnessed 100mL waste of fentanyl gtt Original Note: Wasted 100mL of fentanyl drip.
[2021-06-12] MEDS: enoxaparin 40 mg/0.4 mL Syringe SUBCUT (21:58)
[2021-06-13] VITALS (17 sets, daily range): BP systolic 108–160; BP diastolic 54–85; PULSE 68–86; RESP 14–20; TEMP 36.6–36.8; O2SAT 87–96
[2021-06-13] MEDS: sodium chloride 0.9% 1,000 ML 75 ML IV (03:08)
--- NOTE | 2021-06-13 09:13 | PC.CHAP ---
Pastoral Care Encounter/Spiritual Assessment Type of Contact [] Declined chromosomal disorders counselor visit [] Patient/Family/Request visit [] Outpatient visit [] Follow-up visit [] Physician referral [] Code/Alert [x] Routine visit [] Staff referral [] Actively dying [] Patient sleeping [] Family support [] [] Out of room [] Palliative care [] [x] Receiving care in room [] Pre-surgical visit [] Trauma [] Long length of stay [x] ICU visit [x] Other:possible being discharged... Relational/Emotional Strength [] Patient feels connected with others/family/visitors/staff [] Distress [] Loneliness/isolation [] Abandonment Spirituality of Patient [] Person of Bianca [] Attends Shinto of their Bianca [] Believes in Prayer [] Reads Bible or Roman Catholic materials [] There are Spiritual issues to be addressed Milk Driver Interventions [x] Prayer [] Active listening [] Non-anxious presence [] Spiritual/emotional support [] Crisis/trauma care [] Spiritual counseling [] Bereavement support [] Provided bereavement packet [] Provided Bible/devotional materials [] Provided toy/stuffed animal, coloring book to patient or family member [] Provided Communion [] Anointing/[place] [] Salvation [x] Completed spiritual assessment [] Other: Impact on Illness or Injury [] Angry [] Fearful [] Anxious [] Often cries [] Exhaustion [] Unable to work [] Unable to attend episcopalian [] Unable to walk/stand [] Unable to read [] Unable to drive [] Unable to eat/drink [] Unable to sleep [] Unable to be with family [] Patient intubated [] Other: Summary Time spent with patient
[2021-06-13] MEDS: atorvastatin 40 mg Tablet 20 MG PO (09:35)
[2021-06-13] MEDS: lacosamide 50 mg Tablet PO (09:35)
[2021-06-13] MEDS: aspirin 325 mg Tablet PO (09:36)
[2021-06-13] MEDS: amlodipine 5 mg Tablet 2.5 MG PO (09:36)
[2021-06-13] MEDS: levETIRAcetam 500 mg Tablet 1500 MG PO (09:37)
[2021-06-13] MEDS: ipratropium-albuterol 3 mL Neb INHALATION (13:56)
--- NOTE | 2021-06-13 14:51 | PC.NURSE ---
P t discharged. Discharged instructions provided and discussed. Oxygen safety discussed in detail. pt verbalized understanding.
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
--- NOTE | 2021-06-13 15:17 | PC.NURSE ---
Pt to room 101 awaiting family for transportation and clothing.
--- NOTE | 2021-06-14 10:31 | PC.RESP ---
Smoking Cessation information sent to patient.
== END 2021-06-13 15:16 | disposition home or self-care (01) | DRG 208 ==
LOC: ER 23:03 → ICU 06-12 05:53 → CSU 06-13 15:02 → ICU 06-13 15:14
PROVIDERS: Admitting Provider Student in an Organized Health Care Education/Training Program; Emergency Provider Emergency Medicine; Visit Provider Internal Medicine
DX: J96.01 Acute respiratory failure with hypoxia (principal); R56.1 Post traumatic seizures; N17.9 Acute kidney failure, unspecified; Z87.820 Personal history of traumatic brain injury; I25.10 Atherosclerotic heart disease of native coronary artery without angina pectoris; J44.9 Chronic obstructive pulmonary disease, unspecified; E11.9 Type 2 diabetes mellitus without complications; E78.5 Hyperlipidemia, unspecified; I10 Essential (primary) hypertension; Z85.118 Personal history of other malignant neoplasm of bronchus and lung; Z87.01 Personal history of pneumonia (recurrent); F17.210 Nicotine dependence, cigarettes, uncomplicated; Z79.51 Long term (current) use of inhaled steroids; Z79.84 Long term (current) use of oral hypoglycemic drugs
CPT/HCPCS: 36415; 36416; 36600; 51702; 70450; 71045; 80053; 80177; 80307; 81001; 82550; 82803; 82962; 83605; 83735; 83880; 84100; 84443; 84484; 85025; 85378; 85610; 87040; 87070; 87077; 87186; 87205; 87426; 87635; 93005; 94002; 94003; 94640; 94799; 96365; 96372; 99291; A4570; J1650; J1953; J2704; J3010; J3490; J7030; Q3014

== ENCOUNTER 2021-06-17 19:24 | Inpatient (IN) | payer OTHER, SELFPAY ==
[2021-06-17 19:34] VITALS: BP 124/62; PULSE 85; RESP 32; TEMP 36.6; O2SAT 96; BMI 38.2
--- NOTE | 2021-06-17 19:34 | CTR_ITS ---
PROCEDURE INFORMATION: Exam: CT Head Without Contrast Exam date and time: 06/17/2021 7:34 PM Age: 70 years old Clinical indication: Condition or disease; Convulsions or seizures; Additional info: AMS TECHNIQUE: Imaging protocol: Computed tomography of the head without contrast. Total images: 212 Radiation optimization: All CT scans at this facility use at least one of these dose optimization techniques: automated exposure control; mA and/or kV adjustment per patient size (includes targeted exams where dose is matched to clinical indication); or iterative reconstruction. COMPARISON: CT head wo con* [id number] 06/11/2021 7:46 PM RADIATION DOSE METRICS: Total DLP (mGy-cm): 894.04 FINDINGS: Brain: No evidence of active or acute intracranial pathologic process, hemorrhage, or trauma. Moderate small vessel ischemic disease with senile periventricular leukomalacia. 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 No mass effect. No midline shift. No hyperdense MCA or insular ribbon sign. Cerebral and cerebellar atrophy with ventricular dilatation greater than that anticipated for patient's chronological age. Cerebral ventricles: No ventriculomegaly. Paranasal sinuses: Left maxillary sinusitis. Mastoid air cells: Visualized mastoid air cells are well aerated. Bones/joints: Unremarkable. No acute fracture. Soft tissues: Unremarkable. Other findings: Motion artifact. CT/CT head wo con* [id number] IMPRESSION: 1. No evidence of active or acute intracranial pathologic process, hemorrhage, or trauma. 2. Left maxillary sinusitis. Radiation Dose CTDIVOL = (mGy): DLP = 894.04 (mGy-cm)
--- NOTE | 2021-06-17 19:34 | XRR_ITS ---
PROCEDURE INFORMATION: Exam: XR Chest Exam date and time: 06/17/2021 7:34 PM Age: 70 years old Clinical indication: Shortness of breath; Additional info: Seizure TECHNIQUE: Imaging protocol: XR of the chest. Views: 1 view. Total images: 1 COMPARISON: CR (CHEST, ) 06/11/2021 7:28 PM FINDINGS: Lungs: Subtle bibasilar ground-glass interstitial lung disease, left more involved than right, which could reflect active interstitial pneumonitis and/or focal interstitial edema. No visible consolidated alveolar airspace disease. Pleural spaces: Unremarkable. No pleural effusion. No pneumothorax. Heart/Mediastinum: Cardiac structures and configuration stable and within normal limits. Bones/joints: Nonacute. XR/XR chest 1V portable [id number] IMPRESSION: Subtle bibasilar ground-glass interstitial lung disease, left more involved than right, which could reflect active interstitial pneumonitis and/or focal interstitial edema.
--- NOTE | 2021-06-17 19:35 | ECG_ITS ---
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
--- NOTE | 2021-06-17 19:49 | ED_ITS ---
HPI - Seizure General: Chief Complaint: Seizure Stated Complaint: seizure Time Seen by Provider: 06/17/21 19:25 Source: patient and EMS Mode of arrival: EMS Limitations: no limitations History of Present Illness: HPI Narrative: 70-year-old male who is here after a seizure. He was seen here a week ago and had a seizure and was intubated in the ER due to his postictal period. He was discharged in the day while at home. He had 2 seizures today. He was discharged with liquid Ativan and EMS states that his family gave him a dose of liquid Ativan. They are unsure if they act ually dose the Ativan correctly and EMS concerned they may have gave him too much. They state when they arrived he was awake and alert and had no complaints. He states that over a period of time those became increasingly lethargic. Patient here is unresponsive and does have minimal responsiveness to pain. He has had no more seizures since EMSs arrival. He had no complaints with them. Seizure History: Yes Review of Systems General: Reports: ROS unobtainable due to mental status PFSH ED PFSH: Medical History Acute respiratory failure with hypoxia and hypercapnia CAD (coronary artery disease) Details unknown COPD (chronic obstructive pulmonary disease) DM type 2 (diabetes mellitus, type 2) [id number], on Metformin History of echocardiogram (~05/2020) Normal left ventricular size and systolic function with an EF of 60%, no regional wall motion abnormalities, grade 1/4 diastolic dysfunction, normal to mildly elevated filling pressures and mild left ventricular hypertrophy. Thickened aortic and mitral valves were noted. HLD (hyperlipidemia) Statin therapy HTN (hypertension) Hyperammonemia Ammonia level of 92 in May 2020 Lung cancer Diagnosis reported in old records but details unknown Pneumonia Post-traumatic seizures Notated on several ER visits, details otherwise unknown, on Keppra Sepsis Smoking addiction Surgical History H/O neck surgery H/O: knee surgery History of shoulder surgery Hx of appendectomy Family History Other Cancer Heart disease Social History Smoking and tobacco status: current every day smoker cigarettes Packs smoked per day: 1 Alcohol intake: never Lives independently: Yes Household members: spouse Marital status: Current occupational status: retired Physical Exam Const: COMMON NORMALS: negative for patient oriented x3 EXAM LIMITATIONS: altered mental status HENMT: COMMON NORMALS: normocephalic and atraumatic HEAD & SCALP: normocephalic and atraumatic Eye: COMMON NORMALS: Equal, round and reactive pupils present and EOMs intact bilaterally PUPIL: Yes Equal, round and reactive pupils present Neck/C-Spine: COMMON NORMALS: full ROM and supple Chest: COMMONS NORMALS: normal inspection of the chest and normal palpation of entire chest wall Resp: COMMON NORMALS: normal respiratory effort, No retractions, No use of accessory muscles and clear to auscultation bilaterally AUSCULTATION: clear to auscultation bilaterally Cardio: COMMON NORMALS: regular rate, regular rhythm and No murmurs present (Cardio) RATE: regular rate RHYTHM: regular rhythm GI: COMMON NORMALS: Normal to inspection, nondistended, normoactive bowel sounds present, Soft to palpation, non-tender and no masses PALPATION: Yes Soft to palpation Extremity: COMMON NORMALS: normal to inspection and full ROM Neuro: COMMON NORMALS: negative for patient oriented x3 and negative for moves all extremities Psych: COMMON NORMALS: negative for mental status grossly normal and negative for Normal thought process present THOUGHT PROCESS: abnormal Skin: COMMON NORMALS: no rashes or lesions noted and no wounds GENERAL SKIN EXAM: no rashes or lesions noted Procedures Intubation Time out performed: Yes sedative: Etomidate Mg Given: 20 paralytic: Succinylcholine Mg Given: 100 Laryngoscope: Patria ET Tube Size: 8 Tube Secured Depth (cm): 25 Tube Secured Location: lips Tube Placement Confirmation: visualized tube passing through cords, equal breath sounds bilaterally, no breath sounds over epigastrium and confirmation by capnometry Patient Tolerated Procedure: well Intubation Complications: none Course Vital Signs: Vital signs: Vital Signs Temperature 97.9 F 06/17/21 19:34 Pulse Rate 68 06/18/21 03:08 Respiratory Rate 16 06/18/21 03:08 Blood Pressure 113/68 06/18/21 03:08 Pulse Oximetry 100 06/18/21 03:08 MDM - Seizure MDM Narrative: Medical decision making narrative: Patient presents here originally with a seizure. Patient stayed unresponsive ABG was checked and he w as hypercapnic. Did trial BiPAP with no improvement. Patient was in abated. His head CT here is normal. X-ray did show pulmonary edema and he does have an elevated BNP and patient given IV Lasix. Spoke to the hospitalist will admit to the ICU. Lab Data: Labs: Lab Results 06/17/21 06/17/21 06/17/21 Range/Units 20:00 20:00 20:00 WBC 10.5 H (4.0-10.0) 10^3/ uL RBC 4.85 (4.1-5.3) 10^6/u L Hgb 14.9 (11.7-16.6) g/dL Hct 49.1 (42.0-52.0) % MCV 101.2 H (80-94) fL MCH 30.7 (28.0-34.0) pg MCHC 30.3 (30.0-36.0) g/dL RDW 14.4 (12.1-15.1) % Plt Count 236 (130-400) 10^3/c mm MPV 10.2 (7.4-10.4) fL Neut % (Auto) 67.1 % Lymph % (Auto) 17.8 % Summit % (Auto) 10.3 % Eos % (Auto) 3.4 % Baso % (Auto) 0.5 % Neut # (Auto) 7.06 (1.8-7.7) 10^3/u L Lymph # (Auto) 1.9 (0.8-4.8) 10^3/u L Summit # (Auto) 1.1 H (0.2-0.9) 10^3/u L Eos # (Auto) 0.4 (0.0-0.8) 10^3/u L Baso # (Auto) 0.1 (0.0-0.1) 10^3/u L Nucleated RBC % (a uto) 0 % Nucleated RBCs # 0.0 /100WBC Specimen Type Sample Site ABG pH (7.35-7.45) ABG pCO2 (35-45) mmHg ABG pO2 (80.0-100.0) mmH g ABG HCO3 (22-26) mmol/L ABG Base Excess (-2.0-2.0) mmol/ L Newton Test Hematocrit (42-52) % O2 Delivery Device O2 Liters/Min % FiO2 % Patient Care Coordinator ID Sodium 138 (136-145) mmol/L Potassium 4.1 (3.5-5.1) mmol/L Chloride 93 L (98-107) mmol/L Carbon Dioxide 38 H (22-29) mmol/L Anion Gap 11.1 (5-19) BUN 20 (8-23) mg/dL Creatinine 0.8 (0.7-1.2) mg/dL GFR Calculation Not Reportable Glucose 186 H (65-115) mg/dL Calculated Osmolal ity 293 (285-295) mOsm/k g Calcium 8.3 L (8.5-10.5) mg/dL Total Bilirubin 0.4 (0.15-1.2) mg/dL AST 12 (0-40) U/L ALT 57 H (0-41) U/L Alkaline Phosphata se 106 (40-130) IU/L NT-Pro-B Natriuret Pep 7453 H (0-125) pg/mL Total Protein 6.5 L (6.6-8.7) g/dL Albumin 3.7 (3.5-5.2) g/dL Globulin 2.8 (1.3-4.6) g/dL 06/18/21 Range/Units 01:45 WBC (4.0-10.0) 10^3/ uL RBC (4.1-5.3) 10^6/u L Hgb (11.7-16.6) g/dL Hct (42.0-52.0) % MCV (80-94) fL MCH (28.0-34.0) pg MCHC (30.0-36.0) g/dL RDW (12.1-15.1) % Plt Count (130-400) 10^3/c mm MPV (7.4-10.4) fL Neut % (Auto) % Lymph % (Auto) % Summit % (Auto) % Eos % (Auto) % Baso % (Auto) % Neut # (Auto) (1.8-7.7) 10^3/u L Lymph # (Auto) (0.8-4.8) 10^3/u L Summit # (Auto) (0.2-0.9) 10^3/u L Eos # (Auto) (0.0-0.8) 10^3/u L Baso # (Auto) (0.0-0.1) 10^3/u L Nucleated RBC % (a uto) % Nucleated RBCs # /100WBC Specimen Type Arterial Sample Site Radial, right ABG pH 7.10 L* (7.35-7.45) ABG pCO2 138.0 H* (35-45) mmHg ABG pO2 120.0 H (80.0-100.0) mmH g ABG HCO3 42.3 H (22-26) mmol/L ABG Base Excess 6.4 H (-2.0-2.0) mmol/ L Newton Test Pos Hematocrit 48.5 (42-52) % O2 Delivery Device Nc O2 Liters/Min 3.0 % FiO2 32.0 % Patient Care Coordinator ID yorna Sodium (136-145) mmol/L Potassium (3.5-5.1) mmol/L Chloride (98-107) mmol/L Carbon Dioxide (22-29) mmol/L Anion Gap (5-19) BUN (8-23) mg/dL Creatinine (0.7-1.2) mg/dL GFR Calculation Glucose (65-115) mg/dL Calculated Osmolal ity (285-295) mOsm/k g Calcium (8.5-10.5) mg/dL Total Bilirubin (0.15-1.2) mg/dL AST (0-40) U/L ALT (0-41) U/L Alkaline Phosphata se (40-130) IU/L NT-Pro-B Natriuret Pep (0-125) pg/mL Total Protein (6.6-8.7) g/dL Albumin (3.5-5.2) g/dL Globulin (1.3-4.6) g/dL Imaging Data^: CXR: Attestation: I personally reviewed and interpreted this imaging study as follows: Radiologist's impression: [address] [address] XRay Report Signed Patient: Robert Crisostomo Unit #: [id number] : 1950 Age/Sex: 70 / M ADM Date: 06/17/21 Loc: ER Room/Bed: Attending Dr: Ordering Provider/Ordering MD: Harvey Mckeon MD Date of Service: 06/17/21 Procedure(s): XR chest 1V portable [id number] Accession Number(s): [id number] Report Number: [id number] PROCEDURE INFORMATION: Exam: XR Chest Exam date and time: 06/17/2021 7:34 PM Age: 70 years old Clinical indication: Shortness of breath; Additional info: Seizure TECHNIQUE: Imaging protocol: XR of the chest. Views: 1 view. Total images: 1 COMPARISON: CR (CHEST, ) 06/11/2021 7:28 PM FINDINGS: Lungs: Subtle bibasilar ground-glass interstitial lung disease, left more involved than right, which could reflect active interstitial pneumonitis and/or focal interstitial edema. No visible consolidated alveolar airspace disease. Pleural spaces: Unremarkable. No pleural effusion. No pneumothorax. Heart/Mediastinum: Cardiac structures and configuration stable and within normal limits. Bones/joints: Nonacute. XR/XR chest 1V portable [id number] IMPRESSION: Subtle bibasilar ground-glass interstitial lung disease, left more involved than right, which could reflect active interstitial pneumonitis and/or focal interstitial edema. Dictated By: Randy Mcdonnell Signed By: Randy Mcdonnell Signed Date/Time: 06/17/212050 DD/ 48 CT Head: Radiologist's impression: [address] [address] [address] Scan Report Signed Patient: Robert Crisostomo Unit #: [id number] : 1950 Age/Sex: 70 / M ADM Date: 06/17/21 Loc: ER Room/Bed: Attending Dr: Ordering Provider/Ordering MD: Harvey Mckeon MD Date of Service: 06/17/21 Procedure(s): CT head wo con* [id number] Accession Number(s): [id number] Report Number: [id number] PROCEDURE INFORMATION: Exam: CT Head Without Contrast Exam date and time: 06/17/2021 7:34 PM Age: 70 years old Clinical indication: Condition or disease; Convulsions or seizures; Additional info: AMS TECHNIQUE: Imaging protocol: Computed tomography of the head without contrast. Total images: 212 Radiation optimization: All CT scans at this facility use at least one of these dose optimization techniques: automated exposure control; mA and/or kV adjustment per patient size (includes targeted exams where dose is matched to clinical indication); or iterative reconstruction. COMPARISON: CT head wo con* [id number] 06/11/2021 7:46 PM RADIATION DOSE METRICS: Total DLP (mGy-cm): 894.04 FINDINGS: Brain: No evidence of active or acute intracranial pathologic process, hemorrhage, or trauma. Moderate small vessel ischemic disease with senile periventricular leukomalacia. 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 No mass effect. No midline shift. No hyperdense MCA or insular ribbon sign. Cerebral and cerebellar atrophy with ventricular dilatation greater than that anticipated for patient's chronological age. Cerebral ventricles: No ventriculomegaly. Paranasal sinuses: Left maxillary sinusitis. Mastoid air cells: Visualized mastoid air cells are well aerated. Bones/joints: Unremarkable. No acute fracture. Soft tissues: Unremarkable. Other findings: Motion artifact. CT/CT head wo con* [id number] IMPRESSION: 1. No evidence of active or acute intracranial pathologic process, hemorrhage, or trauma. 2. Left maxillary sinusitis. Radiation Dose CTDIVOL = (mGy): DLP = 894.04 (mGy-cm) Dictated By: Randy Mcdonnell Signed By: Randy Mcdonnell Signed Date/Time: 06/17/212054 DD/ 52 EKG Data^: EKG 1: Attestation: I personally reviewed and interpreted this EKG as follows: EKG interpretation date: 06/17/21 EKG interpretation time: 20:09 Interpretation: Normal sinus rhythm heart rate [address] or T wave normalities QRS 97 QTc 446 Critical Care Time Critical Care Time: Critical Care Time: Yes Total Critical Care Time: 35 Attestation: This case had a high probability of a clinically significant, sudden, or life threatening deterioration of this patient's condition which required my full and direct attention, intervention and personal management. Discharge Plan Discharge Patient Disposition: Admitted As Inpatient Admit Provider: Lorene Monte Clinical Impression: Generalized seizure, Acute hypercapnic respiratory failure Condition: Stable Coding Level of Care Code ED Retail Field Merchandiser for Chg Fwd Exam Comprehensive
[2021-06-17 20:14] LABS: Basophils # 0.1 10^3/uL (0.0-0.1); Basophils % 0.5 %; Eosinophils # 0.4 10^3/uL (0.0-0.8); Eosinophils % 3.4 %; Hematocrit 49.1 % (42.0-52.0); Hemoglobin 14.9 g/dL (11.7-16.6); Lymphocytes # 1.9 10^3/uL (0.8-4.8); Lymphocytes % 17.8 %; Mean Corpuscular HGB Conc 30.3 g/dL (30.0-36.0); Mean Corpuscular Hemoglobin 30.7 pg (28.0-34.0); Mean Corpuscular Volume 101.2 fL (80-94); Mean Platelet Volume 10.2 fL (7.4-10.4); Monocytes # 1.1 10^3/uL (0.2-0.9); Monocytes % 10.3 %; Neutrophils # 7.06 10^3/uL (1.8-7.7); Neutrophils % 67.1 %; Nucleated Red Blood Cells % 0 %; Platelet Count 236 10^3/cmm (130-400); Red Blood Count 4.85 10^6/uL (4.1-5.3); Red Cell Distribution Width 14.4 % (12.1-15.1); White Blood Count 10.5 10^3/uL (4.0-10.0)
[2021-06-17 20:15] VITALS: BP 133/66; PULSE 84; RESP 20; O2SAT 99
[2021-06-17 20:40] LABS: Alanine Aminotransferase 57 U/L (0-41); Albumin Level 3.7 g/dL (3.5-5.2); Alkaline Phosphatase 106 IU/L (40-130); Anion Gap 11.1 (5-19); Aspartate Amino Transferase 12 U/L (0-40); Blood Urea Nitrogen 20 mg/dL (8-23); Calcium 8.3 mg/dL (8.5-10.5); Carbon Dioxide 38 mmol/L (22-29); Chloride 93 mmol/L (98-107); Globulin 2.8 g/dL (1.3-4.6); Glucose 186 mg/dL (65-115); Osmolality Calculated 293 mOsm/kg (285-295); Potassium 4.1 mmol/L (3.5-5.1); Sodium 138 mmol/L (136-145); Total Bilirubin 0.4 mg/dL (0.15-1.2); Total Protein 6.5 g/dL (6.6-8.7)
[2021-06-17 21:16] VITALS: BP 147/76; PULSE 86; RESP 20; O2SAT 98
[2021-06-17] MEDS: sodium chloride 0.9% 500 ML IV (21:21)
[2021-06-17 21:29] LABS: NT Pro B Type Natriuretic Pept 7453 pg/mL (0-125)
[2021-06-17 23:18] VITALS: BP 176/86; PULSE 87; RESP 22; O2SAT 92
--- NOTE | 2021-06-17 23:18 | PC.NURSE ---
removed oxygen with physician in room at this time. patient maintains airway and 02 sat on room air is 92%
--- NOTE | 2021-06-17 23:24 | PC.NURSE ---
patient oxygen saturations began to decrease and I placed him on 4L 02 he is maintaining sats at 92% will continue to monitor
[2021-06-18] VITALS (247 sets, daily range): BP systolic 83–179; BP diastolic 52–84; PULSE 57–85; RESP 12–34; TEMP 36.5–36.8; O2SAT 91–100
--- NOTE | 2021-06-18 00:14 | PC.NURSE ---
report to Feliciano STRANGE
--- NOTE | 2021-06-18 01:12 | PC.NURSE ---
patient resting in bed. patient respiratory rate is 34bpm at this time. notified Dr. Mckeon, no new orders given at this time
[2021-06-18 01:56] LABS: Arterial Blood Gas Hematocrit 48.5 % (42-52); Base Excess ABG 6.4 mmol/L (-2.0-2.0); Blood Gas Allen Test Pos; Blood Gas Sample Site Radial, right; Blood Gas Sample Type Arterial; HCO3 ABG 42.3 mmol/L (22-26); Oxygen Device NC
[2021-06-18] MEDS: succinylcholine 20 mg/mL SDV 10mL 150 MG IV (02:32)
--- NOTE | 2021-06-18 02:36 | XR_ITS ---
WS: [id number] Portable AP supine chest, 06/18/2021 Clinical Data: intubation Comparison: Portable chest, 06/17/2021 Findings: The endotracheal tube is above the john. There is a nasogastric tube that appears to end in the stomach. The bibasilar opacities remain the same with more opacity on the left than the right. The heart is normal. There are monitor leads on the chest wall. The patient has orthopedic missy i n the left shoulder. XR/XR chest 1V portable [id number] Impression: 1. Satisfactory position of endotracheal tube and nasogastric tube. 2. Bibasilar pulmonary opacities unchanged.
[2021-06-18] MEDS: propofol 1,000 MG/100 ML INJ 6.26 MG IV ×2 (02:50→15:49)
[2021-06-18] MEDS: vecuronium 10 mg SDV IVP (03:03)
[2021-06-18 03:40] LABS: SARS Covid-2 Antigen Negative (Negative)
--- NOTE | 2021-06-18 05:29 | PM.HP ---
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 By the time I saw him he was intubated and sedated with propofol, I added fentanyl as patient seemed agitated. Most of the information has been gleaned from collaterals and ER physician. Reportedly, patient had 2 breakthrough seizures today, family was stating that at home they had liquid Ativan and EMS also gave him a dose of liquid Ativan today. Family was not sure about the dose of Ativan. On arrival in the ER he was awake and alert however became lethargic and fatigued afterwards, grand mal seizure like activity was not witnessed in the ER, for his lethargy he was put on BiPAP but his symptoms were not improving hence he was intubated by Dr. Mckeon. Review of records revealed normal electrolytes, compensated pH on vent, requested prolactin, magnesium level: Glucose was within normal range on arrival, noticed left-sided infiltrate on chest x-ray with mild vascular congestion and high BNP of 7400, TSH 1.09, Covid antigen negative Review of Systems General: Reports: ROS unobtainable due to endotracheal tube Medications/Allergies Home Medications Medication Instructions Recorded Confirmed Last Taken Type albuterol sulfate 2 puff INHALATION QID 05/30/20 06/17/21 06/17/21 History amlodipine 2.5 mg PO DAILY 05/30/20 06/17/21 06/17/21 History dorzolamide-timolol 1 drp OPHTHALMIC (EYE) BID 05/30/20 06/17/21 06/17/21 History gabapentin 600 mg PO BID 05/30/20 06/17/21 06/17/21 History ipratropium-albuterol 3 ml INHALATION QID 05/30/20 06/17/21 06/17/21 History metformin 500 mg PO DAILY 05/30/20 06/17/21 07/07/20 History omega 6-qat-jpj-fish oil [Fish Oil] 1 cap PO BID 05/30/20 06/17/21 06/17/21 History pantoprazole [Protonix] 40 mg PO DAILY 05/30/20 06/17/21 06/17/21 History polyethylene glycol 3350 [Miralax] See Rx Instructions .ROUTE .COMPLEX 05/30/20 06/17/21 06/17/21 History rosuvastatin [Crestor] 5 mg PO DAILY 05/30/20 06/17/21 06/17/21 History albuterol sulfate 2 inh INHALATION Q4H PRN #6.7 gm 07/07/20 06/17/21 06/17/21 Rx aspirin 325 mg PO DAILY 07/07/20 06/17/21 06/17/21 History lacosamide [Vimpat] 50 mg PO BID #60 tab 06/13/21 06/17/21 Unknown Rx lorazepam [Lorazepam Intensol] 2 mg BUCCAL DAILY PRN #30 ml 06/13/21 06/17/21 06/17/21 Rx hydrochlorothiazide 25 mg PO DAILY 06/17/21 06/17/21 06/17/21 History levetiracetam See Rx Instructions .ROUTE .COMPLEX 06/17/21 06/17/21 06/17/21 History Allergies Allergy/AdvReac Type Severity Reaction Status Date / Time melton Allergy Unknown Verified 06/17/21 19:41 hydrocodone Allergy Unknown Verified 06/17/21 19:41 lisinopril Allergy Unknown Verified 06/17/21 19:41 niacin Allergy Unknown Verified 06/17/21 19:41 pravastatin Allergy Unknown Verified 06/17/21 19:41 simvastatin Allergy Unknown Verified 06/17/21 19:41 strawberry Allergy Unknown Verified 06/17/21 19:41 tramadol Allergy Unknown Verified 06/17/21 19:41 PFSH Acute PFSH: Medical History Acute respiratory failure with hypoxia and hypercapnia CAD (coronary artery disease) Details unknown COPD (chronic obstructive pulmonary disease) DM type 2 (diabetes mellitus, type 2) [id number], on Metformin History of echocardiogram (~05/2020) 60%EF HLD (hyperlipidemia) Statin therapy HTN (hypertension) Hyperammonemia Ammonia level of 92 in May 2020 Lung cancer Diagnosis reported in old records but details unknown Pneumonia Post-traumatic seizures Notated on several ER visits, details otherwise unknown, on Keppra Sepsis Smoking addiction Surgical History H/O neck surgery H/O: knee surgery History of shoulder surgery Hx of appendectomy Family History Other Cancer Heart disease Social History Smoking and tobacco status: current every day smoker cigarettes Packs smoked per day: 1 Alcohol intake: never Lives independently: Yes Household members: spouse Marital status: Current occupational status: retired Vitals/I&O/Wt Last Vital Signs Temp 97.9 F 06/17/21 19:34 Pulse 70 06/18/21 04:38 Resp 18 06/18/21 04:38 BP 101/70 06/18/21 04:38 Pulse Ox 100 06/18/21 04:38 06/17/21 06/17/21 06/18/21 14:59 22:59 06:59 Intake Total 500 / 500 Balance 500 / 500 Weight last 48 hrs Weight 104.326 kg Physical Exam Narrative: EXAM NARRATIVE: Intubated and sedated with propofol running at 10 fentanyl running at 50 Minimal ventilator settings FiO2 40% tidal volume 400 PEEP 5 Normal hemodynamics, afebrile Obese patient Seems multiple bug bites all over his extremities Tick bite rash not noticed S1, S2 sinus rhythm Distended abdomen Lower extremity edema positive with rash Onychomycosis Poor hygiene Unkept appearance Dirt filled nails Pupils pinpoint Neuro exam limited secondary to intubation and sedation Urinary Catheter Management^: Shirley: Cath Placed During This Visit: yes Urinary Catheter Date of Insertion: 06/18/21 Urinary Catheter Time of Insertion: 02:35 Data : 06/17/21 20:00 06/17/21 20:00 A&P Assessment and plan (1) Generalized seizure: Status: Acute (2) Lung cancer: Status: Chronic (3) Smoking addiction: Status: Chronic (4) Respiratory failure: Status: Acute (5) Endotracheally intubated: Status: Acute Additional A&P Information Respiratory failure requiring mechanical ventilation COPD exacerbation with mild volume overload findings chest on x-ray ABG was obtained after intubation which seems compensated however shows hypercapnia Component of sleep apnea Covid antigen negative Currently on minimal vent settings Propofol running at 10, fentanyl at 50 Breakthrough seizures with underlying history of epilepsy He seems to exhibit signs of complex seizure with prolonged postictal state Requested Keppra and Vimpat level For now I would optimize his Keppra to 3000 mg divided into 2 doses a day and Vimpat 100 mg twice a day With this high dose of Keppra he needs to be closely monitor after extubation for any side effect Might benefit from a neuro consult Cause of breakthrough seizure not well-defined for now, no severe electrolyte abnormality, he is afebrile, chest x-ray showing left-sided infiltrate which I believe is secondary to possible aspiration for which I have started him on Augmentin, he is not septic he has mild leukocytosis Requested magnesium level, previous TSH level seems to be within normal range We'll check ammonia level, no previous history of liver cirrhosis on review of records Mild CHF exacerbation, preserved action fraction heart failure Preserved ejection fraction, I would start him on Bumex, chest x-ray shows mild vascular congestion Monitor urine output, creatinine is normal Would not repeat echo previous echo was done in January of this year Review of records reveals history of lung cancer History of smoking 1 pack/day smoker As per the family he has been reluctant to go to oncologist however awaiting approval to see a [facility] physician Will request records from [facility] hospital 05/31/2020 CT chest records revealed Enlarged right hilar lymph nodes measuring 1.4 cm with multiple small hazy nodular opacities throughout the right lung mainly in a perivascular distribution. A few of these demonstrate central cavitation suspicious for septic emboli. Repeat CT chest? Type 2 diabetes: Diet to be addressed if he stays intubated for more than 24 hours Currently getting diuresed Bug bites/tick bites No active sign of cellulitis of skin Kindly reevaluate if he would benefit from doxycycline/ceftriaxone Full code N.p.o. DVT prophylaxis Lovenox Attestations Medical Necessity Statement*: Anticipating stay in the hospital because more than 2 midnights for management of respiratory failure, breakthrough seizures currently intubated Time Spent in Patient Care: Greater than 35 minutes Coding Level of Care Code Acute Home Care Administrator for Chg Fwd Diagnoses Generalized seizure R56.9 Lung cancer C34.90 Smoking addiction F17.200 Respiratory failure J96.90 Endotracheally intubated Z97.8
[2021-06-18 05:33] LABS: ABG PH Result 7.38 (7.35-7.45); Alveolar-Arterial Oxygen Gradi 19.4 mmHg (5-10); Arterial Blood Gas Hematocrit 46.8 % (42-52); Base Excess ABG 10.7 mmol/L (-2.0-2.0); Blood Gas Allen Test Pos; Blood Gas Sample Site Radial, right; Blood Gas Sample Type Arterial; Carboxyhemoglobin 1.9 %THgb (0.4-20.1); HCO3 ABG 39.2 mmol/L (22-26); HGB O2 Sat 98.4 % (95-100); Ionized Calcium Level - ABG 1.2 mmol/L (1.1-1.4); Methemoglobin 0.7 % (0.4-1.5); Oxygen Device VENT; Oxygen Saturation ABG > 100.0; Potassium Level - ABG 3.8 mmol/L (3.5-5.0); Total Hemoglobin 15.3 g/dL (14-18)
[2021-06-18 05:35] LABS: ABG PCO2 67.1 mmHg (35-45)
--- NOTE | 2021-06-18 08:31 | XR_ITS ---
WS: [id number] KUB, AP view including upper abdomen and lower chest, 06/18/2021 Clinical Data: OGT placement Comparison: None. Findings: The lower portion of the endotracheal tube is visible and is above the john. 2 enteric tubes are in the esophagus and end in the fundus of the stomach. Monitor leads are on the chest wall. XR/XR KUB portable [id number] Impression: 2 enteric tubes which appear to be within the esophagus and ending in the stoma ch.
[2021-06-18] MEDS: amoxicillin-clav 875-125 mg Tablet 1 TAB NG-TUBE ×2 (09:16→17:29)
[2021-06-18] MEDS: folic acid 1 mg Tablet PO (09:16)
[2021-06-18] MEDS: bumetanide 0.25 mg/mL SDV 4 mL 1 MG IV (09:16)
[2021-06-18] MEDS: chlorhexidine gluconate 0.12% Btl 473 mL 15 ML MUCOUS MEM ×2 (09:16→17:29)
[2021-06-18] MEDS: pantoprazole 40 mg SDV IVP (09:16)
[2021-06-18] MEDS: enoxaparin 40 mg/0.4 mL Syringe SUBCUT (09:16)
--- NOTE | 2021-06-18 09:41 | PC.CHAP ---
Pastoral Care Encounter/Spiritual Assessment Type of Contact [] Declined accounting tutor visit [] Patient/Family/Request visit [] Outpatient visit [] Follow-up visit [] Physician referral [] Code/Alert [x] Routine visit [] Staff referral [] Actively dying [] Patient sleeping [] Family support [] [] Out of room [] Palliative care [] [x] Receiving care in room [] Pre-surgical visit [] Trauma [] Long length of stay [x] ICU visit [x] Other: changing breathing tube Relational/Emotional Strength [] Patient feels connected with others/family/visitors/staff [] Distress [] Loneliness/isolation [] Abandonment Spirituality of Patient [] Person of Bianca [] Attends Pentecostal of their Bianca [] Believes in Prayer [] Reads Bible or Hoahaoism materials [] There are Spiritual issues to be addressed Hospice Executive Director Interventions [x] Prayer [] Active listening [] Non-anxious presence [] Spiritual/emotional support [] Crisis/trauma care [] Spiritual counseling [] Bereavement support [] Provided bereavement packet [] Provided Bible/devotional materials [] Provided toy/stuffed animal, coloring book to patient or family member [] Provided Communion [] Anointing/[place] [] Salvation [x] Completed spiritual assessment [] Other: Impact on Illness or Injury [] Angry [] Fearful [] Anxious [] Often cries [] Exhaustion [] Unable to work [] Unable to attend islam [] Unable to walk/stand [] Unable to read [] Unable to drive [] Unable to eat/drink [] Unable to sleep [] Unable to be with family [] Patient intubated [] Other: Summary Time spent with patient
[2021-06-18] MEDS: ipratropium-albuterol 3 mL Neb INHALATION (09:44)
[2021-06-18 10:12] LABS: Procalcitonin 0.07 ng/mL (0-0.5); Prolactin 60.12 ng/mL (4.0-15.2)
[2021-06-18] MEDS: lacosamide 100 MG in sodium chloride 0.9% 50 ML 120 MG IV ×2 (10:20→21:40)
[2021-06-18 10:23] LABS: Anion Gap 13.3 (5-19); Blood Urea Nitrogen 22 mg/dL (8-23); Calcium 8.6 mg/dL (8.5-10.5); Carbon Dioxide 34 mmol/L (22-29); Chloride 94 mmol/L (98-107); Glucose 89 mg/dL (65-115); Magnesium 2.3 mg/dL (1.7-2.3); Osmolality Calculated 287 mOsm/kg (285-295); Potassium 4.3 mmol/L (3.5-5.1); Sodium 137 mmol/L (136-145)
[2021-06-18 10:26] LABS: Alcohol Level < 10 mg/dL (0-10)
--- NOTE | 2021-06-18 11:07 | PC.NURSE ---
0700 Report received. Assessment completed as charted. VSS Bilateral wrist restraints in place. No s/s of pain or SOB. Vent settings per RT. 1000 Pt received PIV to RFA per US. Keppra and lacosamide given late d/t lack of IV access. Meds infused at this time per orders. Pt repositioned q2h and PRN
--- NOTE | 2021-06-18 12:08 | P.CONIM_ITS ---
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 In the emergency department the patient was in acute hypercapnic respiratory failure and subsequently intubated. The patient was recently hospitalized on June 11 at which time he was also intubated for his respiratory failure due to seizure. At that time, the patient was discharged on 1500 mg levetiracetam twice a day and Vimpat 50 mg twice a day. The Vimpat at that time was added to his regimen. His CT scan of the head did not reveal any acute intracranial abnormalities on admission. An echocardiogram from January 2021 revealed an ejection fraction of 55 to 60% without any significant valvular abnormalities. This echocardiogram was obtained because of coag negative staph bacteremia. The patient refused PAMELA at this time. The patient also had a CT scan of the chest in January 2021 which revealed areas of interstitial thickening in the right middle lobe and right lower lobe. The patient also had groundglass opacity and tree-in-bud appearance. The patient has evidence of emphysema. The chest x-ray after intubation revealed optimal positioning of the ET tube and bilateral infiltrate. The patient was seen and examined in the ICU. He is intubated and sedated with propofol and fentanyl. The patient is not able to follow any commands at this time. His hemodynamics are stable. According to documentation, there is a history of lung cancer however this is very unclear. I am unsure whether this diagnosis was made. The note says this was made by a [place] physician. The CT scan that was obtained recently did not reveal any definitive evidence that would be suggestive of malignancy. Review of Systems 2 Narrative: Unable to obtain Meds/Allergies Home Medications and Allergies Home Medications Medication Instructions Recorded Confirmed Last Taken Type albuterol sulfate 2 puff INHALATION QID 05/30/20 06/17/21 06/17/21 History amlodipine 2.5 mg PO DAILY 05/30/20 06/17/21 06/17/21 History dorzolamide-timolol 1 drp OPHTHALMIC (EYE) BID 05/30/20 06/17/21 06/17/21 History gabapentin 600 mg PO BID 05/30/20 06/17/21 06/17/21 History ipratropium-albuterol 3 ml INHALATION QID 05/30/20 06/17/21 06/17/21 History metformin 500 mg PO DAILY 05/30/20 06/17/21 07/07/20 History omega 1-azj-peb-fish oil [Fish Oil] 1 cap PO BID 05/30/20 06/17/21 06/17/21 H istory pantoprazole [Protonix] 40 mg PO DAILY 05/30/20 06/17/21 06/17/21 History polyethylene glycol 3350 [Miralax] See Rx Instructions .ROUTE .COMPLEX 05/30/20 06/17/21 06/17/21 History rosuvastatin [Crestor] 5 mg PO DAILY 05/30/20 06/17/21 06/17/21 History albuterol sulfate 2 inh INHALATION Q4H PRN #6.7 gm 07/07/20 06/17/21 06/17/21 Rx aspirin 325 mg PO DAILY 07/07/20 06/17/21 06/17/21 History lacosamide [Vimpat] 50 mg PO BID #60 tab 06/13/21 06/17/21 Unknown Rx lorazepam [Lorazepam Intensol] 2 mg BUCCAL DAILY PRN #30 ml 06/13/21 06/17/21 06/17/21 Rx hydrochlorothiazide 25 mg PO DAILY 06/17/21 06/17/21 06/17/21 History levetiracetam See Rx Instructions .ROUTE .COMPLEX 06/17/21 06/17/21 06/17/21 History Allergies Allergy/AdvReac Type Severity Reaction Status Date / Time melton Allergy Unknown Verified 06/17/21 19:41 hydrocodone Allergy Unknown Verified 06/17/21 19:41 lisinopril Allergy Unknown Verified 06/17/21 19:41 niacin Allergy Unknown Verified 06/17/21 19:41 pravastatin Allergy Unknown Verified 06/17/21 19:41 simvastatin Allergy Unknown Verified 06/17/21 19:41 strawberry Allergy Unknown Verified 06/17/21 19:41 tramadol Allergy Unknown Verified 06/17/21 19:41 Current Medications Current Medications Generic Name Dose Route Start Last Admin Trade Name Freq PRN Reason Stop Dose Admin Albuterol/Ipratropium 3 ml 06/18/21 07:07 06/18/21 09:44 Ipratropium-Albuterol 3 Ml Neb INHALATION 3 ml Q6H PRN Administration SHORTNESS OF BREATH Amoxicillin/Clavulanate Potassium 1 tab 06/18/21 08:00 06/18/21 09:17 Amoxicillin-Clav 875-125 Mg Tablet NG-TUBE Not Given BID [facility] Protocol Bumetanide 1 mg 06/18/21 09:00 06/18/21 09:16 Bumetanide 0.25 Mg/Ml Sdv 4 Ml IV 1 mg DAILY AMELIA Administration Chlorhexidine Gluconate 15 ml 06/18/21 09:00 06/18/21 09:16 Chlorhexidine Gluconate 0.12% Btl 473 Ml MUCOUS MEM 15 ml BID AMELIA Administration Enoxaparin Sodium 40 mg 06/18/21 07:15 06/18/21 09:16 Enoxaparin 40 Mg/0.4 Ml Syringe SUBCUT 40 mg Q24H AMELIA Administration Folic Acid 1 mg 06/18/21 09:00 06/18/21 09:16 Folic Acid 1 Mg Tablet PO 1 mg DAILY AMELIA Administration Levetiracetam 1,500 mg/ Sodium 115 mls @ 440 mls/hr 06/18/21 08:00 06/18/21 10:20 Chloride IV Infused Q12H AMELIA Infusion Lacosamide 100 mg/ Sodium 60 mls @ 120 mls/hr 06/18/21 09:00 06/18/21 11:00 Chloride IV Infused Q12H AMELIA Infusion Pantoprazole Sodium 40 mg 06/18/21 09:00 06/18/21 09:16 Pantoprazole 40 Mg Sdv IVP 40 mg DAILY AMELIA Administration Thiamine HCl 100 mg 06/18/21 09:00 06/18/21 09:16 Thiamine 100 Mg/Ml Sdv IV 100 mg DAILY AMELIA Administration PFSH Acute PFSH: Medical History Acute respiratory failure with hypoxia and hypercapnia CAD (coronary artery disease) Details unknown COPD (chronic obstructive pulmonary disease) DM type 2 (diabetes mellitus, type 2) [id number], on Metformin History of echocardiogram (~05/2020) 60%EF HLD (hyperlipidemia) Statin therapy HTN (hypertension) Hyperammonemia Ammonia level of 92 in May 2020 Lung cancer Pneumonia Post-traumatic seizures Notated on several ER visits, details otherwise unknown, on Kera Sepsis Smoking addiction Surgical History H/O neck surgery H/O: knee surgery History of shoulder surgery Hx of appendectomy Family History Other Cancer Heart disease Social History Smoking and tobacco status: current every day smoker cigarettes Packs smoked per day: 1 Alcohol intake: never Lives independently: Yes Household members: spouse Marital status: Current occupational status: retired Vitals/I&O/Wt Last Vital Signs Temp 98.2 F 06/18/21 11:25 Pulse 76 06/18/21 11:25 Resp 17 06/18/21 11:25 BP 98/69 06/18/21 11:25 Pulse Ox 96 06/18/21 11:25 06/17/21 06/18/21 06/18/21 22:59 06:59 14:59 Intake Total 500 / 500 175 / 175 Balance 500 / 500 175 / 175 Weight last 48 hrs Weight 230 lb Physical Exam Narrative: EXAM NARRATIVE: General: The patient is intubated and sedated Neck: No JVD Respiratory: Auscultation: Reduced breath sound bilaterally, occasional crackles, no wheezing or rhonchi Cardiovascular: Regular rate and rhythm, S1-S2 present, no murmur,no peripheral edema. Abdomen: Soft,nondistended, positive bowel sound Musculoskeletal: No obvious joint deformity Skin: No rash Neuro: The patient is currently sedated Urinary Catheter Management^: Shirley: Cath Placed During This Visit: yes Reason for Continuing Indwelling Catheter: Accurate Measurement of Urinary Output in Critically Ill Patients Urinary Catheter Date of Insertion: 06/18/21 Urinary Catheter Time of Insertion: 02:35 Data Other Data: Attestation for Other Data: I personally reviewed and interpreted the following: Other data: I have reviewed his laboratory, microbiologic and radiologic data. 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 The patient was subsequently intubated for acute hypercapnic respiratory failure. Currently the patient is sedated with propofol and fentanyl. He does not seem to be in status epilepticus at this point. At least, no evidence of convulsive status epilepticus. He is on Keppra and Vimpat. The Keppra dose is 1500 mg twice a day IV and Vimpat is at 100 mg twice a day. The patient had been hospitalized multiple times requiring intubation in the past couple of years. I believe the patient requires optimization of his antiseizure medications. CT scan of the head does not reveal any acute intracranial abnormalities. I am going to have Dr. Richter evaluate him for medication optimization. Status: Acute (2) Acute hypercapnic respiratory failure: The patient has an extensive history of smoking and a documented history of COPD. He has evidence of emphysema on the CT scan of the chest. No previous pulmonary function test is available. Going to start the patient on DuoNeb and Pulmicort nebulization for the time being. Once he is extubated he will need to follow-up with us as outpatient. Status: Acute (3) Emphysema of lung: Status: Acute (4) Lung cancer: The history of lung cancer is confusing. I could not find any radiologic evidence of lung cancer currently. However, the patient may have had suffered from it in the past. I do not have a detailed record of that. However it does play an important role in his disease process as paraneoplastic antibodies can be associated with recurrent seizure. This can be evaluated in detail as outpatient. I am hoping to extubate him tomorrow. 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
--- NOTE | 2021-06-18 14:20 | P.PN_ITS ---
Subjective Subjective: Interval history: Patient was intubated and sedated during my exam. Pulmonary consult appreciated. Medications: Reviewed: Yes Vitals/I&O/Wt Last Vital Signs Temp 98.2 F 06/18/21 11:25 Pulse 67 06/18/21 13:45 Resp 16 06/18/21 13:45 BP 96/56 06/18/21 13:45 Pulse Ox 96 06/18/21 13:45 06/17/21 06/18/21 06/18/21 22:59 06:59 14:59 Intake Total 500 / 500 175 / 175 Balance 500 / 500 175 / 175 Weight last 48 hrs Weight 104.326 kg Physical Exam Narrative: EXAM NARRATIVE: General exam the patient is intubated and sedated Neck is supple no lymphadenopathy or thyromegaly Cardiovascular regular rate and rhythm without murmur. No S3 or S4. Lungs clear Abdomen is soft with positive bowel sounds Neurologic: Sedated Extremities no cyanosis clubbing or edema Urinary Catheter Management^: Shirley: Cath Placed During This Visit: yes Reason for Continuing Indwelling Catheter: Accurate Measurement of Urinary Output in Critically Ill Patients Urinary Catheter Date of Insertion: 06/18/21 Urinary Catheter Time of Insertion: 02:35 Data : 06/17/21 20:00 06/18/21 09:11 A&P Assessment and plan (1) Acute hypercapnic respiratory failure: Currently intubated and sedated Appreciate pulmonary consultation Wean as tolerated per pulmonary Augmentin was started on admission by 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 Status: Acute (2) Generalized seizure: Patient has underlying seizure disorder. I believe he was taking Keppra 1500 mg in the morning and 1000 mg at night as well as 50 mg of Vimpat twice daily Keppra has been increased to 1500 mg every 12 hours Vimpat has been increased to 100 mg twice daily Await neurology consultation Status: Acute (3) DM type 2 (diabetes mellitus, type 2): Sliding scale insulin Status: Acute Qualifiers: Diabetes mellitus terminal system operator insulin use: without penitentiary use Diabetes mellitus complication status: without complication Qualified Code(s): E11.9 - Type 2 diabetes mellitus without complications (4) CAD (coronary artery disease): History of coronary disease. Continue aspirin, statin Status: Acute Qualifiers: Coronary Disease-Associated Artery/Lesion type: [place] artery [place] vs. transplanted heart: [place] heart Associated angina: angina presence unspecified Qualified Code(s): I25.10 - Atherosclerotic heart disease of [place] coronary artery without angina pectoris (5) COPD (chronic obstructive pulmonary disease): DuoNeb, Pulmicort per pulmonary No evidence of exacerbation currently. Status: Acute Qualifiers: COPD type: unspecified COPD Qualified Code(s): J44.9 - Chronic obstructive pulmonary disease, unspecified Additional A&P Information Full code Lovenox for DVT prophylaxis Attestations Medical Necessity Statement*: Continued hospitalization secondary to respiratory failure requiring mechanical ventilation from seizure occurring in this patient with underlying seizure disorder. 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 transplanted heart: [place] heart Associated angina: angina presence unspecified COPD (chronic obstructive pulmonary disease) J44.9 COPD type: unspecified COPD
[2021-06-18 14:34] LABS: Amphetamines Screen Urine Negative (Negative); Barbiturates Screen Urine Negative (Negative); Benzodiazepines Screen Urine Positive (Negative); Cocaine Screen Urine Negative (Negative); Opiate Screen Urine Negative (Negative); PCP Screen Urine Negative (Negative); THC Screen Urine Negative (Negative)
--- NOTE | 2021-06-18 17:49 | PC.NURSE ---
Shift Note Frequent safety and comfort rounds continue. Orders and/or nursing care completed as indicated. Patient monitored for response to intervention and treatment(s). Education provided includes plan of care for the day. Spoke with jasper Manning regarding the days care and plan for tomorrow. Fentanyl gtt infusing at 50 and propofol at 10. Will continue to monitor.
--- NOTE | 2021-06-18 19:01 | P.CONIM_ITS ---
Providers/Reason For Consult Consulting Physician/Specialty*: Zack Orozco MD Reason for Consult*: Status epilepticus Attending Physician: Segun Avina MD History of Present Illness History of Present Illness Robert Crisostomo is a 70 year old man whom I have never had the pleasure of meeting. I have reviewed his charts back as far as the electronic system will go to 2012 and I have never met this gentleman. He has been managed by the [facility] and has had many hospitalizations for pneumonia and respiratory failure. More recently he has had multiple ER visits and hospital stays for seizures out of control. Prior to this hospitalization he was admitted after he was in brief status epilepticus and at that time his Keppra was increased and he was started on a low-dose of Vimpat. A neurology consultation has never been requested until today when Dr. Orozco asked me to see him, though he warned me that the patient is intubated and sedated. I have called the patient's and daughter but obtained no answer. I am seeing him this morning and he is still sedated but on a weaning protocol. Current medications include lacosamide 50 mg twice daily and levetiracetam 1500 mg twice daily. He has had multiple CT scans of the head that did not show focal pathology. His levetiracetam level of 112 on 06/11/2021 would indicate compliance. Previous Lamictal levels from 02/03/2021 (74.8) and 05/29/2020 (76.7) also indicate compliance. Laboratory studies showing chronic macro cytosis but normal liver enzymes up until recently. This patient has been either in the emergency room or in the hospital on average every other month for the last year. 05/30?06/05/2021 acute encephalopathy, hypercapnic respiratory failure and exacer bation of COPD with CHF. 07/07/20 chest pain 07/14/2020 chest pain 07/21/2020 seizure, follow-up with your neurologist 09/22/2028 nausea and vomiting 11/21/2020 pain in the arm after a fall 01/31/2021 sore throat 02/03/2021 rule out Covid (-). Admitted for sudden unresponsiveness requiring intubation. Ultimately diagnosed with sepsis 02/25/2021 PICC line smells bad 06/11/2021 altered mental status, hypoxic and unresponsive requiring intubation on arrival but extubated the next day and sent home. Started on Vimpat. 06/17/2021 2 seizures and progressive lethargy requiring intubation. No seizure activity observed here. He has pneumonia. Review of Systems General: Reports: ROS unobtainable due to endotracheal tube and ROS unobtainable due to mental status (Sedated) Meds/Allergies Home Medications and Allergies Home Medications Medication Instructions Recorded Confirmed Last Taken Type albuterol sulfate 2 puff INHALATION QID 05/30/20 06/17/21 06/17/21 History amlodipine 2.5 mg PO DAILY 05/30/20 06/17/21 06/17/21 History dorzolamide-timolol 1 drp OPHTHALMIC (EYE) BID 05/30/20 06/17/21 06/17/21 History gabapentin 600 mg PO BID 05/30/20 06/17/21 06/17/21 History ipratropium-albuterol 3 ml INHALATION QID 05/30/20 06/17/21 06/17/21 History metformin 500 mg PO DAILY 05/30/20 06/17/21 07/07/20 History omega 8-ddi-ebx-fish oil [Fish Oil] 1 cap PO BID 05/30/20 06/17/21 06/17/21 History pantoprazole [Protonix] 40 mg PO DAILY 05/30/20 06/17/21 06/17/21 History polyethylene glycol 3350 [Miralax] See Rx Instructions .ROUTE .COMPLEX 05/30/20 06/17/21 06/17/21 History rosuvastatin [Crestor] 5 mg PO DAILY 05/30/20 06/17/21 06/17/21 History albuterol sulfate 2 inh INHALATION Q4H PRN #6.7 gm 07/07/20 06/17/21 06/17/21 Rx aspirin 325 mg PO DAILY 07/07/20 06/17/21 06/17/21 History lacosamide [Vimpat] 50 mg PO BID #60 tab 06/13/21 06/17/21 Unknown Rx lorazepam [Lorazepam Intensol] 2 mg BUCCAL DAILY PRN #30 ml 06/13/21 06/17/21 06/17/21 Rx hydrochlorothiazide 25 mg PO DAILY 06/17/21 06/17/21 06/17/21 History levetiracetam See Rx Instructions .ROUTE .COMPLEX 06/17/21 06/17/21 06/17/21 History Allergies Allergy/AdvReac Type Severity Reaction Status Date / Time melton Allergy Unknown Verified 06/17/21 19:41 hydrocodone Allergy Unknown Verified 06/17/21 19:41 lisinopril Allergy Unknown Verified 06/17/21 19:41 niacin Allergy Unknown Verified 06/17/21 19:41 pravastatin Allergy Unknown Verified 06/17/21 19:41 simvastatin Allergy Unknown Verified 06/17/21 19:41 strawberry Allergy Unknown Verified 06/17/21 19:41 tramadol Allergy Unknown Verified 06/17/21 19:41 Current Medications Current Medications Generic Name Dose Route Start Last Admin Trade Name Freq PRN Reason Stop Dose Admin Albuterol/Ipratropium 3 ml 06/18/21 07:07 06/18/21 09:44 Ipratropium-Albuterol 3 Ml Neb INHALATION 3 ml Q6H PRN Administration SHORTNESS OF BREATH Amoxicillin/Clavulanate Potassium 1 tab 06/18/21 08:00 06/18/21 17:29 Amoxicillin-Clav 875-125 Mg Tablet NG-TUBE 1 tab BID AMELIA Administration Protocol Bumetanide 1 mg 06/18/21 09:00 06/18/21 09:16 Bumetanide 0.25 Mg/Ml Sdv 4 Ml IV 1 mg DAILY AMELIA Administration Chlorhexidine Gluconate 15 ml 06/18/21 09:00 06/18/21 17:29 Chlorhexidine Gluconate 0.12% Btl 473 Ml MUCOUS MEM 15 ml BID AMELIA Administration Enoxaparin Sodium 40 mg 06/18/21 07:15 06/18/21 09:16 Enoxaparin 40 Mg/0.4 Ml Syringe SUBCUT 40 mg Q24H AMELIA Administration Folic Acid 1 mg 06/18/21 09:00 06/18/21 09:16 Folic Acid 1 Mg Tablet PO 1 mg DAILY AMELIA Administration Propofol 1,000 mg in 100 mls @ 0 mls/hr 06/18/21 05:30 06/18/21 15:49 Diprivan IV 10 mcg/kg/min .Q0M AMELIA 6.26 mls/hr Administration Protocol Per Protocol Levetiracetam 1,500 mg/ Sodium 115 mls @ 440 mls/hr 06/18/21 08:00 06/18/21 10:20 Chloride IV Infused Q12H AMELIA Infusion Lacosamide 100 mg/ Sodium 60 mls @ 120 mls/hr 06/18/21 09:00 06/18/21 11:00 Chloride IV Infused Q12H AMELIA Infusion Pantoprazole Sodium 40 mg 06/18/21 09:00 06/18/21 09:16 Pantoprazole 40 Mg Sdv IVP 40 mg DAILY AMELIA Administration Thiamine HCl 100 mg 06/18/21 09:00 06/18/21 09:16 Thiamine 100 Mg/Ml Sdv IV 100 mg DAILY AMELIA Administration PFSH Acute PFSH: Medical History Acute respiratory failure with hypoxia and hypercapnia CAD (coronary artery disease) Details unknown COPD (chronic obstructive pulmonary disease) DM type 2 (diabetes mellitus, type 2) [id number], on Metformin History of echocardiogram (~05/2020) 60%EF HLD (hyperlipidemia) Statin therapy HTN (hypertension) Hyperammonemia Ammonia level of 92 in May 2020 Lung cancer Pneumonia Post-traumatic seizures Notated on several ER visits, details otherwise unknown, on Keppra Sepsis Smoking addiction Surgical History H/O neck surgery H/O: knee surgery History of shoulder surgery Hx of appendectomy Family History Other Cancer Heart disease Social History Smoking and tobacco status: current every day smoker cigarettes Packs smoked per day: 1 Alcohol intake: never Lives independently: Yes Household members: spouse Marital status: Current occupational status: retired Vitals/I&O/Wt Last Vital Signs Temp 98.2 F 06/18/21 11:25 Pulse 74 06/18/21 17:15 Resp 19 H 06/18/21 17:15 BP 101/53 06/18/21 17:15 Pulse Ox 96 06/18/21 17:15 06/18/21 06/18/21 06/18/21 06:59 14:59 22:59 Intake Total 500 / 500 175 / 175 Output Total 1200 / 1200 Balance 500 / 500 175 / 175 -1200 / -1025 Weight last 48 hrs Weight 230 lb Physical Exam Narrative: EXAM NARRATIVE: Patient is in the ICU bed with endotracheal tube in place. He is moving all 4 extremities. He does not follow commands. Eye movements are spontaneously full. He resists eye opening against the examiner's fingers. He grimaces in response to supraorbital pressure. Eyes are in the midline and he is too alert for doll's eyes maneuver. He responds to pain in all 4 extremities with appropriate withdrawal. Toes are downgoing. Deep tendon reflexes intact. Heart sounds are normal without murmur or gallop. Lungs are clear. Extremities are unremarkable. Urinary Catheter Management^: Shirley: Cath Placed During This Visit: yes Reason for Continuing Indwelling Catheter: Accurate Measurement of Urinary Outpu t in Critically Ill Patients Urinary Catheter Date of Insertion: 06/18/21 Urinary Catheter Time of Insertion: 02:35 A&P Assessment and plan (1) Generalized epilepsy, intractable: This is a 70-year-old man in poor health with multiple episodes of respiratory failure not related to seizures who has also had multiple episodes of epilepsy out of control. As far as I know, he has not been referred to me. I have checked medical records and he has never been to my office. His care has mainly been managed through the emergency department and through hospitalizations. He recently had several more seizures on a high dose of Keppra with a low dose of Vimpat. As far as I can tell, compliance has not been an issue. His Keppra level has been high every time its been tested all the way to last year. I will be glad to follow him as an outpatient. Intravenous medication is necessary at this point. I would at least increase his Vimpat to 100 mg intravenously twice a day but I would warned that he has already had multiple episodes of falling down and ending up in the emergency room from falling and that may be related to Keppra toxicity. Vimpat has a problem with causing unsteadiness. The best drug for him in the long run may be Zonegran but it is not available intravenously and so we will start it later after he wakes. Status: Acute (2) Acute hypercapnic respiratory failure: Status: Acute (3) COPD (chronic obstructive pulmonary disease): Status: Acute Qualifiers: COPD type: unspecified COPD Qualified Code(s): J44.9 - Chronic obstructive pulmonary disease, unspecified Consult Attestations Medical Necessity Statement: Respiratory failure intubated Time Spent in Patient Care: Greater than 35 minutes (>than 50% of time spent in counselling and/or direct pt care on unit) . 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
[2021-06-18 19:46] LABS: Glucose Point of Care 84 mg/dL (70-110)
[2021-06-19] VITALS (171 sets, daily range): BP systolic 82–146; BP diastolic 43–92; PULSE 59–102; RESP 15–40; TEMP 36.8–37.6; O2SAT 48–100
[2021-06-19] MEDS: propofol 1,000 MG/100 ML INJ 6.26 MG IV (05:26)
[2021-06-19 06:44] LABS: Basophils % 0.4 %; Eosinophils # 0.3 10^3/uL (0.0-0.8); Eosinophils % 2.9 %; Hemoglobin 13.8 g/dL (11.7-16.6); Lymphocytes # 1.7 10^3/uL (0.8-4.8); Mean Corpuscular HGB Conc 30.7 g/dL (30.0-36.0); Mean Corpuscular Volume 97.8 fL (80-94); Mean Platelet Volume 10.4 fL (7.4-10.4); Monocytes % 10.4 %; Neutrophils # 6.19 10^3/uL (1.8-7.7); Neutrophils % 67.1 %; Nucleated Red Blood Cells % 0 %; Platelet Count 233 10^3/cmm (130-400); Red Cell Distribution Width 14.6 % (12.1-15.1); White Blood Count 9.2 10^3/uL (4.0-10.0)
[2021-06-19 07:03] LABS: Anion Gap 10.5 (5-19); Blood Urea Nitrogen 20 mg/dL (8-23); Calcium 8.1 mg/dL (8.5-10.5); Carbon Dioxide 35 mmol/L (22-29); Chloride 93 mmol/L (98-107); Glucose 98 mg/dL (65-115); Osmolality Calculated 283 mOsm/kg (285-295); Potassium 3.5 mmol/L (3.5-5.1); Sodium 135 mmol/L (136-145)
[2021-06-19] MEDS: enoxaparin 40 mg/0.4 mL Syringe SUBCUT (08:09)
[2021-06-19] MEDS: folic acid 1 mg Tablet PO (08:10)
[2021-06-19] MEDS: chlorhexidine gluconate 0.12% Btl 473 mL 15 ML MUCOUS MEM ×2 (08:10→18:08)
[2021-06-19] MEDS: amoxicillin-clav 875-125 mg Tablet 1 TAB NG-TUBE ×2 (08:10→18:07)
[2021-06-19] MEDS: pantoprazole 40 mg SDV IVP (08:10)
[2021-06-19] MEDS: lacosamide 100 MG in sodium chloride 0.9% 50 ML 120 MG IV (09:31)
--- NOTE | 2021-06-19 09:51 | PC.CHAP ---
Pastoral Care Encounter/Spiritual Assessment Type of Contact [] Declined overnight babysitter visit [] Patient/Family/Request visit [] Outpatient visit [] Follow-up visit [] Physician referral [] Code/Alert [x] Routine visit [] Staff referral [] Actively dying [x] Patient sleeping [] Family support [] [] Out of room [] Palliative care [] [] Receiving care in room [] Pre-surgical visit [] Trauma [] Long length of stay [x] ICU visit [x] Other: ventilator Relational/Emotional Strength [] Patient feels connected with others/family/visitors/staff [] Distress [] Loneliness/isolation [] Abandonment Spirituality of Patient [] Person of Bianca [] Attends Restorationist of their Bianca [] Believes in Prayer [] Reads Bible or Pentecostal materials [] There are Spiritual issues to be addressed Dance Costume Designer Interventions [x] Prayer [] Active listening [] Non-anxious presence [] Spiritual/emotional support [] Crisis/trauma care [] Spiritual counseling [] Bereavement support [] Provided bereavement packet [] Provided Bible/devotional materials [] Provided toy/stuffed animal, coloring book to patient or family member [] Provided Communion [] Anointing/[place] [] Salvation [x] Completed spiritual assessment [] Other: Impact on Illness or Injury [] Angry [] Fearful [] Anxious [] Often cries [] Exhaustion [] Unable to work [] Unable to attend uatsdin [] Unable to walk/stand [] Unable to read [] Unable to drive [] Unable to eat/drink [] Unable to sleep [] Unable to be with family [] Patient intubated [] Other: Summary Time spent with patient
--- NOTE | 2021-06-19 11:07 | P.PN_ITS ---
Subjective Subjective: Interval history: The patient was seen and examined this morning. He is intubated and sedated. He was able to follow simple commands. Medications: Reviewed: Yes Vitals/I&O/Wt Last Vital Signs Temp 99.6 F 06/19/21 07:00 Pulse 77 06/19/21 11:00 Resp 29 H 06/19/21 11:00 BP 115/70 06/19/21 11:00 Pulse Ox 93 06/19/21 11:00 06/18/21 06/19/21 06/19/21 22:59 06:59 14:59 Intake Total 175 / 350 100 / 450 243.916 / 243.916 Output Total 1200 / 1200 450 / 1650 Balance -1025 / -850 -350 / -1200 243.916 / 243.916 Weight last 48 hrs Weight 230 lb Physical Exam Narrative: EXAM NARRATIVE: General: The patient is intubated and sedated Neck: No JVD Respiratory: Auscultation: Reduced breath sound bilaterally, occasional crackles, no wheezing or rhonchi Cardiovascular: Regular rate and rhythm, S1-S2 present, no murmur,no peripheral edema. Abdomen: Soft,nondistended, positive bowel sound Musculoskeletal: No obvious joint deformity Skin: No rash Neuro: The patient is currently sedated but follows commands Urinary Catheter Management^: Shirley: Cath Placed During This Visit: yes Reason for Continuing Indwelling Catheter: Accurate Measurement of Urinary Output in Critically Ill Patients Urinary Catheter Date of Insertion: 06/18/21 Urinary Catheter Time of Insertion: 02:35 Data : 06/19/21 06:19 06/19/21 06:19 Attestation for Other Data: I personally reviewed and interpreted the following: Other data: I have reviewed his laboratory, microbiologic and neurologic data. 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 The patient was subsequently intubated for acute hypercapnic respiratory failure. He is on Keppra and Vimpat. The Keppra dose is 1500 mg twice a day IV and Vimpat is at 100 mg twice a day. The patient had been hospitalized multiple times requiring intubation in the past couple of years. Dr. Richter had evaluated the patient yesterday. For now, we will continue with Keppra 1500 milligrams twice a day and Vimpat 100 mg twice a day. Once discharged from the hospital, the patient will benefit from outpatient follow-up with Dr. Richter. Status: Acute (2) Acute hypercapnic respiratory failure: The patient is ready for extubation this morning. We will extubate him as soon as possible The patient has an extensive history of smoking and a documented history of COPD. He has evidence of emphysema on the CT scan of the chest. No previous pulmonary function test is available. He is on DuoNeb and Pulmicort nebulization for the time being. He should follow-up with the pulmonary clinic as well. Status: Acute (3) Emphysema of lung: Status: Acute (4) Lung cancer: The history of lung cancer is confusing. I could not find any radiologic evidence of lung cancer currently. However, the patient may have had suffered from it in the past. I do not have a detailed record of that. However it does play an important role in his disease process as paraneoplastic antibodies can be associated with recurrent seizure. This can be evaluated in detail as outpatient. 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
--- NOTE | 2021-06-19 12:53 | P.PN_ITS ---
Subjective Subjective: Interval history: Robert was intubated, but would arouse with stimulation when I saw him. ICU services, critical care had seen him earlier in the day and plans to extubate if possible today. Nursing has noted no recurrence of seizures since admission. Medications: Reviewed: Yes Vitals/I&O/Wt Last Vital Signs Temp 99.6 F 06/19/21 07:00 Pulse 77 06/19/21 11:00 Resp 29 H 06/19/21 11:00 BP 115/70 06/19/21 11:00 Pulse Ox 93 06/19/21 11:00 06/18/21 06/19/21 06/19/21 22:59 06:59 14:59 Intake Total 175 / 350 100 / 450 243.916 / 243.916 Output Total 1200 / 1200 450 / 1650 Balance -1025 / -850 -350 / -1200 243.916 / 243.916 Weight last 48 hrs Weight 104.326 kg Physical Exam Narrative: EXAM NARRATIVE: General exam the patient is intubated and sedated Neck is supple no lymphadenopathy or thyromegaly Cardiovascular regular rate and rhythm without murmur. No S3 or S4. Lungs clear Abdomen is soft with positive bowel sounds Neurologic: Sedated Extremities no cyanosis clubbing or edema Urinary Catheter Management^: Shirley: Cath Placed During This Visit: yes Reason for Continuing Indwelling Catheter: Accurate Measurement of Urinary Output in Critically Ill Patients Urinary Catheter Date of Insertion: 06/18/21 Urinary Catheter Time of Insertion: 02:35 Data : 06/19/21 06:19 06/19/21 06:19 A&P Assessment and plan (1) Acute hypercapnic respiratory failure: Currently intubated and sedated Appreciate pulmonary consultation Wean as tolerated per pulmonary Augmentin was started on admission by skates operator secondary to concern of aspiration. Status: Acute (2) Generalized seizure: Patient has underlying seizure disorder. I believe he was taking Keppra 1500 mg in the morning and 1000 mg at night as well as 50 mg of Vimpat twice daily Keppra has been increased to 1500 mg every 12 hours Vimpat has been increased to 100 mg twice daily Appreciate neurologic consultation Status: Acute (3) DM type 2 (diabetes mellitus, type 2): Blood sugars have been normal Sliding scale insulin not initiated. We will continue to evaluate blood sugars, and start sliding scale insulin if needed when diet is initiated. Status: Acute Qualifiers: Diabetes mellitus termite control technician insulin use: without termite control technician use Diabetes mellitus complication status: without complication Qualified Code(s): E11.9 - Type 2 diabetes mellitus without complications (4) CAD (coronary artery disease): History of coronary disease. Continue aspirin, statin Status: Acute Qualifiers: Coronary Disease-Associated Artery/Lesion type: [place] artery [place] vs. transplanted heart: [place] heart Associated angina: angina presence unspecified Qualified Code(s): I25.10 - Atherosclerotic heart disease of [place] coronary artery without angina pectoris (5) COPD (chronic obstructive pulmonary disease): DuoNeb, Pulmicort per pulmonary No evidence of exacerbation currently. Status: Acute Qualifiers: COPD type: unspecified COPD Qualified Code(s): J44.9 - Chronic obstructive pulmonary disease, unspecified Additional A&P Information Full code Lovenox for DVT prophylaxis Attestations Medical Necessity Statement*: Needs continued hospitalization secondary to respiratory failure requiring intubation from seizure disorder. Coding Level of Care Code Acute Stone Driller for [facility] Diagnoses Acute hypercapnic respiratory failure J96.02 Generalized seizure R56.9 DM type 2 (diabetes mellitus, type 2) E11.9 Diabetes mellitus termite control technician insulin use: without prison use Diabetes mellitus complication status: without complication CAD (coronary artery disease) I25.10 Coronary Disease-Associated Artery/Lesion type: [place] artery [place] vs. transplanted heart: [place] heart Associated angina: angina presence unspecified COPD (chronic obstructive pulmonary disease) J44.9 COPD type: unspecified COPD
[2021-06-19] MEDS: levETIRAcetam 500 mg Tablet 1500 MG PO (18:08)
[2021-06-19] MEDS: lacosamide 50 mg Tablet 100 MG PO (18:08)
--- NOTE | 2021-06-19 19:14 | PC.NURSE ---
Shift Note Frequent safety and comfort rounds continue. Orders and/or nursing care completed as indicated. Patient monitored for response to intervention and treatment(s). Will continue to monitor.
[2021-06-19] MEDS: polyethylene glycol 3350 Pkt 17 gm PO (23:57)
[2021-06-19] MEDS: omega-3 fatty acids 1,000 mg Capsule 1000 MG PO (23:58)
[2021-06-19] MEDS: dorzolamide/timolol Op Soln 10 mL Btl 1 DROP EYE-BOTH (23:58)
[2021-06-19] MEDS: gabapentin 300 mg Capsule 600 MG PO (23:58)
[2021-06-20] VITALS (40 sets, daily range): BP systolic 111–150; BP diastolic 52–86; PULSE 60–88; RESP 17–29; TEMP 36.3–36.8; O2SAT 90–100
--- NOTE | 2021-06-20 04:00 | PC.NURSE ---
Transfer Note Patient transferred to [facility] bed 250-2 from ICU via bed. Handoff report given to Chana. Patient oriented to environment and equipment. Covering service notified. Orders reviewed and will continue to monitor. Family and/or personal service representative notified. Patient transferred on 5LNC. All patient belongings were transported to [facility] and placed at patient bedside.
--- NOTE | 2021-06-20 05:48 | PC.NURSE ---
shift note patient arrived at this floor @0340, opens eyes when name is called, makes eye contact, smiles, non-verbal, eyes red, able to follow command with right arm, patient unable to lift left arm more than a fraction,PERRLA, tongue symmetrical, skin fragile, old skin tear to top of left hand, open to air, left hand swollen, lung sounds coarse, currently on 5 lpm, uses accessory muscles with resp. cough present, moist, unable to cough hard enough to expel mucus. urine orange in color.
[2021-06-20] MEDS: enoxaparin 40 mg/0.4 mL Syringe SUBCUT (06:20)
[2021-06-20] MEDS: omega-3 fatty acids 1,000 mg Capsule 1000 MG PO ×2 (08:58→18:22)
[2021-06-20] MEDS: hydroCHLOROthiazide 25 mg Tablet PO (08:58)
[2021-06-20] MEDS: gabapentin 300 mg Capsule 600 MG PO ×2 (08:58→18:22)
[2021-06-20] MEDS: levETIRAcetam 500 mg Tablet 1500 MG PO ×2 (08:58→18:22)
[2021-06-20] MEDS: folic acid 1 mg Tablet PO (08:58)
[2021-06-20] MEDS: polyethylene glycol 3350 Pkt 17 gm PO (08:59)
[2021-06-20] MEDS: aspirin 325 mg Tablet PO (08:59)
[2021-06-20] MEDS: amlodipine 5 mg Tablet 2.5 MG PO (08:59)
[2021-06-20] MEDS: lacosamide 50 mg Tablet 100 MG PO ×2 (09:04→18:33)
[2021-06-20] MEDS: piperacillin-tazobactam 3.375 GM in sodium chloride 0.9% (plus) 50 ML IV ×2 (09:04→18:21)
[2021-06-20] MEDS: dorzolamide/timolol Op Soln 10 mL Btl 1 DROP EYE-BOTH ×2 (09:06→18:22)
[2021-06-20] MEDS: chlorhexidine gluconate 0.12% Btl 473 mL 15 ML MUCOUS MEM ×2 (09:23→18:22)
--- NOTE | 2021-06-20 12:18 | PC.NUTR ---
Nutrition assessment for MST score of 4. Recommend to encourage po intakes of meals and provide preferences as appropriate to optimize nutrition. Unclear rationale for mechanical soft diet--recommend TEACHERS ASSISTANT eval if swallowing issues suspected. See full RD assessment for further details.
--- NOTE | 2021-06-20 13:17 | PM.PN ---
Subjective Subjective: Interval history: Robert reports that he is doing okay. He appears to cough quite a bit when I interviewed him. He is wondering what the overall plan is and when he could potentially go home. Reports he uses 2 L chronically at home. Medications: Reviewed: Yes Vitals/I&O/Wt Last Vital Signs Temp 98.2 F 06/20/21 10:53 Pulse 69 06/20/21 10:53 Resp 18 06/20/21 10:53 BP 117/61 06/20/21 10:53 Pulse Ox 100 06/20/21 10:53 06/19/21 06/20/21 06/20/21 22:59 06:59 14:59 Intake Total 0 / 243.916 240 / 240 Output Total 900 / 900 750 / 1650 Balance -900 / -656.084 -750 / -1406.084 240 / 240 Physical Exam Narrative: EXAM NARRATIVE: General exam conversant, but appears weak Neck is supple no lymphadenopathy or thyromegaly Cardiovascular regular rate and rhythm without murmur. No S3 or S4. Lungs bilateral expiratory wheezes Abdomen is soft with positive bowel sounds Extremities no cyanosis clubbing or edema Urinary Catheter Management^: Shirley: Cath Placed During This Visit: yes Reason for Continuing Indwelling Catheter: Acute Urinary Retention or Obstruction Urinary Catheter Date of Insertion: 06/18/21 Urinary Catheter Time of Insertion: 02:35 Data : 06/19/21 06:19 06/19/21 06:19 A&P Assessment and plan (1) Acute hypercapnic respiratory failure: Extubated yesterday prior to transfer from ICU Appreciate pulmonary consultation Augmentin was initiated secondary to concern of aspiration. We will change this to cefepime considering sputum culture demonstrating Pseudomonas. Status: Acute (2) Generalized seizure: Patient has underlying seizure disorder. I believe he was taking Keppra 1500 mg in the morning and 1000 mg at night as well as 50 mg of Vimpat twice daily Keppra has been increased to 1500 mg every 12 hours Vimpat has been increased to 100 mg twice daily Appreciate neurologic consultation Status: Acute (3) DM type 2 (diabetes mellitus, type 2): Blood sugars have been normal Sliding scale insulin not initiated. We will continue to evaluate blood sugars, and start sliding scale insulin if needed when diet is initiated. Status: Acute Qualifiers: Diabetes mellitus complication status: without complication Diabetes mellitus long-term insulin use: without long-term use Qualified Code(s): E11.9 - Type 2 diabetes mellitus without complications (4) CAD (coronary artery disease): History of coronary disease. Continue aspirin, statin Status: Acute Qualifiers: Associated angina: angina presence unspecified Coronary Disease-Associated Artery/Lesion type: [place] artery [place] vs. transplanted heart: [place] heart Qualified Code(s): I25.10 - Atherosclerotic heart disease of [place] coronary artery without angina pectoris (5) COPD (chronic obstructive pulmonary disease): Schedule DuoNeb and Pulmicort No evidence of exacerbation currently. Status: Acute Qualifiers: COPD type: unspecified COPD Qualified Code(s): J44.9 - Chronic obstructive pulmonary disease, unspecified Additional A&P Information Probable pneumonia. Change to Zosyn based on culture results with Pseudomonas and concern of aspiration. Repeat x-ray tomorrow. Full code Lovenox for DVT prophylaxis Attestations Medical Necessity Statement*: Needs continued hospitalization for IV antibiotics secondary to pseudomonal pneumonia Coding Level of Care Code Acute Senior Industrial Engineer for [facility] Diagnoses Acute hypercapnic respiratory failure J96.02 Generalized seizure R56.9 DM type 2 (diabetes mellitus, type 2) E11.9 Diabetes mellitus complication status: without complication Diabetes mellitus long-term insulin use: without termite renewal inspector use CAD (coronary artery disease) I25.10 Associated angina: angina presence unspecified Coronary Disease-Associated Artery/Lesion type: [place] artery [place] vs. transplanted heart: [place] heart COPD (chronic obstructive pulmonary disease) J44.9 COPD type: unspecified COPD
[2021-06-20] MEDS: ipratropium-albuterol 3 mL Neb INHALATION ×2 (14:47→21:40)
--- NOTE | 2021-06-20 19:38 | PC.NURSE ---
shift summary pt has been pleasantly confused. he can tell me if he is able to swallow pills and that he normally walks at home and will answer most questions, but when asked if he knows where he is or todays month and year he is unable to tell me and will not answer. pt seems to be incontinent at times as well. he did have a BM today, but was not able to go in the bedpan as this morning orders were bedrest. pt has slept most of the day, no complaints of pain or discomfort this shift.
[2021-06-20] MEDS: budesonide 0.5 mg/2 mL Neb INHALATION (21:41)
[2021-06-21] VITALS (10 sets, daily range): BP systolic 115–150; BP diastolic 62–74; PULSE 70–80; RESP 14–20; TEMP 36.7–36.8; O2SAT 93–96
[2021-06-21] MEDS: piperacillin-tazobactam 3.375 GM in sodium chloride 0.9% (plus) 50 ML IV ×3 (00:13→16:38)
[2021-06-21] MEDS: ipratropium-albuterol 3 mL Neb INHALATION ×3 (05:02→20:12)
[2021-06-21 05:40] LABS: Basophils % 0.3 %; Eosinophils # 0.4 10^3/uL (0.0-0.8); Eosinophils % 6.2 %; Hematocrit 44.9 % (42.0-52.0); Hemoglobin 13.8 g/dL (11.7-16.6); Lymphocytes # 1.3 10^3/uL (0.8-4.8); Lymphocytes % 19.1 %; Mean Corpuscular HGB Conc 30.7 g/dL (30.0-36.0); Mean Corpuscular Hemoglobin 29.9 pg (28.0-34.0); Mean Corpuscular Volume 97.4 fL (80-94); Mean Platelet Volume 10.2 fL (7.4-10.4); Monocytes # 0.9 10^3/uL (0.2-0.9); Monocytes % 13.7 %; Neutrophils # 4.06 10^3/uL (1.8-7.7); Nucleated Red Blood Cells % 0 %; Platelet Count 228 10^3/cmm (130-400); Red Blood Count 4.61 10^6/uL (4.1-5.3); Red Cell Distribution Width 13.6 % (12.1-15.1); White Blood Count 6.8 10^3/uL (4.0-10.0)
[2021-06-21 05:58] LABS: Alanine Aminotransferase 19 U/L (0-41); Albumin Level 2.9 g/dL (3.5-5.2); Alkaline Phosphatase 81 IU/L (40-130); Anion Gap 9.8 (5-19); Aspartate Amino Transferase 12 U/L (0-40); Blood Urea Nitrogen 10 mg/dL (8-23); Calcium 8.6 mg/dL (8.5-10.5); Carbon Dioxide 36 mmol/L (22-29); Chloride 94 mmol/L (98-107); Globulin 3.3 g/dL (1.3-4.6); Glucose 103 mg/dL (65-115); Osmolality Calculated 281 mOsm/kg (285-295); Potassium 3.8 mmol/L (3.5-5.1); Sodium 136 mmol/L (136-145); Total Bilirubin 0.5 mg/dL (0.15-1.2); Total Protein 6.2 g/dL (6.6-8.7)
[2021-06-21] MEDS: enoxaparin 40 mg/0.4 mL Syringe SUBCUT (06:15)
[2021-06-21] MEDS: polyethylene glycol 3350 Pkt 17 gm PO (10:34)
[2021-06-21] MEDS: levETIRAcetam 500 mg Tablet 1500 MG PO ×2 (10:35→18:37)
[2021-06-21] MEDS: aspirin 325 mg Tablet PO (10:35)
[2021-06-21] MEDS: lacosamide 50 mg Tablet 100 MG PO ×2 (10:37→18:37)
[2021-06-21] MEDS: hydroCHLOROthiazide 25 mg Tablet PO (10:38)
[2021-06-21] MEDS: omega-3 fatty acids 1,000 mg Capsule 1000 MG PO ×2 (10:38→18:36)
[2021-06-21] MEDS: folic acid 1 mg Tablet PO (10:40)
[2021-06-21] MEDS: gabapentin 300 mg Capsule 600 MG PO ×2 (10:40→18:36)
[2021-06-21] MEDS: amlodipine 5 mg Tablet 2.5 MG PO (10:41)
[2021-06-21] MEDS: dorzolamide/timolol Op Soln 10 mL Btl 1 DROP EYE-BOTH ×2 (10:48→18:38)
[2021-06-21] MEDS: chlorhexidine gluconate 0.12% Btl 473 mL 15 ML MUCOUS MEM ×2 (10:49→18:39)
--- NOTE | 2021-06-21 11:12 | PC.RESP ---
This therapist busy in emergency room this am. Treatment more than 2 hours past schedule, not given at this time.
--- NOTE | 2021-06-21 12:20 | P.PN_ITS ---
Subjective Subjective: Interval history: Robert reports he feels better. Hoping he can go home in the next day or 2. Medications: Reviewed: Yes Vitals/I&O/Wt Last Vital Signs Temp 98.2 F 06/21/21 11:45 Pulse 75 06/21/21 11:45 Resp 16 06/21/21 11:45 BP 150/69 06/21/21 11:45 Pulse Ox 95 06/21/21 11:45 06/20/21 06/21/21 06/21/21 22:59 06:59 14:59 Intake Total 340 / 820 50 / 870 Output Total 50 / 50 Balance 340 / -430 50 / -380 -50 / -50 Physical Exam Narrative: EXAM NARRATIVE: General exam conversant, but appears weak Neck is supple no lymphadenopathy or thyromegaly Cardiovascular regular rate and rhythm without murmur. No S3 or S4. Lungs improved aeration. Less wheezing. Abdomen is soft with positive bowel sounds Extremities no cyanosis clubbing or edema Urinary Catheter Management^: Shirley: Cath Placed During This Visit: yes Reason for Continuing Indwelling Catheter: Accurate Measurement of Urinary Output in Critically Ill Patients Urinary Catheter Date of Insertion: 06/18/21 Urinary Catheter Time of Insertion: 02:35 Data : 06/21/21 04:20 06/21/21 04:20 A&P Assessment and plan (1) Acute hypercapnic respiratory failure: Extubated June 19 Appreciate pulmonary consultation Augmentin was initiated secondary to concern of aspiration. This was changed to Zosyn secondary to sputum culture growing Pseudomonas. When he is discharged home likely the only alternative will be philippe quinolone. Short dosing regimen should be entertained secondary to his history of seizure disorder. Status: Acute (2) Generalized seizure: Patient has underlying seizure disorder. I believe he was taking Keppra 1500 mg in the morning and 1000 mg at night as well as 50 mg of Vimpat twice daily Keppra has been increased to 1500 mg every 12 hours Vimpat has been increased to 100 mg twice daily Appreciate neurologic consultation Status: Acute (3) DM type 2 (diabetes mellitus, type 2): Blood sugars have been normal Sliding scale insulin not initiated. We will continue to evaluate blood sugars, and start sliding scale insulin if needed when diet is initiated. It is apparent he does not need sliding scale insulin. Status: Acute Qualifiers: Diabetes mellitus intermodal dispatcher insulin use: without long-term use Diabetes mellitus complication status: without complication Qualified Code(s): E11.9 - Type 2 diabetes mellitus without complications (4) CAD (coronary artery disease): History of coronary disease. Continue aspirin, statin Status: Acute Qualifiers: Coronary Disease-Associated Artery/Lesion type: [place] artery [place] vs. transplanted heart: [place] heart Associated angina: angina presence unspecified Qualified Code(s): I25.10 - Atherosclerotic heart disease of [place] coronary artery without angina pectoris (5) COPD (chronic obstructive pulmonary disease): Schedule DuoNeb and Pulmicort No evidence of exacerbation currently. Status: Acute Qualifiers: COPD type: unspecified COPD Qualified Code(s): J44.9 - Chronic obs tructive pulmonary disease, unspecified Additional A&P Information Probable pneumonia. Change to Zosyn based on culture results with Pseudomonas and concern of aspiration. Clinically improved and now down to 3 L. His baseline is 2. Repeat x-ray tomorrow. Note that he had a Covid PCR -06/11 and repeat Covid rapid when he came in. Full code Lovenox for DVT prophylaxis Potential discharge home tomorrow. Attestations Medical Necessity Statement*: Needs continued hospitalization for IV antibiotics secondary to pneumonia Coding Level of Care Code Acute Director Outpatient Services for [facility] Diagnoses Acute hypercapnic respiratory failure J96.02 Generalized seizure R56.9 DM type 2 (diabetes mellitus, type 2) E11.9 Diabetes mellitus intermodal dispatcher insulin use: without long-term use Diabetes mellitus complication status: without complication CAD (coronary artery disease) I25.10 Coronary Disease-Associated Artery/Lesion type: [place] artery [place] vs. transplanted heart: [place] heart Associated angina: angina presence unspecified COPD (chronic obstructive pulmonary disease) J44.9 COPD type: unspecified COPD
[2021-06-21 17:27] LABS: Levetiracetam Keppra 74.2 mcg/mL
[2021-06-21] MEDS: budesonide 0.5 mg/2 mL Neb INHALATION (20:12)
[2021-06-22] VITALS (14 sets, daily range): BP systolic 123–152; BP diastolic 72–84; PULSE 63–85; RESP 16–24; TEMP 36.3–36.9; O2SAT 86–98
[2021-06-22] MEDS: piperacillin-tazobactam 3.375 GM in sodium chloride 0.9% (plus) 50 ML IV ×3 (01:45→19:26)
[2021-06-22] MEDS: ipratropium-albuterol 3 mL Neb INHALATION ×4 (04:39→20:30)
[2021-06-22 05:23] LABS: Basophils % 0.6 %; Eosinophils # 0.4 10^3/uL (0.0-0.8); Eosinophils % 6.5 %; Hematocrit 47.5 % (42.0-52.0); Hemoglobin 14.5 g/dL (11.7-16.6); Lymphocytes # 1.7 10^3/uL (0.8-4.8); Mean Corpuscular HGB Conc 30.5 g/dL (30.0-36.0); Mean Corpuscular Volume 98.1 fL (80-94); Mean Platelet Volume 9.8 fL (7.4-10.4); Monocytes # 0.9 10^3/uL (0.2-0.9); Monocytes % 12.8 %; Neutrophils # 3.61 10^3/uL (1.8-7.7); Neutrophils % 54.3 %; Nucleated Red Blood Cells % 0 %; Platelet Count 244 10^3/cmm (130-400); Red Blood Count 4.84 10^6/uL (4.1-5.3); Red Cell Distribution Width 13.7 % (12.1-15.1); White Blood Count 6.6 10^3/uL (4.0-10.0)
[2021-06-22 05:58] LABS: Blood Urea Nitrogen 10 mg/dL (8-23); Calcium 8.8 mg/dL (8.5-10.5); Carbon Dioxide 39 mmol/L (22-29); Chloride 96 mmol/L (98-107); Glucose 102 mg/dL (65-115); Osmolality Calculated 287 mOsm/kg (285-295); Sodium 139 mmol/L (136-145)
--- NOTE | 2021-06-22 06:48 | PC.RESP ---
RT Shift Note Frequent safety and respiratory rounds continue. Orders completed as indicated. Patient monitored pre and post treatments throughout shift. Patient did tolerate treatments appropriately. Condition did not change. Will continue to monitor patient progress.
--- NOTE | 2021-06-22 07:00 | XRR_ITS ---
PROCEDURE INFORMATION: Exam: XR Chest Exam date and time: 06/22/2021 7:00 AM Age: 70 years old Clinical indication: Shortness of breath; Additional info: Pneumonia TECHNIQUE: Imaging protocol: XR of the chest. Views: 1 view. COMPARISON: CR XR chest 1V portable [id number] 06/18/2021 2:31 AM FINDINGS: Lungs: There is increased lung markings, haziness of the left lung and right upper lobe, and a patchy airspace opacity in the left lower lobe, consistent with pneumonia. Pleural spaces: Unremarkable. No pleural effusion. No pneumothorax. Heart/Mediastinum: Stable cardiomediastinal silhouette. Bones/joints: Old healed fracture deformity of the left proximal humerus is again seen. XR/XR chest 1V portable [id number] IMPRESSION: Multifocal pneumonia, involving mainly the left lower lobe.
[2021-06-22] MEDS: enoxaparin 40 mg/0.4 mL Syringe SUBCUT (07:26)
--- NOTE | 2021-06-22 08:58 | PM.PN ---
Subjective Subjective: Interval history: Hospital course, labs appreciated. On exam patient lying comfortably in bed on 4L saturating 92%. Slightly confused but able re-orient. Once re-oriented, he is oriented to self, date, year, president but is not aware of place. He thinks he is at halfway. As per nurse his mentation is improving. Medications: Reviewed: Yes Vitals/I&O/Wt Last Vital Signs Temp 98.1 F 06/22/21 08:38 Pulse 70 06/22/21 08:38 Resp 16 06/22/21 08:38 BP 123/75 06/22/21 08:38 Pulse Ox 86 L 06/22/21 08:38 06/21/21 06/22/21 06/22/21 22:59 06:59 14:59 Intake Total 410 / 520 530 / 1050 Balance 410 / 470 530 / 1000 Physical Exam Narrative: EXAM NARRATIVE: General exam conversant, but appears weak Neck is supple no lymphadenopathy or thyromegaly Cardiovascular regular rate and rhythm without murmur. No S3 or S4. Lungs improved aeration. Less wheezing. Abdomen is soft with positive bowel sounds Extremities no cyanosis clubbing or edema Urinary Catheter Management^: Shirley: Cath Placed During This Visit: yes Reason for Continuing Indwelling Catheter: Accurate Measurement of Urinary Output in Critically Ill Patients Urinary Catheter Date of Insertion: 06/18/21 Urinary Catheter Time of Insertion: 02:35 Data : 06/22/21 04:35 06/22/21 04:35 A&P Assessment and plan (1) Acute hypercapnic respiratory failure: Combination of PNA nad COPD exacerberation. Extubated June 19 Appreciate pulmonary consultation Sputum Cx growing Pseudomonas. C/w Zosyn. Overall 7 days of course.When he is discharged home likely the only alternative will be philippe quinolone. Short dosing regimen should be entertained secondary to his history of seizure disorder. Check Procal, BnP, CTA chest, Dimer. BNP elevated on admission. Overall positive since admission. Lasix 20 IVP today. Swallow eval. Diet to be advanced as per eval. Status: Acute (2) COPD (chronic obstructive pulmonary disease): On higher oxygen supplementation than baseline of 2 L. Schedule DuoNeb and Pulmicort Start on Prednisone 40 mg oral daily. Status: Acute Qualifiers: COPD type: unspecified COPD Qualified Code(s): J44.9 - Chronic obstructive pulmonary disease, unspecified (3) DM type 2 (diabetes mellitus, type 2): Blood sugars have been normal As now on prednisone start on ISS. Status: Acute Qualifiers: Diabetes mellitus complication status: without complication Diabetes mellitus medical terminologist insulin use: without senior living use Qualified Code(s): E11.9 - Type 2 diabetes mellitus without complications (4) CAD (coronary artery disease): History of coronary disease. Continue aspirin, statin Status: Acute Qualifiers: Associated angina: angina presence unspecified Coronary Disease-Associated Artery/Lesion type: [place] artery [place] vs. transplanted heart: [place] heart Qualified Code(s): I25.10 - Atherosclerotic heart disease of [place] coronary artery without angina pectoris (5) Generalized seizure: Patient has underlying seizure disorder. I believe he was taking Keppra 1500 mg in the morning and 1000 mg at night as well as 50 mg of Vimpat twice daily Keppra has been increased to 1500 mg every 12 hours Vimpat has been increased to 100 mg twice daily Appreciate neurologic consultation Status: Acute Additional A&P Information Note that he had a Covid PCR -06/11 and repeat Covid rapid when he came in. Full code Lovenox for DVT prophylaxis Diet as per SAMUEL feng. Potential discharge home tomorrow. Attestations Medical Necessity Statement*: Further hospitalization for management of hypoxic respiratory failure, PNA, COPD exacerbertion. Time Spent in Patient Care: Greater than 35 minutes (>than 50% of time spent in counselling and/or direct pt care on unit). Coding Level of Care Code Acute Music Leader for [facility] Fwd Diagnoses Acute hypercapnic respiratory failure J96.02 COPD (chronic obstructive pulmonary disease) J44.9 COPD type: unspecified COPD DM type 2 (diabetes mellitus, type 2) E11.9 Diabetes mellitus complication status: without complication Diabetes mellitus medical terminologist insulin use: without senior living use CAD (coronary artery disease) I25.10 Associated angina: angina presence unspecified Coronary Disease-Associated Artery/Lesion type: [place] artery [place] vs. transplanted heart: [place] heart Generalized seizure R56.9
[2021-06-22] MEDS: budesonide 0.5 mg/2 mL Neb INHALATION ×2 (09:16→20:30)
--- NOTE | 2021-06-22 09:17 | CTR_ITS ---
PROCEDURE INFORMATION: Exam: CTA Chest With Contrast Exam date and time: 06/22/2021 9:17 AM Age: 70 years old Clinical indication: Cough and shortness of breath; Smoker's cough; Patient HX: HX of lung CA C/O SOB and cough; Additional info: Persistent SOB, h/o copd, pna TECHNIQUE: Imaging protocol: Computed tomographic angiography of the chest with contrast. 3D rendering (Not supervised by radiologist): MIP and/or 3D reconstructed images were created by the technologist. Radiation optimization: All CT scans at this facility use at least one of these dose optimization techniques: automated exposure control; mA and/or kV adjustment per patient size (includes targeted exams where dose is matched to clinical indication); or iterative reconstruction. Contrast material: OMNI 350; Contrast volume: 72 ml; Contrast route: INTRAVENOUS (IV); COMPARISON: CT angio chest PE protcl [id number] 05/31/2020 2:24 PM RADIATION DOSE METRICS: Total DLP (mGy-cm): 551.95 FINDINGS: Pulmonary arteries: Normal. No pulmonary emboli. Aorta: Unremarkable. No aortic aneurysm. No aortic dissection. Lungs: Scattered patchy bilateral pulmonary ground-glass opacities. There is streaky consolidation at the posterior aspect of the lung bases. Pleural spaces: Unremarkable. No pneumothorax. No pleural effusion. Heart: Multivessel atherosclerotic disease which involves the coronary arteries. Mediastinal space: Small hiatal hernia. Lymph nodes: Unremarkable. No enlarged lymph nodes. Gallbladder and bile ducts: Cholelithiasis. Bones/joints: Unremarkable. No acute fracture. Soft tissues: Unremarkable. CT/CT angio chest PE protcl [id number] IMPRESSION: 1. Scattered patchy bilateral pulmonary ground-glass opacities.Imaging features can be seen with COVID-19 pneumonia, though are nonspecific and can occur with a variety of infectious and noninfectious processes. (Reference: Artemio) 2. Streaky consolidation at the posterior aspects of the lung bases may represent dependent atelectatic change or pneumonia. 3. Multivessel atherosclerotic disease which involves the coronary arteries. 4. Cholelithiasis. 5. No evidence for pulmonary embolus. REFERENCES: Artemio Raza et al., Radiological Society of [place] Expert Consensus Statement on Reporting Chest CT Findings Related to COVID-19. Endorsed by the Society of Thoracic Radiology, the [place] [employer], and RSNA. Published February 08, 2020. Radiation Dose CTDIVOL = (mGy): DLP = 551.95 (mGy-cm)
[2021-06-22 09:49] LABS: D Dimer 0.93 ug/mIFEU (0-0.59)
[2021-06-22 10:03] LABS: NT Pro B Type Natriuretic Pept 671 pg/mL (0-125)
[2021-06-22] MEDS: dorzolamide/timolol Op Soln 10 mL Btl 1 DROP EYE-BOTH ×2 (10:13→19:33)
[2021-06-22] MEDS: hydroCHLOROthiazide 25 mg Tablet PO (10:14)
[2021-06-22] MEDS: folic acid 1 mg Tablet PO (10:14)
[2021-06-22] MEDS: aspirin 325 mg Tablet PO (10:15)
[2021-06-22] MEDS: lacosamide 50 mg Tablet 100 MG PO ×2 (10:15→19:29)
[2021-06-22] MEDS: gabapentin 300 mg Capsule 600 MG PO ×2 (10:16→19:28)
[2021-06-22] MEDS: omega-3 fatty acids 1,000 mg Capsule 1000 MG PO ×2 (10:16→19:27)
[2021-06-22] MEDS: levETIRAcetam 500 mg Tablet 1500 MG PO ×2 (10:17→19:29)
[2021-06-22] MEDS: amlodipine 5 mg Tablet 2.5 MG PO (10:19)
[2021-06-22] MEDS: polyethylene glycol 3350 Pkt 17 gm PO (10:19)
[2021-06-22] MEDS: FUROsemide 10 mg/mL SDV 2mL 20 MG IVP (10:22)
[2021-06-22] MEDS: chlorhexidine gluconate 0.12% Btl 473 mL 15 ML MUCOUS MEM ×2 (10:27→19:33)
[2021-06-22] MEDS: iohexol 350 mg/mL 100 mL Btl IV (13:41)
[2021-06-22] MEDS: predniSONE 20 mg Tablet 40 MG PO (16:34)
[2021-06-22 17:15] LABS: Glucose Point of Care 119 mg/dL (70-110)
[2021-06-22 22:05] LABS: Glucose Point of Care 263 mg/dL (70-110)
[2021-06-22 22:06] LABS: Glucose Point of Care 212 mg/dL (70-110)
[2021-06-23] VITALS (12 sets, daily range): BP systolic 110–147; BP diastolic 64–83; PULSE 57–99; RESP 16–18; TEMP 36.3–36.9; O2SAT 85–100
[2021-06-23] MEDS: piperacillin-tazobactam 3.375 GM in sodium chloride 0.9% (plus) 50 ML IV ×2 (01:10→08:50)
[2021-06-23] MEDS: ipratropium-albuterol 3 mL Neb INHALATION ×2 (03:09→08:14)
[2021-06-23 05:27] LABS: Alanine Aminotransferase 15 U/L (0-41); Albumin Level 3.2 g/dL (3.5-5.2); Alkaline Phosphatase 81 IU/L (40-130); Aspartate Amino Transferase 15 U/L (0-40); Blood Urea Nitrogen 13 mg/dL (8-23); Calcium 8.8 mg/dL (8.5-10.5); Carbon Dioxide 33 mmol/L (22-29); Chloride 91 mmol/L (98-107); Globulin 3.7 g/dL (1.3-4.6); Glucose 154 mg/dL (65-115); Osmolality Calculated 279 mOsm/kg (285-295); Sodium 133 mmol/L (136-145); Total Bilirubin 0.6 mg/dL (0.15-1.2); Total Protein 6.9 g/dL (6.6-8.7)
[2021-06-23 05:30] LABS: Anion Gap 13.2 (5-19); Potassium 4.2 mmol/L (3.5-5.1)
[2021-06-23 06:11] LABS: Procalcitonin 0.04 ng/mL (0-0.5)
[2021-06-23] MEDS: enoxaparin 40 mg/0.4 mL Syringe SUBCUT (06:25)
[2021-06-23 06:46] LABS: Glucose Point of Care 154 mg/dL (70-110)
[2021-06-23] MEDS: budesonide 0.5 mg/2 mL Neb INHALATION (08:14)
[2021-06-23] MEDS: predniSONE 20 mg Tablet 40 MG PO (08:48)
[2021-06-23] MEDS: omega-3 fatty acids 1,000 mg Capsule 1000 MG PO (08:48)
[2021-06-23] MEDS: levETIRAcetam 500 mg Tablet 1500 MG PO (08:49)
[2021-06-23] MEDS: gabapentin 300 mg Capsule 600 MG PO (08:49)
[2021-06-23] MEDS: amlodipine 5 mg Tablet 2.5 MG PO (08:49)
[2021-06-23] MEDS: aspirin 325 mg Tablet PO (08:49)
[2021-06-23] MEDS: lacosamide 50 mg Tablet 100 MG PO (08:49)
[2021-06-23] MEDS: hydroCHLOROthiazide 25 mg Tablet PO (08:49)
[2021-06-23] MEDS: folic acid 1 mg Tablet PO (08:49)
[2021-06-23] MEDS: polyethylene glycol 3350 Pkt 17 gm PO (08:50)
--- NOTE | 2021-06-23 09:29 | PM.DCS ---
Discharge Providers Date of Admission: 06/18/21 05:26 Date of Discharge: June 23, 2021 Attending Provider at Admission: Lorene Monte MD Attending Provider at Discharge: Efraín Jackson MD Diagnoses at Discharge Discharge Diagnosis (1) Acute hypercapnic respiratory failure: Status: Acute (2) COPD (chronic obstructive pulmonary disease): Status: Acute Qualifiers: COPD type: unspecified COPD Qualified Code(s): J44.9 - Chronic obstructive pulmonary disease, unspecified (3) DM type 2 (diabetes mellitus, type 2): Status: Acute Permanent problem details: Akg-nlaqfip-cofofpoth, on Metformin Qualifiers: Diabetes mellitus shelter insulin use: without shelter use Diabetes mellitus complication status: without complication Qualified Code(s): E11.9 - Type 2 diabetes mellitus without complications (4) CAD (coronary artery disease): Status: Acute Permanent problem details: Details unknown Qualifiers: Coronary Disease-Associated Artery/Lesion type: [place] artery [place] vs. 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 In the emergency department the patient was in acute hypercapnic respiratory failure and subsequently intubated. The patient was recently hospitalized on June 11 at which time he was also intubated for his respiratory failure due to seizure. At that time, the patient was discharged on 1500 mg levetiracetam twice a day and Vimpat 50 mg twice a day. The Vimpat at that time was added to his regimen. His CT scan of the head did not reveal any acute intracranial abnormalities on admission. An echocardiogram from January 2021 revealed an ejection fraction of 55 to 60% without any significant valvular abnormalities. This echocardiogram was obtained because of coag negative staph bacteremia. The patient refused PAMELA at this time. The patient also had a CT scan of the chest in January 2021 which revealed areas of interstitial thickening in the right middle lobe and right lower lobe. The patient also had ground-glass opacity and tree-in-bud appearance. The patient has evidence of emphysema. Patient was eventually extubated on June 19. Post extubation patient has remained on nasal cannula requiring up to 4 L saturating 94%. Patient sputum culture came back positive for Pseudomonas for which he has been on Zosyn and is been transitioned over to Levaquin as per culture sensitivities. For breakthrough seizure patient was seen by neurology and his seizure medications were adjusted. During hospitalization patient did not have any further seizure activity. During hospitalization CTA was done to rule out pulmonary embolism. It is believed patient is still requiring more than his baseline oxygen supplementation most likely from COPD exacerbation from Pseudomonas pneumonia. Patient is been discharged hemodynamically stable condition after home O2 evaluation with advise to follow-up with his primary care provider within next 1 week. He is to follow-up with Dr. Richter from neurology within next 1 week. He has been discharged on oral Levaquin for 5 more days as per dosing per his clinic creatinine clearance and seizure medications. He is also being discharged on oral prednisone for 5 more days. Because of recurrent hospitalization and generalized deconditioning patient was advised to discharge to SNF which she declined. Home health was offered to the patient and family which was declined as well. He is being discharged home with home oxygen to his family. Patient is a high risk of readmission because of all of the above. Physical Exam Narrative: EXAM NARRATIVE: General exam conversant, but appears weak Neck is supple no lymphadenopathy or thyromegaly Cardiovascular regular rate and rhythm without murmur. No S3 or S4. Lungs improved aeration. Less wheezing. Abdomen is soft with positive bowel sounds Extremities no cyanosis clubbing or edema Urinary Catheter Management^: Shirley: Cath Placed During This Visit: yes Reason for Continuing Indwelling Catheter: Accurate Measurement of Urinary Output in Critically Ill Patients Urinary Catheter Date of Insertion: 06/18/21 Urinary Catheter Time of Insertion: 02:35 Discharge Data Data Completed and Pending: Completed Studies During Hospitalization Category Date Time Status CT angio chest PE protcl [id number] Rout ine Cat Scan 06/22/21 09:[address] head wo con* 7 0450 Urgent Cat Scan 06/17/21 19:34 Completed XR KUB portable 7 5521 Urgent Exams 06/18/21 08:31 Completed XR chest 1V tricia ble [id number] Routine Exams 06/22/21 07:00 Completed XR chest 1V tricia ble [id number] Stat Exams 06/18/21 02:36 Completed XR chest 1V tricia ble [id number] Urgent Exams 06/17/21 19:34 Completed Pending at discharge Category Date Time Status [place] (Vimpat ) Stat Lab 06/18/21 07:11 Received Sputum Culture an d Gram Stain Routi ne Lab 06/18/21 05:25 Uncollected Labs from last 24 hours 06/23/21 06/23/21 06/23/21 06:10 04:14 04:14 D-Dimer Sodium 133 L Potassium 4.2 Chloride 91 L Carbon Dioxide 33 H Anion Gap 13.2 BUN 13 Creatinine 0.6 L GFR Calculation Not Reportable Glucose 154 H POC Glucose 154 H Calculated Osmolal ity 279 L Calcium 8.8 Total Bilirubin 0.6 AST 15 ALT 15 Alkaline Phosphata se 81 NT-Pro-B Natriuret Pep Total Protein 6.9 Albumin 3.2 L Globulin 3.7 Procalcitonin 0.04 06/22/21 06/22/21 06/22/21 21:39 19:23 17:01 D-Dimer Sodium Potassium Chloride Carbon Dioxide Anion Gap BUN Creatinine GFR Calculation Glucose POC Glucose 212 H 263 H 119 H Calculated Osmolal ity Calcium Total Bilirubin AST ALT Alkaline Phosphata se NT-Pro-B Natriuret Pep Total Protein Albumin Globulin Procalcitonin 06/22/21 06/22/21 04:35 04:35 D-Dimer 0.93 H Sodium Potassium Chloride Carbon Dioxide Anion Gap BUN Creatinine GFR Calculation Glucose POC Glucose Calculated Osmolal ity Calcium Total Bilirubin AST ALT Alkaline Phosphata se NT-Pro-B Natriuret Pep 671 H Total Protein Albumin Globulin Procalcitonin Addt'l Data from Hospital Stay: Laboratory Results WBC 6.6 10^3/uL (4.0- 10.0) 06/22/21 04:35 RBC 4.84 10^6/uL (4.1 -5.3) 06/22/21 04:35 Hgb 14.5 g/dL (11.7-1 6.6) 06/22/21 04:35 Hct 47.5 % (42.0-52.0 ) 06/22/21 04:35 MCV 98.1 fL (80-94) H 06/22/21 04:35 MCH 30.0 pg (28.0-34. 0) 06/22/21 04:35 MCHC 30.5 g/dL (30.0-3 6.0) 06/22/21 04:35 RDW 13.7 % (12.1-15.1 ) 06/22/21 04:35 Plt Count 244 10^3/cmm (130 -400) 06/22/21 04:35 MPV 9.8 fL (7.4-10.4) 06/22/21 04:35 Neut % (Auto) 54.3 % 06/22/21 04:35 Lymph % (Auto) 25.0 % 06/22/21 04:35 [place] % (Auto) 12.8 % 06/22/21 04:35 Eos % (Auto) 6.5 % 06/22/21 04:35 Baso % (Auto) 0.6 % 06/22/21 04:35 Neut # (Auto) 3.61 10^3/uL (1.8 -7.7) 06/22/21 04:35 Lymph # (Auto) 1.7 10^3/uL (0.8- 4.8) 06/22/21 04:35 [place] # (Auto) 0.9 10^3/uL (0.2- 0.9) 06/22/21 04:35 Eos # (Auto) 0.4 10^3/uL (0.0- 0.8) 06/22/21 04:35 Baso # (Auto) 0.0 10^3/uL (0.0- 0.1) 06/22/21 04:35 Nucleated RBC % (a uto) 0 % 06/22/21 04:35 Nucleated RBCs # 0.0 /100WBC 06/22/21 04:35 D-Dimer 0.93 ug/mIFEU (0- 0.59) H 06/22/21 04:35 Specimen Type Arterial 06/18/21 05:25 Sample Site Radial, right 06/18/21 05:25 ABG pH 7.38 (7.35-7.45) 06/18/21 05:25 ABG pCO2 67.1 mmHg (35-45) H* 06/18/21 05:25 ABG pO2 477.0 mmHg (80.0- 100.0) H 06/18/21 05:25 ABG HCO3 39.2 mmol/L (22-2 6) H 06/18/21 05:25 ABG O2 Saturation > 100.0 06/18/21 05:25 ABG Base Excess 10.7 mmol/L (-2.0 -2.0) H 06/18/21 05:25 [place] Test Pos 06/18/21 05:25 A-a O2 Gradient 19.4 mmHg (5-10) H 06/18/21 05:25 Hematocrit 46.8 % (42-52) 06/18/21 05:25 Hgb O2 Saturation 98.4 % (95-100) 06/18/21 05:25 Carboxyhemoglobin 1.9 %THgb (0.4-20 .1) 06/18/21 05:25 Methemoglobin 0.7 % (0.4-1.5) 06/18/21 05:25 Total Hemoglobin 15.3 g/dL (14-18) 06/18/21 05:25 Sodium 137.0 mmol/L (131 -143) 06/18/21 05:25 Potassium 3.8 mmol/L (3.5-5 .0) 06/18/21 05:25 Glucose 172.0 mg/dL (70-1 15) H 06/18/21 05:25 Ionized Calcium 1.2 mmol/L (1.1-1 .4) 06/18/21 05:25 O2 Delivery Device Vent 06/18/21 05:25 O2 Liters/Min 3.0 % 06/18/21 01:45 FiO2 100.0 % 06/18/21 05:25 Tidal Volume 0.40 06/18/21 05:25 PEEP 8.0 cmH20 06/18/21 05:25 Civil Engineering Assistant ID yorna 06/18/21 05:25 Sodium 133 mmol/L (136-1 45) L 06/23/21 04:14 Potassium 4.2 mmol/L (3.5-5 .1) 06/23/21 04:14 Chloride 91 mmol/L (98-107 ) L 06/23/21 04:14 Carbon Dioxide 33 mmol/L (22-29) H 06/23/21 04:14 Anion Gap 13.2 (5-19) 06/23/21 04:14 BUN 13 mg/dL (8-23) 06/23/21 04:14 Creatinine 0.6 mg/dL (0.7-1. 2) L 06/23/21 04:14 GFR Calculation Not Reportable 06/23/21 04:14 Glucose 154 mg/dL (65-115 ) H 06/23/21 04:14 POC Glucose 154 mg/dL (70-110 ) H 06/23/21 06:10 Calculated Osmolal ity 279 mOsm/kg (285- 295) L 06/23/21 04:14 Calcium 8.8 mg/dL (8.5-10 .5) 06/23/21 04:14 Magnesium 2.3 mg/dL (1.7-2. 3) 06/18/21 09:11 Total Bilirubin 0.6 mg/dL (0.15-1 .2) 06/23/21 04:14 AST 15 U/L (0-40) 06/23/21 04:14 ALT 15 U/L (0-41) 06/23/21 04:14 Alkaline Phosphata se 81 IU/L (40-130) 06/23/21 04:14 NT-Pro-B Natriuret Pep 671 pg/mL (0-125) H 06/22/21 04:35 Total Protein 6.9 g/dL (6.6-8.7 ) 06/23/21 04:14 Albumin 3.2 g/dL (3.5-5.2 ) L 06/23/21 04:14 Globulin 3.7 g/dL (1.3-4.6 ) 06/23/21 04:14 Procalcitonin 0.04 ng/mL (0-0.5 ) 06/23/21 04:14 Prolactin 60.12 ng/mL (4.0- 15.2) H 06/18/21 09:11 Urine Opiates Scre en Negative ng/mL (N egative) 06/18/21 11:05 Ur Barbiturates Sc reen Negative ng/mL (N egative) 06/18/21 11:05 Levetiracetam 74.2 mcg/mL H 06/18/21 09:11 Ur Phencyclidine S crn Negative ng/mL (N egative) 06/18/21 11:05 Ur Amphetamines Sc reen Negative ng/mL (N egative) 06/18/21 11:05 U Benzodiazepines Scrn Positive ng/mL (N egative) H 06/18/21 11:05 Urine Cocaine Scre en Negative ng/mL (N egative) 06/18/21 11:05 U Marijuana (THC) Screen Negative ng/mL (N egative) 06/18/21 11:05 Ethyl Alcohol < 10 mg/dL (0-10) 06/18/21 09:11 SARS-CoV-2 Ag (Rap id) Negative (Negati ve) 06/18/21 02:[address] 06/17/21 19:34 IMPRESSION: 1. No evidence of active or acute intracranial pathologic process, hemorrhage, or trauma. 2. Left maxillary sinusitis. Radiation Dose CTDIVOL = (mGy): DLP = 894.04 (mGy-cm) KUB X-Ray 06/18/21 08:31 Impression: 2 enteric tubes which appear to be within the esophagus and ending in the stomach. Chest X-Ray 06/22/21 07:00 IMPRESSION: Multifocal pneumonia, involving mainly the left lower lobe. Chest CTA 06/22/21 09:17 IMPRESSION: 1. Scattered patchy bilateral pulmonary ground-glass opacities.Imaging features can be seen with COVID-19 pneumonia, though are nonspecific and can occur with a variety of infectious and noninfectious processes. (Reference: Artemio) 2. Streaky consolidation at the posterior aspects of the lung bases may represent dependent atelectatic change or pneumonia. 3. Multivessel atherosclerotic disease which involves the coronary arteries. 4. Cholelithiasis. 5. No evidence for pulmonary embolus. REFERENCES: Artemio Raza, et al., Radiological Society of [place] Expert Consensus Statement on Reporting Chest CT Findings Related to COVID-19. Endorsed by the Society of Thoracic Radiology, the [place] [employer], and RSNA. Published February 08, 2020. Radiation Dose CTDIVOL = (mGy): DLP = 551.95 (mGy-cm) Vitals: Last Vital Signs Temp 97.8 F 06/23/21 07:18 Pulse 68 06/23/21 08:20 Resp 18 06/23/21 08:20 BP 110/64 06/23/21 07:18 Pulse Ox 85 L 06/23/21 09:13 Discharge Plan Discharge Patient Disposition: Home Condition: Stable Prescriptions: New folic acid 1 mg Tablet 1 mg PO DAILY 30 Days Qty: 30 RF: 0 levetiracetam 500 mg Tablet 1,500 mg PO BID 30 Days Qty: 180 RF: 0 prednisone 20 mg Tablet 40 mg PO DAILY 5 Days Qty: 10 RF: 0 Thera-M 9 mg iron-400 mcg tablet 1 tab PO QAM Qty: 60 RF: 0 levofloxacin 500 mg tablet 500 mg PO Q24H 5 Days Qty: 5 RF: 0 Continued aspirin 325 mg Tablet 325 mg PO DAILY RF: 0 albuterol sulfate 90 mcg/actuation HFA aerosol inhaler 2 inh INHALATION Q4H PRN (Reason: shortness of breath or wheezing) Qty: 6.7 RF: 0 gabapentin 600 mg Tablet 600 mg PO BID RF: 0 ipratropium-albuterol 0.5 mg-3 mg(2.5 mg base)/3 mL Solution For Nebulization 3 ml INHALATION QID RF: 0 polyethylene glycol 3350 [Miralax] 17 gram Powder In Packet See Rx Instructions .ROUTE .COMPLEX RF: 0 amlodipine 2.5 mg Tablet 2.5 mg PO DAILY RF: 0 pantoprazole [Protonix] 40 mg Tablet,Delayed Release (Dr/Ec) 40 mg PO DAILY RF: 0 dorzolamide-timolol 22.3-6.8 mg/mL Drops 1 drp OPHTHALMIC (EYE) BID RF: 0 albuterol sulfate 90 mcg/actuation Hfa Aerosol Inhaler 2 puff INHALATION QID RF: 0 metformin 500 mg Tablet Extended Release 24 Hr 500 mg PO DAILY RF: 0 rosuvastatin [Crestor] 5 mg Tablet 5 mg PO DAILY RF: 0 omega 7-rvp-azi-fish oil [Fish Oil] 1,000 mg (120 mg-180 mg) Capsule 1 cap PO BID RF: 0 lorazepam [Lorazepam Intensol] 2 mg/mL concentrate 2 mg buccal DAILY PRN (Reason: seizure activity) Qty: 30 RF: 0 hydrochlorothiazide 25 mg Tablet 25 mg PO DAILY RF: 0 Changed Vimpat 50 mg Tablet 100 mg PO BID Qty: 60 RF: 0 Discontinued levetiracetam 500 mg tablet See Rx Instructions .ROUTE .COMPLEX RF: 0 Discharge Orders: Discharge Order (Routine); Ordered 06/23/21 Ordered By: Efraín Jackson Referrals: Olimpia Richter MD [Physician] - 4-7 days Discharge Diet: Regular, Cardiac and Diabetic Discharge Activity: Resume usual activity Patient Instructions: Opioid Safety Activity Restrictions/Additional Instructions: Please follow-up with his primary care provider within next 1 week. He is to follow-up with Dr. Richter from neurology within next 1 week. He has been discharged on oral Levaquin for 5 more days as per dosing per his clinic creatinine clearance and seizure medications. He is also being discharged on oral prednisone for 5 more days. Discharge Attestations Time Spent in Discharge Care*: greater than 30 min Specific Discharge Activities: educating patient, discussing with pcp/other providers, discussing with case management manager/social workers/dc planners, documenting/other paperwork and evaluating patient/reviewing data Status at Discharge: Cognitive status at discharge: cognitively intact, Behavioral status at discharge: cooperative, Functional status at discharge: independent ambulation Overall status at discharge: patient is progressing back to baseline Quality Metrics Clinical Quality Measures During this hospital stay, did patient experience: None Coding Level of Care Code Acute Chg FW DC note Diagnoses Acute hypercapnic respiratory failure J96.02 COPD (chronic obstructive pulmonary disease) J44.9 COPD type: unspecified COPD DM type 2 (diabetes mellitus, type 2) E11.9 Diabetes mellitus long wall shear operator insulin use: without long wall shear operator use Diabetes mellitus complication status: without complication CAD (coronary artery disease) I25.10 Coronary Disease-Associated Artery/Lesion type: [place] artery [place] vs. transplanted heart: [place] heart Associated angina: angina presence unspecified Generalized seizure R56.9
--- NOTE | 2021-06-23 09:59 | PC.NURSE ---
notified SS that patient qualifies for home oxygen and is being discharged today
[2021-06-23] MEDS: chlorhexidine gluconate 0.12% Btl 473 mL 15 ML MUCOUS MEM (10:40)
[2021-06-23] MEDS: dorzolamide/timolol Op Soln 10 mL Btl 1 DROP EYE-BOTH (10:40)
[2021-06-23 12:30] LABS: Glucose Point of Care 171 mg/dL (70-110)
--- NOTE | 2021-06-23 14:58 | PC.NURSE ---
Patient's son arrived to flower picker patient. Discharge instructions were given to patient and son. Son did not bring patient's home oxygen. Son left to go get the home oxygen and will return to flower picker patient.
[2021-06-23 15:49] LABS: Glucose Point of Care 189 mg/dL (70-110)
--- NOTE | 2021-06-28 08:51 | PC.SOCIAL ---
Hospital follow up call made to patient. Appointment made for Dr. Richter for 07-01-21 @[id number] and with Brock ATKINSON for 07-02-21 @[id number]. Patient picked up new medications from pharmacy. Is aware of discontinued medications.
== END 2021-06-23 17:53 | disposition home or self-care (01) | DRG 208 ==
LOC: ER 06-18 03:20 → ICU 06-18 03:49 → MEDSURG 06-20 03:26
PROVIDERS: Internal Medicine; Admitting Provider Internal Medicine; Emergency Provider Emergency Medicine; Visit Provider Student in an Organized Health Care Education/Training Program
DX: J96.02 Acute respiratory failure with hypercapnia (principal); I50.33 Acute on chronic diastolic (congestive) heart failure; J15.1 Pneumonia due to Pseudomonas; C34.90 Malignant neoplasm of unspecified part of unspecified bronchus or lung; G40.409 Other generalized epilepsy and epileptic syndromes, not intractable, without status epilepticus; Z87.820 Personal history of traumatic brain injury; I25.10 Atherosclerotic heart disease of native coronary artery without angina pectoris; E11.9 Type 2 diabetes mellitus without complications; E78.5 Hyperlipidemia, unspecified; I11.0 Hypertensive heart disease with heart failure; Z87.01 Personal history of pneumonia (recurrent); F17.210 Nicotine dependence, cigarettes, uncomplicated; J43.9 Emphysema, unspecified; Z99.81 Dependence on supplemental oxygen; Z79.51 Long term (current) use of inhaled steroids
CPT/HCPCS: 31500; 36415; 36416; 36600; 51702; 70450; 71045; 71275; 74018; 80048; 80051; 80053; 80177; 80299; 80306; 80307; 82330; 82803; 82805; 82962; 83735; 83880; 84145; 84146; 85025; 85378; 87426; 92523; 92526; 92610; 93005; 94002; 94003; 94640; 94799; 96372; 97116; 97162; 97530; C9113; C9254; J0330; J1650; J1815; J1940; J1953; J2543; J2704; J3010; J3411; J3490; J7040; J7512; J7626; Q9967

== ENCOUNTER 2021-10-29 11:19 | Emergency (ER) | payer OTHER, SELFPAY ==
[2021-10-29 11:35] VITALS: BP 143/78; PULSE 73; RESP 20; TEMP 37.2; O2SAT 97; BMI 30.9
--- NOTE | 2021-10-29 11:42 | XR_ITS ---
WS: [id number] XR chest 1V portable [id number] REASON FOR EXAM: cough FINDINGS: Patient position is rotated. Compared to the previous examination of 06/22/2021, previously demonstrated lung opacities improved. There are residual/new interstitial changes in the left lung base. No other significant pulmonary parenchymal or pleural abnormality is identified. Postoperative and degenerative changes in the post fracture left shoulder. XR/XR chest 1V portable [id number] IMPRESSION: Intimal interstitial changes in the left lung base of uncertain chronicity. Fol low-up chest x-ray is recommended.
--- NOTE | 2021-10-29 11:59 | CTR_ITS ---
PROCEDURE INFORMATION: Exam: CT Abdomen And Pelvis With Contrast Exam date and time: 10/29/2021 11:59 AM Age: 70 years old Clinical indication: Nausea and vomiting; Prior surgery; Surgery type: Pelvis; Additional info: Abdominal pain, vomiting TECHNIQUE: Imaging protocol: Computed tomography of the abdomen and pelvis with contrast. Radiation optimization: All CT scans at this facility use at least one of these dose optimization techniques: automated exposure control; mA and/or kV adjustment per patient size (includes targeted exams where dose is matched to clinical indication); or iterative reconstruction. Contrast material: OMNI 300; Contrast volume: 95 ml; Contrast route: INTRAVENOUS (IV); COMPARISON: CT chest abd pel w con* 02/03/2021 6:38 PM RADIATION DOSE METRICS: Total DLP (mGy-cm): 1584.42 FINDINGS: Lungs: Emphysematous changes. Diaphragm: Small hiatal hernia. Liver: Normal. No mass. Gallbladder and bile ducts: Cholelithiasis. Pancreas: Normal. No ductal dilation. Spleen: Normal. No splenomegaly. Adrenal glands: Normal. No mass. Kidneys and ureters: Normal. No hydronephrosis. Stomach and bowel: Diverticulosis without diverticulitis. Appendix: No evidence of appendicitis. Intraperitoneal space: Unremarkable. No free air. No significant fluid collection. Vasculature: Unremarkable. No abdominal aortic aneurysm. Lymph nodes: Unremarkable. No enlarged lymph nodes. Urinary bladder: Unremarkable as visualized. Reproductive: Unremarkable as visualized. Bones/joints: Right iliac wing surgical hardware. Soft tissues: Unremarkable. CT/CT abdomen pelvis w con* [id number] IMPRESSION: 1. Negative for acute inflammatory process in the abdomen or pelvis. 2. Emphysematous changes. 3. Cholelithiasis. 4. Diverticulosis without diverticulitis. 5. Right iliac wing surgical hardware. 6. Small hiatal hernia.
--- NOTE | 2021-10-29 12:03 | W.ED.NAVMDI ---
Documented by User: LAUREN Davis 10/29/21 15:53 HPI - Nausea/Vomiting/Diarrhea General: Chief complaint: Abdominal Pain Stated complaint: THROWING UP Time Seen by Provider: 10/29/21 11:52 Source: patient and family Mode of arrival: ambulatory Limitations: no limitations History of Present Illness: HPI Narrative: Patient is a 70-year-old male who presents to ED today along with his son for concerns of nausea, vomiting, abdominal pain, and a productive cough. Son states symptoms began yesterday evening after eating dinner. He states his father vomited 2-3 times. Reports emesis was not bloody or bilious. Reports patient was complaining of abdominal pains as well. States this morning his abdominal pain and nausea continued. He did not have an appetite for breakfast. No episodes of vomiting today. They report a few episodes of diarrhea several days ago but bowel movements have been normal over the past few days. No fevers. Patient has a history of COPD chronically on 4L O2. Patient does not complain of shortness of breath or chest pain. He has not had to increase his oxygen however her son does state he has had a productive cough with green/yellow sputum. PMH is significant for diabetes, epilepsy, COPD, HTN. MD elicited complaint: nausea, vomiting and abdominal pain Associated nausea: Yes Associated abdominal pain: Yes Location of pain: Diffuse Exacerbating factors: eating Relieving factors: none Associated symtoms: Reports nausea; Denies change in vision, chest pain, dizziness, dysuria, fatigue, headache(s), malaise, palpitations or syncope Review of Systems Const: Denies: fever(s), chills, body aches, fatigue or malaise Eyes: Denies: change in vision, blurry vision or photophobia ENMT: Denies: throat pain, odynophagia, nasal discharge or nasal congestion Card: Denies: chest pain, palpitations, irregular heart rhythm, edema, swelling of feet/ankles, lightheadedness, syncope, pre-syncope or dyspnea on exertion Resp: Reports: dyspnea (chronic-at baseline), productive cough and change in phlegm color; Denies: wheezing, pain on inspiration or hemoptysis GI: Reports: abdominal pain, nausea and vomiting; Denies: hematemesis, heartburn, diarrhea, belching, excessive flatus, change in bowel habits, hematochezia or melena : Denies: flank pain, difficulty urinating or dysuria Musc: Denies: neck pain, back pain, extremity pain or joint pain Skin/Breast: Denies: rash Neuro: Denies: headache(s), numbness in extremities, weakness in extremities, sensory changes or dizziness PFSH ED PFSH: Medical History Acute respiratory failure with hypoxia and hypercapnia CAD (coronary artery disease) Details unknown COPD (chronic obstructive pulmonary disease) DM type 2 (diabetes mellitus, type 2) [id number], on Metformin Emphysema of lung Endotracheally intubated 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 Generalized epilepsy, intractable Generalized seizure History of echocardiogram (~05/2020) 60%EF HLD (hyperlipidemia) Statin therapy HTN (hypertension) Hyperammonemia Ammonia level of 92 in May 2020 Lung cancer Pneumonia Post-traumatic seizures Notated on several ER visits, details otherwise unknown, on Keppra Respiratory failure Sepsis Smoking addiction Surgical History H/O neck surgery H/O: knee surgery History of shoulder surgery Hx of appendectomy Family History Other Cancer Heart disease Social History Smoking and tobacco status: current every day smoker cigarettes Packs smoked per day: 1 Alcohol intake: never Lives independently: Yes Household members: spouse Marital status: Current occupational status: retired Physical Exam Const: COMMON NORMALS: patient oriented x3, no limitations and alert GENERAL APPEARANCE: cooperative NUTRITIONAL APPEARANCE: overweight ORIENTATION/CONSCIOUSNESS: Yes awake, Yes oriented to person, Yes oriented to place and Yes oriented to time OTHER: patient appears dirty and odorous HENMT: COMMON NORMALS: normocephalic and atraumatic HEAD & SCALP: normal to inspection, normocephalic and atraumatic Resp: COMMON NORMALS: normal respiratory effort, No retractions and No use of accessory muscles EFFORT & INSPECTION: No tachypneic and No labored AUSCULTATION: diminished lung sounds OTHER: on his baseline 4L O2 via NC Cardio: COMMON NORMALS: regular rate and regular rhythm RATE: regular rate RHYTHM: regular rhythm GI: COMMON NORMALS: Normal to inspection, nondistended, normoactive bowel sounds present, Soft to palpation, No hepatosplenomegaly present and no masses INSPECTION: Yes normal to inspection PALPATION: Yes Soft to palpation, Yes Tenderness to palpation present (GI) (throughout mid to upper abdomen) and Yes No hepatosplenomegaly present Extremity: COMMON NORMALS: normal to inspection, capillary refill normal, no joint enlargement, no clubbing, cyanosis or edema, no calf tenderness and no pedal edema Neuro: NATE COMA SCALE: document GCS findings Nate coma scale eye opening: Spontaneous Nate coma scale verbal response: Orientated Nate coma scale motor response: Obey commands Nate coma scale total score: 15 COMMON NORMALS: patient oriented x3, moves all extremities, no focal motor deficits and no sensory deficits noted SENSORIUM/ORIENTATION: Yes alert, Yes oriented to person, Yes oriented to place and Yes oriented to time Skin: RASHES: no rashes Course Vital Signs: Vital signs: Vital Signs Temperature 98.9 F 10/29/21 11:35 Pulse Rate 78 10/29/21 16:13 Respiratory Rate 16 10/29/21 16:13 Blood Pressure 148/87 10/29/21 16:13 Pulse Oximetry 97 10/29/21 16:13 MDM - Nausea/Vomiting/Diarrhea MDM Narrative: Medical decision making narrative: Patient is a 70-year-old here with cough, increased sputum, abdominal pain, nausea, vomiting. Patient's vital signs are stable. Labs are fairly unremarkable. Rapid COVID negative. PCR COVID pending. CXR showing some interstitial changes in his left lung base. Patient does have a history of COPD chronically on 4L O2. He has not had to increase this. He does not complain of worsening shortness of breath. No chest pain. He has not had any episodes of vomiting or diarrhea while here. CT scan of his abdomen/pelvis is essentially normal. At this time we will go ahead and place on antibiotics for COPD exacerbation/pneumonia and recommend close observation at home for worsening of symptoms. Strict return to ED precautions given. Patient and son verbalized understanding. Lab Data: Labs: Lab Results 10/29/21 10/29/21 10/29/21 12:15 12:15 12:15 WBC 11.5 10^3/uL H 10 ^3/uL (4.0-10.0) RBC 5.96 10^6/uL H 10 ^6/uL (4.1-5.3) Hgb 17.6 g/dL H g/dL (11.7-16.6) Hct 52.7 % H % (42.0-52.0) MCV 88.4 fl fl (80-94) MCH 29.5 pg pg (28.0-34.0) MCHC 33.4 g/dL g/dL (30.0-36.0) RDW 12.9 % % (12.1-15.1) Plt Count 218 10^3/cmm 10^3 /cmm (130-400) MPV 10.1 fL fL (7.4-10.4) Neut % (Auto) 68.5 % % Lymph % (Auto) 19.2 % % [place] % (Auto) 7.0 % % Eos % (Auto) 4.4 % % Baso % (Auto) 0.4 % % Neut # (Auto) 7.87 10^3/uL H 10 ^3/uL (1.8-7.7) Lymph # (Auto) 2.2 10^3/uL 10^3/ uL (0.8-4.8) [place] # (Auto) 0.8 10^3/uL 10^3/ uL (0.2-0.9) Eos # (Auto) 0.5 10^3/uL 10^3/ uL (0.0-0.8) Baso # (Auto) 0.1 10^3/uL 10^3/ uL (0.0-0.1) Nucleated RBC % (a uto) 0 % % Nucleated RBCs # 0.0 /100WBC /100W BC Sodium 137 mmol/L mmol/L (136-145) Potassium 3.7 mmol/L mmol/L (3.5-5.1) Chloride 95 mmol/L L mmol/ L (98-107) Carbon Dioxide 27 mmol/L mmol/L (22-29) Anion Gap 18.7 (5-19) BUN 10 mg/dL mg/dL (8-23) Creatinine 1.0 mg/dL mg/dL (0.7-1.2) GFR Calculation Not Reportable Glucose 127 mg/dL H mg/dL (65-115) Calculated Osmolal ity 285 mOsm/kg mOsm/ kg (285-295) Calcium 9.3 mg/dL mg/dL (8.5-10.5) Total Bilirubin 0.7 mg/dL mg/dL (0.15-1.2) AST 14 U/L U/L (0-40) ALT 10 U/L U/L (0-41) Alkaline Phosphata se 140 IU/L H IU/L (40-130) Total Protein 8.3 g/dL g/dL (6.6-8.7) Albumin 4.4 g/dL g/dL (3.5-5.2) Globulin 3.9 g/dL g/dL (1.3-4.6) Lipase 14 U/L U/L (13-60) Urine Color Urine Appearance Urine pH Ur Specific Gravit y Urine Protein Urine Glucose (UA) Urine Ketones Urine Blood Urine Nitrate Urine Bilirubin Urine Urobilinogen Ur Leukocyte Lizzeth ase SARS-CoV-2 Ag (Rap id) Negative (Negative) 10/29/21 12:15 WBC RBC Hgb Hct MCV MCH MCHC RDW Plt Count MPV Neut % (Auto) Lymph % (Auto) [place] % (Auto) Eos % (Auto) Baso % (Auto) Neut # (Auto) Lymph # (Auto) [place] # (Auto) Eos # (Auto) Baso # (Auto) Nucleated RBC % (a uto) Nucleated RBCs # Sodium Potassium Chloride Carbon Dioxide Anion Gap BUN Creatinine GFR Calculation Glucose Calculated Osmolal ity Calcium Total Bilirubin AST ALT Alkaline Phosphata se Total Protein Albumin Globulin Lipase Urine Color Yellow (Yellow) Urine Appearance Clear (CLEAR) Urine pH 5 (5-7) Ur Specific Gravit y 1.020 (1.005-1.030) Urine Protein Neg (Negative) Urine Glucose (UA) Norm (Normal) Urine Ketones Negative (Negative) Urine Blood Neg (Negative) Urine Nitrate Negative (Negative) Urine Bilirubin Neg (Negative) Urine Urobilinogen 1 mg/dL H mg/dL (Negative) Ur Leukocyte Lizzeth ase Negative (Negative) SARS-CoV-2 Ag (Rap id) Imaging Data^: CXR: Radiologist's impression: [facility] [address] [place] [address] XRay Report Signed Patient: Robert Crisostomo Unit #: [id number] : 1950 Age/Sex: 70 / M ADM Date: 10/29/21 Loc: ER Room/Bed: Attending Dr: Ordering Provider/Ordering MD: Lizzy Aggarwal Date of Service: 10/29/21 Procedure(s): XR chest 1V portable [id number] Accession Number(s): [id number] Report Number: [id number] WS: [id number] XR chest 1V portable [id number] REASON FOR EXAM: cough FINDINGS: Patient position is rotated. Compared to the previous examination of 06/22/2021, previously demonstrated lung opacities improved. There are residual/new interstitial changes in the left lung base. No other significant pulmonary parenchymal or pleural abnormality is identified. Postoperative and degenerative changes in the post fracture left shoulder. XR/XR chest 1V portable [id number] IMPRESSION: Intimal interstitial changes in the left lung base of uncertain chronicity. Follow-up chest x-ray is recommended. Dictated By: Shayan Peterson Jr, MD Signed By: Shayan Peterson Jr, MD Signed Date/Time: 10/29/21 1208 DD/ 1156 CT Abd/Pel: Radiologist's impression: [address] [address] [address] Scan Report Signed Patient: Robert Crisostomo Unit #: [id number] : 1950 Age/Sex: 70 / M ADM Date: 10/29/21 Loc: ER Room/Bed: Attending Dr: Ordering Provider/Ordering MD: Lizzy Aggarwal Date of Service: 10/29/21 Procedure(s): CT abdomen pelvis w con* [id number] Accession Number(s): [id number] Report Number: [id number] PROCEDURE INFORMATION: Exam: CT Abdomen And Pelvis With Contrast Exam date and time: 10/29/2021 11:59 AM Age: 70 years old Clinical indication: Nausea and vomiting; Prior surgery; Surgery type: Pelvis; Additional info: Abdominal pain, vomiting TECHNIQUE: Imaging protocol: Computed tomography of the abdomen and pelvis with contrast. Radiation optimization: All CT scans at this facility use at least one of these dose optimization techniques: automated exposure control; mA and/or kV adjustment per patient size (includes targeted exams where dose is matched to clinical indication); or iterative reconstruction. Contrast material: OMNI 300; Contrast volume: 95 ml; Contrast route: INTRAVENOUS (IV); COMPARISON: CT chest abd pel w con* 02/03/2021 6:38 PM RADIATION DOSE METRICS: Total DLP (mGy-cm): 1584.42 FINDINGS: Lungs: Emphysematous changes. Diaphragm: Small hiatal hernia. Liver: Normal. No mass. Gallbladder and bile ducts: Cholelithiasis. Pancreas: Normal. No ductal dilation. Spleen: Normal. No splenomegaly. Adrenal glands: Normal. No mass. Kidneys and ureters: Normal. No hydronephrosis. Stomach and bowel: Diverticulosis without diverticulitis. Appendix: No evidence of appendicitis. Intraperitoneal space: Unremarkable. No free air. No significant fluid collection. Vasculature: Unremarkable. No abdominal aortic aneurysm. Lymph nodes: Unremarkable. No enlarged lymph nodes. Urinary bladder: Unremarkable as visualized. Reproductive: Unremarkable as visualized. Bones/joints: Right iliac wing surgical hardware. Soft tissues: Unremarkable. CT/CT abdomen pelvis w con* [id number] IMPRESSION: 1. Negative for acute inflammatory process in the abdomen or pelvis. 2. Emphysematous changes. 3. Cholelithiasis. 4. Diverticulosis without diverticulitis. 5. Right iliac wing surgical hardware. 6. Small hiatal hernia. Dictated By: Erwin Ascencio MD Signed By: Erwin Ascencio MD Signed Date/Time: 10/29/21 1540 DD/ 1159 Discharge Plan Discharge Patient Disposition: Home Clinical Impression: Pneumonia Qualifiers: Pneumonia type: due to unspecified organism Laterality: left Lung location: lower lobe of lung Qualified Code(s): J18.9 - Pneumonia, unspecified organism Condition: Stable Prescriptions: New levofloxacin 750 mg tablet 750 mg PO DAILY 5 Days Qty: 5 RF: 0 No Action aspirin 325 mg Tablet 325 mg PO DAILY RF: 0 albuterol sulfate 90 mcg/actuation HFA aerosol inhaler 2 inh INHALATION Q4H PRN (Reason: shortness of breath or wheezing) Qty: 6.7 RF: 0 gabapentin 600 mg Tablet 600 mg PO BID RF: 0 ipratropium-albuterol 0.5 mg-3 mg(2.5 mg base)/3 mL Solution For Nebulization 3 ml INHALATION QID RF: 0 polyethylene glycol 3350 [Miralax] 17 gram Powder In Packet See Rx Instructions .ROUTE .COMPLEX RF: 0 amlodipine 2.5 mg Tablet 2.5 mg PO DAILY RF: 0 pantoprazole [Protonix] 40 mg Tablet,Delayed Release (Dr/Ec) 40 mg PO DAILY RF: 0 dorzolamide-timolol 22.3-6.8 mg/mL Drops 1 drp OPHTHALMIC (EYE) BID RF: 0 albuterol sulfate 90 mcg/actuation Hfa Aerosol Inhaler 2 puff INHALATION QID RF: 0 metformin 500 mg Tablet Extended Release 24 Hr 500 mg PO DAILY RF: 0 rosuvastatin [Crestor] 5 mg Tablet 5 mg PO DAILY RF: 0 omega 8-iww-dis-fish oil [Fish Oil] 1,000 mg (120 mg-180 mg) Capsule 1 cap PO BID RF: 0 lorazepam [Lorazepam Intensol] 2 mg/mL concentrate 2 mg buccal DAILY PRN (Reason: seizure activity) Qty: 30 RF: 0 hydrochlorothiazide 25 mg Tablet 25 mg PO DAILY RF: 0 Thera-M 9 mg iron-400 mcg tablet 1 tab PO QAM Qty: 60 RF: 0 Vimpat 50 mg Tablet 100 mg PO BID Qty: 60 RF: 0 Discharge Orders: Discharge ED (Routine); Ordered 10/29/21 Ordered By: Lizzy Aggarwal Activity Restrictions/Additional Instructions: As we discussed you should get results of your PCR COVID test in the next 24 to 48 hours. [facility] or contact our case management team here in the ED to try to get you set up with a monoclonal antibody infusion. You need to return to the emergency department for worsening shortness of breath, difficulty breathing, chest pain, severe abdominal pain, repetitive episodes of vomiting or diarrhea, or any other concerns you may have. 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 Generalized epilepsy, intractable Generalized seizure History of echocardiogram (~05/2020) 60%EF HLD (hyperlipidemia) Statin therapy HTN (hypertension) Hyperammonemia Ammonia level of 92 in May 2020 Lung cancer Pneumonia Post-traumatic seizures Notated on several ER visits, details otherwise unknown, on Keppra Respiratory failure Sepsis Smoking addiction Surgical History H/O neck surgery H/O: knee surgery History of shoulder surgery Hx of appendectomy Family History Other Cancer Heart disease Social History Smoking and tobacco status: current every day smoker cigarettes Packs smoked per day: 1 Alcohol intake: never Lives independently: Yes Household members: spouse Marital status: Current occupational status: retired Course Vital Signs: Vital signs: Vital Signs Temperature 98.9 F 10/29/21 11:35 Pulse Rate 78 10/29/21 16:13 Respiratory Rate 16 10/29/21 16:13 Blood Pressure 148/87 10/29/21 16:13 Pulse Oximetry 97 10/29/21 16:13 MDM - Nausea/Vomiting/Diarrhea MDM Narrative: Medical decision making narrative: Chart reviewed and patient discussed with midlevel. Agree with assessment and plan. Lab Data: Labs: Lab Results 10/29/21 10/29/21 10/29/21 12:15 12:15 12:15 WBC 11.5 10^3/uL H 10 ^3/uL (4.0-10.0) RBC 5.96 10^6/uL H 10 ^6/uL (4.1-5.3) Hgb 17.6 g/dL H g/dL (11.7-16.6) Hct 52.7 % H % (42.0-52.0) MCV 88.4 fl fl (80-94) MCH 29.5 pg pg (28.0-34.0) MCHC 33.4 g/dL g/dL (30.0-36.0) RDW 12.9 % % (12.1-15.1) Plt Count 218 10^3/cmm 10^3 /cmm (130-400) MPV 10.1 fL fL (7.4-10.4) Neut % (Auto) 68.5 % % Lymph % (Auto) 19.2 % % [place] % (Auto) 7.0 % % Eos % (Auto) 4.4 % % Baso % (Auto) 0.4 % % Neut # (Auto) 7.87 10^3/uL H 10 ^3/uL (1.8-7.7) Lymph # (Auto) 2.2 10^3/uL 10^3/ uL (0.8-4.8) [place] # (Auto) 0.8 10^3/uL 10^3/ uL (0.2-0.9) Eos # (Auto) 0.5 10^3/uL 10^3/ uL (0.0-0.8) Baso # (Auto) 0.1 10^3/uL 10^3/ uL (0.0-0.1) Nucleated RBC % (a uto) 0 % % Nucleated RBCs # 0.0 /100WBC /100W BC Sodium 137 mmol/L mmol/L (136-145) Potassium 3.7 mmol/L mmol/L (3.5-5.1) Chloride 95 mmol/L L mmol/ L (98-107) Carbon Dioxide 27 mmol/L mmol/L (22-29) Anion Gap 18.7 (5-19) BUN 10 mg/dL mg/dL (8-23) Creatinine 1.0 mg/dL mg/dL (0.7-1.2) GFR Calculation Not Reportable Glucose 127 mg/dL H mg/dL (65-115) Calculated Osmolal ity 285 mOsm/kg mOsm/ kg (285-295) Calcium 9.3 mg/dL mg/dL (8.5-10.5) Total Bilirubin 0.7 mg/dL mg/dL (0.15-1.2) AST 14 U/L U/L (0-40) ALT 10 U/L U/L (0-41) Alkaline Phosphata se 140 IU/L H IU/L (40-130) Total Protein 8.3 g/dL g/dL (6.6-8.7) Albumin 4.4 g/dL g/dL (3.5-5.2) Globulin 3.9 g/dL g/dL (1.3-4.6) Lipase 14 U/L U/L (13-60) Urine Color Urine Appearance Urine pH Ur Specific Gravit y Urine Protein Urine Glucose (UA) Urine Ketones Urine Blood Urine Nitrate Urine Bilirubin Urine Urobilinogen Ur Leukocyte Lizzeth ase SARS-CoV-2 Ag (Rap id) Negative (Negative) 10/29/21 12:15 WBC RBC Hgb Hct MCV MCH MCHC RDW Plt Count MPV Neut % (Auto) Lymph % (Auto) [place] % (Auto) Eos % (Auto) Baso % (Auto) Neut # (Auto) Lymph # (Auto) [place] # (Auto) Eos # (Auto) Baso # (Auto) Nucleated RBC % (a uto) Nucleated RBCs # Sodium Potassium Chloride Carbon Dioxide Anion Gap BUN Creatinine GFR Calculation Glucose Calculated Osmolal ity Calcium Total Bilirubin AST ALT Alkaline Phosphata se Total Protein Albumin Globulin Lipase Urine Color Yellow (Yellow) Urine Appearance Clear (CLEAR) Urine pH 5 (5-7) Ur Specific Gravit y 1.020 (1.005-1.030) Urine Protein Neg (Negative) Urine Glucose (UA) Norm (Normal) Urine Ketones Negative (Negative) Urine Blood Neg (Negative) Urine Nitrate Negative (Negative) Urine Bilirubin Neg (Negative) Urine Urobilinogen 1 mg/dL H mg/dL (Negative) Ur Leukocyte Lizzeth ase Negative (Negative) SARS-CoV-2 Ag (Rap id) Discharge Plan Discharge Patient Disposition: Home Clinical Impression: Pneumonia Qualifiers: Pneumonia type: due to unspecified organism Laterality: left Lung location: lower lobe of lung Qualified Code(s): J18.9 - Pneumonia, unspecified organism Condition: Stable Prescriptions: New levofloxacin 750 mg tablet 750 mg PO DAILY 5 Days Qty: 5 RF: 0 No Action aspirin 325 mg Tablet 325 mg PO DAILY RF: 0 albuterol sulfate 90 mcg/actuation HFA aerosol inhaler 2 inh INHALATION Q4H PRN (Reason: shortness of breath or wheezing) Qty: 6.7 RF: 0 gabapentin 600 mg Tablet 600 mg PO BID RF: 0 ipratropium-albuterol 0.5 mg-3 mg(2.5 mg base)/3 mL Solution For Nebulization 3 ml INHALATION QID RF: 0 polyethylene glycol 3350 [Miralax] 17 gram Powder In Packet See Rx Instructions .ROUTE .COMPLEX RF: 0 amlodipine 2.5 mg Tablet 2.5 mg PO DAILY RF: 0 pantoprazole [Protonix] 40 mg Tablet,Delayed Release (Dr/Ec) 40 mg PO DAILY RF: 0 dorzolamide-timolol 22.3-6.8 mg/mL Drops 1 drp OPHTHALMIC (EYE) BID RF: 0 albuterol sulfate 90 mcg/actuation Hfa Aerosol Inhaler 2 puff INHALATION QID RF: 0 metformin 500 mg Tablet Extended Release 24 Hr 500 mg PO DAILY RF: 0 rosuvastatin [Crestor] 5 mg Tablet 5 mg PO DAILY RF: 0 omega 7-env-yxz-fish oil [Fish Oil] 1,000 mg (120 mg-180 mg) Capsule 1 cap PO BID RF: 0 lorazepam [Lorazepam Intensol] 2 mg/mL concentrate 2 mg buccal DAILY PRN (Reason: seizure activity) Qty: 30 RF: 0 hydrochlorothiazide 25 mg Tablet 25 mg PO DAILY RF: 0 Thera-M 9 mg iron-400 mcg tablet 1 tab PO QAM Qty: 60 RF: 0 Vimpat 50 mg Tablet 100 mg PO BID Qty: 60 RF: 0 Discharge Orders: Discharge ED (Routine); Ordered 10/29/21 Ordered By: Lizzy Aggarwal Activity Restrictions/Additional Instructions: As we discussed you should get results of your PCR COVID test in the next 24 to 48 hours. If positive [facility] or contact our case management team here in the ED to try to get you set up with a monoclonal antibody infusion. You need to return to the emergency department for worsening shortness of breath, difficulty breathing, chest pain, severe abdominal pain, repetitive episodes of vomiting or diarrhea, or any other concerns you may have. Coding Level of Care Code ED Psychology Associate for Jeremy Howell Exam Comprehensive
[2021-10-29 12:29] LABS: Add Urine Microscopic? NO; Charge for UA Resulting for Rev
[2021-10-29 12:36] VITALS: BP 133/85; PULSE 73; RESP 18; O2SAT 100
[2021-10-29 12:37] LABS: Basophils # 0.1 10^3/uL (0.0-0.1); Basophils % 0.4 %; Eosinophils # 0.5 10^3/uL (0.0-0.8); Eosinophils % 4.4 %; Hematocrit 52.7 % (42.0-52.0); Hemoglobin 17.6 g/dL (11.7-16.6); Lymphocytes # 2.2 10^3/uL (0.8-4.8); Lymphocytes % 19.2 %; Mean Corpuscular HGB Conc 33.4 g/dL (30.0-36.0); Mean Corpuscular Hemoglobin 29.5 pg (28.0-34.0); Mean Corpuscular Volume 88.4 fl (80-94); Mean Platelet Volume 10.1 fL (7.4-10.4); Monocytes # 0.8 10^3/uL (0.2-0.9); Neutrophils # 7.87 10^3/uL (1.8-7.7); Neutrophils % 68.5 %; Nucleated Red Blood Cells % 0 %; Platelet Count 218 10^3/cmm (130-400); Red Blood Count 5.96 10^6/uL (4.1-5.3); Red Cell Distribution Width 12.9 % (12.1-15.1); White Blood Count 11.5 10^3/uL (4.0-10.0)
[2021-10-29 12:43] LABS: Bilirubin Urine Neg (Negative); Blood Urine Neg (Negative); Glucose Urine UA Norm (Normal); Ketones Urine Negative (Negative); Leukocyte Esterase Urine Negative (Negative); Nitrate Urine Negative (Negative); Protein Urine Neg (Negative); Urine Appearance Clear (CLEAR); Urine Color Yellow (Yellow); Urobilinogen Urine 1 mg/dL (Negative); pH Urine 5 (5-7)
[2021-10-29 12:53] LABS: Alanine Aminotransferase 10 U/L (0-41); Albumin Level 4.4 g/dL (3.5-5.2); Alkaline Phosphatase 140 IU/L (40-130); Anion Gap 18.7 (5-19); Aspartate Amino Transferase 14 U/L (0-40); Blood Urea Nitrogen 10 mg/dL (8-23); Calcium 9.3 mg/dL (8.5-10.5); Carbon Dioxide 27 mmol/L (22-29); Chloride 95 mmol/L (98-107); Globulin 3.9 g/dL (1.3-4.6); Glucose 127 mg/dL (65-115); Lipase 14 U/L (13-60); Osmolality Calculated 285 mOsm/kg (285-295); Potassium 3.7 mmol/L (3.5-5.1); Sodium 137 mmol/L (136-145); Total Bilirubin 0.7 mg/dL (0.15-1.2); Total Protein 8.3 g/dL (6.6-8.7)
[2021-10-29 12:59] LABS: SARS Covid-2 Antigen Negative (Negative)
[2021-10-29 16:13] VITALS: BP 148/87; PULSE 78; RESP 16; O2SAT 97
[2021-10-30 14:18] LABS: Coronavirus Test Green County Not Detected
== END 2021-10-29 16:24 | disposition home or self-care (01) ==
PROVIDERS: Emergency Provider Physician Assistant
DX: J18.9 Pneumonia, unspecified organism (principal); Z79.82 Long term (current) use of aspirin; I25.10 Atherosclerotic heart disease of native coronary artery without angina pectoris; J44.9 Chronic obstructive pulmonary disease, unspecified; E11.9 Type 2 diabetes mellitus without complications; E78.5 Hyperlipidemia, unspecified; Z85.118 Personal history of other malignant neoplasm of bronchus and lung; F17.210 Nicotine dependence, cigarettes, uncomplicated; Z20.822 Contact with and (suspected) exposure to COVID-19
CPT/HCPCS: 71045; 74177; 80053; 81003; 83690; 85025; 87426; 87635; 99282; Q9967

== ENCOUNTER 2021-11-25 22:25 | Emergency (ER) | payer OTHER, SELFPAY ==
--- NOTE | 2021-11-25 22:34 | XRR_ITS ---
PROCEDURE INFORMATION: Exam: XR Chest Exam date and time: 11/25/2021 10:34 PM Age: 70 years old Clinical indication: Shortness of breath; Additional info: Inhalation burn TECHNIQUE: Imaging protocol: XR of the chest. Views: 1 view. COMPARISON: CR XR chest 1V portable [id number] 10/29/2021 11:50 AM FINDINGS: Lungs: Lungs are clear. Pleural spaces: There is no pleural effusion or pneumothorax. Heart/Mediastinum: Cardiomediastinal contours are unremarkable. Bones/joints: Bones are unremarkable. XR/XR chest 1V portable [id number] IMPRESSION: No acute findings.
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
[2021-11-25 22:43] VITALS: BP 129/74; PULSE 96; RESP 20; TEMP 36.3; O2SAT 98; BMI 30.2
[2021-11-25] MEDS: dexamethasone 10 mg/mL INJ IVP (22:46)
[2021-11-25 23:06] LABS: Alanine Aminotransferase 24 U/L (0-41); Albumin Level 4.2 g/dL (3.5-5.2); Alkaline Phosphatase 142 IU/L (40-130); Aspartate Amino Transferase 31 U/L (0-40); Blood Urea Nitrogen 12 mg/dL (8-23); Calcium 8.8 mg/dL (8.5-10.5); Carbon Dioxide 25 mmol/L (22-29); Chloride 95 mmol/L (98-107); Globulin 3.3 g/dL (1.3-4.6); Glucose 172 mg/dL (65-115); Osmolality Calculated 284 mOsm/kg (285-295); Sodium 135 mmol/L (136-145); Total Bilirubin 0.5 mg/dL (0.15-1.2); Total Protein 7.5 g/dL (6.6-8.7)
[2021-11-25 23:07] LABS: Anion Gap 18.6 (5-19); Potassium 3.6 mmol/L (3.5-5.1)
[2021-11-25 23:08] LABS: ABG PCO2 39.6 mmHg (35-45); Alveolar-Arterial Oxygen Gradi 3.7 mmHg (5-10); Arterial Blood Gas Hematocrit 50.7 % (42-52); Base Excess ABG -0.4 mmol/L (-2.0-2.0); Blood Gas Sample Type Arterial; Carboxyhemoglobin 3.5 %THgb (0.4-20.1); HCO3 ABG 24.3 mmol/L (22-26); Ionized Calcium Level - ABG 1.2 mmol/L (1.1-1.4); Methemoglobin 0.1 % (0.4-1.5); Oxygen Saturation ABG 95.4; PO2 ABG 74.5 mmHg (80.0-100.0); Potassium Level - ABG 3.3 mmol/L (3.5-5.0); Total Hemoglobin 16.5 g/dL (14-18)
[2021-11-25 23:09] LABS: Blood Gas Sample Site Radial, left; Oxygen Device ROOM AIR
[2021-11-25 23:14] LABS: Basophils % 0.3 %; Eosinophils # 0.1 10^3/uL (0.0-0.8); Eosinophils % 1.9 %; Hematocrit 53.4 % (42.0-52.0); Hemoglobin 17.7 g/dL (11.7-16.6); Lymphocytes # 1.2 10^3/uL (0.8-4.8); Lymphocytes % 18.9 %; Mean Corpuscular HGB Conc 33.1 g/dL (30.0-36.0); Mean Corpuscular Hemoglobin 29.5 pg (28.0-34.0); Mean Corpuscular Volume 88.9 fl (80-94); Mean Platelet Volume 10.5 fL (7.4-10.4); Monocytes # 0.7 10^3/uL (0.2-0.9); Monocytes % 11.4 %; Neutrophils # 4.21 10^3/uL (1.8-7.7); Neutrophils % 66.9 %; Nucleated Red Blood Cells % 0 %; Platelet Count 173 10^3/cmm (130-400); Red Blood Count 6.01 10^6/uL (4.1-5.3); Red Cell Distribution Width 12.7 % (12.1-15.1); White Blood Count 6.3 10^3/uL (4.0-10.0)
[2021-11-26] MEDS: bacitracin ointment Pkt 1 EACH TOPICAL (03:21)
== END 2021-11-26 03:22 | disposition home or self-care (01) ==
PROVIDERS: Emergency Provider Emergency Medicine
DX: T20.19XA Burn of first degree of multiple sites of head, face, and neck, initial encounter (principal); T21.11XA Burn of first degree of chest wall, initial encounter; T31.0 Burns involving less than 10% of body surface; W40.8XXA Explosion of other specified explosive materials, initial encounter; T59.811A Toxic effect of smoke, accidental (unintentional), initial encounter; Z79.82 Long term (current) use of aspirin; Z79.84 Long term (current) use of oral hypoglycemic drugs; I25.10 Atherosclerotic heart disease of native coronary artery without angina pectoris; J44.9 Chronic obstructive pulmonary disease, unspecified; E11.9 Type 2 diabetes mellitus without complications; I10 Essential (primary) hypertension; Z85.118 Personal history of other malignant neoplasm of bronchus and lung; F17.210 Nicotine dependence, cigarettes, uncomplicated
CPT/HCPCS: 71045; 80051; 80053; 82330; 82805; 85025; 96374; 99284; J1100